=== PATIENT | male | born 1950 | race Caucasian/White ===

== ENCOUNTER 2017-08-02 16:48 | Inpatient (IN) | payer MEDICARE, MEDICAID ==
[~2017-08-02] VITALS: Ht 5535.5 cm; Wt 63.0 kg
[~2017-08-02 16:48] MED LIST: ASPI-1053; BAC10T PO; GABA-338 PO; MELO-83 PO; NORCO10T PO; SIMV20TA5 PO; SIN25C PO
[2017-08-02] MEDS ORDERED: LORazepam 2 mg/ml vial IV ONE (17:10)
[2017-08-02] MEDS ORDERED: levoFLOXACIN-Levaquin 750MG/D5 150 ML IV STA (17:18)
[2017-08-02 17:37] LABS: BASOPHILS % (AUTO) 0.5 % (0-1); EOSINOPHILS % (AUTO) 0.3 % (0-6); HEMOGLOBIN 13.8 g/dl (14.0-17.9); LYMPHOCYTES # (AUTO) 2.5 X10'3 (1.1-4.8); LYMPHOCYTES % (AUTO) 23.6 % (21-51); MEAN CORPUSCULAR HEMOGLOBIN 34.1 PG (27.0-31.0); MEAN CORPUSCULAR HGB CONC 33.5 % (33.0-36.5); MEAN CORPUSCULAR VOLUME 101.6 FL (78-98); MEAN PLATELET VOLUME 9.6 FL (7.4-10.4); MONOCYTES # (AUTO) 1.6 X10'3 (0-0.9); MONOCYTES % (AUTO) 15.3 % (2-12); NEUTROPHILS # (AUTO) 6.3 X10'3 (1.8-7.7); NEUTROPHILS % (AUTO) 60.3 % (42-75); PLATELET COUNT 258 X10'3 (140-440); RED BLOOD COUNT 4.04 X10'6 (4.70-6.10); RED CELL DISTRIBUTION WIDTH 13.8 % (11.5-14.5); WHITE BLOOD COUNT 10.4 X10'3 (4.5-11.0)
[2017-08-02 17:58] LABS: PARTIAL THROMBOPLASTIN TIME 28 SECONDS (22-32); PROTHROMBIN TIME 10.6 SECONDS (9.0-12.0)
[2017-08-02] MEDS ORDERED: aspirin 325mg tablet PO ONE (18:00)
[2017-08-02 18:05] LABS: ALANINE AMINOTRANSFERASE 40 U/L (12-78); ALBUMIN 3.1 G/DL (3.4-5.0); ALBUMIN/GLOBULIN RATIO 0.6 (1.1-1.5); ALKALINE PHOSPHATASE 96 IU/L (46-116); ANION GAP 11 (8-16); ASPARTATE AMINO TRANSFERASE 43 U/L (10-37); BILIRUBIN,TOTAL 0.7 MG/DL (0.1-1.0); BLOOD UREA NITROGEN 31 MG/DL (7-18); BUN/CREATININE RATIO 14.9 (5.4-32.0); CALCIUM 9.1 MG/DL (8.5-10.1); CHLORIDE 101 MMOL/L (99-107); CREATININE 2.08 MG/DL (0.60-1.10); GLUCOSE 119 MG/DL (70-104); POTASSIUM 3.9 MMOL/L (3.5-5.1); SODIUM 137 MMOL/L (135-145); TOTAL CARBON DIOXIDE 25.3 MMOL/L (24-32); TOTAL PROTEIN 8.4 G/DL (6.4-8.2); eGFR 32 ML/MIN
[2017-08-02] MEDS ORDERED: nitroGLYCERIN-Tridil 50MG/D5W 250 ML IV ONE (18:15)
[2017-08-02] MEDS ORDERED: furosemide 10 MG/1 ML 10ml inj IV ONE (18:35)
[2017-08-02] MEDS ORDERED: normal saline 1000ML IV soln IVB ONE (18:35)
[2017-08-02 18:38] LABS: ETHANOL < 0.010 GM/DL (0.0-0.010)
[2017-08-02 19:25] LABS: URINE AMPHETAMINE SCREEN POSITIVE (Neg); URINE BARBITUATE SCREEN NEGATIVE (Neg); URINE BENZODIAZEPINES SCREEN NEGATIVE (Neg); URINE CANNABINOID SCREEN NEGATIVE (Neg); URINE COCAINE SCREEN NEGATIVE (Neg); URINE METHADONE SCREEN NEGATIVE (Neg); URINE OPIATE SCREEN NEGATIVE (Neg); URINE PHENCYCLIDINE SCREEN NEGATIVE (Neg)
[2017-08-02 19:55] LABS: CLARITY,URINE CLEAR (Clear); COLOR,URINE YELLOW (Yellow); GLUCOSE, URINE NEGATIVE (Neg); KETONES,URINE NEGATIVE (Neg); LEUKOCYTE ESTERASE ,URINE NEGATIVE (Neg); NITRITES, URINE NEGATIVE (Neg); OCCULT BLOOD,URINE SMALL (Neg); PH,URINE 5.5 (4.8-8.0); PROTEIN,URINE >=300 mg/dl (Neg)
[2017-08-02] MEDS ORDERED: mag hydrox/Alum hydrox/simeth 30ml oral suspension PO PRN (20:25)
[2017-08-02] MEDS ORDERED: lisinopril 10 MG tablet PO ONE (20:25)
[2017-08-02] MEDS ORDERED: potassium Cl 20 mEq SR tablet PO PRN ×2 (20:25)
[2017-08-02] MEDS ORDERED: morphine 4 MG/ML inj SYRINge IV PRN ×2 (20:25)
[2017-08-02] MEDS ORDERED: magnesium hydroxide 30ml (MOM) UD suspension PO PRN (20:25)
[2017-08-02] MEDS ORDERED: potassium Cl 40MEQ/NS 500ml 500 ML IV PRN ×2 (20:25)
[2017-08-02] MEDS ORDERED: magnesium 4gm in 100ml NS 100 ML IV PRN (20:25)
[2017-08-02] MEDS ORDERED: ondansetron/PF 4mg/2ml inj IV PRN (20:25)
[2017-08-02] MEDS ORDERED: magnesium 2GM in 50ml NS 50 ML IV PRN (20:25)
[2017-08-02] MEDS ORDERED: magnesium Cl slow-release 64mg tablet PO PRN (20:25)
[2017-08-02] MEDS ORDERED: ipratropium/albuterol 3ml nebule NEB PRN (20:25)
[2017-08-02] MEDS ORDERED: albuterol 2.5 MG/3 ML nebule NEB PRN (20:25)
[2017-08-02 20:28] LABS: UA COLLECTION TYPE CLN CATCH MIDSTREAM
[2017-08-02] MEDS: gabapentin 300mg capsule PO SCH (20:31)
[2017-08-02] MEDS ORDERED: heparin 10,000 units/1 ML INJ IV ONE (20:35)
[2017-08-02 20:40] LABS: BACTERIA,URINE NONE SEEN /HPF (Neg); HYALINE CASTS 0-3 /LPF (NEGATIVE); MUCUS STRANDS FEW /LPF (Neg); RBC,URINE 0-2 /HPF (0-2); SQUAMOUS EPITHELIAL CELL,UR FEW /LPF (FEW); WBC,URINE NONE SEEN /HPF (0-4)
[2017-08-02 22:06] LABS: BASOPHILS % (AUTO) 0.4 % (0-1); EOSINOPHILS % (AUTO) 0.1 % (0-6); HEMATOCRIT 38.1 % (42.0-52.0); HEMOGLOBIN 12.6 g/dl (14.0-17.9); LYMPHOCYTES # (AUTO) 1.3 X10'3 (1.1-4.8); LYMPHOCYTES % (AUTO) 14.3 % (21-51); MEAN CORPUSCULAR HEMOGLOBIN 33.7 PG (27.0-31.0); MEAN CORPUSCULAR HGB CONC 33.2 % (33.0-36.5); MEAN CORPUSCULAR VOLUME 101.5 FL (78-98); MEAN PLATELET VOLUME 9.9 FL (7.4-10.4); MONOCYTES # (AUTO) 1.5 X10'3 (0-0.9); MONOCYTES % (AUTO) 16.6 % (2-12); NEUTROPHILS # (AUTO) 6.1 X10'3 (1.8-7.7); NEUTROPHILS % (AUTO) 68.6 % (42-75); PLATELET COUNT 228 X10'3 (140-440); RED BLOOD COUNT 3.75 X10'6 (4.70-6.10); RED CELL DISTRIBUTION WIDTH 13.7 % (11.5-14.5); WHITE BLOOD COUNT 8.9 X10'3 (4.5-11.0)
[2017-08-03 03:27] LABS: BASOPHILS % (AUTO) 0.1 % (0-1); EOSINOPHILS # (AUTO) 0.1 X10'3 (0-0.9); EOSINOPHILS % (AUTO) 0.7 % (0-6); HEMATOCRIT 36.3 % (42.0-52.0); HEMOGLOBIN 12.5 g/dl (14.0-17.9); LYMPHOCYTES # (AUTO) 2.3 X10'3 (1.1-4.8); LYMPHOCYTES % (AUTO) 23.5 % (21-51); MEAN CORPUSCULAR HEMOGLOBIN 34.8 PG (27.0-31.0); MEAN CORPUSCULAR HGB CONC 34.4 % (33.0-36.5); MEAN CORPUSCULAR VOLUME 101.3 FL (78-98); MEAN PLATELET VOLUME 9.6 FL (7.4-10.4); MONOCYTES # (AUTO) 1.5 X10'3 (0-0.9); MONOCYTES % (AUTO) 15.4 % (2-12); NEUTROPHILS # (AUTO) 5.9 X10'3 (1.8-7.7); NEUTROPHILS % (AUTO) 60.3 % (42-75); PLATELET COUNT 233 X10'3 (140-440); RED BLOOD COUNT 3.59 X10'6 (4.70-6.10); RED CELL DISTRIBUTION WIDTH 13.7 % (11.5-14.5); WHITE BLOOD COUNT 9.7 X10'3 (4.5-11.0)
[2017-08-03 03:44] LABS: ALANINE AMINOTRANSFERASE 35 U/L (12-78); ALBUMIN 2.6 G/DL (3.4-5.0); ALBUMIN/GLOBULIN RATIO 0.6 (1.1-1.5); ALKALINE PHOSPHATASE 79 IU/L (46-116); ANION GAP 11 (8-16); ASPARTATE AMINO TRANSFERASE 37 U/L (10-37); BILIRUBIN,TOTAL 0.7 MG/DL (0.1-1.0); BLOOD UREA NITROGEN 29 MG/DL (7-18); BUN/CREATININE RATIO 14.3 (5.4-32.0); CALCIUM 8.5 MG/DL (8.5-10.1); CHLORIDE 102 MMOL/L (99-107); CREATININE 2.03 MG/DL (0.60-1.10); GLUCOSE 158 MG/DL (70-104); POTASSIUM 3.1 MMOL/L (3.5-5.1); SODIUM 139 MMOL/L (135-145); TOTAL CARBON DIOXIDE 26.2 MMOL/L (24-32); eGFR 33 ML/MIN
[2017-08-03] MEDS: heparin 10,000 units/1 ML INJ IV PRN ×2 (05:08→11:30)
[2017-08-03] MEDS ORDERED: CefTRIAXone 2gm/NS 100ml IVPB 100 ML IV SCH (08:00)
[2017-08-03] MEDS: doxepin 25mg capsule PO SCH (08:00)
[2017-08-03] MEDS: baclofen 10mg tablet PO SCH (08:00)
[2017-08-03] MEDS: atorvastatin 10mg tablet PO SCH (08:00)
[2017-08-03] MEDS: gabapentin 300mg capsule PO SCH ×3 (08:00→21:01)
[2017-08-03] MEDS: K and/or MAG REPLACEMENT MC SCH (08:24)
[2017-08-03] MEDS: furosemide 20 MG/2 ML vial IV SCH ×2 (12:48→21:03)
[2017-08-03] MEDS: potassium Cl 20 mEq SR tablet PO SCH ×2 (12:48→17:51)
[2017-08-03] MEDS: pantoprazole 40mg Tablet.DR PO SCH (12:49)
[2017-08-03] MEDS: aspirin 81mg tablet.DR PO SCH (12:49)
[2017-08-03 19:40] VITALS: BP 109/56
[2017-08-03] MEDS: lactobacillus rhamnosus 10,000 MMU CELLS/CAPSULE PO SCH (21:01)
[2017-08-03] MEDS: metoprolol tartrate 12.5mg (1/2 tablet) PO SCH (21:01)
[2017-08-03] MEDS: heparin, porcine 5000 units/ml vial SQ SCH (21:03)
[2017-08-03 23:00] VITALS: BP 86/62
[2017-08-04 03:00] VITALS: BP 126/88
[2017-08-04 07:00] VITALS: BP 82/62
[2017-08-04 07:05] LABS: BASOPHILS % (AUTO) 0.5 % (0-1); EOSINOPHILS # (AUTO) 0.3 X10'3 (0-0.9); HEMATOCRIT 36.3 % (42.0-52.0); HEMOGLOBIN 12.3 g/dl (14.0-17.9); LYMPHOCYTES # (AUTO) 2.7 X10'3 (1.1-4.8); LYMPHOCYTES % (AUTO) 30.6 % (21-51); MEAN CORPUSCULAR HEMOGLOBIN 34.5 PG (27.0-31.0); MEAN CORPUSCULAR HGB CONC 33.9 % (33.0-36.5); MEAN CORPUSCULAR VOLUME 101.6 FL (78-98); MONOCYTES # (AUTO) 1.3 X10'3 (0-0.9); MONOCYTES % (AUTO) 14.9 % (2-12); NEUTROPHILS # (AUTO) 4.5 X10'3 (1.8-7.7); PLATELET COUNT 232 X10'3 (140-440); RED BLOOD COUNT 3.57 X10'6 (4.70-6.10); RED CELL DISTRIBUTION WIDTH 13.9 % (11.5-14.5); WHITE BLOOD COUNT 8.9 X10'3 (4.5-11.0)
[2017-08-04 07:20] LABS: ALANINE AMINOTRANSFERASE 29 U/L (12-78); ALBUMIN 2.3 G/DL (3.4-5.0); ALBUMIN/GLOBULIN RATIO 0.5 (1.1-1.5); ALKALINE PHOSPHATASE 71 IU/L (46-116); ANION GAP 11 (8-16); ASPARTATE AMINO TRANSFERASE 33 U/L (10-37); BILIRUBIN,TOTAL 0.3 MG/DL (0.1-1.0); BLOOD UREA NITROGEN 34 MG/DL (7-18); BUN/CREATININE RATIO 15.1 (5.4-32.0); CALCIUM 8.6 MG/DL (8.5-10.1); CHLORIDE 104 MMOL/L (99-107); CREATININE 2.25 MG/DL (0.60-1.10); GLUCOSE 92 MG/DL (70-104); POTASSIUM 3.7 MMOL/L (3.5-5.1); SODIUM 142 MMOL/L (135-145); TOTAL CARBON DIOXIDE 27.2 MMOL/L (24-32); TOTAL PROTEIN 6.6 G/DL (6.4-8.2); eGFR 29 ML/MIN
[2017-08-04 07:26] LABS: LARGE PLATELETS FEW; PLATELET ESTIMATE NORMAL
[2017-08-04] MEDS: doxepin 25mg capsule PO SCH (07:46)
[2017-08-04] MEDS: heparin, porcine 5000 units/ml vial SQ SCH ×2 (07:47→19:26)
[2017-08-04] MEDS: pantoprazole 40mg Tablet.DR PO SCH (07:47)
[2017-08-04] MEDS: gabapentin 300mg capsule PO SCH ×3 (07:47→21:28)
[2017-08-04] MEDS: aspirin 81mg tablet.DR PO SCH (07:47)
[2017-08-04] MEDS: atorvastatin 10mg tablet PO SCH (07:47)
[2017-08-04] MEDS: potassium Cl 20 mEq SR tablet PO SCH ×2 (07:48→17:48)
[2017-08-04] MEDS: furosemide 20 MG/2 ML vial IV SCH ×2 (07:48→19:26)
[2017-08-04] MEDS: lactobacillus rhamnosus 10,000 MMU CELLS/CAPSULE PO SCH ×2 (07:48→19:26)
[2017-08-04] MEDS: baclofen 10mg tablet PO SCH (07:48)
[2017-08-04] MEDS: metoprolol tartrate 12.5mg (1/2 tablet) PO SCH ×2 (07:56→19:26)
[2017-08-04] MEDS: K and/or MAG REPLACEMENT MC SCH (08:00)
[2017-08-04 11:00] VITALS: BP 122/84
[2017-08-04 15:00] VITALS: BP 116/77
[2017-08-04 18:30] VITALS: BP 137/89
[2017-08-04 22:00] VITALS: BP 147/93
[2017-08-05 02:00] VITALS: BP 138/92
[2017-08-05 05:23] LABS: BASOPHILS # (AUTO) 0.1 X10'3 (0-0.2); BASOPHILS % (AUTO) 1.5 % (0-1); EOSINOPHILS # (AUTO) 0.4 X10'3 (0-0.9); EOSINOPHILS % (AUTO) 4.8 % (0-6); HEMATOCRIT 38.2 % (42.0-52.0); HEMOGLOBIN 12.9 g/dl (14.0-17.9); LYMPHOCYTES # (AUTO) 2.7 X10'3 (1.1-4.8); LYMPHOCYTES % (AUTO) 30.4 % (21-51); MEAN CORPUSCULAR HEMOGLOBIN 34.5 PG (27.0-31.0); MEAN CORPUSCULAR HGB CONC 33.9 % (33.0-36.5); MEAN CORPUSCULAR VOLUME 101.6 FL (78-98); MEAN PLATELET VOLUME 10.3 FL (7.4-10.4); MONOCYTES # (AUTO) 1.6 X10'3 (0-0.9); MONOCYTES % (AUTO) 18.8 % (2-12); NEUTROPHILS # (AUTO) 3.9 X10'3 (1.8-7.7); NEUTROPHILS % (AUTO) 44.5 % (42-75); PLATELET COUNT 239 X10'3 (140-440); RED BLOOD COUNT 3.76 X10'6 (4.70-6.10); RED CELL DISTRIBUTION WIDTH 13.9 % (11.5-14.5); WHITE BLOOD COUNT 8.7 X10'3 (4.5-11.0)
[2017-08-05 05:39] LABS: ALANINE AMINOTRANSFERASE 30 U/L (12-78); ALBUMIN 2.5 G/DL (3.4-5.0); ALBUMIN/GLOBULIN RATIO 0.5 (1.1-1.5); ALKALINE PHOSPHATASE 73 IU/L (46-116); ANION GAP 10 (8-16); ASPARTATE AMINO TRANSFERASE 32 U/L (10-37); BILIRUBIN,TOTAL 0.4 MG/DL (0.1-1.0); BLOOD UREA NITROGEN 33 MG/DL (7-18); BUN/CREATININE RATIO 14.2 (5.4-32.0); CHLORIDE 105 MMOL/L (99-107); CREATININE 2.33 MG/DL (0.60-1.10); GLUCOSE 101 MG/DL (70-104); MAGNESIUM 2.1 MG/DL (1.5-2.4); POTASSIUM 3.7 MMOL/L (3.5-5.1); SODIUM 141 MMOL/L (135-145); TOTAL CARBON DIOXIDE 25.9 MMOL/L (24-32); TOTAL PROTEIN 7.1 G/DL (6.4-8.2); eGFR 28 ML/MIN
[2017-08-05 07:00] VITALS: BP 148/93
[2017-08-05] MEDS: doxepin 25mg capsule PO SCH (07:37)
[2017-08-05] MEDS: furosemide 20 MG/2 ML vial IV SCH (07:37)
[2017-08-05] MEDS: baclofen 10mg tablet PO SCH (07:37)
[2017-08-05] MEDS: lactobacillus rhamnosus 10,000 MMU CELLS/CAPSULE PO SCH ×2 (07:37→21:18)
[2017-08-05] MEDS: gabapentin 300mg capsule PO SCH ×3 (07:37→21:18)
[2017-08-05] MEDS: aspirin 81mg tablet.DR PO SCH (07:37)
[2017-08-05] MEDS: potassium Cl 20 mEq SR tablet PO SCH ×2 (07:37→17:51)
[2017-08-05] MEDS: atorvastatin 10mg tablet PO SCH (07:38)
[2017-08-05] MEDS: metoprolol tartrate 12.5mg (1/2 tablet) PO SCH ×2 (07:41→21:18)
[2017-08-05] MEDS: pantoprazole 40mg Tablet.DR PO SCH (07:41)
[2017-08-05] MEDS: heparin, porcine 5000 units/ml vial SQ SCH ×2 (07:46→21:20)
[2017-08-05] MEDS: K and/or MAG REPLACEMENT MC SCH (08:00)
[2017-08-05] MEDS ORDERED: pneumococcal 23-VAL P-sac vacc 25 mcg/0.5ml vial IMVAC ONE (10:00)
[2017-08-05] MEDS ORDERED: FLU VACC QS2017-18 36MOS UP/PF 60 MCG/0.5 ML SYRINGE IMVAC ONE (10:00)
[2017-08-05 11:00] VITALS: BP 136/72
[2017-08-05 15:00] VITALS: BP 128/78
[2017-08-05 18:00] VITALS: BP 155/96
[2017-08-05] MEDS: acetaminophen 325mg tablet PO PRN (18:43)
[2017-08-06 02:00] VITALS: BP 150/97
[2017-08-06 05:30] LABS: ALANINE AMINOTRANSFERASE 30 U/L (12-78); ALBUMIN 2.7 G/DL (3.4-5.0); ALBUMIN/GLOBULIN RATIO 0.6 (1.1-1.5); ALKALINE PHOSPHATASE 74 IU/L (46-116); ANION GAP 9 (8-16); ASPARTATE AMINO TRANSFERASE 31 U/L (10-37); BILIRUBIN,TOTAL 0.5 MG/DL (0.1-1.0); BLOOD UREA NITROGEN 36 MG/DL (7-18); BUN/CREATININE RATIO 13.3 (5.4-32.0); CALCIUM 9.4 MG/DL (8.5-10.1); CHLORIDE 103 MMOL/L (99-107); GLUCOSE 96 MG/DL (70-104); MAGNESIUM 2.3 MG/DL (1.5-2.4); POTASSIUM 4.1 MMOL/L (3.5-5.1); SODIUM 140 MMOL/L (135-145); TOTAL CARBON DIOXIDE 28.1 MMOL/L (24-32); TOTAL PROTEIN 7.5 G/DL (6.4-8.2); eGFR 24 ML/MIN
[2017-08-06 07:00] VITALS: BP 158/74
[2017-08-06] MEDS: K and/or MAG REPLACEMENT MC SCH (08:00)
[2017-08-06] MEDS ORDERED: furosemide 20 MG/2 ML vial IV SCH (08:00)
[2017-08-06] MEDS: pantoprazole 40mg Tablet.DR PO SCH (08:03)
[2017-08-06] MEDS: baclofen 10mg tablet PO SCH (08:03)
[2017-08-06] MEDS: gabapentin 300mg capsule PO SCH ×3 (08:03→20:50)
[2017-08-06] MEDS: aspirin 81mg tablet.DR PO SCH (08:03)
[2017-08-06] MEDS: heparin, porcine 5000 units/ml vial SQ SCH ×2 (08:03→19:11)
[2017-08-06] MEDS: atorvastatin 10mg tablet PO SCH (08:04)
[2017-08-06] MEDS: metoprolol tartrate 12.5mg (1/2 tablet) PO SCH (08:04)
[2017-08-06] MEDS: lactobacillus rhamnosus 10,000 MMU CELLS/CAPSULE PO SCH ×2 (08:04→20:51)
[2017-08-06] MEDS: potassium Cl 20 mEq SR tablet PO SCH ×2 (08:30→17:30)
[2017-08-06] MEDS ORDERED: LORazepam 2 mg/ml vial IV ONE (09:50)
[2017-08-06 11:00] VITALS: BP 138/78
[2017-08-06] MEDS: folic acid 1mg tablet PO SCH (14:15)
[2017-08-06] MEDS: thiamine 100mg tablet PO SCH (14:15)
[2017-08-06] MEDS ORDERED: LORazepam 1 MG tablet PO PRN (14:15)
[2017-08-06] MEDS ORDERED: LORazepam 2 mg/ml vial IV PRN ×2 (14:15→17:00)
[2017-08-06 15:00] VITALS: BP 191/118
[2017-08-06 18:00] VITALS: BP 179/87
[2017-08-06] MEDS: metoprolol tartrate 25mg tablet PO SCH (19:11)
[2017-08-06 22:00] VITALS: BP 168/107
[2017-08-07 02:00] VITALS: BP 135/94
[2017-08-07] MEDS ORDERED: thiamine 100mg/ml 2ml inj. IM ONE (02:05)
[2017-08-07 04:16] LABS: ABG BASE EXCESS 2.1 mmol/L (-2.0-3.0); ABG HCO3 24.7 mmol/L (22.0-26.0); ABG OXYGEN SATURATION 92.9 % (95-98); ABG PCO2 (T) 32.2 mmHg (35.0-48.0); ABG PH (T) 7.501 (7.350-7.450); ALLEN'S TEST Positive; FCOHb 1.4 % (0.5-1.5); FMetHb 0.3 % (0.3-1.12); FO2Hb 91.3 % (94-100); PATIENT TEMPERATURE 36.8; RESPIRATORY RATE (OBSERVED) 20 b/min
[2017-08-07 06:00] VITALS: BP 142/103
[2017-08-07 06:11] LABS: ALANINE AMINOTRANSFERASE 37 U/L (12-78); ALBUMIN 2.9 G/DL (3.4-5.0); ALBUMIN/GLOBULIN RATIO 0.5 (1.1-1.5); ALKALINE PHOSPHATASE 84 IU/L (46-116); ANION GAP 12 (8-16); ASPARTATE AMINO TRANSFERASE 37 U/L (10-37); BILIRUBIN,TOTAL 0.5 MG/DL (0.1-1.0); BLOOD UREA NITROGEN 35 MG/DL (7-18); CALCIUM 9.5 MG/DL (8.5-10.1); CHLORIDE 102 MMOL/L (99-107); CREATININE 2.34 MG/DL (0.60-1.10); GLUCOSE 97 MG/DL (70-104); MAGNESIUM 2.3 MG/DL (1.5-2.4); PHOSPHORUS 4.1 MG/DL (2.3-4.5); SODIUM 141 MMOL/L (135-145); TOTAL CARBON DIOXIDE 26.9 MMOL/L (24-32); TOTAL PROTEIN 8.5 G/DL (6.4-8.2); eGFR 28 ML/MIN
[2017-08-07] MEDS: K and/or MAG REPLACEMENT MC SCH (08:00)
[2017-08-07] MEDS: potassium Cl 20 mEq SR tablet PO SCH ×2 (08:30→10:17)
[2017-08-07] MEDS: pantoprazole 40mg Tablet.DR PO SCH (10:06)
[2017-08-07] MEDS: atorvastatin 10mg tablet PO SCH (10:07)
[2017-08-07] MEDS: thiamine 100mg tablet PO SCH (10:12)
[2017-08-07] MEDS: gabapentin 300mg capsule PO SCH ×3 (10:13→20:41)
[2017-08-07] MEDS: metoprolol tartrate 25mg tablet PO SCH ×2 (10:14→20:41)
[2017-08-07] MEDS: aspirin 81mg tablet.DR PO SCH (10:15)
[2017-08-07] MEDS: folic acid 1mg tablet PO SCH (10:17)
[2017-08-07] MEDS: heparin, porcine 5000 units/ml vial SQ SCH ×2 (10:28→20:00)
[2017-08-07] MEDS: baclofen 10mg tablet PO SCH (10:54)
[2017-08-07] MEDS: lactobacillus rhamnosus 10,000 MMU CELLS/CAPSULE PO SCH ×2 (10:54→20:41)
[2017-08-07 11:00] VITALS: BP 130/94
[2017-08-07 15:00] VITALS: BP 110/45
[2017-08-07] MEDS: cyanocobalamin 500mcg tablet PO SCH (17:25)
[2017-08-07] MEDS: potassium Cl oral solution 20 MEQ/15 ML PO SCH (17:34)
[2017-08-07 19:26] VITALS: BP 174/82
[2017-08-07 23:44] VITALS: BP 130/79
[2017-08-08 03:26] VITALS: BP 128/88
[2017-08-08 05:38] LABS: ALBUMIN 2.6 G/DL (3.4-5.0); ANION GAP 11 (8-16); BLOOD UREA NITROGEN 34 MG/DL (7-18); BUN/CREATININE RATIO 14.3 (5.4-32.0); CALCIUM 9.1 MG/DL (8.5-10.1); CHLORIDE 104 MMOL/L (99-107); CREATININE 2.37 MG/DL (0.60-1.10); GLUCOSE 100 MG/DL (70-104); MAGNESIUM 2.4 MG/DL (1.5-2.4); POTASSIUM 3.8 MMOL/L (3.5-5.1); SODIUM 141 MMOL/L (135-145); TOTAL CARBON DIOXIDE 26.2 MMOL/L (24-32); eGFR 28 ML/MIN
[2017-08-08 06:00] VITALS: BP 133/71
[2017-08-08] MEDS: K and/or MAG REPLACEMENT MC SCH (08:00)
[2017-08-08] MEDS: gabapentin 300mg capsule PO SCH ×3 (08:16→20:48)
[2017-08-08] MEDS: lactobacillus rhamnosus 10,000 MMU CELLS/CAPSULE PO SCH ×2 (08:16→20:48)
[2017-08-08] MEDS: pantoprazole 40mg Tablet.DR PO SCH (08:16)
[2017-08-08] MEDS: baclofen 10mg tablet PO SCH (08:17)
[2017-08-08] MEDS: metoprolol tartrate 25mg tablet PO SCH ×2 (08:17→20:55)
[2017-08-08] MEDS: atorvastatin 10mg tablet PO SCH (08:17)
[2017-08-08] MEDS: folic acid 1mg tablet PO SCH (08:17)
[2017-08-08] MEDS: thiamine 100mg tablet PO SCH (08:17)
[2017-08-08] MEDS: cyanocobalamin 500mcg tablet PO SCH (08:17)
[2017-08-08] MEDS: potassium Cl oral solution 20 MEQ/15 ML PO SCH (08:17)
[2017-08-08] MEDS: aspirin 81mg tablet.DR PO SCH (08:17)
[2017-08-08] MEDS: heparin, porcine 5000 units/ml vial SQ SCH ×2 (08:18→20:51)
[2017-08-08 11:00] VITALS: BP 121/79
[2017-08-08 15:00] VITALS: BP 106/75
[2017-08-08 18:00] VITALS: BP 131/77
[2017-08-08 22:00] VITALS: BP 140/90
[2017-08-09 02:00] VITALS: BP 142/81
[2017-08-09 06:00] VITALS: BP 139/64
[2017-08-09 07:19] LABS: ALBUMIN 2.8 G/DL (3.4-5.0); ANION GAP 11 (8-16); BLOOD UREA NITROGEN 35 MG/DL (7-18); BUN/CREATININE RATIO 14.6 (5.4-32.0); CALCIUM 8.9 MG/DL (8.5-10.1); CHLORIDE 103 MMOL/L (99-107); CREATININE 2.39 MG/DL (0.60-1.10); GLUCOSE 100 MG/DL (70-104); MAGNESIUM 2.3 MG/DL (1.5-2.4); PHOSPHORUS 3.6 MG/DL (2.3-4.5); POTASSIUM 4.1 MMOL/L (3.5-5.1); SODIUM 138 MMOL/L (135-145); TOTAL CARBON DIOXIDE 24.1 MMOL/L (24-32); eGFR 27 ML/MIN
[2017-08-09] MEDS: K and/or MAG REPLACEMENT MC SCH (08:00)
[2017-08-09] MEDS: thiamine 100mg tablet PO SCH (08:00)
[2017-08-09] MEDS: gabapentin 300mg capsule PO SCH ×3 (09:44→21:57)
[2017-08-09] MEDS: cyanocobalamin 500mcg tablet PO SCH (09:47)
[2017-08-09] MEDS: atorvastatin 10mg tablet PO SCH (09:47)
[2017-08-09] MEDS: lactobacillus rhamnosus 10,000 MMU CELLS/CAPSULE PO SCH ×2 (09:47→19:49)
[2017-08-09] MEDS: pantoprazole 40mg Tablet.DR PO SCH (09:47)
[2017-08-09] MEDS: baclofen 10mg tablet PO SCH (09:47)
[2017-08-09] MEDS: metoprolol tartrate 25mg tablet PO SCH ×2 (09:47→19:49)
[2017-08-09] MEDS: folic acid 1mg tablet PO SCH (09:48)
[2017-08-09] MEDS: aspirin 81mg tablet.DR PO SCH (09:48)
[2017-08-09] MEDS: heparin, porcine 5000 units/ml vial SQ SCH ×2 (09:50→19:51)
[2017-08-09 11:00] VITALS: BP 147/79
[2017-08-09 15:00] VITALS: BP 155/97
[2017-08-09 18:00] VITALS: BP 160/90
[2017-08-09 22:00] VITALS: BP 159/80
[2017-08-10] VITALS (8 sets, daily range): BP systolic 108–188; BP diastolic 70–99
[2017-08-10 06:54] LABS: ALBUMIN 2.5 G/DL (3.4-5.0); ANION GAP 11 (8-16); BLOOD UREA NITROGEN 34 MG/DL (7-18); CHLORIDE 103 MMOL/L (99-107); CREATININE 2.26 MG/DL (0.60-1.10); GLUCOSE 101 MG/DL (70-104); PHOSPHORUS 3.9 MG/DL (2.3-4.5); POTASSIUM 3.5 MMOL/L (3.5-5.1); SODIUM 139 MMOL/L (135-145); TOTAL CARBON DIOXIDE 25.4 MMOL/L (24-32); eGFR 29 ML/MIN
[2017-08-10] MEDS: K and/or MAG REPLACEMENT MC SCH (08:00)
[2017-08-10] MEDS: cyanocobalamin 500mcg tablet PO SCH (08:11)
[2017-08-10] MEDS: thiamine 100mg tablet PO SCH (08:11)
[2017-08-10] MEDS: pantoprazole 40mg Tablet.DR PO SCH (08:11)
[2017-08-10] MEDS: aspirin 81mg tablet.DR PO SCH (08:11)
[2017-08-10] MEDS: gabapentin 300mg capsule PO SCH ×3 (08:11→22:12)
[2017-08-10] MEDS: baclofen 10mg tablet PO SCH (08:11)
[2017-08-10] MEDS: metoprolol tartrate 25mg tablet PO SCH ×2 (08:11→22:12)
[2017-08-10] MEDS: atorvastatin 10mg tablet PO SCH (08:12)
[2017-08-10] MEDS: lactobacillus rhamnosus 10,000 MMU CELLS/CAPSULE PO SCH ×2 (08:12→22:13)
[2017-08-10] MEDS: folic acid 1mg tablet PO SCH (08:12)
[2017-08-10] MEDS: multivitamins, therapeutics tablet PO SCH (08:12)
[2017-08-10] MEDS: heparin, porcine 5000 units/ml vial SQ SCH ×2 (08:13→22:13)
[2017-08-10] MEDS ORDERED: docusate sod 100mg capsule PO ONE (10:45)
[2017-08-10] MEDS: amLODIPine 5mg tablet PO SCH (15:20)
[2017-08-10] MEDS: acetaminophen 325mg tablet PO PRN ×2 (15:47→22:14)
[2017-08-11 02:00] VITALS: BP 123/80
[2017-08-11 06:00] VITALS: BP 139/85
[2017-08-11 06:13] LABS: ALBUMIN 2.4 G/DL (3.4-5.0); ANION GAP 12 (8-16); BLOOD UREA NITROGEN 30 MG/DL (7-18); BUN/CREATININE RATIO 14.4 (5.4-32.0); CHLORIDE 104 MMOL/L (99-107); CREATININE 2.09 MG/DL (0.60-1.10); GLUCOSE 110 MG/DL (70-104); PHOSPHORUS 3.4 MG/DL (2.3-4.5); POTASSIUM 3.9 MMOL/L (3.5-5.1); SODIUM 139 MMOL/L (135-145); TOTAL CARBON DIOXIDE 23.3 MMOL/L (24-32); eGFR 32 ML/MIN
[2017-08-11] MEDS: K and/or MAG REPLACEMENT MC SCH (08:00)
[2017-08-11] MEDS: aspirin 81mg tablet.DR PO SCH (08:17)
[2017-08-11] MEDS: cyanocobalamin 500mcg tablet PO SCH (08:17)
[2017-08-11] MEDS: amLODIPine 5mg tablet PO SCH ×2 (08:17→18:00)
[2017-08-11] MEDS: acetaminophen 325mg tablet PO PRN (08:18)
[2017-08-11] MEDS: thiamine 100mg tablet PO SCH (08:18)
[2017-08-11] MEDS: metoprolol tartrate 25mg tablet PO SCH ×2 (08:18→19:37)
[2017-08-11] MEDS: atorvastatin 10mg tablet PO SCH (08:19)
[2017-08-11] MEDS: lactobacillus rhamnosus 10,000 MMU CELLS/CAPSULE PO SCH ×2 (08:19→19:37)
[2017-08-11] MEDS: baclofen 10mg tablet PO SCH (08:19)
[2017-08-11] MEDS: multivitamins, therapeutics tablet PO SCH (08:19)
[2017-08-11] MEDS: gabapentin 300mg capsule PO SCH ×3 (08:20→19:37)
[2017-08-11] MEDS: folic acid 1mg tablet PO SCH (08:20)
[2017-08-11] MEDS: pantoprazole 40mg Tablet.DR PO SCH (08:20)
[2017-08-11] MEDS: heparin, porcine 5000 units/ml vial SQ SCH ×2 (08:31→19:37)
[2017-08-11 11:00] VITALS: BP 93/60
[2017-08-11 15:00] VITALS: BP 169/87
[2017-08-11 19:00] VITALS: BP 185/98
[2017-08-11 23:00] VITALS: BP 161/83
[2017-08-12] MEDS: acetaminophen 325mg tablet PO PRN (02:03)
[2017-08-12 03:00] VITALS: BP 167/86
[2017-08-12 05:34] LABS: BASOPHILS # (AUTO) 0.1 X10'3 (0-0.2); BASOPHILS % (AUTO) 0.5 % (0-1); EOSINOPHILS # (AUTO) 0.3 X10'3 (0-0.9); EOSINOPHILS % (AUTO) 2.8 % (0-6); HEMATOCRIT 38.4 % (42.0-52.0); HEMOGLOBIN 13.1 g/dl (14.0-17.9); LYMPHOCYTES # (AUTO) 1.6 X10'3 (1.1-4.8); LYMPHOCYTES % (AUTO) 15.3 % (21-51); MEAN CORPUSCULAR HEMOGLOBIN 34.4 PG (27.0-31.0); MEAN PLATELET VOLUME 11.2 FL (7.4-10.4); MONOCYTES # (AUTO) 1.2 X10'3 (0-0.9); MONOCYTES % (AUTO) 11.6 % (2-12); NEUTROPHILS # (AUTO) 7.3 X10'3 (1.8-7.7); NEUTROPHILS % (AUTO) 69.8 % (42-75); PLATELET COUNT 291 X10'3 (140-440); RED CELL DISTRIBUTION WIDTH 13.3 % (11.5-14.5); WHITE BLOOD COUNT 10.4 X10'3 (4.5-11.0)
[2017-08-12 05:57] LABS: ALANINE AMINOTRANSFERASE 26 U/L (12-78); ALBUMIN 2.4 G/DL (3.4-5.0); ALBUMIN/GLOBULIN RATIO 0.4 (1.1-1.5); ALKALINE PHOSPHATASE 76 IU/L (46-116); ANION GAP 9 (8-16); ASPARTATE AMINO TRANSFERASE 30 U/L (10-37); BILIRUBIN,TOTAL 0.3 MG/DL (0.1-1.0); BLOOD UREA NITROGEN 30 MG/DL (7-18); BUN/CREATININE RATIO 14.8 (5.4-32.0); CALCIUM 9.3 MG/DL (8.5-10.1); CHLORIDE 104 MMOL/L (99-107); CREATININE 2.03 MG/DL (0.60-1.10); GLUCOSE 108 MG/DL (70-104); SODIUM 140 MMOL/L (135-145); TOTAL CARBON DIOXIDE 26.6 MMOL/L (24-32); TOTAL PROTEIN 7.9 G/DL (6.4-8.2); eGFR 33 ML/MIN
[2017-08-12 06:00] VITALS: BP 144/77
[2017-08-12 06:18] LABS: PLATELET ESTIMATE NORMAL
[2017-08-12 06:19] LABS: LARGE PLATELETS FEW
[2017-08-12] MEDS: K and/or MAG REPLACEMENT MC SCH ×2 (07:07→08:00)
[2017-08-12] MEDS: gabapentin 300mg capsule PO SCH ×3 (08:23→21:15)
[2017-08-12] MEDS: lactobacillus rhamnosus 10,000 MMU CELLS/CAPSULE PO SCH ×2 (08:23→21:15)
[2017-08-12] MEDS: multivitamins, therapeutics tablet PO SCH (08:23)
[2017-08-12] MEDS: metoprolol tartrate 25mg tablet PO SCH ×2 (08:23→21:15)
[2017-08-12] MEDS: pantoprazole 40mg Tablet.DR PO SCH (08:23)
[2017-08-12] MEDS: aspirin 81mg tablet.DR PO SCH (08:23)
[2017-08-12] MEDS: folic acid 1mg tablet PO SCH (08:24)
[2017-08-12] MEDS: atorvastatin 10mg tablet PO SCH (08:24)
[2017-08-12] MEDS: amLODIPine 5mg tablet PO SCH (08:24)
[2017-08-12] MEDS: cyanocobalamin 500mcg tablet PO SCH (08:24)
[2017-08-12] MEDS: thiamine 100mg tablet PO SCH (08:24)
[2017-08-12] MEDS: baclofen 10mg tablet PO SCH (08:24)
[2017-08-12] MEDS: heparin, porcine 5000 units/ml vial SQ SCH ×2 (08:25→21:16)
[2017-08-12 11:00] VITALS: BP 111/59
[2017-08-12 15:00] VITALS: BP 143/81
[2017-08-12 19:00] VITALS: BP 175/83
[2017-08-12 23:00] VITALS: BP 148/78
[2017-08-13] MEDS: acetaminophen 325mg tablet PO PRN ×3 (00:43→19:35)
[2017-08-13 03:00] VITALS: BP 140/74
[2017-08-13 05:15] LABS: BASOPHILS # (AUTO) 0.1 X10'3 (0-0.2); BASOPHILS % (AUTO) 1.3 % (0-1); EOSINOPHILS # (AUTO) 0.4 X10'3 (0-0.9); HEMATOCRIT 37.4 % (42.0-52.0); HEMOGLOBIN 12.8 g/dl (14.0-17.9); LYMPHOCYTES # (AUTO) 2.1 X10'3 (1.1-4.8); LYMPHOCYTES % (AUTO) 20.7 % (21-51); MEAN CORPUSCULAR HEMOGLOBIN 34.1 PG (27.0-31.0); MEAN CORPUSCULAR HGB CONC 34.2 % (33.0-36.5); MEAN CORPUSCULAR VOLUME 99.6 FL (78-98); MEAN PLATELET VOLUME 10.6 FL (7.4-10.4); MONOCYTES # (AUTO) 1.3 X10'3 (0-0.9); MONOCYTES % (AUTO) 12.6 % (2-12); NEUTROPHILS # (AUTO) 6.3 X10'3 (1.8-7.7); NEUTROPHILS % (AUTO) 61.4 % (42-75); PLATELET COUNT 289 X10'3 (140-440); RED BLOOD COUNT 3.76 X10'6 (4.70-6.10); RED CELL DISTRIBUTION WIDTH 13.4 % (11.5-14.5); WHITE BLOOD COUNT 10.3 X10'3 (4.5-11.0)
[2017-08-13 05:23] LABS: ALANINE AMINOTRANSFERASE 28 U/L (12-78); ALBUMIN 2.4 G/DL (3.4-5.0); ALBUMIN/GLOBULIN RATIO 0.5 (1.1-1.5); ALKALINE PHOSPHATASE 74 IU/L (46-116); ANION GAP 11 (8-16); ASPARTATE AMINO TRANSFERASE 31 U/L (10-37); BILIRUBIN,TOTAL 0.3 MG/DL (0.1-1.0); BLOOD UREA NITROGEN 31 MG/DL (7-18); BUN/CREATININE RATIO 15.5 (5.4-32.0); CALCIUM 8.7 MG/DL (8.5-10.1); CHLORIDE 104 MMOL/L (99-107); GLUCOSE 103 MG/DL (70-104); POTASSIUM 3.7 MMOL/L (3.5-5.1); SODIUM 139 MMOL/L (135-145); TOTAL CARBON DIOXIDE 23.8 MMOL/L (24-32); TOTAL PROTEIN 7.4 G/DL (6.4-8.2); eGFR 33 ML/MIN
[2017-08-13 07:00] VITALS: BP 152/81
[2017-08-13] MEDS: amLODIPine 5mg tablet PO SCH (07:47)
[2017-08-13] MEDS: lactobacillus rhamnosus 10,000 MMU CELLS/CAPSULE PO SCH ×2 (07:47→19:35)
[2017-08-13] MEDS: metoprolol tartrate 25mg tablet PO SCH ×2 (07:47→19:36)
[2017-08-13] MEDS: pantoprazole 40mg Tablet.DR PO SCH (07:47)
[2017-08-13] MEDS: thiamine 100mg tablet PO SCH (07:48)
[2017-08-13] MEDS: gabapentin 300mg capsule PO SCH ×2 (07:48→13:24)
[2017-08-13] MEDS: cyanocobalamin 500mcg tablet PO SCH (07:48)
[2017-08-13] MEDS: baclofen 10mg tablet PO SCH (07:48)
[2017-08-13] MEDS: multivitamins, therapeutics tablet PO SCH (07:48)
[2017-08-13] MEDS: aspirin 81mg tablet.DR PO SCH (07:49)
[2017-08-13] MEDS: atorvastatin 10mg tablet PO SCH (07:49)
[2017-08-13] MEDS: folic acid 1mg tablet PO SCH (07:49)
[2017-08-13] MEDS: heparin, porcine 5000 units/ml vial SQ SCH ×2 (07:50→19:41)
[2017-08-13 08:14] LABS: LARGE PLATELETS FEW; PLATELET ESTIMATE NORMAL
[2017-08-13 11:00] VITALS: BP 130/70
[2017-08-13 15:00] VITALS: BP 152/64
[2017-08-13 19:00] VITALS: BP 172/84
[2017-08-13 23:00] VITALS: BP 167/90
[2017-08-14] MEDS: gabapentin 300mg capsule PO SCH ×4 (01:12→21:17)
[2017-08-14 03:00] VITALS: BP 122/77
[2017-08-14 06:00] VITALS: BP 132/78
[2017-08-14] MEDS: thiamine 100mg tablet PO SCH (09:05)
[2017-08-14] MEDS: heparin, porcine 5000 units/ml vial SQ SCH ×2 (09:05→21:19)
[2017-08-14] MEDS: pantoprazole 40mg Tablet.DR PO SCH (09:05)
[2017-08-14] MEDS: cyanocobalamin 500mcg tablet PO SCH (09:05)
[2017-08-14] MEDS: multivitamins, therapeutics tablet PO SCH (09:05)
[2017-08-14] MEDS: atorvastatin 10mg tablet PO SCH (09:05)
[2017-08-14] MEDS: aspirin 81mg tablet.DR PO SCH (09:06)
[2017-08-14] MEDS: baclofen 10mg tablet PO SCH (09:06)
[2017-08-14] MEDS: folic acid 1mg tablet PO SCH (09:06)
[2017-08-14] MEDS: lactobacillus rhamnosus 10,000 MMU CELLS/CAPSULE PO SCH ×2 (09:06→21:17)
[2017-08-14] MEDS: metoprolol tartrate 25mg tablet PO SCH ×2 (09:06→21:17)
[2017-08-14] MEDS: amLODIPine 5mg tablet PO SCH (09:06)
[2017-08-14] MEDS: acetaminophen 325mg tablet PO PRN ×3 (09:09→10:26)
[2017-08-14] MEDS: K and/or MAG REPLACEMENT MC SCH (09:20)
[2017-08-14 11:00] VITALS: BP 112/78
[2017-08-14 12:57] VITALS: BP 112/78
[2017-08-14 20:00] VITALS: BP 130/93
[2017-08-15] VITALS: BP 114/73
[2017-08-15 07:30] VITALS: BP 131/67
[2017-08-15] MEDS: K and/or MAG REPLACEMENT MC SCH (08:00)
[2017-08-15] MEDS: lactobacillus rhamnosus 10,000 MMU CELLS/CAPSULE PO SCH ×2 (09:07→20:13)
[2017-08-15] MEDS: atorvastatin 10mg tablet PO SCH (09:07)
[2017-08-15] MEDS: metoprolol tartrate 25mg tablet PO SCH ×2 (09:07→20:13)
[2017-08-15] MEDS: folic acid 1mg tablet PO SCH (09:07)
[2017-08-15] MEDS: multivitamins, therapeutics tablet PO SCH (09:08)
[2017-08-15] MEDS: baclofen 10mg tablet PO SCH (09:08)
[2017-08-15] MEDS: aspirin 81mg tablet.DR PO SCH (09:09)
[2017-08-15] MEDS: amLODIPine 5mg tablet PO SCH (09:09)
[2017-08-15] MEDS: gabapentin 300mg capsule PO SCH ×3 (09:09→20:19)
[2017-08-15] MEDS: thiamine 100mg tablet PO SCH (09:10)
[2017-08-15] MEDS: heparin, porcine 5000 units/ml vial SQ SCH ×2 (09:10→20:12)
[2017-08-15] MEDS: cyanocobalamin 500mcg tablet PO SCH (09:10)
[2017-08-15] MEDS: pantoprazole 40mg Tablet.DR PO SCH (09:14)
[2017-08-15 20:00] VITALS: BP 136/89
[2017-08-16] VITALS: BP 126/77
[2017-08-16 07:00] VITALS: BP 126/85
[2017-08-16] MEDS: K and/or MAG REPLACEMENT MC SCH (08:00)
[2017-08-16] MEDS: folic acid 1mg tablet PO SCH (09:29)
[2017-08-16] MEDS: baclofen 10mg tablet PO SCH (09:29)
[2017-08-16] MEDS: thiamine 100mg tablet PO SCH (09:29)
[2017-08-16] MEDS: atorvastatin 10mg tablet PO SCH (09:30)
[2017-08-16] MEDS: gabapentin 300mg capsule PO SCH ×3 (09:30→20:49)
[2017-08-16] MEDS: amLODIPine 5mg tablet PO SCH (09:30)
[2017-08-16] MEDS: cyanocobalamin 500mcg tablet PO SCH (09:31)
[2017-08-16] MEDS: metoprolol tartrate 25mg tablet PO SCH ×2 (09:31→20:24)
[2017-08-16] MEDS: lactobacillus rhamnosus 10,000 MMU CELLS/CAPSULE PO SCH ×2 (09:31→20:24)
[2017-08-16] MEDS: pantoprazole 40mg Tablet.DR PO SCH (09:31)
[2017-08-16] MEDS: multivitamins, therapeutics tablet PO SCH (09:31)
[2017-08-16] MEDS: aspirin 81mg tablet.DR PO SCH (09:31)
[2017-08-16] MEDS: heparin, porcine 5000 units/ml vial SQ SCH ×2 (09:32→20:25)
[2017-08-16 11:30] VITALS: BP 146/86
[2017-08-16 19:00] VITALS: BP 127/74
[2017-08-16] MEDS: acetaminophen 325mg tablet PO PRN (20:26)
[2017-08-17] VITALS: BP 115/75
[2017-08-17] MEDS: pantoprazole 40mg Tablet.DR PO SCH (07:30)
[2017-08-17] MEDS: heparin, porcine 5000 units/ml vial SQ SCH ×2 (08:00→21:25)
[2017-08-17] MEDS: gabapentin 300mg capsule PO SCH ×3 (08:00→21:27)
[2017-08-17] MEDS: cyanocobalamin 500mcg tablet PO SCH (08:00)
[2017-08-17] MEDS: atorvastatin 10mg tablet PO SCH (08:00)
[2017-08-17] MEDS: folic acid 1mg tablet PO SCH (08:00)
[2017-08-17] MEDS: amLODIPine 5mg tablet PO SCH (08:00)
[2017-08-17] MEDS: thiamine 100mg tablet PO SCH (08:00)
[2017-08-17] MEDS: metoprolol tartrate 25mg tablet PO SCH ×2 (08:00→21:22)
[2017-08-17] MEDS: K and/or MAG REPLACEMENT MC SCH (08:00)
[2017-08-17] MEDS: baclofen 10mg tablet PO SCH (08:00)
[2017-08-17] MEDS: multivitamins, therapeutics tablet PO SCH (08:00)
[2017-08-17] MEDS: aspirin 81mg tablet.DR PO SCH (08:00)
[2017-08-17] MEDS: lactobacillus rhamnosus 10,000 MMU CELLS/CAPSULE PO SCH ×2 (08:00→21:18)
[2017-08-17 08:17] VITALS: BP 134/80
[2017-08-17 11:00] VITALS: BP 116/76
[2017-08-17 18:00] VITALS: BP 124/68
[2017-08-17] MEDS: acetaminophen 325mg tablet PO PRN (21:19)
[2017-08-17 23:30] VITALS: BP 113/70
[2017-08-18] MEDS: pantoprazole 40mg Tablet.DR PO SCH ×2 (07:30→08:09)
[2017-08-18] MEDS: K and/or MAG REPLACEMENT MC SCH (07:59)
[2017-08-18 08:00] VITALS: BP 129/83
[2017-08-18] MEDS: multivitamins, therapeutics tablet PO SCH ×2 (08:00→08:08)
[2017-08-18] MEDS: baclofen 10mg tablet PO SCH ×2 (08:00→08:08)
[2017-08-18] MEDS: thiamine 100mg tablet PO SCH ×2 (08:00→08:09)
[2017-08-18] MEDS: folic acid 1mg tablet PO SCH ×2 (08:00→08:08)
[2017-08-18] MEDS: heparin, porcine 5000 units/ml vial SQ SCH ×3 (08:00→20:03)
[2017-08-18] MEDS: metoprolol tartrate 25mg tablet PO SCH ×2 (08:00→20:02)
[2017-08-18] MEDS: cyanocobalamin 500mcg tablet PO SCH ×2 (08:00→08:08)
[2017-08-18] MEDS: gabapentin 300mg capsule PO SCH ×3 (08:08→20:02)
[2017-08-18] MEDS: atorvastatin 10mg tablet PO SCH (08:08)
[2017-08-18] MEDS: aspirin 81mg tablet.DR PO SCH (08:08)
[2017-08-18] MEDS: amLODIPine 5mg tablet PO SCH (08:09)
[2017-08-18] MEDS: lactobacillus rhamnosus 10,000 MMU CELLS/CAPSULE PO SCH ×2 (08:09→20:02)
[2017-08-18 11:00] VITALS: BP 109/57
[2017-08-18] MEDS: acetaminophen 325mg tablet PO PRN (15:11)
[2017-08-18 19:42] VITALS: BP 126/83
[2017-08-19 00:21] VITALS: BP 126/85
[2017-08-19] MEDS: lactobacillus rhamnosus 10,000 MMU CELLS/CAPSULE PO SCH (07:16)
[2017-08-19] MEDS: pantoprazole 40mg Tablet.DR PO SCH (07:16)
[2017-08-19] MEDS: folic acid 1mg tablet PO SCH (07:17)
[2017-08-19] MEDS: metoprolol tartrate 25mg tablet PO SCH (07:18)
[2017-08-19] MEDS: baclofen 10mg tablet PO SCH (07:18)
[2017-08-19] MEDS: atorvastatin 10mg tablet PO SCH (07:18)
[2017-08-19] MEDS: amLODIPine 5mg tablet PO SCH (07:19)
[2017-08-19] MEDS: multivitamins, therapeutics tablet PO SCH (07:19)
[2017-08-19] MEDS: gabapentin 300mg capsule PO SCH ×2 (07:19→12:53)
[2017-08-19] MEDS: cyanocobalamin 500mcg tablet PO SCH (07:20)
[2017-08-19] MEDS: thiamine 100mg tablet PO SCH (07:20)
[2017-08-19] MEDS: heparin, porcine 5000 units/ml vial SQ SCH (07:21)
[2017-08-19] MEDS: K and/or MAG REPLACEMENT MC SCH (07:25)
[2017-08-19] MEDS: aspirin 81mg tablet.DR PO SCH (07:25)
[2017-08-19 07:30] VITALS: BP 105/71
[2017-08-19] MEDS ORDERED: FOLI1TAB16 PO (11:06)
[2017-08-19] MEDS ORDERED: THI100T PO (11:06)
[2017-08-19] MEDS ORDERED: CYA500T PO (11:06)
[2017-08-19] MEDS ORDERED: AMLO5TAB16 PO (11:06)
[2017-08-19] MEDS ORDERED: METO25TA6 PO (11:06)
[2017-08-19 12:00] VITALS: BP 129/81
== END 2017-08-19 14:30 | disposition home or self-care (01) | DRG 682 ==
LOC: ER 16:49 → ED HOLD 20:21 → PCU 3S 08-03 19:35 → SUR 3N 08-14 14:35
PROVIDERS: ADMIT Internal Medicine; ATTEND Family Medicine
DX: N17.9 Acute kidney failure, unspecified (principal); G92 Toxic encephalopathy; I50.21 Acute systolic (congestive) heart failure; I13.0 Hypertensive heart and chronic kidney disease with heart failure and stage 1 through stage 4 chronic kidney disease, or unspecified chronic kidney disease; E87.2 Acidosis; I16.1 Hypertensive emergency; E51.2 Wernicke's encephalopathy; R44.0 Auditory hallucinations; D64.9 Anemia, unspecified; E53.8 Deficiency of other specified B group vitamins; E78.00 Pure hypercholesterolemia, unspecified; E78.5 Hyperlipidemia, unspecified; F32.9 Major depressive disorder, single episode, unspecified; G62.9 Polyneuropathy, unspecified; G89.29 Other chronic pain; R44.1 Visual hallucinations; N18.9 Chronic kidney disease, unspecified; T43.625A Adverse effect of amphetamines, initial encounter; M19.90 Unspecified osteoarthritis, unspecified site; M54.9 Dorsalgia, unspecified; R74.8 Abnormal levels of other serum enzymes; R94.5 Abnormal results of liver function studies; F10.10 Alcohol abuse, uncomplicated; F17.200 Nicotine dependence, unspecified, uncomplicated; F15.10 Other stimulant abuse, uncomplicated; Z79.899 Other long term (current) drug therapy; Z79.01 Long term (current) use of anticoagulants; Z79.82 Long term (current) use of aspirin; Y92.89 Other specified places as the place of occurrence of the external cause
CPT/HCPCS: 36415; 36600; 70450; 70551; 71045; 71046; 80048; 80053; 80305; 80320; 81001; 82140; 82607; 82803; 82948; 83605; 83735; 83880; 83921; 84100; 84484; 85018; 85025; 85610; 85730; 87040; 87070; 93005; 93306; 94640; 94760; 96365; 96375; 97110; 97116; 97162; 97530; 99291; A4315; A6213; J0696; J1644; J1940; J1956; J2060; J2270; J3411; J3480; J3490; J7030

== ENCOUNTER 2017-12-09 16:51 | Inpatient (IN) | payer MEDICARE, MEDICAID ==
[~2017-12-09] VITALS: Ht 175.3 cm; Wt 72.9 kg
[~2017-12-09 16:51] MED LIST changes: +AMLO5TAB16 PO; +ASPI-1 PO; -ASPI-1053; +ATOR10TA PO; +AZI25OT PO; -BAC10T PO; +CYA500T PO; +FOLI1TAB16 PO; +FURO20TA4 PO; +ISOS30TA9 PO; -MELO-83 PO; +METO25TA6 PO; +NITR0.4T51 SL; -NORCO10T PO; +PRED10TA PO; -SIMV20TA5 PO; -SIN25C PO; +THI100T PO
[2017-12-09 17:25] LABS: BASOPHILS # (AUTO) 0.1 X10'3 (0-0.2); BASOPHILS % (AUTO) 0.8 % (0-1); EOSINOPHILS % (AUTO) 0.2 % (0-6); HEMATOCRIT 38.1 % (42.0-52.0); HEMOGLOBIN 12.7 g/dl (14.0-17.9); LYMPHOCYTES % (AUTO) 27.8 % (21-51); MEAN CORPUSCULAR HEMOGLOBIN 32.5 PG (27.0-31.0); MEAN CORPUSCULAR HGB CONC 33.3 % (33.0-36.5); MEAN CORPUSCULAR VOLUME 97.8 FL (78-98); MEAN PLATELET VOLUME 9.9 FL (7.4-10.4); MONOCYTES # (AUTO) 1.3 X10'3 (0-0.9); MONOCYTES % (AUTO) 11.8 % (2-12); NEUTROPHILS # (AUTO) 6.3 X10'3 (1.8-7.7); NEUTROPHILS % (AUTO) 59.4 % (42-75); PLATELET COUNT 220 X10'3 (140-440); RED CELL DISTRIBUTION WIDTH 14.6 % (11.5-14.5); WHITE BLOOD COUNT 10.7 X10'3 (4.5-11.0)
[2017-12-09 17:36] LABS: PARTIAL THROMBOPLASTIN TIME 27 SECONDS (22-32); PROTHROMBIN TIME 10.1 SECONDS (9.0-12.0)
[2017-12-09 17:40] LABS: ACANTHOCYTES FEW; BURR CELLS 1+; PLATELET ESTIMATE NORMAL; POIKILOCYTOSIS 1+
[2017-12-09] MEDS ORDERED: normal saline 1000ML IV soln IV ONE (17:45)
[2017-12-09] MEDS ORDERED: ipratropium/albuterol 3ml nebule NEB ONE (17:45)
[2017-12-09 17:49] LABS: ALANINE AMINOTRANSFERASE 38 U/L (12-78); ALBUMIN 2.8 G/DL (3.4-5.0); ALBUMIN/GLOBULIN RATIO 0.7 (1.1-1.5); ALKALINE PHOSPHATASE 124 IU/L (46-116); ANION GAP 15 (8-16); ASPARTATE AMINO TRANSFERASE 47 U/L (10-37); BILIRUBIN,TOTAL 0.4 MG/DL (0.1-1.0); BLOOD UREA NITROGEN 17 MG/DL (7-18); BUN/CREATININE RATIO 9.9 (5.4-32.0); CALCIUM 8.5 MG/DL (8.5-10.1); CHLORIDE 103 MMOL/L (99-107); CREATININE 1.71 MG/DL (0.60-1.10); GLUCOSE 88 MG/DL (70-104); POTASSIUM 3.4 MMOL/L (3.5-5.1); SODIUM 137 MMOL/L (135-145); TOTAL CARBON DIOXIDE 19.3 MMOL/L (24-32); eGFR 40 ML/MIN
[2017-12-09] MEDS ORDERED: aspirin 81mg tab.chew PO ONE (17:55)
[2017-12-09] MEDS ORDERED: heparin 10,000 units/1 ML INJ IV ONE (17:55)
[2017-12-09] MEDS ORDERED: NO HOME MEDS (18:37)
[2017-12-09] MEDS ORDERED: normal saline 1000ml 1,000 ML IV SCH ×2 (18:50→19:46)
[2017-12-09 19:47] LABS: D-DIMER 1.64 MG/L FEU (0-0.50)
[2017-12-09] MEDS ORDERED: magnesium hydroxide 30ml (MOM) UD suspension PO PRN (19:50)
[2017-12-09] MEDS ORDERED: ondansetron/PF 4mg/2ml inj IV PRN (19:50)
[2017-12-09] MEDS ORDERED: mag hydrox/Alum hydrox/simeth 30ml oral suspension PO PRN (19:50)
[2017-12-09] MEDS ORDERED: albuterol 2.5 MG/3 ML nebule NEB PRN (19:55)
[2017-12-09 21:00] VITALS: BP 162/98
[2017-12-09 23:00] VITALS: BP 174/86
[2017-12-10] MEDS ORDERED: heparin 10,000 units/1 ML INJ IV PRN ×2 (02:20→02:35)
[2017-12-10 03:00] VITALS: BP 150/97
[2017-12-10 05:44] LABS: BASOPHILS # (AUTO) 0.1 X10'3 (0-0.2); BASOPHILS % (AUTO) 0.6 % (0-1); EOSINOPHILS # (AUTO) 0.1 X10'3 (0-0.9); EOSINOPHILS % (AUTO) 1.5 % (0-6); HEMOGLOBIN 12.4 g/dl (14.0-17.9); LYMPHOCYTES % (AUTO) 50.5 % (21-51); MEAN CORPUSCULAR HEMOGLOBIN 32.8 PG (27.0-31.0); MEAN CORPUSCULAR HGB CONC 33.5 % (33.0-36.5); MEAN CORPUSCULAR VOLUME 97.8 FL (78-98); MONOCYTES # (AUTO) 1.3 X10'3 (0-0.9); NEUTROPHILS # (AUTO) 3.4 X10'3 (1.8-7.7); NEUTROPHILS % (AUTO) 34.4 % (42-75); PLATELET COUNT 206 X10'3 (140-440); RED BLOOD COUNT 3.78 X10'6 (4.70-6.10); WHITE BLOOD COUNT 9.9 X10'3 (4.5-11.0)
[2017-12-10 06:05] LABS: ALANINE AMINOTRANSFERASE 39 U/L (12-78); ALBUMIN 2.5 G/DL (3.4-5.0); ALBUMIN/GLOBULIN RATIO 0.7 (1.1-1.5); ALKALINE PHOSPHATASE 104 IU/L (46-116); ANION GAP 9 (8-16); ASPARTATE AMINO TRANSFERASE 42 U/L (10-37); BILIRUBIN,TOTAL 0.6 MG/DL (0.1-1.0); BLOOD UREA NITROGEN 20 MG/DL (7-18); CALCIUM 8.4 MG/DL (8.5-10.1); CHLORIDE 107 MMOL/L (99-107); CREATININE 1.66 MG/DL (0.60-1.10); GLUCOSE 97 MG/DL (70-104); POTASSIUM 3.2 MMOL/L (3.5-5.1); SODIUM 139 MMOL/L (135-145); TOTAL CARBON DIOXIDE 22.8 MMOL/L (24-32); TOTAL PROTEIN 6.1 G/DL (6.4-8.2); eGFR 42 ML/MIN
[2017-12-10] MEDS ORDERED: magnesium 4gm in 100ml NS 100 ML IV PRN (06:40)
[2017-12-10] MEDS ORDERED: potassium Cl 40MEQ/NS 500ml 500 ML IV PRN ×2 (06:40)
[2017-12-10] MEDS ORDERED: magnesium Cl slow-release 64mg tablet PO PRN (06:40)
[2017-12-10 07:00] VITALS: BP 178/107
[2017-12-10] MEDS: thiamine 100mg tablet PO SCH (07:08)
[2017-12-10] MEDS: potassium Cl 20 mEq SR tablet PO PRN ×2 (07:08→16:08)
[2017-12-10] MEDS ORDERED: methylPREDNISolone sod succ 125mg/2ml vial IV ONE (10:45)
[2017-12-10 11:00] VITALS: BP 173/107
[2017-12-10] MEDS: ipratropium/albuterol 3ml nebule NEB SCH ×3 (12:00→19:40)
[2017-12-10] MEDS: sodium bicarbonate (8.4%) inj. 50 MEQ in dextrose 5%-water 1,000 ML IV SCH ×2 (12:39→21:15)
[2017-12-10] MEDS: methylPREDNISolone sod succ 125mg/2ml vial IV SCH ×2 (14:37→21:15)
[2017-12-10 15:00] VITALS: BP 149/105
[2017-12-10] MEDS: acetaminophen 325mg tablet PO PRN (16:08)
[2017-12-10] MEDS ORDERED: nitroGLYCERIN 0.4mg SUBLingual tab SL PRN (18:25)
[2017-12-10] MEDS ORDERED: metoprolol tartrate 1mg/ml inj IV PRN (18:25)
[2017-12-10] MEDS ORDERED: regadenoson 0.4mg/5ml syringe IV PRN (18:25)
[2017-12-10] MEDS ORDERED: CAFFEINE CITRATE 60 MG/3 ML injection vial IV PRN (18:25)
[2017-12-10 19:41] VITALS: BP 152/98
[2017-12-10] MEDS: furosemide 40mg/4ml inj IV SCH (21:15)
[2017-12-10] MEDS: guaiFENesin ER 600mg tablet PO SCH (21:15)
[2017-12-10 23:00] VITALS: BP 149/85
[2017-12-11] MEDS: ipratropium/albuterol 3ml nebule NEB SCH ×6 (00:15→19:19)
[2017-12-11] MEDS: sodium bicarbonate (8.4%) inj. 50 MEQ in dextrose 5%-water 1,000 ML IV SCH ×2 (00:21→13:02)
[2017-12-11] MEDS: CefTRIAXone/D5W-Rocephin 1gm 50 ML IV SCH ×2 (02:34→07:24)
[2017-12-11] MEDS: diltiazem CD 180mg cap (once-daily) PO SCH ×2 (02:36→07:23)
[2017-12-11] MEDS: azithromycin/NS 500mg/250ml 250 ML IV SCH ×2 (02:36→07:24)
[2017-12-11] MEDS: methylPREDNISolone sod succ 125mg/2ml vial IV SCH ×3 (02:52→15:27)
[2017-12-11 03:00] VITALS: BP 132/79
[2017-12-11 04:12] LABS: ALANINE AMINOTRANSFERASE 34 U/L (12-78); ALBUMIN 2.6 G/DL (3.4-5.0); ALBUMIN/GLOBULIN RATIO 0.7 (1.1-1.5); ALKALINE PHOSPHATASE 104 IU/L (46-116); ANION GAP 13 (8-16); ASPARTATE AMINO TRANSFERASE 34 U/L (10-37); BASOPHILS % (AUTO) 0 % (0-1); BILIRUBIN,TOTAL 0.4 MG/DL (0.1-1.0); BLOOD UREA NITROGEN 26 MG/DL (7-18); BUN/CREATININE RATIO 13.5 (5.4-32.0); CALCIUM 8.5 MG/DL (8.5-10.1); CHLORIDE 103 MMOL/L (99-107); CREATININE 1.92 MG/DL (0.60-1.10); EOSINOPHILS % (AUTO) 0 % (0-6); GLUCOSE 175 MG/DL (70-104); HEMATOCRIT 33.4 % (42.0-52.0); HEMOGLOBIN 11.2 g/dl (14.0-17.9); LYMPHOCYTES # (AUTO) 1.2 X10'3 (1.1-4.8); LYMPHOCYTES % (AUTO) 11.1 % (21-51); MAGNESIUM 1.6 MG/DL (1.5-2.4); MEAN CORPUSCULAR HEMOGLOBIN 32.5 PG (27.0-31.0); MEAN CORPUSCULAR HGB CONC 33.4 % (33.0-36.5); MEAN CORPUSCULAR VOLUME 97.2 FL (78-98); MEAN PLATELET VOLUME 10.4 FL (7.4-10.4); MONOCYTES # (AUTO) 0.4 X10'3 (0-0.9); MONOCYTES % (AUTO) 4.3 % (2-12); NEUTROPHILS # (AUTO) 8.8 X10'3 (1.8-7.7); NEUTROPHILS % (AUTO) 84.6 % (42-75); PLATELET COUNT 204 X10'3 (140-440); POTASSIUM 3.1 MMOL/L (3.5-5.1); RED BLOOD COUNT 3.44 X10'6 (4.70-6.10); RED CELL DISTRIBUTION WIDTH 14.9 % (11.5-14.5); SODIUM 137 MMOL/L (135-145); TOTAL CARBON DIOXIDE 21.3 MMOL/L (24-32); TOTAL PROTEIN 6.5 G/DL (6.4-8.2); WHITE BLOOD COUNT 10.4 X10'3 (4.5-11.0); eGFR 35 ML/MIN
[2017-12-11 04:42] LABS: GIANT PLATELET FEW; LARGE PLATELETS FEW; PLATELET ESTIMATE NORMAL
[2017-12-11] MEDS: potassium Cl 20 mEq SR tablet PO PRN ×3 (05:01→13:02)
[2017-12-11 07:00] VITALS: BP 146/87
[2017-12-11] MEDS: furosemide 40mg/4ml inj IV SCH ×2 (07:24→20:48)
[2017-12-11] MEDS: guaiFENesin ER 600mg tablet PO SCH (07:24)
[2017-12-11] MEDS: thiamine 100mg tablet PO SCH (07:24)
[2017-12-11 07:35] LABS: URINE AMPHETAMINE SCREEN NEGATIVE (Neg); URINE BARBITUATE SCREEN NEGATIVE (Neg); URINE BENZODIAZEPINES SCREEN NEGATIVE (Neg); URINE CANNABINOID SCREEN NEGATIVE (Neg); URINE COCAINE SCREEN NEGATIVE (Neg); URINE METHADONE SCREEN NEGATIVE (Neg); URINE OPIATE SCREEN NEGATIVE (Neg); URINE PHENCYCLIDINE SCREEN NEGATIVE (Neg)
[2017-12-11 11:00] VITALS: BP 108/68
[2017-12-11 15:00] VITALS: BP 108/71
[2017-12-11] MEDS: acetaminophen 325mg tablet PO PRN (15:19)
[2017-12-11] MEDS: LORazepam 2 mg/ml vial IV PRN (15:27)
[2017-12-11 19:00] VITALS: BP 147/63
[2017-12-11] MEDS: lactobacillus rhamnosus 10,000 MMU CELLS/CAPSULE PO SCH (20:48)
[2017-12-11] MEDS: acetylcysteine 200 MG/ml 4ml vial PO SCH (20:49)
[2017-12-11 23:00] VITALS: BP 169/83
[2017-12-12] MEDS: potassium Cl 20 mEq SR tablet PO PRN ×4 (00:50→20:47)
[2017-12-12] MEDS: methylPREDNISolone sod succ 125mg/2ml vial IV SCH ×3 (00:51→20:48)
[2017-12-12 03:00] VITALS: BP 135/87
[2017-12-12] MEDS: ipratropium/albuterol 3ml nebule NEB SCH ×7 (03:17→22:59)
[2017-12-12] MEDS: sodium bicarbonate (8.4%) inj. 50 MEQ in dextrose 5%-water 1,000 ML IV SCH (04:06)
[2017-12-12 04:12] LABS: BASOPHILS % (AUTO) 0 % (0-1); EOSINOPHILS % (AUTO) 0 % (0-6); HEMATOCRIT 33.8 % (42.0-52.0); HEMOGLOBIN 11.2 g/dl (14.0-17.9); LYMPHOCYTES # (AUTO) 0.9 X10'3 (1.1-4.8); LYMPHOCYTES % (AUTO) 4.1 % (21-51); MEAN CORPUSCULAR HEMOGLOBIN 32.4 PG (27.0-31.0); MEAN CORPUSCULAR HGB CONC 33.1 % (33.0-36.5); MEAN CORPUSCULAR VOLUME 97.7 FL (78-98); MEAN PLATELET VOLUME 10.7 FL (7.4-10.4); MONOCYTES # (AUTO) 1.1 X10'3 (0-0.9); MONOCYTES % (AUTO) 4.8 % (2-12); NEUTROPHILS # (AUTO) 20.1 X10'3 (1.8-7.7); NEUTROPHILS % (AUTO) 91.1 % (42-75); PLATELET COUNT 204 X10'3 (140-440); RED BLOOD COUNT 3.46 X10'6 (4.70-6.10); RED CELL DISTRIBUTION WIDTH 15.3 % (11.5-14.5); WHITE BLOOD COUNT 22.1 X10'3 (4.5-11.0)
[2017-12-12 04:33] LABS: ALANINE AMINOTRANSFERASE 30 U/L (12-78); ALBUMIN 2.5 G/DL (3.4-5.0); ALBUMIN/GLOBULIN RATIO 0.7 (1.1-1.5); ALKALINE PHOSPHATASE 91 IU/L (46-116); ANION GAP 10 (8-16); ASPARTATE AMINO TRANSFERASE 29 U/L (10-37); BILIRUBIN,TOTAL 0.2 MG/DL (0.1-1.0); BLOOD UREA NITROGEN 33 MG/DL (7-18); BUN/CREATININE RATIO 17.8 (5.4-32.0); CALCIUM 8.3 MG/DL (8.5-10.1); CHLORIDE 102 MMOL/L (99-107); CREATININE 1.85 MG/DL (0.60-1.10); GLUCOSE 155 MG/DL (70-104); MAGNESIUM 1.6 MG/DL (1.5-2.4); POTASSIUM 3.3 MMOL/L (3.5-5.1); SODIUM 137 MMOL/L (135-145); TOTAL PROTEIN 6.2 G/DL (6.4-8.2); eGFR 37 ML/MIN
[2017-12-12 06:00] VITALS: BP 157/80
[2017-12-12] MEDS: azithromycin/NS 500mg/250ml 250 ML IV SCH (08:05)
[2017-12-12] MEDS: CefTRIAXone/D5W-Rocephin 1gm 50 ML IV SCH (08:05)
[2017-12-12] MEDS: diltiazem CD 180mg cap (once-daily) PO SCH (08:06)
[2017-12-12] MEDS: thiamine 100mg tablet PO SCH (08:06)
[2017-12-12] MEDS: lactobacillus rhamnosus 10,000 MMU CELLS/CAPSULE PO SCH ×2 (08:06→20:47)
[2017-12-12] MEDS: acetylcysteine 200 MG/ml 4ml vial PO SCH (08:06)
[2017-12-12] MEDS: furosemide 40mg/4ml inj IV SCH ×2 (08:09→20:48)
[2017-12-12] MEDS: LORazepam 2 mg/ml vial IV PRN ×2 (11:33→21:02)
[2017-12-12] MEDS: acetaminophen 325mg tablet PO PRN (11:33)
[2017-12-12] MEDS: folic acid 1mg tablet PO SCH (11:53)
[2017-12-12] MEDS: levoFLOXACIN-Levaquin 750MG/D5 150 ML IV SCH (12:13)
[2017-12-12] MEDS: aspirin 81mg tablet.DR PO SCH (12:13)
[2017-12-12] MEDS: metroNIDAZOLE-Flagyl 500mg/NS 100 ML IV SCH ×2 (13:43→20:48)
[2017-12-12 15:00] VITALS: BP 133/74
[2017-12-12] MEDS: potassium Cl 20 mEq SR tablet PO SCH (17:30)
[2017-12-12 19:00] VITALS: BP 149/79
[2017-12-12] MEDS: metoprolol tartrate 12.5mg (1/2 tablet) PO SCH (20:47)
[2017-12-12] MEDS: apixaban 5mg tablet PO SCH (20:47)
[2017-12-12 23:00] VITALS: BP 114/71
[2017-12-13 03:00] VITALS: BP 160/85
[2017-12-13] MEDS: ipratropium/albuterol 3ml nebule NEB SCH ×6 (03:26→23:16)
[2017-12-13 05:24] LABS: BASOPHILS % (AUTO) 0 % (0-1); EOSINOPHILS % (AUTO) 0 % (0-6); HEMATOCRIT 34.1 % (42.0-52.0); HEMOGLOBIN 11.3 g/dl (14.0-17.9); LYMPHOCYTES # (AUTO) 0.9 X10'3 (1.1-4.8); LYMPHOCYTES % (AUTO) 4.5 % (21-51); MEAN CORPUSCULAR HEMOGLOBIN 32.3 PG (27.0-31.0); MEAN CORPUSCULAR HGB CONC 33.1 % (33.0-36.5); MEAN CORPUSCULAR VOLUME 97.5 FL (78-98); MEAN PLATELET VOLUME 10.8 FL (7.4-10.4); MONOCYTES # (AUTO) 0.7 X10'3 (0-0.9); MONOCYTES % (AUTO) 3.6 % (2-12); NEUTROPHILS # (AUTO) 17.5 X10'3 (1.8-7.7); NEUTROPHILS % (AUTO) 91.9 % (42-75); PLATELET COUNT 213 X10'3 (140-440); RED CELL DISTRIBUTION WIDTH 15.4 % (11.5-14.5)
[2017-12-13 05:37] LABS: ALANINE AMINOTRANSFERASE 45 U/L (12-78); ALBUMIN 2.6 G/DL (3.4-5.0); ALBUMIN/GLOBULIN RATIO 0.7 (1.1-1.5); ALKALINE PHOSPHATASE 84 IU/L (46-116); ANION GAP 11 (8-16); ASPARTATE AMINO TRANSFERASE 37 U/L (10-37); BILIRUBIN,TOTAL 0.3 MG/DL (0.1-1.0); BLOOD UREA NITROGEN 39 MG/DL (7-18); BUN/CREATININE RATIO 16.9 (5.4-32.0); CALCIUM 8.7 MG/DL (8.5-10.1); CHLORIDE 104 MMOL/L (99-107); CREATININE 2.31 MG/DL (0.60-1.10); GLUCOSE 132 MG/DL (70-104); MAGNESIUM 1.7 MG/DL (1.5-2.4); POTASSIUM 3.8 MMOL/L (3.5-5.1); SODIUM 138 MMOL/L (135-145); TOTAL CARBON DIOXIDE 22.6 MMOL/L (24-32); TOTAL PROTEIN 6.1 G/DL (6.4-8.2); eGFR 28 ML/MIN
[2017-12-13 06:00] VITALS: BP 158/79
[2017-12-13 07:23] LABS: ANISOCYTOSIS 1+; LARGE PLATELETS FEW; PLATELET ESTIMATE NORMAL; POLYCHROMASIA FEW
[2017-12-13] MEDS: metoprolol tartrate 12.5mg (1/2 tablet) PO SCH ×2 (08:10→19:52)
[2017-12-13] MEDS: potassium Cl 20 mEq SR tablet PO SCH ×2 (08:10→17:03)
[2017-12-13] MEDS: thiamine 100mg tablet PO SCH (08:10)
[2017-12-13] MEDS: aspirin 81mg tablet.DR PO SCH (08:10)
[2017-12-13] MEDS: lactobacillus rhamnosus 10,000 MMU CELLS/CAPSULE PO SCH ×2 (08:10→19:52)
[2017-12-13] MEDS: apixaban 5mg tablet PO SCH ×2 (08:10→19:52)
[2017-12-13] MEDS: folic acid 1mg tablet PO SCH (08:10)
[2017-12-13] MEDS: furosemide 40mg/4ml inj IV SCH (08:11)
[2017-12-13] MEDS: metroNIDAZOLE-Flagyl 500mg/NS 100 ML IV SCH (08:11)
[2017-12-13] MEDS: methylPREDNISolone sod succ 125mg/2ml vial IV SCH (08:11)
[2017-12-13] MEDS: levoFLOXACIN-Levaquin 750MG/D5 150 ML IV SCH (08:11)
[2017-12-13] MEDS: acetaminophen 325mg tablet PO PRN (09:42)
[2017-12-13 11:00] VITALS: BP 127/84
[2017-12-13 15:00] VITALS: BP 163/81
[2017-12-13] MEDS: HYDROcodone/acetaminophen 10/325mg tab PO PRN ×2 (15:45→21:37)
[2017-12-13 19:00] VITALS: BP 124/88
[2017-12-13] MEDS: Potassium Cl inj 20 MEQ in normal saline 1000ml 990 ML IV SCH (19:42)
[2017-12-13 23:00] VITALS: BP 137/98
[2017-12-14] MEDS: ipratropium/albuterol 3ml nebule NEB SCH ×4 (02:41→15:53)
[2017-12-14 02:48] VITALS: BP 144/102
[2017-12-14 05:45] LABS: BASOPHILS % (AUTO) 0 % (0-1); EOSINOPHILS % (AUTO) 0 % (0-6); HEMATOCRIT 35.2 % (42.0-52.0); HEMOGLOBIN 11.6 g/dl (14.0-17.9); LYMPHOCYTES # (AUTO) 0.9 X10'3 (1.1-4.8); LYMPHOCYTES % (AUTO) 5.8 % (21-51); MEAN CORPUSCULAR HEMOGLOBIN 32.3 PG (27.0-31.0); MEAN CORPUSCULAR VOLUME 97.8 FL (78-98); MEAN PLATELET VOLUME 10.7 FL (7.4-10.4); MONOCYTES # (AUTO) 1.6 X10'3 (0-0.9); MONOCYTES % (AUTO) 10.7 % (2-12); NEUTROPHILS # (AUTO) 12.8 X10'3 (1.8-7.7); NEUTROPHILS % (AUTO) 83.5 % (42-75); PLATELET COUNT 218 X10'3 (140-440); RED CELL DISTRIBUTION WIDTH 15.7 % (11.5-14.5); WHITE BLOOD COUNT 15.3 X10'3 (4.5-11.0)
[2017-12-14 06:00] VITALS: BP 147/99
[2017-12-14 06:15] LABS: ALANINE AMINOTRANSFERASE 52 U/L (12-78); ALBUMIN 2.7 G/DL (3.4-5.0); ALBUMIN/GLOBULIN RATIO 0.8 (1.1-1.5); ALKALINE PHOSPHATASE 88 IU/L (46-116); ANION GAP 12 (8-16); ASPARTATE AMINO TRANSFERASE 41 U/L (10-37); BILIRUBIN,TOTAL 0.2 MG/DL (0.1-1.0); BLOOD UREA NITROGEN 41 MG/DL (7-18); BUN/CREATININE RATIO 17.9 (5.4-32.0); CALCIUM 8.7 MG/DL (8.5-10.1); CHLORIDE 104 MMOL/L (99-107); CREATININE 2.29 MG/DL (0.60-1.10); GLUCOSE 120 MG/DL (70-104); MAGNESIUM 1.9 MG/DL (1.5-2.4); POTASSIUM 5.1 MMOL/L (3.5-5.1); SODIUM 138 MMOL/L (135-145); TOTAL CARBON DIOXIDE 22.3 MMOL/L (24-32); TOTAL PROTEIN 6.2 G/DL (6.4-8.2); eGFR 29 ML/MIN
[2017-12-14] MEDS ORDERED: metroNIDAZOLE-Flagyl 500mg/NS 100 ML IV SCH (06:30)
[2017-12-14 07:18] LABS: ANISOCYTOSIS 1+; PLATELET ESTIMATE NORMAL; POLYCHROMASIA FEW; TARGET CELLS FEW; TOTAL CELLS COUNTED 100
[2017-12-14 07:19] LABS: BURR CELLS 1+; LARGE PLATELETS FEW
[2017-12-14] MEDS ORDERED: pantoprazole 40mg Tablet.DR PO SCH (07:30)
[2017-12-14] MEDS ORDERED: predniSONE 20 mg tablet PO SCH (08:00)
[2017-12-14] MEDS: lactobacillus rhamnosus 10,000 MMU CELLS/CAPSULE PO SCH (08:07)
[2017-12-14] MEDS: aspirin 81mg tablet.DR PO SCH (08:07)
[2017-12-14] MEDS: potassium Cl 20 mEq SR tablet PO SCH (08:07)
[2017-12-14] MEDS: apixaban 5mg tablet PO SCH (08:07)
[2017-12-14] MEDS: thiamine 100mg tablet PO SCH (08:07)
[2017-12-14] MEDS: metoprolol tartrate 12.5mg (1/2 tablet) PO SCH (08:07)
[2017-12-14] MEDS: folic acid 1mg tablet PO SCH (08:07)
[2017-12-14] MEDS: acetaminophen 325mg tablet PO PRN (10:10)
[2017-12-14 11:00] VITALS: BP 145/97
[2017-12-14] MEDS ORDERED: ALBU6.7H INH (13:35)
[2017-12-14] MEDS ORDERED: LEVO750T21 PO (13:35)
[2017-12-14] MEDS ORDERED: THI100T PO (13:35)
[2017-12-14] MEDS ORDERED: NITR0.4T51 SL (13:35)
[2017-12-14] MEDS ORDERED: FOLI1TAB16 PO (13:35)
[2017-12-14] MEDS ORDERED: OMEP20TA23 PO (13:35)
[2017-12-14] MEDS ORDERED: METO25TA6 PO (13:35)
[2017-12-14] MEDS ORDERED: ASPI-1071 PO (13:35)
[2017-12-14] MEDS ORDERED: PRED10TA23 PO (13:35)
[2017-12-14] MEDS ORDERED: APIX5TAB3 PO (13:35)
[2017-12-14] MEDS: Potassium Cl inj 20 MEQ in normal saline 1000ml 990 ML IV SCH (14:10)
[2017-12-15] MEDS ORDERED: levoFLOXACIN-Levaquin 750MG/D5 150 ML IV SCH (08:00)
== END 2017-12-14 16:00 | disposition home health service (06) | DRG 280 ==
LOC: ER 16:52 → PCU 3S 19:46 → CMPBEDREQ 22:38 → PCU 3S 12-10 21:50
PROVIDERS: ADMIT Internal Medicine; ATTEND Internal Medicine
PROC: CB121ZZ Planar Nuclear Medicine Imaging of Lungs and Bronchi using Technetium 99m (Tc-99m) (ICD-10-PCS; principal; 2017-12-10)
DX: I21.A1 Myocardial infarction type 2 (principal); J96.00 Acute respiratory failure, unspecified whether with hypoxia or hypercapnia; I26.99 Other pulmonary embolism without acute cor pulmonale; J18.9 Pneumonia, unspecified organism; I50.33 Acute on chronic diastolic (congestive) heart failure; N17.9 Acute kidney failure, unspecified; J44.1 Chronic obstructive pulmonary disease with (acute) exacerbation; I13.0 Hypertensive heart and chronic kidney disease with heart failure and stage 1 through stage 4 chronic kidney disease, or unspecified chronic kidney disease; R04.2 Hemoptysis; J44.0 Chronic obstructive pulmonary disease with (acute) lower respiratory infection; E78.00 Pure hypercholesterolemia, unspecified; F32.9 Major depressive disorder, single episode, unspecified; E87.6 Hypokalemia; N18.3 Chronic kidney disease, stage 3 (moderate); F10.20 Alcohol dependence, uncomplicated; G89.29 Other chronic pain; M54.9 Dorsalgia, unspecified; T38.0X5A Adverse effect of glucocorticoids and synthetic analogues, initial encounter; F15.90 Other stimulant use, unspecified, uncomplicated; F17.210 Nicotine dependence, cigarettes, uncomplicated; Z91.19 Patient's noncompliance with other medical treatment and regimen; Z79.82 Long term (current) use of aspirin; Z79.899 Other long term (current) drug therapy; Z71.41 Alcohol abuse counseling and surveillance of alcoholic; Z71.6 Tobacco abuse counseling; Y92.89 Other specified places as the place of occurrence of the external cause
CPT/HCPCS: 36415; 71045; 71250; 78582; 80053; 80305; 80320; 83605; 83735; 83880; 84132; 84145; 84484; 85025; 85379; 85610; 85730; 87040; 87070; 92616; 93005; 93306; 93970; 94640; 94760; 96361; 96374; 97116; 97161; 99291; A6212; A9539; A9540; J0456; J0696; J1644; J1940; J1956; J2060; J2930; J3480; J3490; J7030; J7070; J7512

== ENCOUNTER 2017-12-19 12:41 | Inpatient (IN) | payer MEDICARE, MEDICAID ==
[~2017-12-19] VITALS: Ht 175.3 cm; Wt 61.0 kg
[~2017-12-19 12:41] MED LIST changes: +ALBU6.7H INH; -AMLO5TAB16 PO; +APIX5TAB3 PO; -ASPI-1 PO; +ASPI-1071 PO; -ATOR10TA PO; -AZI25OT PO; -CYA500T PO; -FURO20TA4 PO; -GABA-338 PO; -ISOS30TA9 PO; +LEVO750T21 PO; +OMEP20TA23 PO; -PRED10TA PO; +PRED10TA23 PO
[2017-12-19] MEDS ORDERED: furosemide 40mg/4ml inj IV ONE (12:50)
[2017-12-19] MEDS ORDERED: ipratropium/albuterol 3ml nebule NEB ONE (12:50)
[2017-12-19] MEDS ORDERED: nitroGLYCERIN 1gm ointment UD TP ONE (13:00)
[2017-12-19 13:11] LABS: ABG BASE EXCESS -3.7 mmol/L (-2.0-3.0); ABG HCO3 18.7 mmol/L (22.0-26.0); ABG OXYGEN SATURATION 75.4 % (95-98); ABG PCO2 (T) 27.2 mmHg (35.0-48.0); ABG PH (T) 7.455 (7.350-7.450); ALLEN'S TEST Positive; FCOHb 1.4 % (0.5-1.5); FLOW 2 L/min; FO2Hb 74.3 % (94-100); TOTAL HEMOGLOBIN 13.6 G/dl (14.0-18.0)
[2017-12-19 13:18] LABS: BASOPHILS % (AUTO) 0.4 % (0-1); EOSINOPHILS # (AUTO) 0.1 X10'3 (0-0.9); EOSINOPHILS % (AUTO) 1.1 % (0-6); HEMATOCRIT 37.7 % (42.0-52.0); HEMOGLOBIN 12.7 g/dl (14.0-17.9); LYMPHOCYTES # (AUTO) 1.3 X10'3 (1.1-4.8); LYMPHOCYTES % (AUTO) 14.1 % (21-51); MEAN CORPUSCULAR HEMOGLOBIN 33.1 PG (27.0-31.0); MEAN CORPUSCULAR HGB CONC 33.8 % (33.0-36.5); MEAN CORPUSCULAR VOLUME 97.7 FL (78-98); MEAN PLATELET VOLUME 9.6 FL (7.4-10.4); MONOCYTES # (AUTO) 1.1 X10'3 (0-0.9); MONOCYTES % (AUTO) 11.8 % (2-12); NEUTROPHILS # (AUTO) 6.6 X10'3 (1.8-7.7); NEUTROPHILS % (AUTO) 72.6 % (42-75); PLATELET COUNT 217 X10'3 (140-440); RED BLOOD COUNT 3.85 X10'6 (4.70-6.10); RED CELL DISTRIBUTION WIDTH 15.6 % (11.5-14.5); WHITE BLOOD COUNT 9.1 X10'3 (4.5-11.0)
[2017-12-19 13:33] LABS: ANISOCYTOSIS 1+; PLATELET ESTIMATE NORMAL
[2017-12-19 13:34] LABS: BURR CELLS 2+
[2017-12-19 13:39] LABS: ALANINE AMINOTRANSFERASE 54 U/L (12-78); ALBUMIN/GLOBULIN RATIO 0.9 (1.1-1.5); ALKALINE PHOSPHATASE 101 IU/L (46-116); ANION GAP 11 (8-16); ASPARTATE AMINO TRANSFERASE 56 U/L (10-37); BILIRUBIN,TOTAL 0.8 MG/DL (0.1-1.0); BLOOD UREA NITROGEN 37 MG/DL (7-18); BUN/CREATININE RATIO 17.8 (5.4-32.0); CALCIUM 8.1 MG/DL (8.5-10.1); CHLORIDE 101 MMOL/L (99-107); CREATININE 2.08 MG/DL (0.60-1.10); GLUCOSE 130 MG/DL (70-104); POTASSIUM 3.7 MMOL/L (3.5-5.1); SODIUM 133 MMOL/L (135-145); TOTAL CARBON DIOXIDE 20.7 MMOL/L (24-32); TOTAL PROTEIN 6.3 G/DL (6.4-8.2); eGFR 32 ML/MIN
[2017-12-19] MEDS ORDERED: cloNIDine 0.1 mg tablet PO ONE (14:05)
[2017-12-19] MEDS ORDERED: vancomycin inj 1,000 MG in normal saline 250ml IV soln 250 ML IV STA (14:28)
[2017-12-19] MEDS ORDERED: vancomycin/NS 1 GM ADD-VANTAGE 250 ML IV STA (14:30)
[2017-12-19] MEDS ORDERED: metoprolol tartrate 1mg/ml inj IV ONE (14:40)
[2017-12-19] MEDS ORDERED: nitroGLYCERIN 0.4mg SUBLingual tab SL PRN (16:10)
[2017-12-19] MEDS ORDERED: diphenhydrAMINE 25mg capsule PO PRN (16:15)
[2017-12-19] MEDS ORDERED: magnesium hydroxide 30ml (MOM) UD suspension PO PRN (16:15)
[2017-12-19] MEDS ORDERED: potassium Cl 20 mEq SR tablet PO PRN (16:15)
[2017-12-19] MEDS ORDERED: acetaminophen 325mg tablet PO PRN (16:15)
[2017-12-19] MEDS ORDERED: magnesium 1gm/100ml D5W IVPB 100 ML IV PRN (16:15)
[2017-12-19] MEDS ORDERED: morphine 4 MG/ML inj SYRINge IV PRN ×2 (16:15)
[2017-12-19] MEDS ORDERED: furosemide 10 MG/1 ML 10ml inj IV ONE (16:15)
[2017-12-19] MEDS ORDERED: potassium Cl 40MEQ/NS 500ml 500 ML IV PRN ×2 (16:15)
[2017-12-19] MEDS ORDERED: albuterol 2.5 MG/3 ML nebule NEB PRN (16:15)
[2017-12-19] MEDS ORDERED: magnesium 4gm in 100ml NS 100 ML IV PRN (16:15)
[2017-12-19] MEDS ORDERED: magnesium Cl slow-release 64mg tablet PO PRN (16:15)
[2017-12-19] MEDS: K and/or MAG REPLACEMENT MC SCH (16:15)
[2017-12-19] MEDS ORDERED: HYDROcodone/acetaminophen 5mg/325mg tablet PO PRN (16:15)
[2017-12-19] MEDS: normal saline 1000ml 1,000 ML IV SCH (16:39)
[2017-12-19] MEDS ORDERED: nitroGLYCERIN-Tridil 50MG/D5W 250 ML IV SCH (16:40)
[2017-12-19] MEDS ORDERED: heparin 10,000 units/1 ML INJ IV PRN (16:40)
[2017-12-19] MEDS ORDERED: heparin 10,000 units/1 ML INJ IV ONE (16:40)
[2017-12-19 18:49] LABS: HIV ANTIBODY 1&2 RAPID NON-REACTIVE (Neg)
[2017-12-19 19:00] VITALS: BP_SYST 179; BP_SYST 182; BP_DIAS 80; BP_DIAS 85
[2017-12-19] MEDS: ipratropium/albuterol 3ml nebule NEB SCH ×2 (19:24→23:15)
[2017-12-19] MEDS ORDERED: apixaban 5mg tablet PO SCH (20:00)
[2017-12-19] MEDS: piperacillin/tazo 3.375gm/50ml 50 ML IV SCH (20:05)
[2017-12-19] MEDS: furosemide 10 MG/1 ML 10ml inj IV SCH (20:05)
[2017-12-19] MEDS: metoprolol tartrate 25mg tablet PO SCH (20:06)
[2017-12-19] MEDS: ondansetron/PF 4mg/2ml inj IV PRN (20:13)
[2017-12-19 21:00] VITALS: BP 152/75
[2017-12-19] MEDS ORDERED: temazepam 15mg capsule PO PRN (21:00)
[2017-12-19] MEDS: mag hydrox/Alum hydrox/simeth 30ml oral suspension PO PRN (22:01)
[2017-12-19 23:00] VITALS: BP 153/93
[2017-12-20] VITALS (12 sets, daily range): BP systolic 140–181; BP diastolic 62–132
[2017-12-20] MEDS: piperacillin/tazo 3.375gm/50ml 50 ML IV SCH ×4 (01:45→20:14)
[2017-12-20 02:12] LABS: ALANINE AMINOTRANSFERASE 49 U/L (12-78); ALBUMIN 2.7 G/DL (3.4-5.0); ALBUMIN/GLOBULIN RATIO 0.8 (1.1-1.5); ALKALINE PHOSPHATASE 94 IU/L (46-116); ANION GAP 9 (8-16); ASPARTATE AMINO TRANSFERASE 54 U/L (10-37); BILIRUBIN,TOTAL 0.7 MG/DL (0.1-1.0); BLOOD UREA NITROGEN 39 MG/DL (7-18); BUN/CREATININE RATIO 18.1 (5.4-32.0); CALCIUM 8.3 MG/DL (8.5-10.1); CHLORIDE 100 MMOL/L (99-107); CREATININE 2.15 MG/DL (0.60-1.10); GLUCOSE 106 MG/DL (70-104); MAGNESIUM 1.9 MG/DL (1.5-2.4); PHOSPHORUS 4.5 MG/DL (2.3-4.5); SODIUM 136 MMOL/L (135-145); TOTAL PROTEIN 5.9 G/DL (6.4-8.2); eGFR 31 ML/MIN
[2017-12-20 02:17] LABS: POTASSIUM 3.2 MMOL/L (3.5-5.1)
[2017-12-20 02:18] LABS: BASOPHILS # (AUTO) 0.1 X10'3 (0-0.2); BASOPHILS % (AUTO) 1.2 % (0-1); EOSINOPHILS # (AUTO) 0.1 X10'3 (0-0.9); HEMATOCRIT 37.1 % (42.0-52.0); HEMOGLOBIN 12.3 g/dl (14.0-17.9); LYMPHOCYTES # (AUTO) 3.2 X10'3 (1.1-4.8); LYMPHOCYTES % (AUTO) 28.7 % (21-51); MEAN CORPUSCULAR HEMOGLOBIN 32.6 PG (27.0-31.0); MEAN CORPUSCULAR HGB CONC 33.1 % (33.0-36.5); MEAN CORPUSCULAR VOLUME 98.3 FL (78-98); MEAN PLATELET VOLUME 10.6 FL (7.4-10.4); MONOCYTES # (AUTO) 1.8 X10'3 (0-0.9); MONOCYTES % (AUTO) 16.4 % (2-12); NEUTROPHILS # (AUTO) 5.9 X10'3 (1.8-7.7); NEUTROPHILS % (AUTO) 52.7 % (42-75); PLATELET COUNT 199 X10'3 (140-440); RED BLOOD COUNT 3.77 X10'6 (4.70-6.10); RED CELL DISTRIBUTION WIDTH 15.3 % (11.5-14.5); WHITE BLOOD COUNT 11.3 X10'3 (4.5-11.0)
[2017-12-20] MEDS: ipratropium/albuterol 3ml nebule NEB SCH ×6 (02:53→23:11)
[2017-12-20] MEDS: pantoprazole 40mg Tablet.DR PO SCH (07:41)
[2017-12-20] MEDS: folic acid 1mg tablet PO SCH (07:41)
[2017-12-20] MEDS: metoprolol tartrate 25mg tablet PO SCH ×2 (07:41→20:13)
[2017-12-20] MEDS: thiamine 100mg tablet PO SCH (07:41)
[2017-12-20] MEDS: aspirin 81mg tablet.DR PO SCH (07:42)
[2017-12-20] MEDS: furosemide 10 MG/1 ML 10ml inj IV SCH ×2 (07:42→20:13)
[2017-12-20] MEDS: K and/or MAG REPLACEMENT MC SCH (07:48)
[2017-12-20] MEDS: apixaban 5mg tablet PO SCH ×2 (10:34→20:14)
[2017-12-20] MEDS: vancomycin/NS 1 GM ADD-VANTAGE 250 ML IV SCH (10:34)
[2017-12-20] MEDS: acetaminophen 325mg tablet PO PRN (18:31)
[2017-12-20] MEDS: cloNIDine 0.1 mg tablet PO SCH (20:14)
[2017-12-21] VITALS (8 sets, daily range): BP systolic 108–169; BP diastolic 57–93
[2017-12-21] MEDS: piperacillin/tazo 3.375gm/50ml 50 ML IV SCH ×4 (02:55→20:10)
[2017-12-21] MEDS: ipratropium/albuterol 3ml nebule NEB SCH ×6 (03:08→23:16)
[2017-12-21 05:38] LABS: BASOPHILS % (AUTO) 0.1 % (0-1); EOSINOPHILS # (AUTO) 0.3 X10'3 (0-0.9); EOSINOPHILS % (AUTO) 2.7 % (0-6); HEMATOCRIT 35.3 % (42.0-52.0); HEMOGLOBIN 11.8 g/dl (14.0-17.9); LYMPHOCYTES # (AUTO) 2.3 X10'3 (1.1-4.8); LYMPHOCYTES % (AUTO) 22.7 % (21-51); MEAN CORPUSCULAR HEMOGLOBIN 32.6 PG (27.0-31.0); MEAN CORPUSCULAR HGB CONC 33.3 % (33.0-36.5); MEAN CORPUSCULAR VOLUME 97.9 FL (78-98); MEAN PLATELET VOLUME 10.1 FL (7.4-10.4); MONOCYTES # (AUTO) 1.8 X10'3 (0-0.9); MONOCYTES % (AUTO) 17.7 % (2-12); NEUTROPHILS # (AUTO) 5.9 X10'3 (1.8-7.7); NEUTROPHILS % (AUTO) 56.8 % (42-75); PLATELET COUNT 194 X10'3 (140-440); RED BLOOD COUNT 3.61 X10'6 (4.70-6.10); WHITE BLOOD COUNT 10.3 X10'3 (4.5-11.0)
[2017-12-21 06:11] LABS: ALANINE AMINOTRANSFERASE 42 U/L (12-78); ALBUMIN 2.5 G/DL (3.4-5.0); ALBUMIN/GLOBULIN RATIO 0.8 (1.1-1.5); ALKALINE PHOSPHATASE 83 IU/L (46-116); ANION GAP 7 (8-16); ASPARTATE AMINO TRANSFERASE 42 U/L (10-37); BILIRUBIN,TOTAL 0.6 MG/DL (0.1-1.0); BLOOD UREA NITROGEN 30 MG/DL (7-18); BUN/CREATININE RATIO 12.1 (5.4-32.0); CALCIUM 8.2 MG/DL (8.5-10.1); CHLORIDE 100 MMOL/L (99-107); CREATININE 2.48 MG/DL (0.60-1.10); GLUCOSE 100 MG/DL (70-104); MAGNESIUM 1.9 MG/DL (1.5-2.4); PHOSPHORUS 3.8 MG/DL (2.3-4.5); SODIUM 140 MMOL/L (135-145); TOTAL CARBON DIOXIDE 33.2 MMOL/L (24-32); TOTAL PROTEIN 5.6 G/DL (6.4-8.2); eGFR 26 ML/MIN
[2017-12-21 06:17] LABS: ANISOCYTOSIS 1+; PLATELET ESTIMATE NORMAL; TARGET CELLS FEW
[2017-12-21 06:18] LABS: ACANTHOCYTES FEW; BURR CELLS FEW; ELLIPTOCYTES FEW; POTASSIUM 2.6 MMOL/L (3.5-5.1)
[2017-12-21 06:19] LABS: POLYCHROMASIA FEW
[2017-12-21] MEDS: potassium Cl 20 mEq SR tablet PO PRN ×3 (06:26→14:07)
[2017-12-21] MEDS: cloNIDine 0.1 mg tablet PO SCH ×3 (07:27→20:10)
[2017-12-21] MEDS: metoprolol tartrate 25mg tablet PO SCH ×2 (07:27→20:10)
[2017-12-21] MEDS: thiamine 100mg tablet PO SCH (07:27)
[2017-12-21] MEDS: aspirin 81mg tablet.DR PO SCH (07:27)
[2017-12-21] MEDS: folic acid 1mg tablet PO SCH (07:27)
[2017-12-21] MEDS: pantoprazole 40mg Tablet.DR PO SCH (07:27)
[2017-12-21] MEDS: apixaban 5mg tablet PO SCH ×2 (07:27→20:10)
[2017-12-21] MEDS: K and/or MAG REPLACEMENT MC SCH (08:00)
[2017-12-21] MEDS: vancomycin/NS 1 GM ADD-VANTAGE 250 ML IV SCH (08:43)
[2017-12-21] MEDS: furosemide 10 MG/1 ML 10ml inj IV SCH ×2 (09:47→20:10)
[2017-12-21 15:17] LABS: HBSAG SCREEN Negative (Negative); HEP A AB, IGM Negative (Negative); HEP B CORE AB, IGM Negative (Negative); HEPATITIS C ANTIBODY >11.0 s/co ratio (0.0-0.9)
[2017-12-21] MEDS: acetaminophen 325mg tablet PO PRN (15:43)
[2017-12-21] MEDS: normal saline 1000ml 1,000 ML IV SCH (16:14)
[2017-12-21] MEDS: mag hydrox/Alum hydrox/simeth 30ml oral suspension PO PRN (19:10)
[2017-12-22] VITALS (7 sets, daily range): BP systolic 112–135; BP diastolic 58–88
[2017-12-22] MEDS: piperacillin/tazo 3.375gm/50ml 50 ML IV SCH ×3 (02:51→13:28)
[2017-12-22] MEDS: ipratropium/albuterol 3ml nebule NEB SCH ×6 (03:06→23:24)
[2017-12-22 05:52] LABS: BASOPHILS % (AUTO) 0.1 % (0-1); EOSINOPHILS # (AUTO) 0.5 X10'3 (0-0.9); EOSINOPHILS % (AUTO) 3.8 % (0-6); HEMATOCRIT 40.3 % (42.0-52.0); HEMOGLOBIN 13.6 g/dl (14.0-17.9); LYMPHOCYTES # (AUTO) 1.9 X10'3 (1.1-4.8); LYMPHOCYTES % (AUTO) 15.9 % (21-51); MEAN CORPUSCULAR HEMOGLOBIN 33.1 PG (27.0-31.0); MEAN CORPUSCULAR HGB CONC 33.7 % (33.0-36.5); MEAN CORPUSCULAR VOLUME 98.1 FL (78-98); MEAN PLATELET VOLUME 10.4 FL (7.4-10.4); MONOCYTES # (AUTO) 1.9 X10'3 (0-0.9); MONOCYTES % (AUTO) 16.2 % (2-12); NEUTROPHILS # (AUTO) 7.6 X10'3 (1.8-7.7); PLATELET COUNT 205 X10'3 (140-440); RED BLOOD COUNT 4.11 X10'6 (4.70-6.10); RED CELL DISTRIBUTION WIDTH 15.9 % (11.5-14.5); WHITE BLOOD COUNT 11.8 X10'3 (4.5-11.0)
[2017-12-22 06:58] LABS: ALANINE AMINOTRANSFERASE 51 U/L (12-78); ALBUMIN/GLOBULIN RATIO 0.8 (1.1-1.5); ALKALINE PHOSPHATASE 106 IU/L (46-116); ANION GAP 7 (8-16); ASPARTATE AMINO TRANSFERASE 49 U/L (10-37); BILIRUBIN,TOTAL 0.5 MG/DL (0.1-1.0); BLOOD UREA NITROGEN 33 MG/DL (7-18); BUN/CREATININE RATIO 13.6 (5.4-32.0); CHLORIDE 94 MMOL/L (99-107); CREATININE 2.43 MG/DL (0.60-1.10); GLUCOSE 102 MG/DL (70-104); MAGNESIUM 1.9 MG/DL (1.5-2.4); PHOSPHORUS 3.6 MG/DL (2.3-4.5); POTASSIUM 4.2 MMOL/L (3.5-5.1); SODIUM 135 MMOL/L (135-145); TOTAL CARBON DIOXIDE 33.9 MMOL/L (24-32); eGFR 27 ML/MIN
[2017-12-22] MEDS: pantoprazole 40mg Tablet.DR PO SCH (07:06)
[2017-12-22] MEDS: furosemide 10 MG/1 ML 10ml inj IV SCH ×2 (07:07→20:39)
[2017-12-22] MEDS: vancomycin/NS 1 GM ADD-VANTAGE 250 ML IV SCH (07:08)
[2017-12-22] MEDS: K and/or MAG REPLACEMENT MC SCH (08:00)
[2017-12-22] MEDS: metoprolol tartrate 25mg tablet PO SCH ×2 (08:25→20:39)
[2017-12-22] MEDS: cloNIDine 0.1 mg tablet PO SCH ×3 (08:25→20:39)
[2017-12-22] MEDS: acetaminophen 325mg tablet PO PRN (08:25)
[2017-12-22] MEDS: aspirin 81mg tablet.DR PO SCH (08:26)
[2017-12-22] MEDS: potassium Cl 20 mEq SR tablet PO SCH (08:26)
[2017-12-22] MEDS: thiamine 100mg tablet PO SCH (08:26)
[2017-12-22] MEDS: apixaban 5mg tablet PO SCH ×2 (08:26→20:39)
[2017-12-22] MEDS: folic acid 1mg tablet PO SCH (08:26)
[2017-12-22] MEDS: mag hydrox/Alum hydrox/simeth 30ml oral suspension PO PRN (12:48)
[2017-12-22] MEDS: lactobacillus rhamnosus 10,000 MMU CELLS/CAPSULE PO SCH (20:39)
[2017-12-23 03:00] VITALS: BP 120/93
[2017-12-23] MEDS: ipratropium/albuterol 3ml nebule NEB SCH ×6 (03:37→23:17)
[2017-12-23 07:00] VITALS: BP 133/75
[2017-12-23] MEDS ORDERED: VANCOMYCIN LEVEL IV NR (07:30)
[2017-12-23] MEDS: folic acid 1mg tablet PO SCH (07:32)
[2017-12-23] MEDS: lactobacillus rhamnosus 10,000 MMU CELLS/CAPSULE PO SCH ×2 (07:32→20:50)
[2017-12-23] MEDS: thiamine 100mg tablet PO SCH (07:32)
[2017-12-23] MEDS: cloNIDine 0.1 mg tablet PO SCH ×3 (07:32→20:51)
[2017-12-23] MEDS: pantoprazole 40mg Tablet.DR PO SCH (07:32)
[2017-12-23] MEDS: metoprolol tartrate 25mg tablet PO SCH ×2 (07:32→20:50)
[2017-12-23] MEDS: potassium Cl 20 mEq SR tablet PO SCH (07:32)
[2017-12-23] MEDS: aspirin 81mg tablet.DR PO SCH (07:32)
[2017-12-23] MEDS: apixaban 5mg tablet PO SCH ×2 (07:33→20:51)
[2017-12-23] MEDS: furosemide 10 MG/1 ML 10ml inj IV SCH ×2 (07:34→20:51)
[2017-12-23] MEDS: acetaminophen 325mg tablet PO PRN (07:39)
[2017-12-23] MEDS: K and/or MAG REPLACEMENT MC SCH (08:00)
[2017-12-23 09:53] LABS: BASOPHILS % (AUTO) 0.1 % (0-1); EOSINOPHILS # (AUTO) 0.3 X10'3 (0-0.9); EOSINOPHILS % (AUTO) 2.8 % (0-6); HEMOGLOBIN 14.5 g/dl (14.0-17.9); LYMPHOCYTES # (AUTO) 1.4 X10'3 (1.1-4.8); LYMPHOCYTES % (AUTO) 15.2 % (21-51); MEAN CORPUSCULAR HEMOGLOBIN 32.7 PG (27.0-31.0); MEAN CORPUSCULAR VOLUME 99.1 FL (78-98); MEAN PLATELET VOLUME 10.2 FL (7.4-10.4); MONOCYTES # (AUTO) 1.3 X10'3 (0-0.9); MONOCYTES % (AUTO) 14.2 % (2-12); NEUTROPHILS # (AUTO) 6.3 X10'3 (1.8-7.7); NEUTROPHILS % (AUTO) 67.7 % (42-75); PLATELET COUNT 203 X10'3 (140-440); RED BLOOD COUNT 4.44 X10'6 (4.70-6.10); RED CELL DISTRIBUTION WIDTH 15.5 % (11.5-14.5); WHITE BLOOD COUNT 9.3 X10'3 (4.5-11.0)
[2017-12-23 10:08] LABS: ALANINE AMINOTRANSFERASE 41 U/L (12-78); ALBUMIN 2.7 G/DL (3.4-5.0); ALBUMIN/GLOBULIN RATIO 0.7 (1.1-1.5); ALKALINE PHOSPHATASE 99 IU/L (46-116); ANION GAP 6 (8-16); ASPARTATE AMINO TRANSFERASE 33 U/L (10-37); BILIRUBIN,TOTAL 0.5 MG/DL (0.1-1.0); BLOOD UREA NITROGEN 41 MG/DL (7-18); BUN/CREATININE RATIO 16.4 (5.4-32.0); CALCIUM 9.3 MG/DL (8.5-10.1); CHLORIDE 93 MMOL/L (99-107); GLUCOSE 173 MG/DL (70-104); MAGNESIUM 2.4 MG/DL (1.5-2.4); POTASSIUM 4.3 MMOL/L (3.5-5.1); SODIUM 132 MMOL/L (135-145); TOTAL CARBON DIOXIDE 32.7 MMOL/L (24-32); TOTAL PROTEIN 6.8 G/DL (6.4-8.2); VANCOMYCIN,TROUGH 17.1 UG/ML (6.0-14.0); eGFR 26 ML/MIN
[2017-12-23 11:00] VITALS: BP 92/69
[2017-12-23] MEDS: ondansetron/PF 4mg/2ml inj IV PRN (13:25)
[2017-12-23 15:00] VITALS: BP 126/85
[2017-12-23] MEDS: mag hydrox/Alum hydrox/simeth 30ml oral suspension PO PRN (16:07)
[2017-12-23] MEDS: normal saline 1000ml 1,000 ML IV SCH (16:14)
[2017-12-23 19:00] VITALS: BP 157/114
[2017-12-23 23:00] VITALS: BP 112/79
[2017-12-24] VITALS (9 sets, daily range): BP systolic 94–138; BP diastolic 59–88
[2017-12-24] MEDS: ipratropium/albuterol 3ml nebule NEB SCH ×6 (03:00→23:10)
[2017-12-24 05:56] LABS: BASOPHILS # (AUTO) 0.1 X10'3 (0-0.2); BASOPHILS % (AUTO) 0.5 % (0-1); EOSINOPHILS # (AUTO) 0.2 X10'3 (0-0.9); EOSINOPHILS % (AUTO) 2.2 % (0-6); HEMATOCRIT 45.3 % (42.0-52.0); HEMOGLOBIN 14.9 g/dl (14.0-17.9); LYMPHOCYTES % (AUTO) 18.3 % (21-51); MEAN CORPUSCULAR HEMOGLOBIN 32.2 PG (27.0-31.0); MEAN CORPUSCULAR VOLUME 97.4 FL (78-98); MEAN PLATELET VOLUME 10.3 FL (7.4-10.4); MONOCYTES # (AUTO) 1.5 X10'3 (0-0.9); MONOCYTES % (AUTO) 13.6 % (2-12); NEUTROPHILS % (AUTO) 65.4 % (42-75); PLATELET COUNT 196 X10'3 (140-440); RED BLOOD COUNT 4.65 X10'6 (4.70-6.10); RED CELL DISTRIBUTION WIDTH 15.6 % (11.5-14.5); WHITE BLOOD COUNT 10.8 X10'3 (4.5-11.0)
[2017-12-24 06:08] LABS: ALANINE AMINOTRANSFERASE 38 U/L (12-78); ALBUMIN 2.9 G/DL (3.4-5.0); ALBUMIN/GLOBULIN RATIO 0.6 (1.1-1.5); ALKALINE PHOSPHATASE 104 IU/L (46-116); ANION GAP 9 (8-16); ASPARTATE AMINO TRANSFERASE 31 U/L (10-37); BILIRUBIN,TOTAL 0.5 MG/DL (0.1-1.0); BLOOD UREA NITROGEN 46 MG/DL (7-18); BUN/CREATININE RATIO 17.7 (5.4-32.0); CALCIUM 9.7 MG/DL (8.5-10.1); CHLORIDE 94 MMOL/L (99-107); GLUCOSE 103 MG/DL (70-104); MAGNESIUM 2.5 MG/DL (1.5-2.4); PHOSPHORUS 4.8 MG/DL (2.3-4.5); POTASSIUM 3.8 MMOL/L (3.5-5.1); SODIUM 133 MMOL/L (135-145); TOTAL CARBON DIOXIDE 30.5 MMOL/L (24-32); TOTAL PROTEIN 7.4 G/DL (6.4-8.2); eGFR 25 ML/MIN
[2017-12-24] MEDS: pantoprazole 40mg Tablet.DR PO SCH (07:29)
[2017-12-24] MEDS: apixaban 5mg tablet PO SCH ×2 (07:29→20:53)
[2017-12-24] MEDS: furosemide 10 MG/1 ML 10ml inj IV SCH ×2 (07:29→20:52)
[2017-12-24] MEDS: lactobacillus rhamnosus 10,000 MMU CELLS/CAPSULE PO SCH ×2 (07:29→20:53)
[2017-12-24] MEDS: thiamine 100mg tablet PO SCH (07:29)
[2017-12-24] MEDS: potassium Cl 20 mEq SR tablet PO SCH (07:29)
[2017-12-24] MEDS: aspirin 81mg tablet.DR PO SCH (07:30)
[2017-12-24] MEDS: cloNIDine 0.1 mg tablet PO SCH ×3 (07:30→20:53)
[2017-12-24] MEDS: folic acid 1mg tablet PO SCH (07:30)
[2017-12-24] MEDS: K and/or MAG REPLACEMENT MC SCH (08:00)
[2017-12-24] MEDS: metoprolol tartrate 25mg tablet PO SCH ×2 (08:37→20:53)
[2017-12-24] MEDS ORDERED: calcium carbonate 500mg chew tablet PO PRN (09:15)
[2017-12-24] MEDS: HYDROcodone/acetaminophen 10/325mg tab PO PRN (14:16)
[2017-12-24] MEDS: ondansetron/PF 4mg/2ml inj IV PRN (14:43)
[2017-12-25 03:00] VITALS: BP 154/81
[2017-12-25] MEDS: ipratropium/albuterol 3ml nebule NEB SCH ×2 (03:28→08:25)
[2017-12-25 06:00] VITALS: BP 157/85
[2017-12-25] MEDS: K and/or MAG REPLACEMENT MC SCH (08:00)
[2017-12-25] MEDS: furosemide 10 MG/1 ML 10ml inj IV SCH (08:19)
[2017-12-25] MEDS: potassium Cl 20 mEq SR tablet PO SCH (08:19)
[2017-12-25] MEDS: thiamine 100mg tablet PO SCH (08:20)
[2017-12-25] MEDS: lactobacillus rhamnosus 10,000 MMU CELLS/CAPSULE PO SCH (08:20)
[2017-12-25] MEDS: apixaban 5mg tablet PO SCH (08:20)
[2017-12-25] MEDS: aspirin 81mg tablet.DR PO SCH (08:20)
[2017-12-25] MEDS: cloNIDine 0.1 mg tablet PO SCH ×2 (08:20→12:41)
[2017-12-25] MEDS: pantoprazole 40mg Tablet.DR PO SCH (08:20)
[2017-12-25] MEDS: metoprolol tartrate 25mg tablet PO SCH (08:20)
[2017-12-25] MEDS: folic acid 1mg tablet PO SCH (08:20)
[2017-12-25] MEDS: HYDROcodone/acetaminophen 10/325mg tab PO PRN (08:25)
[2017-12-25] MEDS ORDERED: FURO-150 PO (10:41)
[2017-12-25] MEDS ORDERED: CLON0.1T20 PO (10:41)
[2017-12-25] MEDS ORDERED: HYDR-569 PO (10:41)
[2017-12-25 11:00] VITALS: BP 110/64
== END 2017-12-25 13:55 | disposition home health service (06) | DRG 177 ==
LOC: ER 12:41 → ED HOLD 16:14 → PCU 3S 17:52
PROVIDERS: ADMIT Family Medicine; ATTEND Internal Medicine
DX: J69.0 Pneumonitis due to inhalation of food and vomit (principal); J96.21 Acute and chronic respiratory failure with hypoxia; I21.A1 Myocardial infarction type 2; I26.09 Other pulmonary embolism with acute cor pulmonale; I50.33 Acute on chronic diastolic (congestive) heart failure; J44.1 Chronic obstructive pulmonary disease with (acute) exacerbation; N18.4 Chronic kidney disease, stage 4 (severe); I13.0 Hypertensive heart and chronic kidney disease with heart failure and stage 1 through stage 4 chronic kidney disease, or unspecified chronic kidney disease; F15.10 Other stimulant abuse, uncomplicated; I16.0 Hypertensive urgency; F12.10 Cannabis abuse, uncomplicated; F32.9 Major depressive disorder, single episode, unspecified; G89.29 Other chronic pain; F10.20 Alcohol dependence, uncomplicated; M54.9 Dorsalgia, unspecified; D63.8 Anemia in other chronic diseases classified elsewhere; E78.00 Pure hypercholesterolemia, unspecified; E87.6 Hypokalemia; E78.5 Hyperlipidemia, unspecified; I25.10 Atherosclerotic heart disease of native coronary artery without angina pectoris; F17.210 Nicotine dependence, cigarettes, uncomplicated; Z60.2 Problems related to living alone; Z91.19 Patient's noncompliance with other medical treatment and regimen; I25.2 Old myocardial infarction; Z79.01 Long term (current) use of anticoagulants; Z79.899 Other long term (current) drug therapy; Z79.82 Long term (current) use of aspirin; Z80.8 Family history of malignant neoplasm of other organs or systems; Z83.3 Family history of diabetes mellitus; Z71.41 Alcohol abuse counseling and surveillance of alcoholic; Z71.6 Tobacco abuse counseling
CPT/HCPCS: 36415; 36600; 71045; 80053; 80202; 80320; 82803; 83605; 83735; 83880; 84100; 84132; 84484; 85018; 85025; 85730; 86703; 86705; 86706; 86709; 86803; 87040; 87070; 87340; 93005; 93970; 94640; 94760; 96365; 96366; 96375; 97116; 97161; 99285; A6257; J1644; J1940; J2405; J2543; J3370; J3490; J7030

== ENCOUNTER 2018-03-07 09:59 | Inpatient (IN) | payer MEDICARE, MEDICAID ==
[~2018-03-07] VITALS: Ht 175.3 cm; Wt 56.6 kg
[~2018-03-07 09:59] MED LIST changes: -ASPI-1071 PO; +CLON0.1T20 PO; +HYDR-4383 PO; -LEVO750T21 PO; -PRED10TA23 PO
[2018-03-07] MEDS ORDERED: levoFLOXACIN-Levaquin 750MG/D5 150 ML IV ONE (10:25)
[2018-03-07] MEDS ORDERED: ipratropium/albuterol 3ml nebule NEB ONE (10:25)
[2018-03-07] MEDS ORDERED: normal saline 1000ML IV soln IVB ONE (10:25)
[2018-03-07] MEDS ORDERED: methylPREDNISolone sod succ 125mg/2ml vial IV ONE (10:25)
[2018-03-07 11:05] LABS: ALANINE AMINOTRANSFERASE 32 U/L (12-78); ALBUMIN 2.9 G/DL (3.4-5.0); ALBUMIN/GLOBULIN RATIO 0.6 (1.1-1.5); ALKALINE PHOSPHATASE 99 IU/L (46-116); ANION GAP 14 (8-16); ASPARTATE AMINO TRANSFERASE 45 U/L (10-37); BILIRUBIN,TOTAL 0.7 MG/DL (0.1-1.0); BLOOD UREA NITROGEN 50 MG/DL (7-18); BUN/CREATININE RATIO 20.7 (5.4-32.0); CALCIUM 8.9 MG/DL (8.5-10.1); CHLORIDE 98 MMOL/L (99-107); CREATININE 2.41 MG/DL (0.60-1.10); GLUCOSE 122 MG/DL (70-104); POTASSIUM 4.8 MMOL/L (3.5-5.1); SODIUM 134 MMOL/L (135-145); TOTAL CARBON DIOXIDE 21.6 MMOL/L (24-32); TOTAL PROTEIN 7.5 G/DL (6.4-8.2); eGFR 27 ML/MIN
[2018-03-07] MEDS: magnesium 1gm/100ml D5W IVPB 100 ML IV SCH ×2 (11:07→12:17)
[2018-03-07 11:12] LABS: MAGNESIUM 2.6 MG/DL (1.5-2.4)
[2018-03-07 11:13] LABS: BASOPHILS # (AUTO) 0.1 X10'3 (0-0.2); BASOPHILS % (AUTO) 0.7 % (0-1); EOSINOPHILS % (AUTO) 0.1 % (0-6); HEMATOCRIT 34.9 % (42.0-52.0); HEMOGLOBIN 11.8 g/dl (14.0-17.9); LYMPHOCYTES # (AUTO) 1.2 X10'3 (1.1-4.8); LYMPHOCYTES % (AUTO) 16.1 % (21-51); MEAN CORPUSCULAR HEMOGLOBIN 32.6 PG (27.0-31.0); MEAN CORPUSCULAR HGB CONC 33.7 % (33.0-36.5); MEAN CORPUSCULAR VOLUME 96.5 FL (78-98); MEAN PLATELET VOLUME 9.6 FL (7.4-10.4); MONOCYTES # (AUTO) 0.7 X10'3 (0-0.9); MONOCYTES % (AUTO) 9.5 % (2-12); NEUTROPHILS # (AUTO) 5.2 X10'3 (1.8-7.7); NEUTROPHILS % (AUTO) 73.6 % (42-75); PLATELET COUNT 432 X10'3 (140-440); RED BLOOD COUNT 3.62 X10'6 (4.70-6.10); RED CELL DISTRIBUTION WIDTH 14.7 % (11.5-14.5); WHITE BLOOD COUNT 7.2 X10'3 (4.5-11.0)
[2018-03-07] MEDS ORDERED: aspirin 325mg tablet PO ONE (12:20)
[2018-03-07] MEDS ORDERED: nitroGLYCERIN 0.4mg/hour patch TD ONE (12:20)
[2018-03-07] MEDS ORDERED: furosemide 10 MG/1 ML 10ml inj IV ONE (12:20)
[2018-03-07 12:26] LABS: INR 1.2 INR; PROTHROMBIN TIME 12.5 SECONDS (9.0-12.0)
[2018-03-07] MEDS ORDERED: magnesium hydroxide 30ml (MOM) UD suspension PO PRN (12:45)
[2018-03-07] MEDS ORDERED: HYDROcodone/acetaminophen 5mg/325mg tablet PO PRN (12:45)
[2018-03-07] MEDS ORDERED: mag hydrox/Alum hydrox/simeth 30ml oral suspension PO PRN (12:45)
[2018-03-07] MEDS ORDERED: THI100T PO (13:30)
[2018-03-07] MEDS ORDERED: APIX5TAB3 PO (13:37)
[2018-03-07] MEDS ORDERED: ALBU6.7H INH (13:40)
[2018-03-07] MEDS ORDERED: CLON-529 PO (13:42)
[2018-03-07] MEDS ORDERED: FOLI0.4T2 PO (13:44)
[2018-03-07] MEDS ORDERED: HYDR-3965 PO (13:46)
[2018-03-07] MEDS ORDERED: METO-467 PO (13:46)
[2018-03-07] MEDS ORDERED: OMEP20TA23 PO (13:49)
[2018-03-07] MEDS ORDERED: NITR0.4T51 SL (13:51)
[2018-03-07 14:05] VITALS: BP 141/111
[2018-03-07] MEDS ORDERED: nitroGLYCERIN 0.4mg SUBLingual tab SL PRN (14:10)
[2018-03-07] MEDS ORDERED: albuterol 2.5 MG/3 ML nebule NEB PRN (14:20)
[2018-03-07 14:25] LABS: URINE AMPHETAMINE SCREEN NEGATIVE (Neg); URINE BARBITUATE SCREEN NEGATIVE (Neg); URINE BENZODIAZEPINES SCREEN NEGATIVE (Neg); URINE CANNABINOID SCREEN NEGATIVE (Neg); URINE COCAINE SCREEN NEGATIVE (Neg); URINE METHADONE SCREEN NEGATIVE (Neg); URINE OPIATE SCREEN NEGATIVE (Neg); URINE PHENCYCLIDINE SCREEN NEGATIVE (Neg)
[2018-03-07] MEDS: HYDROcodone/acetaminophen 5mg/325mg tablet PO PRN (15:31)
[2018-03-07] MEDS ORDERED: ipratropium/albuterol 3ml nebule NEB PRN (15:50)
[2018-03-07] MEDS ORDERED: heparin, porcine 5000 units/ml vial SQ SCH (16:00)
[2018-03-07 19:00] VITALS: BP 170/100
[2018-03-07] MEDS: furosemide 40mg/4ml inj IV SCH (20:41)
[2018-03-07] MEDS: metoprolol tartrate 25mg tablet PO SCH (20:41)
[2018-03-07] MEDS: cloNIDine 0.1 mg tablet PO SCH (20:41)
[2018-03-07] MEDS: apixaban 5mg tablet PO SCH (20:41)
[2018-03-07 23:00] VITALS: BP 128/87
[2018-03-08 03:00] VITALS: BP 96/66
[2018-03-08 06:00] VITALS: BP 133/94
[2018-03-08 06:50] LABS: ALANINE AMINOTRANSFERASE 27 U/L (12-78); ALBUMIN 2.5 G/DL (3.4-5.0); ALBUMIN/GLOBULIN RATIO 0.6 (1.1-1.5); ALKALINE PHOSPHATASE 81 IU/L (46-116); ANION GAP 12 (8-16); ASPARTATE AMINO TRANSFERASE 36 U/L (10-37); BILIRUBIN,TOTAL 0.5 MG/DL (0.1-1.0); BLOOD UREA NITROGEN 55 MG/DL (7-18); BUN/CREATININE RATIO 24.1 (5.4-32.0); CALCIUM 8.6 MG/DL (8.5-10.1); CHLORIDE 97 MMOL/L (99-107); CREATININE 2.28 MG/DL (0.60-1.10); GLUCOSE 123 MG/DL (70-104); POTASSIUM 3.5 MMOL/L (3.5-5.1); SODIUM 134 MMOL/L (135-145); TOTAL CARBON DIOXIDE 25.4 MMOL/L (24-32); TOTAL PROTEIN 6.4 G/DL (6.4-8.2); eGFR 29 ML/MIN
[2018-03-08 07:16] LABS: BASOPHILS % (AUTO) 0.3 % (0-1); EOSINOPHILS % (AUTO) 0 % (0-6); HEMATOCRIT 28.7 % (42.0-52.0); HEMOGLOBIN 9.8 g/dl (14.0-17.9); LYMPHOCYTES % (AUTO) 13.6 % (21-51); MEAN CORPUSCULAR HEMOGLOBIN 32.7 PG (27.0-31.0); MEAN CORPUSCULAR HGB CONC 34.1 % (33.0-36.5); MEAN CORPUSCULAR VOLUME 96.1 FL (78-98); MONOCYTES # (AUTO) 0.5 X10'3 (0-0.9); MONOCYTES % (AUTO) 6.5 % (2-12); NEUTROPHILS # (AUTO) 5.6 X10'3 (1.8-7.7); NEUTROPHILS % (AUTO) 79.6 % (42-75); PLATELET COUNT 359 X10'3 (140-440); RED BLOOD COUNT 2.99 X10'6 (4.70-6.10); RED CELL DISTRIBUTION WIDTH 14.3 % (11.5-14.5); WHITE BLOOD COUNT 7.1 X10'3 (4.5-11.0)
[2018-03-08 07:18] LABS: PLATELET ESTIMATE NORMAL; POLYCHROMASIA 2+
[2018-03-08 07:19] LABS: BURR CELLS 1+
[2018-03-08] MEDS: furosemide 40mg/4ml inj IV SCH ×2 (08:08→19:25)
[2018-03-08] MEDS: metoprolol tartrate 25mg tablet PO SCH ×2 (08:09→19:19)
[2018-03-08] MEDS: cloNIDine 0.1 mg tablet PO SCH ×3 (08:09→20:20)
[2018-03-08] MEDS: HYDROcodone/acetaminophen 5mg/325mg tablet PO PRN ×3 (08:09→20:19)
[2018-03-08] MEDS: apixaban 5mg tablet PO SCH ×2 (08:10→19:24)
[2018-03-08] MEDS: folic acid 0.4mg tablet PO SCH (08:10)
[2018-03-08] MEDS: thiamine 100mg tablet PO SCH (08:10)
[2018-03-08] MEDS: pantoprazole 40mg Tablet.DR PO SCH (08:10)
[2018-03-08] MEDS: levoFLOXACIN-Levaquin 500mg/D5 100 ML IV SCH (08:11)
[2018-03-08 11:00] VITALS: BP 121/81
[2018-03-08] MEDS: ondansetron/PF 4mg/2ml inj IV PRN ×2 (14:21→20:16)
[2018-03-08 15:00] VITALS: BP 134/79
[2018-03-08 18:00] VITALS: BP 124/87
[2018-03-08] MEDS: lactobacillus rhamnosus 10,000 MMU CELLS/CAPSULE PO SCH (19:25)
[2018-03-08 22:00] VITALS: BP 155/90
[2018-03-09 02:00] VITALS: BP 139/89
[2018-03-09 05:49] LABS: BASOPHILS % (AUTO) 0.1 % (0-1); EOSINOPHILS % (AUTO) 0 % (0-6); HEMATOCRIT 32.3 % (42.0-52.0); HEMOGLOBIN 10.4 g/dl (14.0-17.9); LYMPHOCYTES # (AUTO) 1.9 X10'3 (1.1-4.8); LYMPHOCYTES % (AUTO) 15.8 % (21-51); MEAN CORPUSCULAR HEMOGLOBIN 31.3 PG (27.0-31.0); MEAN CORPUSCULAR HGB CONC 32.3 % (33.0-36.5); MEAN PLATELET VOLUME 9.8 FL (7.4-10.4); MONOCYTES # (AUTO) 1.3 X10'3 (0-0.9); NEUTROPHILS # (AUTO) 8.7 X10'3 (1.8-7.7); NEUTROPHILS % (AUTO) 73.1 % (42-75); PLATELET COUNT 381 X10'3 (140-440); RED BLOOD COUNT 3.34 X10'6 (4.70-6.10); RED CELL DISTRIBUTION WIDTH 15.8 % (11.5-14.5); WHITE BLOOD COUNT 11.9 X10'3 (4.5-11.0)
[2018-03-09 06:00] VITALS: BP 171/96
[2018-03-09 06:44] LABS: ALANINE AMINOTRANSFERASE 27 U/L (12-78); ALBUMIN 2.5 G/DL (3.4-5.0); ALBUMIN/GLOBULIN RATIO 0.6 (1.1-1.5); ALKALINE PHOSPHATASE 76 IU/L (46-116); ANION GAP 8 (8-16); ASPARTATE AMINO TRANSFERASE 36 U/L (10-37); BILIRUBIN,TOTAL 0.4 MG/DL (0.1-1.0); BLOOD UREA NITROGEN 51 MG/DL (7-18); BUN/CREATININE RATIO 24.1 (5.4-32.0); CALCIUM 8.4 MG/DL (8.5-10.1); CHLORIDE 98 MMOL/L (99-107); CREATININE 2.12 MG/DL (0.60-1.10); GLUCOSE 99 MG/DL (70-104); SODIUM 136 MMOL/L (135-145); TOTAL CARBON DIOXIDE 29.6 MMOL/L (24-32); TOTAL PROTEIN 6.5 G/DL (6.4-8.2); eGFR 31 ML/MIN
[2018-03-09 07:14] LABS: POTASSIUM 2.9 MMOL/L (3.5-5.1)
[2018-03-09] MEDS: thiamine 100mg tablet PO SCH (07:33)
[2018-03-09] MEDS: apixaban 5mg tablet PO SCH ×2 (07:33→20:37)
[2018-03-09] MEDS: cloNIDine 0.1 mg tablet PO SCH ×4 (07:33→21:00)
[2018-03-09] MEDS: folic acid 0.4mg tablet PO SCH (07:33)
[2018-03-09] MEDS: pantoprazole 40mg Tablet.DR PO SCH (07:33)
[2018-03-09] MEDS: lactobacillus rhamnosus 10,000 MMU CELLS/CAPSULE PO SCH ×2 (07:33→20:37)
[2018-03-09] MEDS: levoFLOXACIN-Levaquin 500mg/D5 100 ML IV SCH (07:34)
[2018-03-09] MEDS: furosemide 40mg/4ml inj IV SCH ×2 (07:34→20:37)
[2018-03-09] MEDS: metoprolol tartrate 25mg tablet PO SCH ×3 (07:34→20:37)
[2018-03-09] MEDS: ondansetron/PF 4mg/2ml inj IV PRN (07:45)
[2018-03-09] MEDS ORDERED: potassium Cl 20 mEq SR tablet PO STA (08:20)
[2018-03-09] MEDS ORDERED: potassium Cl 20 mEq SR tablet PO SCH (08:30)
[2018-03-09] MEDS: acetaminophen 325mg tablet PO PRN (09:14)
[2018-03-09] MEDS: metoclopramide 5 mg/ml inj IV PRN (09:46)
[2018-03-09 11:00] VITALS: BP 122/79
[2018-03-09] MEDS: potassium Cl 20 mEq SR tablet PO SCH ×2 (13:03→16:53)
[2018-03-09 15:00] VITALS: BP 110/87
[2018-03-09 19:00] VITALS: BP 155/95
[2018-03-09 23:00] VITALS: BP 151/98
[2018-03-10 03:00] VITALS: BP 143/83
[2018-03-10 05:45] LABS: BASOPHILS % (AUTO) 0.3 % (0-1); EOSINOPHILS % (AUTO) 0.5 % (0-6); HEMATOCRIT 34.4 % (42.0-52.0); HEMOGLOBIN 11.1 g/dl (14.0-17.9); LYMPHOCYTES # (AUTO) 1.8 X10'3 (1.1-4.8); LYMPHOCYTES % (AUTO) 20.4 % (21-51); MEAN CORPUSCULAR HEMOGLOBIN 31.2 PG (27.0-31.0); MEAN CORPUSCULAR HGB CONC 32.2 % (33.0-36.5); MEAN PLATELET VOLUME 9.7 FL (7.4-10.4); MONOCYTES # (AUTO) 1.4 X10'3 (0-0.9); MONOCYTES % (AUTO) 16.2 % (2-12); NEUTROPHILS # (AUTO) 5.5 X10'3 (1.8-7.7); NEUTROPHILS % (AUTO) 62.6 % (42-75); PLATELET COUNT 364 X10'3 (140-440); RED BLOOD COUNT 3.55 X10'6 (4.70-6.10); RED CELL DISTRIBUTION WIDTH 15.4 % (11.5-14.5); WHITE BLOOD COUNT 8.8 X10'3 (4.5-11.0)
[2018-03-10 06:00] VITALS: BP 140/90
[2018-03-10 06:02] LABS: ALANINE AMINOTRANSFERASE 30 U/L (12-78); ALBUMIN 2.6 G/DL (3.4-5.0); ALBUMIN/GLOBULIN RATIO 0.7 (1.1-1.5); ALKALINE PHOSPHATASE 84 IU/L (46-116); ANION GAP 7 (8-16); ASPARTATE AMINO TRANSFERASE 43 U/L (10-37); BILIRUBIN,TOTAL 0.4 MG/DL (0.1-1.0); BLOOD UREA NITROGEN 45 MG/DL (7-18); BUN/CREATININE RATIO 23.6 (5.4-32.0); CALCIUM 8.5 MG/DL (8.5-10.1); CHLORIDE 98 MMOL/L (99-107); CREATININE 1.91 MG/DL (0.60-1.10); GLUCOSE 98 MG/DL (70-104); POTASSIUM 3.1 MMOL/L (3.5-5.1); SODIUM 138 MMOL/L (135-145); TOTAL CARBON DIOXIDE 33.5 MMOL/L (24-32); TOTAL PROTEIN 6.4 G/DL (6.4-8.2); eGFR 35 ML/MIN
[2018-03-10] MEDS: lactobacillus rhamnosus 10,000 MMU CELLS/CAPSULE PO SCH ×2 (07:48→19:28)
[2018-03-10] MEDS: apixaban 5mg tablet PO SCH ×2 (07:48→19:28)
[2018-03-10] MEDS: cloNIDine 0.1 mg tablet PO SCH ×3 (07:48→22:06)
[2018-03-10] MEDS: levoFLOXACIN-Levaquin 500mg/D5 100 ML IV SCH (07:48)
[2018-03-10] MEDS: furosemide 40mg/4ml inj IV SCH ×2 (07:48→19:29)
[2018-03-10] MEDS: folic acid 0.4mg tablet PO SCH (07:48)
[2018-03-10] MEDS: pantoprazole 40mg Tablet.DR PO SCH (07:48)
[2018-03-10] MEDS: thiamine 100mg tablet PO SCH (07:48)
[2018-03-10] MEDS: metoprolol tartrate 25mg tablet PO SCH (07:49)
[2018-03-10] MEDS ORDERED: potassium Cl 20 mEq SR tablet PO STA (08:09)
[2018-03-10 11:00] VITALS: BP 152/93
[2018-03-10] MEDS: ondansetron/PF 4mg/2ml inj IV PRN (12:30)
[2018-03-10 15:00] VITALS: BP 149/82
[2018-03-10 19:00] VITALS: BP 121/82
[2018-03-10 23:00] VITALS: BP 127/84
[2018-03-11 03:00] VITALS: BP 135/80
[2018-03-11 05:30] LABS: BASOPHILS % (AUTO) 0.3 % (0-1); EOSINOPHILS % (AUTO) 0.4 % (0-6); HEMOGLOBIN 11.6 g/dl (14.0-17.9); LYMPHOCYTES # (AUTO) 2.1 X10'3 (1.1-4.8); MEAN CORPUSCULAR HEMOGLOBIN 31.3 PG (27.0-31.0); MEAN CORPUSCULAR HGB CONC 32.2 % (33.0-36.5); MEAN CORPUSCULAR VOLUME 97.1 FL (78-98); MEAN PLATELET VOLUME 9.6 FL (7.4-10.4); MONOCYTES # (AUTO) 1.5 X10'3 (0-0.9); MONOCYTES % (AUTO) 16.3 % (2-12); NEUTROPHILS # (AUTO) 5.8 X10'3 (1.8-7.7); PLATELET COUNT 350 X10'3 (140-440); RED BLOOD COUNT 3.71 X10'6 (4.70-6.10); RED CELL DISTRIBUTION WIDTH 15.3 % (11.5-14.5); WHITE BLOOD COUNT 9.5 X10'3 (4.5-11.0)
[2018-03-11 05:51] LABS: ALANINE AMINOTRANSFERASE 33 U/L (12-78); ALBUMIN 2.7 G/DL (3.4-5.0); ALBUMIN/GLOBULIN RATIO 0.6 (1.1-1.5); ALKALINE PHOSPHATASE 91 IU/L (46-116); ANION GAP 8 (8-16); ASPARTATE AMINO TRANSFERASE 40 U/L (10-37); BILIRUBIN,TOTAL 0.4 MG/DL (0.1-1.0); BLOOD UREA NITROGEN 42 MG/DL (7-18); BUN/CREATININE RATIO 18.9 (5.4-32.0); CALCIUM 8.6 MG/DL (8.5-10.1); CHLORIDE 95 MMOL/L (99-107); CREATININE 2.22 MG/DL (0.60-1.10); GLUCOSE 102 MG/DL (70-104); SODIUM 135 MMOL/L (135-145); TOTAL CARBON DIOXIDE 32.4 MMOL/L (24-32); TOTAL PROTEIN 6.9 G/DL (6.4-8.2); eGFR 30 ML/MIN
[2018-03-11 06:00] VITALS: BP 135/90
[2018-03-11] MEDS ORDERED: magnesium Cl slow-release 64mg tablet PO PRN (06:40)
[2018-03-11] MEDS ORDERED: potassium Cl 40MEQ/NS 500ml 500 ML IV PRN ×2 (06:40)
[2018-03-11] MEDS ORDERED: potassium Cl 20 mEq SR tablet PO PRN (06:40)
[2018-03-11] MEDS ORDERED: magnesium 4gm in 100ml NS 100 ML IV PRN (06:40)
[2018-03-11] MEDS: apixaban 5mg tablet PO SCH (08:29)
[2018-03-11] MEDS: folic acid 0.4mg tablet PO SCH (08:29)
[2018-03-11] MEDS: furosemide 40mg/4ml inj IV SCH (08:29)
[2018-03-11] MEDS: pantoprazole 40mg Tablet.DR PO SCH (08:29)
[2018-03-11] MEDS: thiamine 100mg tablet PO SCH (08:29)
[2018-03-11] MEDS: lactobacillus rhamnosus 10,000 MMU CELLS/CAPSULE PO SCH (08:29)
[2018-03-11] MEDS: cloNIDine 0.1 mg tablet PO SCH ×2 (08:29→13:23)
[2018-03-11] MEDS: potassium Cl 20 mEq SR tablet PO PRN ×2 (08:39→13:24)
[2018-03-11] MEDS ORDERED: levoFLOXACIN 500mg tablet PO SCH (11:00)
[2018-03-11] MEDS ORDERED: POTA10TA15 PO (11:36)
[2018-03-11] MEDS ORDERED: FURO40TA4 PO (11:36)
[2018-03-11] MEDS: ondansetron/PF 4mg/2ml inj IV PRN ×2 (11:47→18:02)
[2018-03-11 12:00] VITALS: BP 133/83
[2018-03-11] MEDS: acetaminophen 325mg tablet PO PRN (13:24)
[2018-03-11] MEDS: metoclopramide 5 mg/ml inj IV PRN (13:28)
[2018-03-11 15:00] VITALS: BP 136/77
== END 2018-03-11 18:10 | disposition home or self-care (01) | DRG 682 ==
LOC: ER 10:00 → ED HOLD 12:42 → PCU 3S 14:05
PROVIDERS: ADMIT Internal Medicine; ATTEND Internal Medicine
DX: N17.9 Acute kidney failure, unspecified (principal); J18.9 Pneumonia, unspecified organism; I13.0 Hypertensive heart and chronic kidney disease with heart failure and stage 1 through stage 4 chronic kidney disease, or unspecified chronic kidney disease; J44.1 Chronic obstructive pulmonary disease with (acute) exacerbation; J96.11 Chronic respiratory failure with hypoxia; J44.0 Chronic obstructive pulmonary disease with (acute) lower respiratory infection; N18.4 Chronic kidney disease, stage 4 (severe); E87.6 Hypokalemia; D63.8 Anemia in other chronic diseases classified elsewhere; E78.00 Pure hypercholesterolemia, unspecified; E78.5 Hyperlipidemia, unspecified; F15.90 Other stimulant use, unspecified, uncomplicated; I27.81 Cor pulmonale (chronic); F17.210 Nicotine dependence, cigarettes, uncomplicated; I25.10 Atherosclerotic heart disease of native coronary artery without angina pectoris; I50.9 Heart failure, unspecified; E53.8 Deficiency of other specified B group vitamins; F10.20 Alcohol dependence, uncomplicated; F32.9 Major depressive disorder, single episode, unspecified; G89.29 Other chronic pain; M54.9 Dorsalgia, unspecified; R00.1 Bradycardia, unspecified; Z91.19 Patient's noncompliance with other medical treatment and regimen; Z79.01 Long term (current) use of anticoagulants; Z79.899 Other long term (current) drug therapy
CPT/HCPCS: 36415; 71045; 80053; 80305; 83605; 83735; 83880; 84145; 84484; 85025; 85379; 85610; 87040; 87070; 87205; 93005; 94640; 94760; 96365; 96366; 96368; 96375; 97110; 97116; 97162; 99285; J1940; J1956; J2405; J2765; J2930

== ENCOUNTER 2018-04-07 09:15 | Inpatient (IN) | payer MEDICARE, MEDICAID ==
[~2018-04-07] VITALS: Ht 172.7 cm; Wt 55.1 kg
[~2018-04-07 09:15] MED LIST changes: +CLON-529 PO; -CLON0.1T20 PO; +FOLI0.4T2 PO; -FOLI1TAB16 PO; +FURO40TA4 PO; +HYDR-3965 PO; -HYDR-4383 PO; -METO25TA6 PO; +POTA10TA15 PO
[2018-04-07 10:26] LABS: BASOPHILS % (AUTO) 0.3 % (0-1); EOSINOPHILS % (AUTO) 0.1 % (0-6); HEMATOCRIT 37.8 % (42.0-52.0); LYMPHOCYTES # (AUTO) 1.4 X10'3 (1.1-4.8); LYMPHOCYTES % (AUTO) 22.1 % (21-51); MEAN CORPUSCULAR HEMOGLOBIN 29.6 PG (27.0-31.0); MEAN CORPUSCULAR HGB CONC 31.7 % (33.0-36.5); MEAN CORPUSCULAR VOLUME 93.5 FL (78-98); MEAN PLATELET VOLUME 10.3 FL (7.4-10.4); MONOCYTES # (AUTO) 0.8 X10'3 (0-0.9); MONOCYTES % (AUTO) 12.9 % (2-12); NEUTROPHILS # (AUTO) 4.1 X10'3 (1.8-7.7); NEUTROPHILS % (AUTO) 64.6 % (42-75); PLATELET COUNT 295 X10'3 (140-440); RED BLOOD COUNT 4.05 X10'6 (4.70-6.10); RED CELL DISTRIBUTION WIDTH 16.4 % (11.5-14.5); WHITE BLOOD COUNT 6.3 X10'3 (4.5-11.0)
[2018-04-07 10:42] LABS: ALANINE AMINOTRANSFERASE 35 U/L (12-78); ALBUMIN 3.3 G/DL (3.4-5.0); ALBUMIN/GLOBULIN RATIO 0.8 (1.1-1.5); ALKALINE PHOSPHATASE 117 IU/L (46-116); ANION GAP 11 (8-16); ASPARTATE AMINO TRANSFERASE 47 U/L (10-37); BLOOD UREA NITROGEN 31 MG/DL (7-18); CALCIUM 9.2 MG/DL (8.5-10.1); CHLORIDE 98 MMOL/L (99-107); CREATININE 1.72 MG/DL (0.60-1.10); GLUCOSE 107 MG/DL (70-104); POTASSIUM 3.2 MMOL/L (3.5-5.1); SODIUM 137 MMOL/L (135-145); TOTAL CARBON DIOXIDE 27.7 MMOL/L (24-32); TOTAL PROTEIN 7.6 G/DL (6.4-8.2); eGFR 40 ML/MIN
[2018-04-07] MEDS ORDERED: potassium Cl 20 mEq SR tablet PO PRN (11:05)
[2018-04-07] MEDS ORDERED: docusate sod 100mg capsule PO PRN (11:05)
[2018-04-07] MEDS ORDERED: morphine 2 MG/ML inj. syringe IV PRN (11:05)
[2018-04-07] MEDS ORDERED: potassium Cl 40MEQ/NS 500ml 500 ML IV PRN ×2 (11:05)
[2018-04-07] MEDS ORDERED: magnesium 4gm in 100ml NS 100 ML IV PRN (11:05)
[2018-04-07] MEDS ORDERED: magnesium 1gm/100ml D5W IVPB 100 ML IV PRN (11:05)
[2018-04-07] MEDS ORDERED: acetaminophen 325mg tablet PO PRN (11:05)
[2018-04-07] MEDS ORDERED: mag hydrox/Alum hydrox/simeth 30ml oral suspension PO PRN (11:05)
[2018-04-07 11:16] LABS: ANISOCYTOSIS 1+; LARGE PLATELETS FEW; PLATELET ESTIMATE NORMAL; TOTAL CELLS COUNTED 100
[2018-04-07 11:17] LABS: POLYCHROMASIA 1+
[2018-04-07] MEDS ORDERED: CLON0.1T20 PO (11:37)
[2018-04-07] MEDS: doxycycline inj 100 MG in normal saline 100ml IV soln 100 ML IV SCH ×2 (11:40→20:28)
[2018-04-07] MEDS: ipratropium/albuterol 3ml nebule NEB PRN (12:15)
[2018-04-07] MEDS ORDERED: nitroGLYCERIN 0.4mg SUBLingual tab SL PRN (13:20)
[2018-04-07 14:17] VITALS: BP 148/95
[2018-04-07] MEDS: potassium Cl 20 mEq SR tablet PO PRN ×2 (14:44→21:07)
[2018-04-07 15:00] VITALS: BP 179/117
[2018-04-07] MEDS: hydrALAZINE 20mg/ml inj. IV PRN (15:44)
[2018-04-07 19:00] VITALS: BP 167/85
[2018-04-07] MEDS ORDERED: apixaban 5mg tablet PO SCH (20:00)
[2018-04-07] MEDS ORDERED: metoprolol tartrate 50mg tablet PO SCH (20:00)
[2018-04-07] MEDS: apixaban 5mg tablet PO SCH (20:28)
[2018-04-07] MEDS: morphine 2 MG/ML inj. syringe IV PRN (21:09)
[2018-04-07 23:00] VITALS: BP 164/90
[2018-04-08] MEDS: ipratropium/albuterol 3ml nebule NEB PRN ×3 (01:05→15:29)
[2018-04-08 03:00] VITALS: BP 179/111
[2018-04-08] MEDS: hydrALAZINE 20mg/ml inj. IV PRN (04:26)
[2018-04-08] MEDS: potassium Cl 20 mEq SR tablet PO PRN (04:27)
[2018-04-08] MEDS: morphine 2 MG/ML inj. syringe IV PRN (04:44)
[2018-04-08 06:00] VITALS: BP 157/93
[2018-04-08] MEDS: apixaban 5mg tablet PO SCH ×2 (07:32→20:13)
[2018-04-08] MEDS: thiamine 100mg tablet PO SCH (07:32)
[2018-04-08] MEDS: furosemide 40mg/4ml inj IV SCH (07:32)
[2018-04-08 07:57] LABS: BASOPHILS % (AUTO) 0.3 % (0-1); EOSINOPHILS # (AUTO) 0.1 X10'3 (0-0.9); EOSINOPHILS % (AUTO) 0.9 % (0-6); HEMATOCRIT 37.7 % (42.0-52.0); HEMOGLOBIN 12.1 g/dl (14.0-17.9); LYMPHOCYTES # (AUTO) 2.6 X10'3 (1.1-4.8); LYMPHOCYTES % (AUTO) 33.5 % (21-51); MEAN CORPUSCULAR HEMOGLOBIN 29.7 PG (27.0-31.0); MEAN CORPUSCULAR HGB CONC 31.9 % (33.0-36.5); MEAN PLATELET VOLUME 10.5 FL (7.4-10.4); MONOCYTES # (AUTO) 1.2 X10'3 (0-0.9); MONOCYTES % (AUTO) 15.8 % (2-12); NEUTROPHILS # (AUTO) 3.9 X10'3 (1.8-7.7); NEUTROPHILS % (AUTO) 49.5 % (42-75); PLATELET COUNT 226 X10'3 (140-440); RED BLOOD COUNT 4.06 X10'6 (4.70-6.10); RED CELL DISTRIBUTION WIDTH 16.2 % (11.5-14.5); WHITE BLOOD COUNT 7.9 X10'3 (4.5-11.0)
[2018-04-08] MEDS: K and/or MAG REPLACEMENT MC SCH (08:00)
[2018-04-08 08:20] LABS: ANION GAP 12 (8-16); BLOOD UREA NITROGEN 28 MG/DL (7-18); BUN/CREATININE RATIO 17.6 (5.4-32.0); CHLORIDE 100 MMOL/L (99-107); CREATININE 1.59 MG/DL (0.60-1.10); GLUCOSE 102 MG/DL (70-104); POTASSIUM 3.8 MMOL/L (3.5-5.1); SODIUM 136 MMOL/L (135-145); TOTAL CARBON DIOXIDE 24.4 MMOL/L (24-32)
[2018-04-08 08:21] LABS: ALANINE AMINOTRANSFERASE 29 U/L (12-78); ALBUMIN/GLOBULIN RATIO 0.8 (1.1-1.5); ALKALINE PHOSPHATASE 108 IU/L (46-116); ASPARTATE AMINO TRANSFERASE 41 U/L (10-37); BILIRUBIN,TOTAL 0.9 MG/DL (0.1-1.0); CHOL/HDL RATIO 6.1 (0.00-4.99); CHOLESTEROL 140 MG/DL (0-200); HDL CHOLESTEROL 23 MG/DL (35-60); LDL CHOLESTEROL 104 MG/DL (50-100); MAGNESIUM 2.1 MG/DL (1.5-2.4); PLATELET ESTIMATE NORMAL; TRIGLYCERIDES 81 MG/DL (20-135); eGFR 44 ML/MIN
[2018-04-08 08:22] LABS: HYPOCHROMASIA 1+; LARGE PLATELETS FEW; POLYCHROMASIA FEW
[2018-04-08 08:25] LABS: ANISOCYTOSIS 1+; POIKILOCYTOSIS 1+
[2018-04-08 08:26] LABS: BURR CELLS 1+; HOWELL-JOLLY BODIES FEW; SPHEROCYTES 1+
[2018-04-08 08:27] LABS: SCHISTOCYTES FEW; TARGET CELLS FEW
[2018-04-08] MEDS: doxycycline inj 100 MG in normal saline 100ml IV soln 100 ML IV SCH (08:37)
[2018-04-08] MEDS: metoprolol succinate 25mg (24-HOUR) SR. Tablet PO SCH (08:38)
[2018-04-08 11:00] VITALS: BP 145/91
[2018-04-08 15:00] VITALS: BP 152/88
[2018-04-08] MEDS: DOXYCYCLINE 100MG CAPSULE PO SCH (17:40)
[2018-04-08 18:29] LABS: URINE AMPHETAMINE SCREEN NEGATIVE (Neg); URINE BARBITUATE SCREEN NEGATIVE (Neg); URINE BENZODIAZEPINES SCREEN NEGATIVE (Neg); URINE CANNABINOID SCREEN NEGATIVE (Neg); URINE COCAINE SCREEN NEGATIVE (Neg); URINE METHADONE SCREEN NEGATIVE (Neg); URINE OPIATE SCREEN POSITIVE (Neg); URINE PHENCYCLIDINE SCREEN NEGATIVE (Neg)
[2018-04-08 19:00] VITALS: BP 154/83
[2018-04-08] MEDS: lactobacillus rhamnosus 10,000 MMU CELLS/CAPSULE PO SCH (20:13)
[2018-04-08] MEDS ORDERED: lisinopril 10 MG tablet PO ONE (21:00)
[2018-04-08 23:00] VITALS: BP 142/79
[2018-04-09] VITALS (7 sets, daily range): BP systolic 113–145; BP diastolic 69–81
[2018-04-09 04:59] LABS: BASOPHILS % (AUTO) 0.2 % (0-1); EOSINOPHILS # (AUTO) 0.1 X10'3 (0-0.9); HEMATOCRIT 34.2 % (42.0-52.0); HEMOGLOBIN 10.9 g/dl (14.0-17.9); LYMPHOCYTES # (AUTO) 2.1 X10'3 (1.1-4.8); LYMPHOCYTES % (AUTO) 23.7 % (21-51); MEAN CORPUSCULAR HEMOGLOBIN 29.3 PG (27.0-31.0); MEAN CORPUSCULAR HGB CONC 31.9 % (33.0-36.5); MEAN CORPUSCULAR VOLUME 91.9 FL (78-98); MEAN PLATELET VOLUME 10.7 FL (7.4-10.4); MONOCYTES # (AUTO) 1.3 X10'3 (0-0.9); MONOCYTES % (AUTO) 14.3 % (2-12); NEUTROPHILS # (AUTO) 5.4 X10'3 (1.8-7.7); NEUTROPHILS % (AUTO) 60.8 % (42-75); PLATELET COUNT 222 X10'3 (140-440); RED BLOOD COUNT 3.72 X10'6 (4.70-6.10); RED CELL DISTRIBUTION WIDTH 16.9 % (11.5-14.5); WHITE BLOOD COUNT 8.9 X10'3 (4.5-11.0)
[2018-04-09 05:38] LABS: ALANINE AMINOTRANSFERASE 27 U/L (12-78); ALBUMIN 2.7 G/DL (3.4-5.0); ALBUMIN/GLOBULIN RATIO 0.8 (1.1-1.5); ALKALINE PHOSPHATASE 86 IU/L (46-116); ANION GAP 10 (8-16); ASPARTATE AMINO TRANSFERASE 35 U/L (10-37); BILIRUBIN,TOTAL 0.8 MG/DL (0.1-1.0); BLOOD UREA NITROGEN 31 MG/DL (7-18); BUN/CREATININE RATIO 19.7 (5.4-32.0); CALCIUM 8.8 MG/DL (8.5-10.1); CHLORIDE 102 MMOL/L (99-107); CREATININE 1.57 MG/DL (0.60-1.10); GLUCOSE 89 MG/DL (70-104); POTASSIUM 3.3 MMOL/L (3.5-5.1); SODIUM 138 MMOL/L (135-145); TOTAL CARBON DIOXIDE 25.7 MMOL/L (24-32); TOTAL PROTEIN 6.3 G/DL (6.4-8.2); eGFR 44 ML/MIN
[2018-04-09 06:35] LABS: LARGE PLATELETS FEW; PLATELET ESTIMATE NORMAL
[2018-04-09 06:36] LABS: ANISOCYTOSIS 1+; BURR CELLS FEW; ELLIPTOCYTES FEW; HYPOCHROMASIA 1+; SCHISTOCYTES FEW; TARGET CELLS FEW
[2018-04-09] MEDS: K and/or MAG REPLACEMENT MC SCH (07:48)
[2018-04-09] MEDS: furosemide 40mg/4ml inj IV SCH (08:08)
[2018-04-09] MEDS: lactobacillus rhamnosus 10,000 MMU CELLS/CAPSULE PO SCH ×2 (08:15→20:27)
[2018-04-09] MEDS: potassium Cl 20 mEq SR tablet PO PRN ×2 (08:16→11:15)
[2018-04-09] MEDS: apixaban 5mg tablet PO SCH ×2 (08:17→20:27)
[2018-04-09] MEDS: thiamine 100mg tablet PO SCH (08:18)
[2018-04-09] MEDS: DOXYCYCLINE 100MG CAPSULE PO SCH ×2 (08:18→18:54)
[2018-04-09] MEDS: metoprolol succinate 25mg (24-HOUR) SR. Tablet PO SCH (08:18)
[2018-04-09] MEDS: atorvastatin 20mg tablet PO SCH (08:19)
[2018-04-09] MEDS: lisinopril 20mg tablet PO SCH (20:30)
[2018-04-10] VITALS (8 sets, daily range): BP systolic 91–143; BP diastolic 55–91
[2018-04-10 05:07] LABS: BASOPHILS % (AUTO) 0.3 % (0-1); EOSINOPHILS # (AUTO) 0.1 X10'3 (0-0.9); EOSINOPHILS % (AUTO) 1.7 % (0-6); HEMATOCRIT 35.4 % (42.0-52.0); HEMOGLOBIN 11.4 g/dl (14.0-17.9); LYMPHOCYTES # (AUTO) 2.4 X10'3 (1.1-4.8); LYMPHOCYTES % (AUTO) 26.9 % (21-51); MEAN CORPUSCULAR HEMOGLOBIN 29.4 PG (27.0-31.0); MEAN CORPUSCULAR HGB CONC 32.1 % (33.0-36.5); MEAN CORPUSCULAR VOLUME 91.4 FL (78-98); MEAN PLATELET VOLUME 10.9 FL (7.4-10.4); MONOCYTES # (AUTO) 1.4 X10'3 (0-0.9); MONOCYTES % (AUTO) 15.6 % (2-12); NEUTROPHILS # (AUTO) 4.9 X10'3 (1.8-7.7); NEUTROPHILS % (AUTO) 55.5 % (42-75); PLATELET COUNT 224 X10'3 (140-440); RED BLOOD COUNT 3.87 X10'6 (4.70-6.10); RED CELL DISTRIBUTION WIDTH 16.6 % (11.5-14.5); WHITE BLOOD COUNT 8.7 X10'3 (4.5-11.0)
[2018-04-10 05:25] LABS: ALANINE AMINOTRANSFERASE 28 U/L (12-78); ALBUMIN 2.5 G/DL (3.4-5.0); ALBUMIN/GLOBULIN RATIO 0.7 (1.1-1.5); ALKALINE PHOSPHATASE 95 IU/L (46-116); ANION GAP 9 (8-16); ASPARTATE AMINO TRANSFERASE 38 U/L (10-37); BILIRUBIN,TOTAL 0.8 MG/DL (0.1-1.0); BLOOD UREA NITROGEN 32 MG/DL (7-18); CALCIUM 8.5 MG/DL (8.5-10.1); CHLORIDE 103 MMOL/L (99-107); CREATININE 1.68 MG/DL (0.60-1.10); GLUCOSE 88 MG/DL (70-104); MAGNESIUM 1.9 MG/DL (1.5-2.4); POTASSIUM 3.5 MMOL/L (3.5-5.1); SODIUM 138 MMOL/L (135-145); TOTAL CARBON DIOXIDE 25.9 MMOL/L (24-32); TOTAL PROTEIN 6.2 G/DL (6.4-8.2); eGFR 41 ML/MIN
[2018-04-10 07:16] LABS: PLATELET ESTIMATE NORMAL
[2018-04-10 07:28] LABS: ANISOCYTOSIS 1+; POLYCHROMASIA 1+
[2018-04-10 07:30] LABS: ACANTHOCYTES FEW; POIKILOCYTOSIS 1+; TARGET CELLS 1+
[2018-04-10 07:31] LABS: BURR CELLS 1+; LARGE PLATELETS FEW
[2018-04-10 07:32] LABS: SCHISTOCYTES FEW
[2018-04-10] MEDS: K and/or MAG REPLACEMENT MC SCH (08:00)
[2018-04-10] MEDS: lactobacillus rhamnosus 10,000 MMU CELLS/CAPSULE PO SCH ×2 (08:45→20:20)
[2018-04-10] MEDS: apixaban 5mg tablet PO SCH ×2 (08:45→20:14)
[2018-04-10] MEDS: thiamine 100mg tablet PO SCH (08:45)
[2018-04-10] MEDS: atorvastatin 20mg tablet PO SCH (08:45)
[2018-04-10] MEDS: DOXYCYCLINE 100MG CAPSULE PO SCH ×2 (08:45→17:14)
[2018-04-10] MEDS: metoprolol succinate 25mg (24-HOUR) SR. Tablet PO SCH (08:46)
[2018-04-10] MEDS: furosemide 40mg/4ml inj IV SCH (09:44)
[2018-04-10] MEDS: ondansetron/PF 4mg/2ml inj IV PRN (20:16)
[2018-04-10] MEDS: lisinopril 20mg tablet PO SCH (20:20)
[2018-04-11 02:00] VITALS: BP 151/74
[2018-04-11 06:10] LABS: BASOPHILS # (AUTO) 0.1 X10'3 (0-0.2); BASOPHILS % (AUTO) 0.6 % (0-1); EOSINOPHILS # (AUTO) 0.2 X10'3 (0-0.9); EOSINOPHILS % (AUTO) 1.9 % (0-6); HEMATOCRIT 35.2 % (42.0-52.0); LYMPHOCYTES # (AUTO) 2.5 X10'3 (1.1-4.8); LYMPHOCYTES % (AUTO) 26.8 % (21-51); MEAN CORPUSCULAR HEMOGLOBIN 29.1 PG (27.0-31.0); MEAN CORPUSCULAR HGB CONC 31.4 % (33.0-36.5); MEAN CORPUSCULAR VOLUME 92.8 FL (78-98); MEAN PLATELET VOLUME 10.5 FL (7.4-10.4); MONOCYTES # (AUTO) 1.3 X10'3 (0-0.9); MONOCYTES % (AUTO) 13.9 % (2-12); NEUTROPHILS # (AUTO) 5.3 X10'3 (1.8-7.7); NEUTROPHILS % (AUTO) 56.8 % (42-75); PLATELET COUNT 221 X10'3 (140-440); RED BLOOD COUNT 3.79 X10'6 (4.70-6.10); RED CELL DISTRIBUTION WIDTH 16.8 % (11.5-14.5); WHITE BLOOD COUNT 9.4 X10'3 (4.5-11.0)
[2018-04-11 06:30] LABS: ALANINE AMINOTRANSFERASE 28 U/L (12-78); ALBUMIN 2.2 G/DL (3.4-5.0); ALBUMIN/GLOBULIN RATIO 0.6 (1.1-1.5); ALKALINE PHOSPHATASE 84 IU/L (46-116); ANION GAP 7 (8-16); ASPARTATE AMINO TRANSFERASE 39 U/L (10-37); BILIRUBIN,TOTAL 0.5 MG/DL (0.1-1.0); BLOOD UREA NITROGEN 38 MG/DL (7-18); BUN/CREATININE RATIO 20.2 (5.4-32.0); CALCIUM 8.2 MG/DL (8.5-10.1); CHLORIDE 103 MMOL/L (99-107); CREATININE 1.88 MG/DL (0.60-1.10); GLUCOSE 107 MG/DL (70-104); MAGNESIUM 1.8 MG/DL (1.5-2.4); SODIUM 138 MMOL/L (135-145); TOTAL CARBON DIOXIDE 27.9 MMOL/L (24-32); TOTAL PROTEIN 5.9 G/DL (6.4-8.2); eGFR 36 ML/MIN
[2018-04-11 06:34] LABS: POTASSIUM 3.7 MMOL/L (3.5-5.1)
[2018-04-11] MEDS: K and/or MAG REPLACEMENT MC SCH (06:37)
[2018-04-11 06:41] VITALS: BP 120/78
[2018-04-11] MEDS: metoprolol succinate 25mg (24-HOUR) SR. Tablet PO SCH (06:56)
[2018-04-11 06:57] LABS: ANISOCYTOSIS 1+; LARGE PLATELETS FEW; PLATELET ESTIMATE NORMAL; POIKILOCYTOSIS FEW; POLYCHROMASIA FEW; TARGET CELLS FEW
[2018-04-11] MEDS: lactobacillus rhamnosus 10,000 MMU CELLS/CAPSULE PO SCH ×2 (07:52→20:26)
[2018-04-11] MEDS: DOXYCYCLINE 100MG CAPSULE PO SCH ×2 (07:52→16:37)
[2018-04-11] MEDS: thiamine 100mg tablet PO SCH (07:52)
[2018-04-11] MEDS: apixaban 5mg tablet PO SCH ×2 (07:52→20:26)
[2018-04-11] MEDS: furosemide 40mg/4ml inj IV SCH (07:52)
[2018-04-11] MEDS: atorvastatin 20mg tablet PO SCH (07:52)
[2018-04-11] MEDS: morphine 2 MG/ML inj. syringe IV PRN (07:53)
[2018-04-11] MEDS: ondansetron/PF 4mg/2ml inj IV PRN ×2 (07:55→12:19)
[2018-04-11 11:41] VITALS: BP 112/59
[2018-04-11 15:51] VITALS: BP 110/57
[2018-04-11 19:00] VITALS: BP 105/66
[2018-04-11] MEDS: lisinopril 20mg tablet PO SCH (20:31)
[2018-04-12] VITALS (7 sets, daily range): BP systolic 88–142; BP diastolic 50–64
[2018-04-12 05:20] LABS: BASOPHILS % (AUTO) 0.4 % (0-1); EOSINOPHILS # (AUTO) 0.1 X10'3 (0-0.9); EOSINOPHILS % (AUTO) 0.9 % (0-6); HEMATOCRIT 36.2 % (42.0-52.0); HEMOGLOBIN 11.4 g/dl (14.0-17.9); LYMPHOCYTES # (AUTO) 2.5 X10'3 (1.1-4.8); MEAN CORPUSCULAR HGB CONC 31.6 % (33.0-36.5); MEAN PLATELET VOLUME 10.6 FL (7.4-10.4); MONOCYTES # (AUTO) 1.4 X10'3 (0-0.9); MONOCYTES % (AUTO) 14.4 % (2-12); NEUTROPHILS # (AUTO) 5.7 X10'3 (1.8-7.7); NEUTROPHILS % (AUTO) 58.3 % (42-75); PLATELET COUNT 221 X10'3 (140-440); RED BLOOD COUNT 3.94 X10'6 (4.70-6.10); RED CELL DISTRIBUTION WIDTH 17.1 % (11.5-14.5); WHITE BLOOD COUNT 9.7 X10'3 (4.5-11.0)
[2018-04-12 06:01] LABS: ALANINE AMINOTRANSFERASE 26 U/L (12-78); ALBUMIN 2.3 G/DL (3.4-5.0); ALBUMIN/GLOBULIN RATIO 0.6 (1.1-1.5); ALKALINE PHOSPHATASE 89 IU/L (46-116); ANION GAP 8 (8-16); ASPARTATE AMINO TRANSFERASE 30 U/L (10-37); BILIRUBIN,TOTAL 0.6 MG/DL (0.1-1.0); BLOOD UREA NITROGEN 38 MG/DL (7-18); BUN/CREATININE RATIO 18.7 (5.4-32.0); CALCIUM 8.6 MG/DL (8.5-10.1); CHLORIDE 101 MMOL/L (99-107); CREATININE 2.03 MG/DL (0.60-1.10); GLUCOSE 102 MG/DL (70-104); MAGNESIUM 1.7 MG/DL (1.5-2.4); POTASSIUM 3.9 MMOL/L (3.5-5.1); SODIUM 137 MMOL/L (135-145); TOTAL CARBON DIOXIDE 27.8 MMOL/L (24-32); eGFR 33 ML/MIN
[2018-04-12] MEDS: atorvastatin 20mg tablet PO SCH (07:59)
[2018-04-12] MEDS: thiamine 100mg tablet PO SCH (07:59)
[2018-04-12] MEDS: K and/or MAG REPLACEMENT MC SCH (07:59)
[2018-04-12] MEDS: apixaban 5mg tablet PO SCH ×2 (07:59→20:45)
[2018-04-12] MEDS: lactobacillus rhamnosus 10,000 MMU CELLS/CAPSULE PO SCH ×2 (07:59→20:45)
[2018-04-12] MEDS: furosemide 40mg/4ml inj IV SCH (08:00)
[2018-04-12] MEDS: metoprolol succinate 25mg (24-HOUR) SR. Tablet PO SCH (08:00)
[2018-04-12] MEDS: ondansetron/PF 4mg/2ml inj IV PRN (08:17)
[2018-04-12] MEDS ORDERED: normal saline 500ml IV soln 1,000 ML IV ONE (16:25)
[2018-04-12] MEDS: lisinopril 20mg tablet PO SCH (20:46)
[2018-04-13 02:00] VITALS: BP 130/92
[2018-04-13 06:00] VITALS: BP 122/69
[2018-04-13 06:38] LABS: ALANINE AMINOTRANSFERASE 25 U/L (12-78); ALBUMIN 2.1 G/DL (3.4-5.0); ALBUMIN/GLOBULIN RATIO 0.6 (1.1-1.5); ALKALINE PHOSPHATASE 76 IU/L (46-116); ANION GAP 9 (8-16); ASPARTATE AMINO TRANSFERASE 34 U/L (10-37); BILIRUBIN,TOTAL 0.6 MG/DL (0.1-1.0); BLOOD UREA NITROGEN 40 MG/DL (7-18); CALCIUM 8.2 MG/DL (8.5-10.1); CHLORIDE 103 MMOL/L (99-107); CREATININE 1.74 MG/DL (0.60-1.10); GLUCOSE 86 MG/DL (70-104); MAGNESIUM 1.8 MG/DL (1.5-2.4); POTASSIUM 4.2 MMOL/L (3.5-5.1); SODIUM 136 MMOL/L (135-145); TOTAL PROTEIN 5.6 G/DL (6.4-8.2); eGFR 39 ML/MIN
[2018-04-13] MEDS: metoprolol succinate 25mg (24-HOUR) SR. Tablet PO SCH (08:00)
[2018-04-13] MEDS: K and/or MAG REPLACEMENT MC SCH (08:00)
[2018-04-13] MEDS ORDERED: furosemide 20 MG/2 ML vial IV SCH (08:00)
[2018-04-13] MEDS: thiamine 100mg tablet PO SCH (08:00)
[2018-04-13] MEDS: atorvastatin 20mg tablet PO SCH (08:01)
[2018-04-13] MEDS: lactobacillus rhamnosus 10,000 MMU CELLS/CAPSULE PO SCH ×2 (08:01→20:01)
[2018-04-13] MEDS: apixaban 5mg tablet PO SCH ×2 (08:01→20:01)
[2018-04-13 09:10] LABS: BASOPHILS # (AUTO) 0.1 X10'3 (0-0.2); BASOPHILS % (AUTO) 0.6 % (0-1); EOSINOPHILS # (AUTO) 0.2 X10'3 (0-0.9); EOSINOPHILS % (AUTO) 2.1 % (0-6); HEMATOCRIT 35.2 % (42.0-52.0); HEMOGLOBIN 11.1 g/dl (14.0-17.9); LYMPHOCYTES # (AUTO) 1.8 X10'3 (1.1-4.8); LYMPHOCYTES % (AUTO) 21.6 % (21-51); MEAN CORPUSCULAR HEMOGLOBIN 29.1 PG (27.0-31.0); MEAN CORPUSCULAR HGB CONC 31.7 % (33.0-36.5); MEAN CORPUSCULAR VOLUME 91.9 FL (78-98); MEAN PLATELET VOLUME 10.8 FL (7.4-10.4); MONOCYTES % (AUTO) 12.1 % (2-12); NEUTROPHILS # (AUTO) 5.4 X10'3 (1.8-7.7); NEUTROPHILS % (AUTO) 63.6 % (42-75); PLATELET COUNT 210 X10'3 (140-440); RED BLOOD COUNT 3.83 X10'6 (4.70-6.10); RED CELL DISTRIBUTION WIDTH 16.4 % (11.5-14.5); WHITE BLOOD COUNT 8.5 X10'3 (4.5-11.0)
[2018-04-13 10:22] LABS: PLATELET ESTIMATE NORMAL
[2018-04-13 10:23] LABS: ANISOCYTOSIS 1+; HYPOCHROMASIA 1+
[2018-04-13 10:24] LABS: ACANTHOCYTES FEW; BURR CELLS 1+; TARGET CELLS FEW
[2018-04-13 11:00] VITALS: BP 126/52
[2018-04-13 15:00] VITALS: BP 132/28
[2018-04-13 18:00] VITALS: BP 99/62
[2018-04-13] MEDS: lisinopril 20mg tablet PO SCH (21:00)
[2018-04-13 22:00] VITALS: BP 113/75
[2018-04-14 02:17] VITALS: BP 108/59
[2018-04-14 06:00] VITALS: BP 146/77
[2018-04-14 06:15] LABS: BASOPHILS # (AUTO) 0.1 X10'3 (0-0.2); BASOPHILS % (AUTO) 0.8 % (0-1); EOSINOPHILS # (AUTO) 0.2 X10'3 (0-0.9); EOSINOPHILS % (AUTO) 1.8 % (0-6); HEMATOCRIT 35.6 % (42.0-52.0); HEMOGLOBIN 11.3 g/dl (14.0-17.9); LYMPHOCYTES # (AUTO) 2.4 X10'3 (1.1-4.8); LYMPHOCYTES % (AUTO) 27.7 % (21-51); MEAN CORPUSCULAR HEMOGLOBIN 28.8 PG (27.0-31.0); MEAN CORPUSCULAR HGB CONC 31.7 % (33.0-36.5); MEAN CORPUSCULAR VOLUME 91.2 FL (78-98); MEAN PLATELET VOLUME 10.7 FL (7.4-10.4); MONOCYTES # (AUTO) 1.4 X10'3 (0-0.9); MONOCYTES % (AUTO) 16.2 % (2-12); NEUTROPHILS # (AUTO) 4.6 X10'3 (1.8-7.7); NEUTROPHILS % (AUTO) 53.5 % (42-75); PLATELET COUNT 208 X10'3 (140-440); RED BLOOD COUNT 3.91 X10'6 (4.70-6.10); RED CELL DISTRIBUTION WIDTH 16.8 % (11.5-14.5); WHITE BLOOD COUNT 8.6 X10'3 (4.5-11.0)
[2018-04-14 06:32] LABS: ALANINE AMINOTRANSFERASE 31 U/L (12-78); ALBUMIN 2.2 G/DL (3.4-5.0); ALBUMIN/GLOBULIN RATIO 0.6 (1.1-1.5); ALKALINE PHOSPHATASE 90 IU/L (46-116); ANION GAP 9 (8-16); ASPARTATE AMINO TRANSFERASE 38 U/L (10-37); BILIRUBIN,TOTAL 0.7 MG/DL (0.1-1.0); BLOOD UREA NITROGEN 35 MG/DL (7-18); BUN/CREATININE RATIO 22.3 (5.4-32.0); CALCIUM 8.5 MG/DL (8.5-10.1); CHLORIDE 104 MMOL/L (99-107); CREATININE 1.57 MG/DL (0.60-1.10); GLUCOSE 88 MG/DL (70-104); POTASSIUM 4.1 MMOL/L (3.5-5.1); SODIUM 138 MMOL/L (135-145); TOTAL CARBON DIOXIDE 25.5 MMOL/L (24-32); eGFR 44 ML/MIN
[2018-04-14] MEDS: thiamine 100mg tablet PO SCH (07:49)
[2018-04-14] MEDS: atorvastatin 20mg tablet PO SCH (07:49)
[2018-04-14] MEDS: apixaban 5mg tablet PO SCH ×2 (07:49→21:00)
[2018-04-14] MEDS: lactobacillus rhamnosus 10,000 MMU CELLS/CAPSULE PO SCH ×2 (07:50→21:00)
[2018-04-14] MEDS: metoprolol succinate 25mg (24-HOUR) SR. Tablet PO SCH (07:51)
[2018-04-14] MEDS: K and/or MAG REPLACEMENT MC SCH (08:00)
[2018-04-14 11:00] VITALS: BP 113/86
[2018-04-14 15:00] VITALS: BP 151/73
[2018-04-14 19:00] VITALS: BP 97/73
[2018-04-14] MEDS: lisinopril 20mg tablet PO SCH (20:56)
[2018-04-14 23:00] VITALS: BP 129/57
[2018-04-15 02:30] VITALS: BP 112/75
[2018-04-15 05:40] LABS: BASOPHILS % (AUTO) 0.5 % (0-1); EOSINOPHILS # (AUTO) 0.2 X10'3 (0-0.9); EOSINOPHILS % (AUTO) 2.4 % (0-6); HEMATOCRIT 33.9 % (42.0-52.0); HEMOGLOBIN 10.5 g/dl (14.0-17.9); LYMPHOCYTES # (AUTO) 2.5 X10'3 (1.1-4.8); LYMPHOCYTES % (AUTO) 27.4 % (21-51); MEAN CORPUSCULAR HEMOGLOBIN 28.3 PG (27.0-31.0); MEAN CORPUSCULAR HGB CONC 31.1 % (33.0-36.5); MEAN CORPUSCULAR VOLUME 91.2 FL (78-98); MEAN PLATELET VOLUME 11.1 FL (7.4-10.4); MONOCYTES # (AUTO) 1.6 X10'3 (0-0.9); MONOCYTES % (AUTO) 17.4 % (2-12); NEUTROPHILS # (AUTO) 4.8 X10'3 (1.8-7.7); NEUTROPHILS % (AUTO) 52.3 % (42-75); PLATELET COUNT 210 X10'3 (140-440); RED BLOOD COUNT 3.72 X10'6 (4.70-6.10); RED CELL DISTRIBUTION WIDTH 16.7 % (11.5-14.5); WHITE BLOOD COUNT 9.1 X10'3 (4.5-11.0)
[2018-04-15 05:58] LABS: ALANINE AMINOTRANSFERASE 34 U/L (12-78); ALBUMIN 2.2 G/DL (3.4-5.0); ALBUMIN/GLOBULIN RATIO 0.6 (1.1-1.5); ALKALINE PHOSPHATASE 96 IU/L (46-116); ANION GAP 8 (8-16); ASPARTATE AMINO TRANSFERASE 47 U/L (10-37); BILIRUBIN,TOTAL 0.6 MG/DL (0.1-1.0); BLOOD UREA NITROGEN 30 MG/DL (7-18); BUN/CREATININE RATIO 18.8 (5.4-32.0); CALCIUM 8.5 MG/DL (8.5-10.1); CHLORIDE 103 MMOL/L (99-107); GLUCOSE 85 MG/DL (70-104); POTASSIUM 4.4 MMOL/L (3.5-5.1); SODIUM 135 MMOL/L (135-145); TOTAL CARBON DIOXIDE 24.1 MMOL/L (24-32); eGFR 43 ML/MIN
[2018-04-15 06:00] VITALS: BP 136/77
[2018-04-15] MEDS: lactobacillus rhamnosus 10,000 MMU CELLS/CAPSULE PO SCH (07:37)
[2018-04-15] MEDS: thiamine 100mg tablet PO SCH (07:37)
[2018-04-15] MEDS: apixaban 5mg tablet PO SCH (07:37)
[2018-04-15] MEDS: atorvastatin 20mg tablet PO SCH (07:37)
[2018-04-15] MEDS: metoprolol succinate 25mg (24-HOUR) SR. Tablet PO SCH (07:38)
[2018-04-15] MEDS: ondansetron/PF 4mg/2ml inj IV PRN ×2 (07:43→15:25)
[2018-04-15] MEDS: K and/or MAG REPLACEMENT MC SCH (08:00)
[2018-04-15 09:28] LABS: MAGNESIUM 1.9 MG/DL (1.5-2.4)
[2018-04-15 11:00] VITALS: BP 139/74
[2018-04-15] MEDS ORDERED: LISI-600 PO (11:09)
[2018-04-15] MEDS ORDERED: ATOR20TA66 PO (11:09)
[2018-04-15] MEDS ORDERED: METO-395 PO (11:09)
== END 2018-04-15 15:58 | disposition home health service (06) | DRG 291 ==
LOC: ER 09:15 → ED HOLD 11:11 → PCU 3S 13:56
PROVIDERS: ADMIT Family Medicine; ATTEND Family Medicine
DX: I13.0 Hypertensive heart and chronic kidney disease with heart failure and stage 1 through stage 4 chronic kidney disease, or unspecified chronic kidney disease (principal); I50.23 Acute on chronic systolic (congestive) heart failure; N17.9 Acute kidney failure, unspecified; J96.10 Chronic respiratory failure, unspecified whether with hypoxia or hypercapnia; I47.2 Ventricular tachycardia; N18.4 Chronic kidney disease, stage 4 (severe); I48.0 Paroxysmal atrial fibrillation; I27.20 Pulmonary hypertension, unspecified; J44.9 Chronic obstructive pulmonary disease, unspecified; E78.00 Pure hypercholesterolemia, unspecified; E78.5 Hyperlipidemia, unspecified; F10.10 Alcohol abuse, uncomplicated; I25.10 Atherosclerotic heart disease of native coronary artery without angina pectoris; Z53.20 Procedure and treatment not carried out because of patient's decision for unspecified reasons; F15.10 Other stimulant abuse, uncomplicated; F32.9 Major depressive disorder, single episode, unspecified; G62.9 Polyneuropathy, unspecified; G89.29 Other chronic pain; M19.90 Unspecified osteoarthritis, unspecified site; I95.9 Hypotension, unspecified; M54.9 Dorsalgia, unspecified; R74.8 Abnormal levels of other serum enzymes; I08.0 Rheumatic disorders of both mitral and aortic valves; Z60.2 Problems related to living alone; Z91.19 Patient's noncompliance with other medical treatment and regimen; Z99.81 Dependence on supplemental oxygen; Z79.899 Other long term (current) drug therapy; Z79.01 Long term (current) use of anticoagulants; Z87.891 Personal history of nicotine dependence; Z83.3 Family history of diabetes mellitus; Z71.6 Tobacco abuse counseling
CPT/HCPCS: 36415; 71046; 80053; 80061; 80305; 80320; 83605; 83735; 83880; 84484; 85025; 87040; 87070; 93005; 93306; 94640; 94760; 97116; 97162; 97530; 99285; G0378; J0360; J1940; J2270; J2405; J3490; J7030

== ENCOUNTER 2018-05-22 18:13 | Inpatient (IN) | payer MEDICARE, MEDICAID ==
[~2018-05-22] VITALS: Ht 175.3 cm; Wt 58.6 kg
[~2018-05-22 18:13] MED LIST changes: +ATOR20TA66 PO; -CLON-529 PO; -FOLI0.4T2 PO; -FURO40TA4 PO; -HYDR-3965 PO; +LISI-600 PO; +METO-395 PO; -POTA10TA15 PO
[2018-05-22 19:44] LABS: HEMOGLOBIN 11.2 g/dl (14.0-17.9); MEAN CORPUSCULAR HEMOGLOBIN 28.6 PG (27.0-31.0); MEAN CORPUSCULAR HGB CONC 31.9 % (33.0-36.5); MEAN CORPUSCULAR VOLUME 89.5 FL (78-98); MEAN PLATELET VOLUME 9.8 FL (7.4-10.4); PLATELET COUNT 357 X10'3 (140-440); RED BLOOD COUNT 3.91 X10'6 (4.70-6.10); RED CELL DISTRIBUTION WIDTH 22.1 % (11.5-14.5); WHITE BLOOD COUNT 9.1 X10'3 (4.5-11.0)
[2018-05-22 19:50] LABS: ALANINE AMINOTRANSFERASE 23 U/L (12-78); ALBUMIN/GLOBULIN RATIO 0.6 (1.1-1.5); ALKALINE PHOSPHATASE 107 IU/L (46-116); ANION GAP 12 (8-16); ASPARTATE AMINO TRANSFERASE 28 U/L (10-37); BILIRUBIN,TOTAL 0.5 MG/DL (0.1-1.0); BLOOD UREA NITROGEN 23 MG/DL (7-18); BUN/CREATININE RATIO 16.3 (5.4-32.0); CHLORIDE 107 MMOL/L (99-107); CREATININE 1.41 MG/DL (0.60-1.10); GLUCOSE 101 MG/DL (70-104); POTASSIUM 3.9 MMOL/L (3.5-5.1); SODIUM 143 MMOL/L (135-145); TOTAL CARBON DIOXIDE 24.2 MMOL/L (24-32); TOTAL PROTEIN 7.8 G/DL (6.4-8.2); eGFR 50 ML/MIN
[2018-05-22] MEDS ORDERED: dexamethasone sod phosphate 10mg/ml inj IV STA (20:22)
[2018-05-22] MEDS ORDERED: ipratropium/albuterol 3ml nebule NEB ONE (20:25)
[2018-05-22] MEDS ORDERED: furosemide 10 MG/1 ML 10ml inj IV ONE (20:25)
[2018-05-22 20:39] LABS: TOTAL CELLS COUNTED 100
[2018-05-22 20:40] LABS: ACANTHOCYTES 2+; ANISOCYTOSIS 3+; ELLIPTOCYTES 1+; PLATELET ESTIMATE NORMAL
[2018-05-22 20:41] LABS: POIKILOCYTOSIS 2+; POLYCHROMASIA 1+; SCHISTOCYTES FEW; TARGET CELLS 2+; TEAR DROP CELLS FEW
[2018-05-22] MEDS ORDERED: temazepam 15mg capsule PO PRN (21:00)
--- NOTE | 2018-05-22 22:12 | NUR ---
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 he is also requesting that we not use his right arm because he "is right handed" previous RN attempted 2 times on left without success. my first attempt on the left AC did not work so I was able to convince pt to allow me to use his right arm. IV established in RAC
[2018-05-22] MEDS ORDERED: azithromycin/NS 500mg/250ml 250 ML IV STA (22:56)
[2018-05-22] MEDS ORDERED: mag hydrox/Alum hydrox/simeth 30ml oral suspension PO PRN (23:00)
[2018-05-22] MEDS ORDERED: bisacodyl 10mg suppository rectal RC PRN (23:00)
[2018-05-22] MEDS ORDERED: morphine 4 MG/ML inj SYRINge IV PRN (23:00)
[2018-05-22] MEDS ORDERED: diphenhydrAMINE 25mg capsule PO PRN (23:00)
[2018-05-22] MEDS ORDERED: metoclopramide 5 mg/ml inj IV PRN (23:00)
[2018-05-22] MEDS ORDERED: acetaminophen 325mg tablet PO PRN ×2 (23:00)
[2018-05-22] MEDS ORDERED: magnesium hydroxide 30ml (MOM) UD suspension PO PRN (23:00)
[2018-05-22] MEDS ORDERED: acetaminophen 650mg rectal suppository RC PRN (23:00)
[2018-05-22] MEDS ORDERED: HYDROmorphone 1 mg/ml syringe IV PRN (23:00)
[2018-05-22] MEDS ORDERED: diphenhydrAMINE 50 mg/ml inj IV PRN (23:00)
[2018-05-22] MEDS ORDERED: CLON-529 PO (23:39)
[2018-05-22] MEDS ORDERED: FURO40TA4 PO (23:39)
[2018-05-22] MEDS ORDERED: POTA10TA15 PO (23:39)
[2018-05-22] MEDS ORDERED: FOLI0.4T2 PO (23:39)
[2018-05-22] MEDS ORDERED: HYDR-4383 PO (23:39)
--- NOTE | 2018-05-22 23:49 | NUR ---
Received report from ER nurse Noam KRUGER. Will assume patient care.
[2018-05-23] VITALS (7 sets, daily range): BP systolic 96–156; BP diastolic 60–103
[2018-05-23] MEDS: HYDROcodone/acetaminophen 10/325mg tab PO PRN (00:31)
[2018-05-23 01:49] LABS: LIPASE 117 U/L (73-393); MAGNESIUM 2.2 MG/DL (1.5-2.4); PHOSPHORUS 3.7 MG/DL (2.3-4.5)
[2018-05-23] MEDS ORDERED: ipratropium/albuterol 3ml nebule NEB SCH (03:00)
[2018-05-23 03:55] LABS: BASOPHILS % (AUTO) 0.2 % (0-1); EOSINOPHILS % (AUTO) 0 % (0-6); HEMATOCRIT 33.1 % (42.0-52.0); HEMOGLOBIN 10.6 g/dl (14.0-17.9); LYMPHOCYTES # (AUTO) 0.9 X10'3 (1.1-4.8); LYMPHOCYTES % (AUTO) 8.7 % (21-51); MEAN CORPUSCULAR HEMOGLOBIN 28.5 PG (27.0-31.0); MEAN PLATELET VOLUME 9.9 FL (7.4-10.4); MONOCYTES # (AUTO) 0.1 X10'3 (0-0.9); MONOCYTES % (AUTO) 1.1 % (2-12); PLATELET COUNT 364 X10'3 (140-440); RED BLOOD COUNT 3.72 X10'6 (4.70-6.10); RED CELL DISTRIBUTION WIDTH 22.3 % (11.5-14.5)
[2018-05-23 04:04] LABS: ALANINE AMINOTRANSFERASE 23 U/L (12-78); ALBUMIN 2.8 G/DL (3.4-5.0); ALBUMIN/GLOBULIN RATIO 0.6 (1.1-1.5); ALKALINE PHOSPHATASE 98 IU/L (46-116); ANION GAP 12 (8-16); ASPARTATE AMINO TRANSFERASE 28 U/L (10-37); BILIRUBIN,TOTAL 0.5 MG/DL (0.1-1.0); BLOOD UREA NITROGEN 21 MG/DL (7-18); BUN/CREATININE RATIO 14.8 (5.4-32.0); CALCIUM 8.5 MG/DL (8.5-10.1); CHLORIDE 104 MMOL/L (99-107); CREATININE 1.42 MG/DL (0.60-1.10); GLUCOSE 177 MG/DL (70-104); POTASSIUM 3.3 MMOL/L (3.5-5.1); SODIUM 141 MMOL/L (135-145); TOTAL PROTEIN 7.3 G/DL (6.4-8.2); eGFR 50 ML/MIN
[2018-05-23 04:13] LABS: ANISOCYTOSIS 3+; PLATELET ESTIMATE NORMAL
[2018-05-23 04:14] LABS: ACANTHOCYTES 1+; ELLIPTOCYTES FEW; HYPOCHROMASIA 1+; POLYCHROMASIA FEW; TARGET CELLS 2+
[2018-05-23] MEDS ORDERED: nitroGLYCERIN 0.4mg SUBLingual tab SL PRN (04:55)
[2018-05-23] MEDS: K, MAG and/or Phos replacement - Verify level? MC SCH ×2 (05:50→08:00)
[2018-05-23] MEDS ORDERED: potassium Cl 20 mEq SR tablet PO PRN ×2 (05:50)
--- NOTE | 2018-05-23 06:15 | NUR ---
Patient in room ORTHO 4024. I have received report from Laura Calvin and had the opportunity to ask questions and assume patient care.
[2018-05-23] MEDS ORDERED: methylPREDNISolone sod succ/PF 40mg inj. IV SCH (08:00)
[2018-05-23] MEDS ORDERED: CefTRIAXone/D5W-Rocephin 1gm 50 ML IV SCH (08:00)
[2018-05-23] MEDS ORDERED: pantoprazole 40mg Tablet.DR PO PRN (08:00)
[2018-05-23] MEDS ORDERED: furosemide 10 MG/1 ML 10ml inj IV SCH (08:00)
[2018-05-23] MEDS: docusate sod 100mg capsule PO SCH ×2 (08:27→20:51)
[2018-05-23] MEDS: cloNIDine 0.1 mg tablet PO SCH ×3 (08:27→22:17)
[2018-05-23] MEDS: apixaban 5mg tablet PO SCH ×2 (08:27→20:51)
[2018-05-23] MEDS: aspirin 81mg tab.chew PO SCH (08:28)
[2018-05-23] MEDS: potassium chloride 10mEq ER tablet PO SCH (08:28)
[2018-05-23] MEDS: thiamine 100mg tablet PO SCH (08:28)
[2018-05-23] MEDS: folic acid 0.4mg tablet PO SCH (08:28)
[2018-05-23] MEDS ORDERED: ipratropium/albuterol 3ml nebule NEB PRN (08:45)
[2018-05-23] MEDS ORDERED: albuterol 2.5 MG/3 ML nebule NEB SCH (09:00)
[2018-05-23] MEDS: ondansetron/PF 4mg/2ml inj IV PRN (09:09)
[2018-05-23] MEDS: methylPREDNISolone sod succ/PF 40mg inj. IV SCH ×3 (09:22→20:50)
[2018-05-23] MEDS ORDERED: pneumococcal 23-VAL P-sac vacc 25 mcg/0.5ml vial IMVAC ONE (10:00)
[2018-05-23] MEDS: ipratropium/albuterol 3ml nebule NEB SCH ×4 (10:33→23:00)
[2018-05-23] MEDS: nicotine 14mg patch - 24hr TD SCH (17:46)
--- NOTE | 2018-05-23 18:26 | NUR ---
Patient in room ORTHO 4024. I have received report from SLICK APONTE and had the opportunity to ask questions and assume patient care.
--- NOTE | 2018-05-23 18:26 | NUR ---
Problems reprioritized. Patient report given, questions answered & plan of care reviewed with Haydee Prajapati
[2018-05-23] MEDS ORDERED: potassium Cl 40MEQ/NS 500ml 500 ML IV PRN ×2 (18:50)
[2018-05-23] MEDS: furosemide 10 MG/1 ML 10ml inj IV SCH (22:18)
[2018-05-24] MEDS: methylPREDNISolone sod succ/PF 40mg inj. IV SCH ×4 (02:22→21:00)
[2018-05-24 06:00] VITALS: BP_SYST 116; BP_SYST 136; BP_DIAS 56; BP_DIAS 79
--- NOTE | 2018-05-24 06:23 | NUR ---
Problems reprioritized. Patient report given, questions answered & plan of care reviewed with SLICK SANON.
[2018-05-24 07:09] LABS: ALANINE AMINOTRANSFERASE 20 U/L (12-78); ALBUMIN 2.5 G/DL (3.4-5.0); ALBUMIN/GLOBULIN RATIO 0.6 (1.1-1.5); ALKALINE PHOSPHATASE 77 IU/L (46-116); ANION GAP 9 (8-16); ASPARTATE AMINO TRANSFERASE 21 U/L (10-37); BILIRUBIN,TOTAL 0.3 MG/DL (0.1-1.0); BLOOD UREA NITROGEN 33 MG/DL (7-18); BUN/CREATININE RATIO 19.2 (5.4-32.0); CALCIUM 8.7 MG/DL (8.5-10.1); CHLORIDE 103 MMOL/L (99-107); CREATININE 1.72 MG/DL (0.60-1.10); GLUCOSE 132 MG/DL (70-104); POTASSIUM 4.4 MMOL/L (3.5-5.1); SODIUM 138 MMOL/L (135-145); TOTAL CARBON DIOXIDE 25.6 MMOL/L (24-32); TOTAL PROTEIN 6.8 G/DL (6.4-8.2); eGFR 40 ML/MIN
[2018-05-24 07:12] LABS: BASOPHILS % (AUTO) 0.1 % (0-1); EOSINOPHILS % (AUTO) 0.1 % (0-6); HEMATOCRIT 31.2 % (42.0-52.0); HEMOGLOBIN 10.2 g/dl (14.0-17.9); LYMPHOCYTES # (AUTO) 1.3 X10'3 (1.1-4.8); LYMPHOCYTES % (AUTO) 9.5 % (21-51); MEAN CORPUSCULAR HEMOGLOBIN 29.6 PG (27.0-31.0); MEAN CORPUSCULAR HGB CONC 32.8 % (33.0-36.5); MEAN PLATELET VOLUME 10.1 FL (7.4-10.4); MONOCYTES # (AUTO) 0.4 X10'3 (0-0.9); MONOCYTES % (AUTO) 3.1 % (2-12); NEUTROPHILS # (AUTO) 11.5 X10'3 (1.8-7.7); NEUTROPHILS % (AUTO) 87.2 % (42-75); PLATELET COUNT 314 X10'3 (140-440); RED BLOOD COUNT 3.46 X10'6 (4.70-6.10); RED CELL DISTRIBUTION WIDTH 19.9 % (11.5-14.5); WHITE BLOOD COUNT 13.2 X10'3 (4.5-11.0)
[2018-05-24] MEDS: K, MAG and/or Phos replacement - Verify level? MC SCH (08:00)
[2018-05-24] MEDS: CefTRIAXone/D5W-Rocephin 1gm 50 ML IV SCH (08:02)
[2018-05-24] MEDS: aspirin 81mg tab.chew PO SCH (08:03)
[2018-05-24] MEDS: furosemide 10 MG/1 ML 10ml inj IV SCH ×2 (08:03→21:00)
[2018-05-24] MEDS: potassium chloride 10mEq ER tablet PO SCH (08:03)
[2018-05-24] MEDS: thiamine 100mg tablet PO SCH (08:03)
[2018-05-24] MEDS: docusate sod 100mg capsule PO SCH ×2 (08:04→21:00)
[2018-05-24] MEDS: folic acid 0.4mg tablet PO SCH (08:04)
[2018-05-24] MEDS: apixaban 5mg tablet PO SCH ×2 (08:04→21:00)
[2018-05-24] MEDS: cloNIDine 0.1 mg tablet PO SCH ×3 (08:04→21:00)
[2018-05-24] MEDS: HYDROcodone/acetaminophen 10/325mg tab PO PRN ×2 (08:14→13:50)
[2018-05-24] MEDS: ipratropium/albuterol 3ml nebule NEB SCH ×5 (08:22→23:20)
[2018-05-24 17:00] VITALS: BP 87/48
--- NOTE | 2018-05-24 18:41 | NUR ---
Problems reprioritized. Patient report given, questions answered & plan of care reviewed with Cindy KRUGER.
[2018-05-24] MEDS: nicotine 14mg patch - 24hr TD SCH (18:46)
[2018-05-24 20:50] VITALS: BP 128/57
[2018-05-24] MEDS: lactobacillus rhamnosus 10,000 MMU CELLS/CAPSULE PO SCH (21:00)
[2018-05-24 22:00] VITALS: BP 112/55
[2018-05-25] MEDS: methylPREDNISolone sod succ/PF 40mg inj. IV SCH ×2 (01:59→07:38)
[2018-05-25] MEDS: HYDROcodone/acetaminophen 10/325mg tab PO PRN ×3 (05:38→13:39)
[2018-05-25 06:00] VITALS: BP 146/79
--- NOTE | 2018-05-25 06:37 | NUR ---
Problems reprioritized. Patient report given, questions answered & plan of care reviewed with María KRUGER.
[2018-05-25] MEDS: cloNIDine 0.1 mg tablet PO SCH ×3 (07:38→20:42)
[2018-05-25] MEDS: docusate sod 100mg capsule PO SCH ×2 (07:38→20:42)
[2018-05-25] MEDS: furosemide 10 MG/1 ML 10ml inj IV SCH (07:38)
[2018-05-25] MEDS: lactobacillus rhamnosus 10,000 MMU CELLS/CAPSULE PO SCH ×2 (07:38→20:42)
[2018-05-25] MEDS: folic acid 0.4mg tablet PO SCH (07:38)
[2018-05-25] MEDS: aspirin 81mg tab.chew PO SCH (07:39)
[2018-05-25] MEDS: CefTRIAXone/D5W-Rocephin 1gm 50 ML IV SCH (07:39)
[2018-05-25] MEDS: thiamine 100mg tablet PO SCH (07:39)
[2018-05-25] MEDS: apixaban 5mg tablet PO SCH ×2 (07:39→20:42)
[2018-05-25] MEDS: potassium chloride 10mEq ER tablet PO SCH (07:39)
[2018-05-25] MEDS: K, MAG and/or Phos replacement - Verify level? MC SCH (08:00)
[2018-05-25] MEDS: ondansetron/PF 4mg/2ml inj IV PRN ×2 (08:21→15:26)
[2018-05-25 08:36] LABS: BASOPHILS % (AUTO) 0.1 % (0-1); EOSINOPHILS % (AUTO) 0.1 % (0-6); HEMATOCRIT 31.2 % (42.0-52.0); HEMOGLOBIN 10.3 g/dl (14.0-17.9); LYMPHOCYTES # (AUTO) 0.7 X10'3 (1.1-4.8); LYMPHOCYTES % (AUTO) 4.1 % (21-51); MEAN CORPUSCULAR VOLUME 90.8 FL (78-98); MEAN PLATELET VOLUME 10.5 FL (7.4-10.4); MONOCYTES # (AUTO) 0.4 X10'3 (0-0.9); MONOCYTES % (AUTO) 2.7 % (2-12); PLATELET COUNT 312 X10'3 (140-440); RED BLOOD COUNT 3.44 X10'6 (4.70-6.10); RED CELL DISTRIBUTION WIDTH 20.5 % (11.5-14.5); WHITE BLOOD COUNT 16.1 X10'3 (4.5-11.0)
[2018-05-25] MEDS: ipratropium/albuterol 3ml nebule NEB SCH ×5 (08:50→23:19)
[2018-05-25 08:55] LABS: ALANINE AMINOTRANSFERASE 19 U/L (12-78); ALBUMIN 2.6 G/DL (3.4-5.0); ALBUMIN/GLOBULIN RATIO 0.6 (1.1-1.5); ALKALINE PHOSPHATASE 82 IU/L (46-116); ANION GAP 12 (8-16); ASPARTATE AMINO TRANSFERASE 22 U/L (10-37); BILIRUBIN,TOTAL 0.2 MG/DL (0.1-1.0); BLOOD UREA NITROGEN 38 MG/DL (7-18); BUN/CREATININE RATIO 21.8 (5.4-32.0); CALCIUM 8.4 MG/DL (8.5-10.1); CHLORIDE 97 MMOL/L (99-107); CREATININE 1.74 MG/DL (0.60-1.10); GLUCOSE 183 MG/DL (70-104); POTASSIUM 3.5 MMOL/L (3.5-5.1); SODIUM 135 MMOL/L (135-145); TOTAL PROTEIN 6.8 G/DL (6.4-8.2); eGFR 39 ML/MIN
[2018-05-25 10:00] VITALS: BP 129/67
[2018-05-25] MEDS: predniSONE 20 mg tablet PO SCH (16:14)
[2018-05-25] MEDS: nicotine 14mg patch - 24hr TD SCH (16:17)
[2018-05-25 18:00] VITALS: BP 115/70
--- NOTE | 2018-05-25 18:14 | NUR ---
Problems reprioritized. Patient report given, questions answered & plan of care reviewed with Luara KRUGER.
--- NOTE | 2018-05-25 20:13 | NUR ---
RECEIVED REPORT FROM HENRY KRUGER AND ASSUMED PATIENT CARE Addendum: 05/25/18 at 2014 by Laura Avalos RN RECEIVED REPORT AT 1800
[2018-05-25 22:00] VITALS: BP 105/72
[2018-05-26 06:00] VITALS: BP 159/76
--- NOTE | 2018-05-26 06:24 | NUR ---
REPORT GIVEN TO MARIBEL KRUGER
[2018-05-26 07:10] LABS: BASOPHILS % (AUTO) 0.1 % (0-1); EOSINOPHILS % (AUTO) 0.1 % (0-6); HEMOGLOBIN 10.4 g/dl (14.0-17.9); LYMPHOCYTES # (AUTO) 1.1 X10'3 (1.1-4.8); LYMPHOCYTES % (AUTO) 6.7 % (21-51); MEAN CORPUSCULAR HEMOGLOBIN 29.4 PG (27.0-31.0); MEAN CORPUSCULAR HGB CONC 32.4 % (33.0-36.5); MEAN CORPUSCULAR VOLUME 90.7 FL (78-98); MEAN PLATELET VOLUME 10.1 FL (7.4-10.4); MONOCYTES # (AUTO) 1.1 X10'3 (0-0.9); MONOCYTES % (AUTO) 6.8 % (2-12); NEUTROPHILS # (AUTO) 13.6 X10'3 (1.8-7.7); NEUTROPHILS % (AUTO) 86.3 % (42-75); PLATELET COUNT 298 X10'3 (140-440); RED BLOOD COUNT 3.53 X10'6 (4.70-6.10); RED CELL DISTRIBUTION WIDTH 20.4 % (11.5-14.5); WHITE BLOOD COUNT 15.8 X10'3 (4.5-11.0)
[2018-05-26 07:11] LABS: ALANINE AMINOTRANSFERASE 23 U/L (12-78); ALBUMIN 2.5 G/DL (3.4-5.0); ALBUMIN/GLOBULIN RATIO 0.6 (1.1-1.5); ALKALINE PHOSPHATASE 70 IU/L (46-116); ANION GAP 8 (8-16); ASPARTATE AMINO TRANSFERASE 21 U/L (10-37); BILIRUBIN,TOTAL 0.2 MG/DL (0.1-1.0); BLOOD UREA NITROGEN 37 MG/DL (7-18); BUN/CREATININE RATIO 20.7 (5.4-32.0); CALCIUM 8.4 MG/DL (8.5-10.1); CHLORIDE 100 MMOL/L (99-107); CREATININE 1.79 MG/DL (0.60-1.10); GLUCOSE 113 MG/DL (70-104); POTASSIUM 3.7 MMOL/L (3.5-5.1); SODIUM 137 MMOL/L (135-145); TOTAL CARBON DIOXIDE 28.8 MMOL/L (24-32); TOTAL PROTEIN 6.4 G/DL (6.4-8.2); eGFR 38 ML/MIN
[2018-05-26] MEDS: ipratropium/albuterol 3ml nebule NEB SCH ×2 (07:45→11:00)
[2018-05-26] MEDS: docusate sod 100mg capsule PO SCH (07:56)
[2018-05-26] MEDS: CefTRIAXone/D5W-Rocephin 1gm 50 ML IV SCH (07:56)
[2018-05-26] MEDS: predniSONE 20 mg tablet PO SCH (07:57)
[2018-05-26] MEDS: apixaban 5mg tablet PO SCH (07:57)
[2018-05-26] MEDS: aspirin 81mg tab.chew PO SCH (07:57)
[2018-05-26] MEDS: lactobacillus rhamnosus 10,000 MMU CELLS/CAPSULE PO SCH (07:57)
[2018-05-26] MEDS: folic acid 0.4mg tablet PO SCH (07:57)
[2018-05-26] MEDS: cloNIDine 0.1 mg tablet PO SCH ×2 (07:57→13:00)
[2018-05-26] MEDS: potassium chloride 10mEq ER tablet PO SCH (07:57)
[2018-05-26] MEDS: thiamine 100mg tablet PO SCH (07:57)
[2018-05-26] MEDS ORDERED: furosemide 40mg tablet PO SCH (08:00)
[2018-05-26] MEDS ORDERED: PRED20TA PO (10:44)
[2018-05-26] MEDS ORDERED: AMOX-422 PO (10:44)
[2018-05-26] MEDS ORDERED: IPRA4AER IH (10:44)
[2018-05-26] MEDS ORDERED: NICO-631 TD (10:44)
[2018-05-26 11:39] VITALS: BP 110/69
== END 2018-05-26 15:15 | disposition home or self-care (01) | DRG 682 ==
LOC: ER 18:14 → ED HOLD 22:56 → EDBEDREQ 23:41 → ORTHO 4S 05-23 00:14
PROVIDERS: ADMIT Family Medicine; ATTEND Family Medicine
DX: N17.9 Acute kidney failure, unspecified (principal); I50.23 Acute on chronic systolic (congestive) heart failure; J18.9 Pneumonia, unspecified organism; J96.20 Acute and chronic respiratory failure, unspecified whether with hypoxia or hypercapnia; J44.1 Chronic obstructive pulmonary disease with (acute) exacerbation; I13.0 Hypertensive heart and chronic kidney disease with heart failure and stage 1 through stage 4 chronic kidney disease, or unspecified chronic kidney disease; J44.0 Chronic obstructive pulmonary disease with (acute) lower respiratory infection; N18.9 Chronic kidney disease, unspecified; D64.9 Anemia, unspecified; E78.00 Pure hypercholesterolemia, unspecified; E78.5 Hyperlipidemia, unspecified; E87.6 Hypokalemia; I27.20 Pulmonary hypertension, unspecified; M54.9 Dorsalgia, unspecified; G89.29 Other chronic pain; F32.9 Major depressive disorder, single episode, unspecified; F15.90 Other stimulant use, unspecified, uncomplicated; F17.210 Nicotine dependence, cigarettes, uncomplicated; Z79.899 Other long term (current) drug therapy; Z83.3 Family history of diabetes mellitus
CPT/HCPCS: 36415; 71046; 80053; 83605; 83690; 83735; 83880; 84100; 84443; 84484; 85025; 87040; 87070; 87502; 87503; 93005; 94640; 94760; 96374; 96375; 99285; G0378; J0456; J0696; J1100; J1940; J2405; J2765; J2920; J3480; J7512

== ENCOUNTER 2019-11-08 15:43 | Inpatient (IN) | payer MEDICAID, MEDICARE ==
[~2019-11-08] VITALS: Ht 175.3 cm; Wt 61.0 kg
[~2019-11-08 15:43] MED LIST changes: -ALBU6.7H INH; +ALBU6.7H9 INH; -ATOR20TA66 PO; +CLON-529 PO; +FOLI0.4T2 PO; +FURO40TA4 PO; +HYDR-4383 PO; -LISI-600 PO; -METO-395 PO; +NICO-631 TD; +POTA10TA15 PO; +PRED20TA PO
[2019-11-08] MEDS ORDERED: normal saline 1000ML IV soln IV ONE (17:25)
[2019-11-08] MEDS ORDERED: piperacillin/tazo 3.375gm/50ml 50 ML IV ONE (17:35)
[2019-11-08 18:10] LABS: BASOPHILS # (AUTO) 0.1 X10'3 (0-0.2); EOSINOPHILS % (AUTO) 0.5 % (0-6); HEMATOCRIT 44.3 % (42.0-52.0); HEMOGLOBIN 14.5 g/dl (14.0-17.9); LYMPHOCYTES # (AUTO) 1.9 X10'3 (1.1-4.8); MEAN CORPUSCULAR HEMOGLOBIN 32.9 PG (27.0-31.0); MEAN CORPUSCULAR HGB CONC 32.7 g/dL (33.0-36.5); MEAN CORPUSCULAR VOLUME 100.8 FL (78-98); MEAN PLATELET VOLUME 9.6 FL (7.4-10.4); MONOCYTES # (AUTO) 1.4 X10'3 (0-0.9); MONOCYTES % (AUTO) 21.1 % (2-12); NEUTROPHILS # (AUTO) 3.1 X10'3 (1.8-7.7); NEUTROPHILS % (AUTO) 48.4 % (42-75); PLATELET COUNT 205 X10'3 (140-440); RED BLOOD COUNT 4.39 X10'6 (4.70-6.10); RED CELL DISTRIBUTION WIDTH 15.4 % (11.5-14.5); WHITE BLOOD COUNT 6.5 X10'3 (4.5-11.0)
[2019-11-08 18:23] LABS: ALANINE AMINOTRANSFERASE 32 U/L (12-78); ALBUMIN 2.3 G/DL (3.4-5.0); ALBUMIN/GLOBULIN RATIO 0.5 (1.1-1.5); ALKALINE PHOSPHATASE 156 IU/L (46-116); ANION GAP 10 (8-16); ASPARTATE AMINO TRANSFERASE 28 U/L (10-37); BILIRUBIN,TOTAL 0.3 MG/DL (0.1-1.0); BLOOD UREA NITROGEN 28 MG/DL (7-18); BUN/CREATININE RATIO 10.7 (5.4-32.0); CALCIUM 8.7 MG/DL (8.5-10.1); CHLORIDE 108 MMOL/L (99-107); CREATININE 2.62 MG/DL (0.60-1.10); GLUCOSE 93 MG/DL (70-104); POTASSIUM 4.2 MMOL/L (3.5-5.1); SODIUM 139 MMOL/L (135-145); TOTAL CARBON DIOXIDE 21.1 MMOL/L (24-32); TOTAL PROTEIN 7.2 G/DL (6.4-8.2); eGFR 24 ML/MIN
[2019-11-08 20:07] LABS: TOTAL CELLS COUNTED 100
[2019-11-08 20:09] LABS: ACANTHOCYTES FEW; ELLIPTOCYTES FEW; PLATELET ESTIMATE NORMAL
[2019-11-08 20:19] LABS: CLARITY,URINE CLEAR (Clear); COLOR,URINE YELLOW (Yellow); GLUCOSE, URINE NEGATIVE (Neg); KETONES,URINE NEGATIVE (Neg); LEUKOCYTE ESTERASE ,URINE NEGATIVE (Neg); NITRITES, URINE NEGATIVE (Neg); OCCULT BLOOD,URINE SMALL (Neg); PH,URINE 6.5 (4.8-8.0); PROTEIN,URINE >=300 mg/dl (Neg); UROBILINOGEN,URINE 0.2 E.U/dL (0.2-1.0)
[2019-11-08 20:24] LABS: BACTERIA,URINE FEW /HPF (Neg); RBC,URINE 0-2 /HPF (0-2); SQUAMOUS EPITHELIAL CELL,UR FEW /LPF (FEW); UA COLLECTION TYPE URINAL; WBC,URINE 0-4 /HPF (0-4)
[2019-11-08] MEDS ORDERED: magnesium 4gm in 100ml NS 100 ML IV PRN (20:40)
[2019-11-08] MEDS ORDERED: potassium CL 10mEq/100ml bag 100 ML IV PRN ×2 (20:40)
[2019-11-08] MEDS ORDERED: magnesium 2GM in 50ml NS 50 ML IV PRN (20:40)
[2019-11-08] MEDS ORDERED: morphine 2 MG/ML inj. syringe IV PRN ×2 (20:40)
[2019-11-08] MEDS ORDERED: acetaminophen 325mg tablet PO PRN ×2 (20:40)
[2019-11-08] MEDS ORDERED: magnesium Cl slow-release 64mg tablet PO PRN (20:40)
[2019-11-08] MEDS ORDERED: HYDROcodone/acetaminophen 5mg/325mg tablet PO PRN (20:40)
[2019-11-08] MEDS ORDERED: potassium Cl 20 mEq SR tablet PO PRN ×2 (20:40)
[2019-11-08] MEDS ORDERED: temazepam 15mg capsule PO PRN (21:00)
[2019-11-08] MEDS ORDERED: LORazepam 2 mg/ml vial IV PRN (21:10)
[2019-11-08] MEDS ORDERED: LORazepam 1 MG tablet PO PRN (21:10)
[2019-11-08 21:35] LABS: URINE AMPHETAMINE SCREEN NEGATIVE (Neg); URINE BARBITUATE SCREEN NEGATIVE (Neg); URINE BENZODIAZEPINES SCREEN NEGATIVE (Neg); URINE CANNABINOID SCREEN NEGATIVE (Neg); URINE COCAINE SCREEN NEGATIVE (Neg); URINE METHADONE SCREEN NEGATIVE (Neg); URINE OPIATE SCREEN NEGATIVE (Neg); URINE PHENCYCLIDINE SCREEN NEGATIVE (Neg)
[2019-11-08 22:00] VITALS: BP 179/103
--- NOTE | 2019-11-08 22:00 | NUR ---
Patient in room ORTHO 4013. I have received report from Traci KRUGER and had the opportunity to ask questions and assume patient care. Patient resting comfortably and has no concerns at this time.
[2019-11-08] MEDS: normal saline 1000ml 1,000 ML IV SCH (22:35)
[2019-11-08] MEDS: HYDROcodone/acetaminophen 10/325mg tab PO PRN (22:35)
--- NOTE | 2019-11-08 23:00 | NUR ---
Patient requested that the 2 RN skin check be done in the morning because he was in pain and wanted some sleep right now. I asked him if he has any skin issues or open wounds we should be aware of right now and he said no that his skin is clear.
[2019-11-08 23:30] VITALS: BP 141/80
[2019-11-09 02:00] VITALS: BP 171/100
[2019-11-09] MEDS: HYDROcodone/acetaminophen 10/325mg tab PO PRN ×4 (02:14→19:52)
[2019-11-09 03:00] VITALS: BP 117/74
[2019-11-09 06:00] VITALS: BP 156/79
--- NOTE | 2019-11-09 06:37 | NUR ---
Problems reprioritized. Patient report given, questions answered & plan of care reviewed with Jeanette KRUGER.
[2019-11-09 06:47] LABS: BASOPHILS # (AUTO) 0.1 X10'3 (0-0.2); LYMPHOCYTES # (AUTO) 2.5 X10'3 (1.1-4.8); MONOCYTES # (AUTO) 1.9 X10'3 (0-0.9); RED BLOOD COUNT 3.75 X10'6 (4.70-6.10)
[2019-11-09 06:49] LABS: BASOPHILS % (AUTO) 0.8 % (0-1); EOSINOPHILS % (AUTO) 0.4 % (0-6); HEMATOCRIT 37.7 % (42.0-52.0); HEMOGLOBIN 12.2 g/dl (14.0-17.9); LYMPHOCYTES % (AUTO) 26.6 % (21-51); MEAN CORPUSCULAR HEMOGLOBIN 32.5 PG (27.0-31.0); MEAN CORPUSCULAR HGB CONC 32.3 g/dL (33.0-36.5); MEAN CORPUSCULAR VOLUME 100.5 FL (78-98); MONOCYTES % (AUTO) 20.5 % (2-12); NEUTROPHILS # (AUTO) 4.8 X10'3 (1.8-7.7); NEUTROPHILS % (AUTO) 51.7 % (42-75); PLATELET COUNT 174 X10'3 (140-440); RED CELL DISTRIBUTION WIDTH 14.9 % (11.5-14.5); WHITE BLOOD COUNT 9.2 X10'3 (4.5-11.0)
[2019-11-09 06:58] LABS: ALBUMIN 1.8 G/DL (3.4-5.0); ANION GAP 10 (8-16); BLOOD UREA NITROGEN 26 MG/DL (7-18); BUN/CREATININE RATIO 10.1 (5.4-32.0); CALCIUM 7.9 MG/DL (8.5-10.1); CHLORIDE 109 MMOL/L (99-107); CHOL/HDL RATIO 3.7 (0.00-4.99); CHOLESTEROL 151 MG/DL (0-200); CREATININE 2.57 MG/DL (0.60-1.10); GLUCOSE 92 MG/DL (70-104); HDL CHOLESTEROL 41 MG/DL (35-60); LDL CHOLESTEROL 95 MG/DL (50-100); POTASSIUM 4.1 MMOL/L (3.5-5.1); SODIUM 137 MMOL/L (135-145); TOTAL CARBON DIOXIDE 17.6 MMOL/L (24-32); TRIGLYCERIDES 81 MG/DL (20-135); eGFR 25 ML/MIN
[2019-11-09] MEDS: K and/or MAG REPLACEMENT MC SCH ×2 (07:29→19:59)
[2019-11-09] MEDS: amLODIPine 5mg tablet PO SCH (07:42)
[2019-11-09] MEDS: docusate sod 100mg capsule PO SCH ×2 (07:42→19:59)
[2019-11-09] MEDS: nicotine 14mg patch - 24hr TD SCH (07:42)
[2019-11-09] MEDS: heparin, porcine 5000 units/ml vial SQ SCH ×2 (07:43→19:53)
[2019-11-09] MEDS: doxycycline inj 100 MG in normal saline 100ml IV soln 100 ML IV SCH ×2 (07:43→19:51)
[2019-11-09] MEDS: normal saline 1000ml 1,000 ML IV SCH ×2 (07:55→16:38)
[2019-11-09 10:00] VITALS: BP 137/76
--- NOTE | 2019-11-09 10:48 | NUR ---
Patient states "I stopped taking my medications"
[2019-11-09 11:35] LABS: PLATELET ESTIMATE NORMAL; SMUDGE CELLS 1+; TOTAL CELLS COUNTED 100; TOXIC VACUOLATION 1+
--- NOTE | 2019-11-09 12:39 | NUR ---
Malnutrition consult: Pt admit w/ RUE cellulitis hx CKD IV, COPD, and etoh per MD. No significant weakness noted outside affected R arm, R arm +3 edema r/t DX and not nutrition status, no wt loss hx, and well developed/well nourished per MD note. PO 100% first heart healthy meal this admit. Pt does not meet minimum malnutrition criteria at this time. Addendum: 11/09/19 at [address] Amended: Links added. Addendum: 11/09/19 at [address] Malnutrition consult: Pt admit w/ RUE cellulitis hx CKD IV, COPD, and etoh per MD. No significant weakness noted outside affected R arm, R arm +3 edema r/t DX and not nutrition status, no wt loss hx, and well developed/well nourished per MD note. PO 100% first heart healthy meal this admit. Pt does not meet minimum malnutrition criteria at this time. RD d/w RN regarding thiamin, folic, MVI if MD agreeable given etoh hx.
[2019-11-09 18:00] VITALS: BP 143/104
[2019-11-09] MEDS: ceFAZolin 1GM/D5W- ADD-VANTAGE 50 ML IV SCH (18:15)
--- NOTE | 2019-11-09 18:28 | NUR ---
Problems reprioritized. Patient report given, questions answered & plan of care reviewed with Ade KRUGER.
[2019-11-09] MEDS: lactobacillus rhamnosus 10,000 MMU CELLS/CAPSULE PO SCH (19:52)
[2019-11-09 22:00] VITALS: BP 122/74
[2019-11-10] MEDS: normal saline 1000ml 1,000 ML IV SCH ×3 (00:43→22:38)
[2019-11-10] MEDS: ceFAZolin 1GM/D5W- ADD-VANTAGE 50 ML IV SCH ×3 (00:43→16:22)
[2019-11-10 06:00] VITALS: BP 116/89
--- NOTE | 2019-11-10 06:30 | NUR ---
REPORT GIVEN TO SLICK GAMBOA.
[2019-11-10 06:48] LABS: BASOPHILS % (AUTO) 0.5 % (0-1); EOSINOPHILS # (AUTO) 0.1 X10'3 (0-0.9); EOSINOPHILS % (AUTO) 0.7 % (0-6); HEMATOCRIT 38.2 % (42.0-52.0); HEMOGLOBIN 12.4 g/dl (14.0-17.9); LYMPHOCYTES % (AUTO) 24.8 % (21-51); MEAN CORPUSCULAR HEMOGLOBIN 32.6 PG (27.0-31.0); MEAN CORPUSCULAR HGB CONC 32.6 g/dL (33.0-36.5); MEAN CORPUSCULAR VOLUME 99.9 FL (78-98); MEAN PLATELET VOLUME 9.9 FL (7.4-10.4); MONOCYTES # (AUTO) 1.6 X10'3 (0-0.9); MONOCYTES % (AUTO) 19.1 % (2-12); NEUTROPHILS # (AUTO) 4.5 X10'3 (1.8-7.7); NEUTROPHILS % (AUTO) 54.9 % (42-75); PLATELET COUNT 175 X10'3 (140-440); RED BLOOD COUNT 3.82 X10'6 (4.70-6.10); RED CELL DISTRIBUTION WIDTH 15.1 % (11.5-14.5); WHITE BLOOD COUNT 8.2 X10'3 (4.5-11.0)
[2019-11-10 06:52] LABS: ALBUMIN 1.6 G/DL (3.4-5.0); ANION GAP 9 (8-16); BLOOD UREA NITROGEN 24 MG/DL (7-18); BUN/CREATININE RATIO 9.1 (5.4-32.0); CALCIUM 8.2 MG/DL (8.5-10.1); CHLORIDE 108 MMOL/L (99-107); CREATININE 2.63 MG/DL (0.60-1.10); GLUCOSE 94 MG/DL (70-104); POTASSIUM 4.2 MMOL/L (3.5-5.1); SODIUM 136 MMOL/L (135-145); TOTAL CARBON DIOXIDE 18.7 MMOL/L (24-32); eGFR 24 ML/MIN
[2019-11-10] MEDS: K and/or MAG REPLACEMENT MC SCH ×2 (08:00→20:00)
[2019-11-10] MEDS: multivitamins, therapeutics tablet PO SCH (08:21)
[2019-11-10] MEDS: lactobacillus rhamnosus 10,000 MMU CELLS/CAPSULE PO SCH ×2 (08:21→20:28)
[2019-11-10] MEDS: docusate sod 100mg capsule PO SCH ×2 (08:21→20:28)
[2019-11-10] MEDS: thiamine 100mg tablet PO SCH (08:21)
[2019-11-10] MEDS: amLODIPine 5mg tablet PO SCH (08:21)
[2019-11-10] MEDS: heparin, porcine 5000 units/ml vial SQ SCH ×2 (08:22→20:28)
[2019-11-10] MEDS: nicotine 14mg patch - 24hr TD SCH (08:22)
[2019-11-10 10:00] VITALS: BP 114/90
[2019-11-10 11:32] LABS: PLATELET ESTIMATE NORMAL
[2019-11-10 11:33] LABS: ANISOCYTOSIS 1+; BURR CELLS 2+; ROULEAUX 2+; TARGET CELLS FEW
[2019-11-10] MEDS ORDERED: aspirin 81mg tablet.DR PO ONE (12:25)
[2019-11-10] MEDS: ondansetron/PF 4mg/2ml inj IV PRN (16:22)
[2019-11-10] MEDS: HYDROcodone/acetaminophen 10/325mg tab PO PRN (16:22)
--- NOTE | 2019-11-10 17:19 | NUR ---
Patient has been Nauseated yesterday and today after lunch.
[2019-11-10 18:00] VITALS: BP 126/86
--- NOTE | 2019-11-10 18:15 | NUR ---
RECEIVED REPORT FROM BEE KRUGER AND ASSUMED PATIENT CARE
--- NOTE | 2019-11-10 18:44 | NUR ---
Problems reprioritized. Patient report given, questions answered & plan of care reviewed with Laura KRUGER.
[2019-11-10] MEDS: DOXYCYCLINE 100MG CAPSULE PO SCH (20:28)
[2019-11-10 22:00] VITALS: BP 120/88
[2019-11-11] MEDS: ceFAZolin 1GM/D5W- ADD-VANTAGE 50 ML IV SCH ×3 (00:46→15:35)
[2019-11-11 06:00] VITALS: BP 146/95
[2019-11-11 06:28] LABS: BASOPHILS # (AUTO) 0.1 X10'3 (0-0.2); BASOPHILS % (AUTO) 0.9 % (0-1); EOSINOPHILS # (AUTO) 0.1 X10'3 (0-0.9); EOSINOPHILS % (AUTO) 1.5 % (0-6); HEMATOCRIT 35.8 % (42.0-52.0); HEMOGLOBIN 11.8 g/dl (14.0-17.9); LYMPHOCYTES # (AUTO) 1.8 X10'3 (1.1-4.8); LYMPHOCYTES % (AUTO) 29.1 % (21-51); MEAN CORPUSCULAR HEMOGLOBIN 32.6 PG (27.0-31.0); MEAN CORPUSCULAR HGB CONC 32.8 g/dL (33.0-36.5); MEAN CORPUSCULAR VOLUME 99.2 FL (78-98); MEAN PLATELET VOLUME 9.4 FL (7.4-10.4); MONOCYTES # (AUTO) 0.9 X10'3 (0-0.9); MONOCYTES % (AUTO) 14.5 % (2-12); NEUTROPHILS # (AUTO) 3.3 X10'3 (1.8-7.7); PLATELET COUNT 194 X10'3 (140-440); RED BLOOD COUNT 3.61 X10'6 (4.70-6.10); RED CELL DISTRIBUTION WIDTH 14.7 % (11.5-14.5)
[2019-11-11 06:35] LABS: ALBUMIN 1.5 G/DL (3.4-5.0); ANION GAP 10 (8-16); BLOOD UREA NITROGEN 23 MG/DL (7-18); BUN/CREATININE RATIO 9.7 (5.4-32.0); CALCIUM 8.3 MG/DL (8.5-10.1); CHLORIDE 111 MMOL/L (99-107); CREATININE 2.36 MG/DL (0.60-1.10); GLUCOSE 89 MG/DL (70-104); POTASSIUM 4.4 MMOL/L (3.5-5.1); SODIUM 138 MMOL/L (135-145); TOTAL CARBON DIOXIDE 17.5 MMOL/L (24-32); eGFR 28 ML/MIN
[2019-11-11] MEDS: multivitamins, therapeutics tablet PO SCH (07:53)
[2019-11-11] MEDS: DOXYCYCLINE 100MG CAPSULE PO SCH (07:53)
[2019-11-11] MEDS: docusate sod 100mg capsule PO SCH (07:53)
[2019-11-11] MEDS: thiamine 100mg tablet PO SCH (07:53)
[2019-11-11] MEDS: lactobacillus rhamnosus 10,000 MMU CELLS/CAPSULE PO SCH (07:54)
[2019-11-11] MEDS: amLODIPine 5mg tablet PO SCH (07:54)
[2019-11-11] MEDS: HYDROcodone/acetaminophen 10/325mg tab PO PRN ×2 (07:57→14:18)
[2019-11-11] MEDS: nicotine 14mg patch - 24hr TD SCH (07:58)
[2019-11-11] MEDS: heparin, porcine 5000 units/ml vial SQ SCH (07:59)
[2019-11-11] MEDS ORDERED: aspirin 81mg tablet.DR PO SCH (08:00)
[2019-11-11] MEDS: K and/or MAG REPLACEMENT MC SCH (08:00)
[2019-11-11] MEDS ORDERED: atorvastatin 20mg tablet PO SCH (08:00)
[2019-11-11] MEDS: normal saline 1000ml 1,000 ML IV SCH (09:19)
[2019-11-11 10:00] VITALS: BP 130/79
--- NOTE | 2019-11-11 10:30 | NUR ---
Tele neuro consult set up, awaiting neurologist.
[2019-11-11] MEDS: ondansetron/PF 4mg/2ml inj IV PRN (10:33)
[2019-11-11] MEDS ORDERED: pantoprazole 40mg Tablet.DR PO PRN (12:12)
[2019-11-11] MEDS ORDERED: potassium chloride 10mEq ER tablet PO SCH (12:13)
[2019-11-11] MEDS ORDERED: cloNIDine 0.1 mg tablet PO SCH (13:00)
--- NOTE | 2019-11-11 13:00 | NUR ---
Dr Queen notified of neurology consult. Neurologist stated to patient right arm weakness is not from stroke showing on MRI, Dr Queen notified and shoulder x ray ordered.
--- NOTE | 2019-11-11 14:58 | NUR ---
Patients keys are in the med room, patients cinthia Krishnamurthy will picker tender keys after work today at 1700.
--- NOTE | 2019-11-11 16:26 | NUR ---
Problems reprioritized. Patient report given, questions answered & plan of care reviewed with Lizabeth KRUGER.
[2019-11-11] MEDS ORDERED: nicotine 14mg patch - 24hr TD SCH (17:00)
--- NOTE | 2019-11-11 17:10 | NUR ---
Belongings sent with patient. PIV removed, cannula intact. Report called to López Everett to Lizabeth.
[2019-11-11] MEDS ORDERED: apixaban 5mg tablet PO SCH (20:00)
[2019-11-12] MEDS ORDERED: furosemide 40mg tablet PO SCH (08:00)
[2019-11-12] MEDS ORDERED: thiamine 100mg tablet PO SCH (08:00)
[2019-11-12] MEDS ORDERED: folic acid 0.4mg tablet PO SCH (08:00)
== END 2019-11-11 17:00 | DRG 602 ==
LOC: ER 15:44 → ED HOLD 20:39 → ORTHO 4S 22:00
PROVIDERS: ADMIT Internal Medicine; ATTEND Family Medicine
DX: L03.113 Cellulitis of right upper limb (principal); E43 Unspecified severe protein-calorie malnutrition; N18.4 Chronic kidney disease, stage 4 (severe); N17.9 Acute kidney failure, unspecified; G81.91 Hemiplegia, unspecified affecting right dominant side; Z68.1 Body mass index [BMI] 19.9 or less, adult; E11.22 Type 2 diabetes mellitus with diabetic chronic kidney disease; J44.9 Chronic obstructive pulmonary disease, unspecified; F17.210 Nicotine dependence, cigarettes, uncomplicated; Z91.14 Patient's other noncompliance with medication regimen; E78.00 Pure hypercholesterolemia, unspecified; G89.29 Other chronic pain; Z83.3 Family history of diabetes mellitus; Z79.899 Other long term (current) drug therapy; M54.9 Dorsalgia, unspecified; F32.9 Major depressive disorder, single episode, unspecified
CPT/HCPCS: 36415; 70450; 70544; 70547; 70551; 71045; 73030; 73090; 73130; 80048; 80053; 80061; 80305; 81001; 83605; 83735; 84145; 85025; 87040; 87081; 93306; 93971; 96365; 97116; 97161; 97530; 99285; G0378; J0690; J1644; J2270; J2405; J2543; J3490; J7030

== ENCOUNTER 2019-12-07 18:00 | Emergency (ER) | payer MEDICARE ==
[~2019-12-07] VITALS: Ht 175.3 cm; Wt 59.1 kg
[2019-12-07 18:09] VITALS: BP 152/98
[2019-12-07] MEDS ORDERED: HYDR-4383 PO (18:24)
[2019-12-07] MEDS ORDERED: HYDROcodone/acetaminophen 5mg/325mg tablet PO ONE (18:25)
== END 2019-12-07 18:35 | disposition home or self-care (01) ==
LOC: ER 18:01
DX: G89.29 Other chronic pain (principal); E78.00 Pure hypercholesterolemia, unspecified; J44.9 Chronic obstructive pulmonary disease, unspecified; F32.9 Major depressive disorder, single episode, unspecified; F17.200 Nicotine dependence, unspecified, uncomplicated; F15.90 Other stimulant use, unspecified, uncomplicated; R22.31 Localized swelling, mass and lump, right upper limb; Z79.899 Other long term (current) drug therapy; Z98.890 Other specified postprocedural states; Z72.89 Other problems related to lifestyle; Z79.01 Long term (current) use of anticoagulants
CPT/HCPCS: 99283

== ENCOUNTER 2019-12-19 10:56 | Emergency (ER) | payer MEDICARE, OTHER ==
[~2019-12-19] VITALS: Ht 167.6 cm; Wt 53.0 kg
[2019-12-19] MEDS ORDERED: HYDROcodone/acetaminophen 10/325mg tab PO ONE (12:35)
[2019-12-19] MEDS ORDERED: CefTRIAXone 1000mg IM Kit (w/lidocaine diluent) IM ONE (12:35)
[2019-12-19 13:02] LABS: BASOPHILS # (AUTO) 0.1 X10'3 (0-0.2); BASOPHILS % (AUTO) 1.4 % (0-1); EOSINOPHILS # (AUTO) 0.1 X10'3 (0-0.9); EOSINOPHILS % (AUTO) 0.8 % (0-6); HEMATOCRIT 40.2 % (42.0-52.0); HEMOGLOBIN 13.3 g/dl (14.0-17.9); LYMPHOCYTES # (AUTO) 2.2 X10'3 (1.1-4.8); LYMPHOCYTES % (AUTO) 29.5 % (21-51); MEAN CORPUSCULAR HEMOGLOBIN 32.4 PG (27.0-31.0); MEAN CORPUSCULAR HGB CONC 33.1 g/dL (33.0-36.5); MEAN CORPUSCULAR VOLUME 98.1 FL (78-98); MEAN PLATELET VOLUME 9.1 FL (7.4-10.4); MONOCYTES # (AUTO) 1.2 X10'3 (0-0.9); MONOCYTES % (AUTO) 16.2 % (2-12); NEUTROPHILS # (AUTO) 3.8 X10'3 (1.8-7.7); NEUTROPHILS % (AUTO) 52.1 % (42-75); PLATELET COUNT 354 X10'3 (140-440); RED CELL DISTRIBUTION WIDTH 14.9 % (11.5-14.5); WHITE BLOOD COUNT 7.4 X10'3 (4.5-11.0)
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
[2019-12-19 13:33] LABS: ALANINE AMINOTRANSFERASE 21 U/L (12-78); ALBUMIN 2.3 G/DL (3.4-5.0); ALBUMIN/GLOBULIN RATIO 0.4 (1.1-1.5); ALKALINE PHOSPHATASE 145 IU/L (46-116); ANION GAP 12 (8-16); ASPARTATE AMINO TRANSFERASE 31 U/L (10-37); BILIRUBIN,TOTAL 0.3 MG/DL (0.1-1.0); BLOOD UREA NITROGEN 37 MG/DL (7-18); BUN/CREATININE RATIO 14.3 (5.4-32.0); CALCIUM 8.5 MG/DL (8.5-10.1); CHLORIDE 104 MMOL/L (99-107); CREATININE 2.59 MG/DL (0.60-1.10); GLUCOSE 93 MG/DL (70-104); POTASSIUM 4.1 MMOL/L (3.5-5.1); SODIUM 133 MMOL/L (135-145); TOTAL CARBON DIOXIDE 17.1 MMOL/L (24-32); TOTAL PROTEIN 7.7 G/DL (6.4-8.2); eGFR 25 ML/MIN
[2019-12-19] MEDS ORDERED: HYDR-4383 PO (14:49)
[2019-12-19] MEDS ORDERED: CEPH-572 PO (14:49)
[2019-12-19 15:12] VITALS: BP 125/81
== END 2019-12-19 15:10 | disposition home or self-care (01) ==
LOC: ER 10:58
DX: L03.113 Cellulitis of right upper limb (principal); I89.1 Lymphangitis; E78.00 Pure hypercholesterolemia, unspecified; J44.9 Chronic obstructive pulmonary disease, unspecified; G89.29 Other chronic pain; F32.9 Major depressive disorder, single episode, unspecified; F15.90 Other stimulant use, unspecified, uncomplicated; Z98.890 Other specified postprocedural states; Z79.01 Long term (current) use of anticoagulants; Z79.899 Other long term (current) drug therapy
CPT/HCPCS: 36415; 80053; 83605; 84145; 85025; 87040; 96372; 99283; J0696

== ENCOUNTER 2020-05-04 12:35 | Inpatient (IN) | payer MEDICARE, MEDICAID ==
[2020-05-04] VITALS (8 sets, daily range): BP systolic 127–178; BP diastolic 61–71
[~2020-05-04] VITALS: Ht 175.3 cm; Wt 72.3 kg
[2020-05-04] MEDS ORDERED: aspirin 81mg tab.chew PO ONE (12:50)
[2020-05-04] MEDS ORDERED: nitroGLYCERIN 0.4mg SUBLingual tab SL PRN ×2 (13:05→16:25)
[2020-05-04 13:11] LABS: BASOPHILS # (AUTO) 0.1 X10'3 (0-0.2); BASOPHILS % (AUTO) 0.8 % (0-1); EOSINOPHILS # (AUTO) 0.1 X10'3 (0-0.9); EOSINOPHILS % (AUTO) 1.9 % (0-6); HEMATOCRIT 34.6 % (42.0-52.0); HEMOGLOBIN 11.4 g/dl (14.0-17.9); LYMPHOCYTES # (AUTO) 2.7 X10'3 (1.1-4.8); LYMPHOCYTES % (AUTO) 35.4 % (21-51); MEAN CORPUSCULAR HEMOGLOBIN 33.4 PG (27.0-31.0); MEAN CORPUSCULAR HGB CONC 32.9 g/dL (33.0-36.5); MEAN CORPUSCULAR VOLUME 101.4 FL (78-98); MEAN PLATELET VOLUME 9.8 FL (7.4-10.4); MONOCYTES # (AUTO) 0.9 X10'3 (0-0.9); MONOCYTES % (AUTO) 12.3 % (2-12); NEUTROPHILS # (AUTO) 3.7 X10'3 (1.8-7.7); NEUTROPHILS % (AUTO) 49.6 % (42-75); PLATELET COUNT 194 X10'3 (140-440); RED BLOOD COUNT 3.41 X10'6 (4.70-6.10); RED CELL DISTRIBUTION WIDTH 17.2 % (11.5-14.5); WHITE BLOOD COUNT 7.5 X10'3 (4.5-11.0)
[2020-05-04] MEDS ORDERED: morphine 4 MG/ML inj SYRINge IV ONE (13:15)
[2020-05-04] MEDS ORDERED: heparin 10,000 units/1 ML INJ IV ONE (13:35)
[2020-05-04] MEDS ORDERED: heparin 10,000 units/1 ML INJ IV PRN (13:35)
[2020-05-04] MEDS ORDERED: CLON-529 PO (13:49)
[2020-05-04] MEDS ORDERED: ATOR20TA PO (13:49)
[2020-05-04] MEDS ORDERED: AMLO2.5T2 PO (13:49)
[2020-05-04] MEDS ORDERED: FURO-150 PO (13:49)
[2020-05-04] MEDS ORDERED: POTA10TA19 PO (13:49)
[2020-05-04] MEDS ORDERED: GABA300C PO (13:49)
--- NOTE | 2020-05-04 13:51 | NUR ---
spoke to pt son Raghu, he verbally gave medication list
--- NOTE | 2020-05-04 13:58 | NUR ---
Pt resting comfortably at this time. Pt states pain level has decreased after morphine.
[2020-05-04 14:01] LABS: ALANINE AMINOTRANSFERASE 29 U/L (12-78); ALBUMIN 2.5 G/DL (3.4-5.0); ALBUMIN/GLOBULIN RATIO 0.7 (1.1-1.5); ALKALINE PHOSPHATASE 118 IU/L (46-116); ANION GAP 12 (8-16); ASPARTATE AMINO TRANSFERASE 22 U/L (10-37); BILIRUBIN,TOTAL 0.2 MG/DL (0.1-1.0); BLOOD UREA NITROGEN 41 MG/DL (7-18); BUN/CREATININE RATIO 13.9 (5.4-32.0); CHLORIDE 109 MMOL/L (99-107); CREATININE 2.96 MG/DL (0.60-1.10); GLUCOSE 92 MG/DL (70-104); SODIUM 139 MMOL/L (135-145); TOTAL CARBON DIOXIDE 18.4 MMOL/L (24-32); TOTAL PROTEIN 6.3 G/DL (6.4-8.2); eGFR 21 ML/MIN
[2020-05-04] MEDS: heparin 25,000 UNIT/250ml bag 250 ML IV SCH (14:14)
--- NOTE | 2020-05-04 14:44 | NUR ---
Pts O2 dropped to 89%. Pt placed on 3L NC
--- NOTE | 2020-05-04 15:00 | NUR ---
Spoke to Drill Sergeant about plan for taking pt. Will prep pt at this time as it is likely the patient will go to cath lab radiology technician this afternoon
[2020-05-04] MEDS ORDERED: nitroGLYCERIN-Tridil 50MG/D5W 250 ML IV ONE (15:18)
[2020-05-04] MEDS ORDERED: fentaNYL/PF 50MCG/1 ML 2ML syringe ONE (15:19)
[2020-05-04] MEDS ORDERED: LIDOcaine 1% (10mg/ml)w/preservative injection 20ml MDV ONE (15:19)
[2020-05-04] MEDS ORDERED: midazolam 2 mg/2 ml injection ONE (15:19)
[2020-05-04] MEDS ORDERED: iohexol 350 MG/1 ML 200ml bottle ONE (15:19)
[2020-05-04] MEDS ORDERED: verapamil 2.5 mg/ml inj IV ONE (15:19)
[2020-05-04] MEDS ORDERED: iohexol 350 MG/ML 50ML vial IV ONE (15:19)
[2020-05-04] MEDS ORDERED: heparin 1,000unit/ml 10ml vial 10 ML ONE (15:19)
--- NOTE | 2020-05-04 15:28 | NUR ---
earth science laboratory technician nurse at bedside.
[2020-05-04] MEDS ORDERED: acetaminophen 650mg rectal suppository RC PRN (17:10)
[2020-05-04] MEDS ORDERED: HYDROcodone/acetaminophen 5mg/325mg tablet PO PRN (17:10)
[2020-05-04] MEDS ORDERED: mag hydrox/Alum hydrox/simeth 30ml oral suspension PO PRN (17:10)
[2020-05-04] MEDS ORDERED: acetaminophen 325mg tablet PO PRN ×2 (17:10)
[2020-05-04] MEDS ORDERED: magnesium 4gm in 100ml NS 100 ML IV PRN (17:10)
[2020-05-04] MEDS ORDERED: bisacodyl 10mg suppository rectal RC PRN (17:10)
[2020-05-04] MEDS ORDERED: magnesium 2GM in 50ml NS 50 ML IV PRN (17:10)
[2020-05-04] MEDS ORDERED: potassium CL 10mEq/100ml bag 100 ML IV PRN ×2 (17:10)
[2020-05-04] MEDS ORDERED: diphenhydrAMINE 25mg capsule PO PRN (17:10)
[2020-05-04] MEDS ORDERED: magnesium Cl slow-release 64mg tablet PO PRN (17:10)
[2020-05-04] MEDS ORDERED: morphine 2 MG/ML inj. syringe IV PRN ×2 (17:10)
[2020-05-04] MEDS ORDERED: potassium Cl 20 mEq SR tablet PO PRN ×2 (17:10)
[2020-05-04] MEDS ORDERED: magnesium hydroxide 30ml (MOM) UD suspension PO PRN (17:10)
[2020-05-04] MEDS ORDERED: ondansetron/PF 4mg/2ml inj IV PRN (17:10)
[2020-05-04] MEDS ORDERED: gabapentin 400mg capsule PO ONE (17:30)
[2020-05-04] MEDS ORDERED: vancomycin/NS 1 GM ADD-VANTAGE 250 ML IV ONE (17:30)
[2020-05-04] MEDS ORDERED: dextrose 50%-water 50ml dispensing syringe IV PRN (17:30)
[2020-05-04] MEDS ORDERED: insulin glargine (Lantus) pen - multi-dose SQ PRN (17:30)
[2020-05-04] MEDS ORDERED: MESSAGE TO NURSING PO ONE ×4 (17:30)
[2020-05-04 17:48] LABS: HEMOGLOBIN A1C 5.6 % (4.5-6.2)
[2020-05-04 19:48] LABS: PARTIAL THROMBOPLASTIN TIME 50 SECONDS (22-32)
[2020-05-04 19:50] LABS: ALANINE AMINOTRANSFERASE 30 U/L (12-78); ALBUMIN 2.6 G/DL (3.4-5.0); ALBUMIN/GLOBULIN RATIO 0.6 (1.1-1.5); ALKALINE PHOSPHATASE 129 IU/L (46-116); ANION GAP 10 (8-16); ASPARTATE AMINO TRANSFERASE 58 U/L (10-37); BILIRUBIN,TOTAL 0.3 MG/DL (0.1-1.0); BLOOD UREA NITROGEN 41 MG/DL (7-18); CALCIUM 8.7 MG/DL (8.5-10.1); CHLORIDE 109 MMOL/L (99-107); CREATININE 2.92 MG/DL (0.60-1.10); GLUCOSE 94 MG/DL (70-104); POTASSIUM 5.7 MMOL/L (3.5-5.1); SODIUM 139 MMOL/L (135-145); TOTAL PROTEIN 6.8 G/DL (6.4-8.2); eGFR 21 ML/MIN
[2020-05-04] MEDS: nitroGLYCERIN-Tridil 50MG/D5W 250 ML IV PRN (19:57)
[2020-05-04] MEDS ORDERED: apixaban 5mg tablet PO SCH (20:00)
[2020-05-04] MEDS: metoprolol tartrate 12.5mg (1/2 tablet) PO SCH (20:00)
[2020-05-04] MEDS: K and/or MAG REPLACEMENT MC SCH (20:00)
[2020-05-04] MEDS: cloNIDine 0.1 mg tablet PO SCH (21:00)
[2020-05-04] MEDS: mupirocin 2% nasal ointment 1gm UD NS SCH (21:14)
[2020-05-04] MEDS: sodium bicarbonate (8.4%) inj. 150 MEQ in dextrose 5%-water 1,000 ML IV SCH (21:15)
[2020-05-04] MEDS: HYDROmorphone/PF 0.2 MG/ML SYRINGE IV PRN (21:48)
[2020-05-04] MEDS: normal saline 1000ml 1,000 ML IV SCH (21:49)
[2020-05-04] MEDS: atorvastatin 20mg tablet PO SCH (21:49)
[2020-05-04] MEDS: acetylcysteine 200 MG/ml 4ml vial PO SCH (22:00)
[2020-05-04] MEDS: albuterol 2.5 MG/3 ML nebule NEB SCH (22:11)
[2020-05-04 22:45] LABS: ABG BASE EXCESS -9.6 mmol/L (-2.0-2.0); ABG HCO3 14.5 mmol/L (22.0-26.0); ABG OXYGEN SATURATION 92.9 % (94-97); ABG PCO2 (T) 25.6 mmHg (35.0-48.0); ABG PO2 (T) 67.5 mmHg (75.0-100.0); FCOHb 0.3 % (0.0-3.9); FLOW 3 L/min; FMetHb 0.3 % (0.0-1.5); FO2Hb 92.3 % (94-97); PATIENT TEMPERATURE 36.3
--- NOTE | 2020-05-04 23:35 | NUR ---
Late Entry: [id number]: 1835: Here from laboratory scientist, received report from Elsa KRUGER. Patient awake and alert, answering questions appropriately. Patient bradycardic, hypertensive. Heparin and NS infusing via 22G PIV in R wrist. IABP in place, functioning properly in pressure sensing mode. Placed EKG leads on patient, IABP sensing via EKG mode. Good waveform. 194: Patient hypertensive, bradycardic to 30's briefly but returns to a rate in the 40's. Awake, alert, answering questions. Dr. Jackson notified. No new orders. Yu Griffiths notified of patient's status, orders received. Dr. Suarez updated. 2007: Central line placed in R groin by Dr. Quick. All IV meds transferred to CVL. CVP transduced. Titrating Nitro to per order. Temp izaguirre placed per protocol. 2134: Patient restless, complaining of generalized pain and agitation. Eric notified, orders received. 5: Patient appears to be sleeping. IABP functioning correctly. Good waveform. Patient remains bradycardiac in the 50's. Titrating Nitro per order. Will continue to monitor.
[2020-05-05] VITALS (25 sets, daily range): BP systolic 112–153; BP diastolic 55–95
[2020-05-05] MEDS: gabapentin 300mg capsule PO SCH ×3 (01:13→15:33)
[2020-05-05] MEDS: HYDROmorphone/PF 0.2 MG/ML SYRINGE IV PRN ×4 (02:39→21:41)
[2020-05-05] MEDS: albuterol 2.5 MG/3 ML nebule NEB SCH ×4 (02:52→20:19)
[2020-05-05 03:35] LABS: BASOPHILS # (AUTO) 0.1 X10'3 (0-0.2); BASOPHILS % (AUTO) 0.8 % (0-1); EOSINOPHILS # (AUTO) 0.1 X10'3 (0-0.9); EOSINOPHILS % (AUTO) 1.6 % (0-6); HEMOGLOBIN 9.8 g/dl (14.0-17.9); LYMPHOCYTES # (AUTO) 2.6 X10'3 (1.1-4.8); LYMPHOCYTES % (AUTO) 30.8 % (21-51); MEAN CORPUSCULAR HEMOGLOBIN 34.3 PG (27.0-31.0); MEAN CORPUSCULAR HGB CONC 33.9 g/dL (33.0-36.5); MEAN PLATELET VOLUME 10.1 FL (7.4-10.4); MONOCYTES # (AUTO) 0.9 X10'3 (0-0.9); NEUTROPHILS # (AUTO) 4.6 X10'3 (1.8-7.7); NEUTROPHILS % (AUTO) 55.8 % (42-75); PLATELET COUNT 161 X10'3 (140-440); RED BLOOD COUNT 2.87 X10'6 (4.70-6.10); RED CELL DISTRIBUTION WIDTH 16.8 % (11.5-14.5); WHITE BLOOD COUNT 8.3 X10'3 (4.5-11.0)
[2020-05-05 03:47] LABS: ALANINE AMINOTRANSFERASE 28 U/L (12-78); ALBUMIN 2.2 G/DL (3.4-5.0); ALBUMIN/GLOBULIN RATIO 0.6 (1.1-1.5); ALKALINE PHOSPHATASE 109 IU/L (46-116); ANION GAP 8 (8-16); ASPARTATE AMINO TRANSFERASE 58 U/L (10-37); BILIRUBIN,TOTAL 0.3 MG/DL (0.1-1.0); BLOOD UREA NITROGEN 40 MG/DL (7-18); BUN/CREATININE RATIO 14.3 (5.4-32.0); CALCIUM 7.9 MG/DL (8.5-10.1); CHLORIDE 110 MMOL/L (99-107); CREATININE 2.79 MG/DL (0.60-1.10); GLUCOSE 104 MG/DL (70-104); POTASSIUM 4.7 MMOL/L (3.5-5.1); SODIUM 141 MMOL/L (135-145); TOTAL CARBON DIOXIDE 23.2 MMOL/L (24-32); TOTAL PROTEIN 5.8 G/DL (6.4-8.2); eGFR 23 ML/MIN
[2020-05-05 03:49] LABS: CHOLESTEROL 111 MG/DL (0-200); HDL CHOLESTEROL 37 MG/DL (35-60); LDL CHOLESTEROL 69 MG/DL (50-100); PHOSPHORUS 4.1 MG/DL (2.3-4.5); TRIGLYCERIDES 60 MG/DL (20-135)
[2020-05-05] MEDS ORDERED: cefazolin/dext.iso 2gm/50ml 50 ML IV ONE (05:30)
[2020-05-05] MEDS: Insulin Reg/NS 100units/100mL 100 ML IV SCH (05:30)
[2020-05-05] MEDS: nitroGLYCERIN-Tridil 50MG/D5W 250 ML IV PRN ×2 (05:43→19:03)
[2020-05-05] MEDS: normal saline 1000ml 1,000 ML IV SCH (06:30)
--- NOTE | 2020-05-05 06:30 | NUR ---
Preop prep completed. Problems reprioritized. Patient report given, questions answered & plan of care reviewed with Lebron KRUGER.
[2020-05-05] MEDS ORDERED: potassium Cl 20 mEq SR tablet PO SCH (08:00)
[2020-05-05] MEDS: cloNIDine 0.1 mg tablet PO SCH ×2 (08:00→13:00)
[2020-05-05] MEDS: K and/or MAG REPLACEMENT MC SCH ×2 (08:00→20:00)
[2020-05-05] MEDS: sodium bicarbonate (8.4%) inj. 150 MEQ in dextrose 5%-water 1,000 ML IV SCH ×2 (08:14→20:27)
[2020-05-05] MEDS: acetylcysteine 200 MG/ml 4ml vial PO SCH ×2 (08:15→20:08)
[2020-05-05] MEDS: mupirocin 2% nasal ointment 1gm UD NS SCH ×2 (08:16→20:09)
[2020-05-05] MEDS: furosemide 20MG tablet PO SCH (08:16)
[2020-05-05] MEDS: metoprolol tartrate 12.5mg (1/2 tablet) PO SCH ×2 (09:43→20:08)
[2020-05-05] MEDS: aspirin 81mg tablet.DR PO SCH (09:43)
[2020-05-05] MEDS ORDERED: LORazepam 2 mg/ml vial IV PRN (09:50)
[2020-05-05] MEDS ORDERED: thiamine inj. 100 MG, MVI, adult No.4 with vit. K 10 ML in dextrose 5% water 500ml 500 ML IV SCH ×3 (09:50)
[2020-05-05] MEDS ORDERED: haloperidol 5mg tablet PO PRN (09:50)
[2020-05-05] MEDS ORDERED: haloperidol lactate 5mg/ml inj IM PRN (09:50)
[2020-05-05] MEDS ORDERED: MESSAGE TO NURSING PO ONE (10:00)
[2020-05-05] MEDS ORDERED: folic acid 1mg/0.2ml inj IV SCH (10:07)
[2020-05-05] MEDS: multivitamins, therapeutics tablet PO SCH (11:28)
[2020-05-05] MEDS: thiamine 100mg tablet PO SCH (11:28)
[2020-05-05] MEDS: folic acid 1mg tablet PO SCH (11:28)
[2020-05-05] MEDS: nicotine 21mg patch - 24 hr TD SCH (11:29)
[2020-05-05] MEDS: amLODIPine 2.5mg tablet PO SCH (11:29)
[2020-05-05] MEDS: HYDROcodone/acetaminophen 10/325mg tab PO PRN ×2 (15:34→20:47)
[2020-05-05] MEDS: heparin 25,000 UNIT/250ml bag 250 ML IV SCH (15:54)
--- NOTE | 2020-05-05 17:41 | NUR ---
Dr. Suarez at bedside to check on patient. MD aware of poor augmentation. Will continue for now.
--- NOTE | 2020-05-05 18:21 | NUR ---
Problems reprioritized. Patient report given, questions answered & plan of care reviewed with Iris KRUGER.
--- NOTE | 2020-05-05 18:30 | NUR ---
Patient in room ICU 2040. I have received report from Lebron KRUGER and had the opportunity to ask questions and assume patient care.
[2020-05-05] MEDS: atorvastatin 20mg tablet PO SCH (20:47)
--- NOTE | 2020-05-05 21:14 | NUR ---
Patient complaining of lower R leg pain. IABP insertion site assessed, no signs of bleeding/hematoma. Pedal pulses intact, sensation intact, pulses assessed via palpation and verified w/doppler. Cap refill 3 seconds. Chest xray obtained to verify IABP placement. Medicated patient for pain per MD order. Repositioned tubing away from patient's R calf. Chacorta notified, no new orders at this time.
[2020-05-06] VITALS (23 sets, daily range): BP systolic 91–166; BP diastolic 52–79
[2020-05-06] MEDS: HYDROcodone/acetaminophen 10/325mg tab PO PRN (00:58)
--- NOTE | 2020-05-06 02:02 | NUR ---
Patient awakens quickly, impulsive, frequently asking staff for ice cream, orange juice or pizza. Requiring frequent explanations for why he can't eat after midnight. Educated patient on IS and Flutter valve use while awake.
[2020-05-06] MEDS: albuterol 2.5 MG/3 ML nebule NEB SCH ×4 (02:05→20:08)
[2020-05-06 02:46] LABS: CLARITY,URINE CLEAR (Clear); COLOR,URINE YELLOW (Yellow); GLUCOSE, URINE NEGATIVE (Neg); KETONES,URINE NEGATIVE (Neg); LEUKOCYTE ESTERASE ,URINE NEGATIVE (Neg); NITRITES, URINE NEGATIVE (Neg); OCCULT BLOOD,URINE LARGE (Neg); PH,URINE 7.5 (4.8-8.0); PROTEIN,URINE >=300 mg/dl (Neg)
[2020-05-06 03:16] LABS: BASOPHILS # (AUTO) 0.1 X10'3 (0-0.2); BASOPHILS % (AUTO) 0.9 % (0-1); EOSINOPHILS # (AUTO) 0.1 X10'3 (0-0.9); EOSINOPHILS % (AUTO) 1.1 % (0-6); HEMATOCRIT 27.2 % (42.0-52.0); HEMOGLOBIN 9.2 g/dl (14.0-17.9); LYMPHOCYTES # (AUTO) 3.2 X10'3 (1.1-4.8); MEAN CORPUSCULAR HGB CONC 33.9 g/dL (33.0-36.5); MEAN CORPUSCULAR VOLUME 100.2 FL (78-98); MEAN PLATELET VOLUME 10.2 FL (7.4-10.4); MONOCYTES # (AUTO) 1.6 X10'3 (0-0.9); NEUTROPHILS # (AUTO) 4.4 X10'3 (1.8-7.7); PLATELET COUNT 143 X10'3 (140-440); RED BLOOD COUNT 2.72 X10'6 (4.70-6.10); RED CELL DISTRIBUTION WIDTH 16.6 % (11.5-14.5); WHITE BLOOD COUNT 9.4 X10'3 (4.5-11.0)
[2020-05-06 03:33] LABS: UA COLLECTION TYPE FOLEY CATH
[2020-05-06] MEDS: HYDROmorphone/PF 0.2 MG/ML SYRINGE IV PRN (03:37)
[2020-05-06 03:38] LABS: BACTERIA,URINE 1+ /HPF (Neg); RBC,URINE 50-100 /HPF (0-2); SQUAMOUS EPITHELIAL CELL,UR FEW /LPF (FEW); WBC,URINE 0-4 /HPF (0-4)
[2020-05-06 03:44] LABS: RHEUM FACTOR QUAL REFLEX TITER NEGATIVE (Neg)
[2020-05-06 03:47] LABS: ALANINE AMINOTRANSFERASE 27 U/L (12-78); ALBUMIN/GLOBULIN RATIO 0.6 (1.1-1.5); ALKALINE PHOSPHATASE 101 IU/L (46-116); ANION GAP 6 (8-16); ASPARTATE AMINO TRANSFERASE 40 U/L (10-37); BILIRUBIN,TOTAL 0.3 MG/DL (0.1-1.0); BLOOD UREA NITROGEN 37 MG/DL (7-18); BUN/CREATININE RATIO 13.2 (5.4-32.0); CALCIUM 7.7 MG/DL (8.5-10.1); CHLORIDE 103 MMOL/L (99-107); CREATININE 2.81 MG/DL (0.60-1.10); GLUCOSE 93 MG/DL (70-104); MAGNESIUM 1.9 MG/DL (1.5-2.4); PHOSPHORUS 4.6 MG/DL (2.3-4.5); POTASSIUM 4.6 MMOL/L (3.5-5.1); SODIUM 136 MMOL/L (135-145); TOTAL CARBON DIOXIDE 26.7 MMOL/L (24-32); TOTAL PROTEIN 5.5 G/DL (6.4-8.2); eGFR 22 ML/MIN
[2020-05-06 04:14] LABS: UA EOSINOPHILS NO EOS /HPF
[2020-05-06 04:58] LABS: PRE OP INR 1.1 INR; PRE OP PROTIME 11.4 SECONDS (9.0-12.0)
[2020-05-06] MEDS ORDERED: ceFAZolin/D5W- 1GM premix 50 ML IV ONE (05:00)
[2020-05-06] MEDS: sodium bicarbonate (8.4%) inj. 150 MEQ in dextrose 5%-water 1,000 ML IV SCH (06:10)
--- NOTE | 2020-05-06 06:12 | NUR ---
Problems reprioritized. Patient report given, questions answered & plan of care reviewed with Lebron KRUGER.
[2020-05-06 06:36] LABS: HIV ANTIBODY 1&2 RAPID NON-REACTIVE (Neg)
[2020-05-06] MEDS ORDERED: famotidine 20mg tablet PO ONE (07:00)
[2020-05-06] MEDS ORDERED: LORazepam 2 mg/ml vial IV ONE (07:00)
[2020-05-06] MEDS ORDERED: vancomycin/NS 1 GM ADD-VANTAGE 250 ML IV ONE (07:00)
[2020-05-06] MEDS: metoprolol tartrate 12.5mg (1/2 tablet) PO SCH ×2 (07:04→20:00)
[2020-05-06] MEDS: aspirin 81mg tablet.DR PO SCH (07:04)
[2020-05-06] MEDS: furosemide 20MG tablet PO SCH (07:04)
[2020-05-06] MEDS: acetylcysteine 200 MG/ml 4ml vial PO SCH ×2 (07:04→20:51)
[2020-05-06] MEDS: gabapentin 300mg capsule PO SCH (07:05)
[2020-05-06] MEDS: nitroGLYCERIN-Tridil 50MG/D5W 250 ML IV PRN (07:06)
[2020-05-06] MEDS: mupirocin 2% nasal ointment 1gm UD NS SCH (07:08)
[2020-05-06] MEDS: folic acid 1mg tablet PO SCH (07:26)
[2020-05-06] MEDS ORDERED: ceFAZolin 1000mg inj ONE (07:27)
[2020-05-06] MEDS: multivitamins, therapeutics tablet PO SCH (07:27)
[2020-05-06] MEDS: thiamine 100mg tablet PO SCH (07:27)
[2020-05-06] MEDS: K and/or MAG REPLACEMENT MC SCH ×2 (07:34→20:00)
[2020-05-06] MEDS: amLODIPine 2.5mg tablet PO SCH (08:00)
[2020-05-06] MEDS ORDERED: multivitamins, therapeutics tablet PO SCH (08:00)
[2020-05-06] MEDS: nicotine 21mg patch - 24 hr TD SCH (08:07)
[2020-05-06] MEDS ORDERED: gabapentin 300mg capsule PO ONE (08:25)
[2020-05-06] MEDS ORDERED: SUFENTANIL CITRATE 50 MCG/ML 2ml ampule IV ONE (08:47)
[2020-05-06] MEDS ORDERED: propofol inj 20 ML IV ONE (08:48)
[2020-05-06] MEDS ORDERED: MIDAZolam 5mg/5ml vial ONE (08:48)
[2020-05-06] MEDS ORDERED: sevoflurane 250ml liquid IH ONE (08:51)
--- NOTE | 2020-05-06 08:52 | NUR ---
Patient to CVOR
[2020-05-06 09:45] LABS: ABG BASE EXCESS -2.8 mmol/L (-2.0-2.0); ABG HCO3 22.7 mmol/L (22.0-26.0); ABG OXYGEN SATURATION 98.6 % (94-97); ABG PCO2 42.4 mmHg (35.0-48.0); ABG PO2 196.3 mmHg (75.0-100.0); CL (ABG) 101 mmol/L (98-110); FCOHb 0.2 % (0.0-3.9); FMetHb 0.3 % (0.0-1.5); FO2Hb 98.1 % (94-97); GLUCOSE (ABG) 106 mg/dl (70-140); IONIZED CA (ABG) 1.04 mmol/L (1.10-1.43); K (ABG) 4.4 mmol/L (3.5-5.0); TOTAL HEMOGLOBIN 8.9 G/dl (14.0-18.0)
--- NOTE | 2020-05-06 10:00 | NUR ---
Patient back from [facility] to post-pone CABG. Patient on ventilator and placed on monitor. Patient stable at this time.
[2020-05-06 10:50] LABS: ABG BASE EXCESS -3.6 mmol/L (-2.0-2.0); ABG HCO3 21.1 mmol/L (22.0-26.0); ABG OXYGEN SATURATION 93.3 % (94-97); ABG PCO2 (T) 34.2 mmHg (35.0-48.0); ABG PO2 (T) 67.1 mmHg (75.0-100.0); FCOHb 0.3 % (0.0-3.9); FLOW 40 L/min; FMetHb 0.3 % (0.0-1.5); FO2Hb 92.7 % (94-97); PATIENT TEMPERATURE 35.3; PEEP 5 cm H2O; RESPIRATORY RATE 12 b/min; TIDAL VOLUME 550 mL; TOTAL HEMOGLOBIN 9.6 G/dl (14.0-18.0)
[2020-05-06] MEDS: propofol 1000mg/100ml bottle 100 ML IV SCH ×2 (12:38→20:50)
[2020-05-06] MEDS ORDERED: rocuronium 10mg/ml inj IV ONE ×2 (14:26)
[2020-05-06] MEDS: Insulin Reg/NS 100units/100mL 100 ML IV SCH (14:50)
[2020-05-06] MEDS: heparin 25,000 UNIT/250ml bag 250 ML IV SCH (16:25)
--- NOTE | 2020-05-06 18:19 | NUR ---
Problems reprioritized. Patient report given, questions answered & plan of care reviewed with Iris KRUGER.
--- NOTE | 2020-05-06 18:46 | NUR ---
Patient in room ICU 2040. I have received report from Lebron KRUGER and had the opportunity to ask questions and assume patient care. Addendum: 05/06/20 at 1847 by Iris Burch RN Amended: Links added.
[2020-05-06] MEDS: atorvastatin 20mg tablet PO SCH (20:51)
[2020-05-06] MEDS: ringers solution, lacted 1,000 ML IV SCH (21:10)
[2020-05-07] VITALS (28 sets, daily range): BP systolic 93–180; BP diastolic 37–77
--- NOTE | 2020-05-07 01:44 | NUR ---
Titrating sedation for patient comfort and ventilator synchrony. Nitro off. IABP functioning properly. Will continue to monitor.
[2020-05-07] MEDS: albuterol 2.5 MG/3 ML nebule NEB SCH ×4 (03:14→21:29)
[2020-05-07 03:37] LABS: ALANINE AMINOTRANSFERASE 20 U/L (12-78); ALBUMIN 1.6 G/DL (3.4-5.0); ALBUMIN/GLOBULIN RATIO 0.5 (1.1-1.5); ALKALINE PHOSPHATASE 95 IU/L (46-116); ANION GAP 8 (8-16); ASPARTATE AMINO TRANSFERASE 40 U/L (10-37); BILIRUBIN,TOTAL 0.2 MG/DL (0.1-1.0); BLOOD UREA NITROGEN 34 MG/DL (7-18); BUN/CREATININE RATIO 13.7 (5.4-32.0); CALCIUM 7.7 MG/DL (8.5-10.1); CHLORIDE 104 MMOL/L (99-107); CREATININE 2.48 MG/DL (0.60-1.10); GLUCOSE 88 MG/DL (70-104); MAGNESIUM 1.8 MG/DL (1.5-2.4); PHOSPHORUS 5.3 MG/DL (2.3-4.5); SODIUM 136 MMOL/L (135-145); TOTAL CARBON DIOXIDE 23.8 MMOL/L (24-32); TRIGLYCERIDES 74 MG/DL (20-135); eGFR 26 ML/MIN
[2020-05-07 03:40] LABS: POTASSIUM 4.5 MMOL/L (3.5-5.1)
[2020-05-07 03:50] LABS: EOSINOPHILS # (AUTO) 0.2 X10'3 (0-0.9); EOSINOPHILS % (AUTO) 2.9 % (0-6); LYMPHOCYTES # (AUTO) 1.5 X10'3 (1.1-4.8); NEUTROPHILS # (AUTO) 4.4 X10'3 (1.8-7.7)
[2020-05-07 03:52] LABS: BASOPHILS % (AUTO) 0.6 % (0-1); HEMATOCRIT 26.2 % (42.0-52.0); HEMOGLOBIN 8.9 g/dl (14.0-17.9); LYMPHOCYTES % (AUTO) 20.2 % (21-51); MEAN CORPUSCULAR HEMOGLOBIN 33.8 PG (27.0-31.0); MEAN CORPUSCULAR VOLUME 99.4 FL (78-98); MEAN PLATELET VOLUME 10.7 FL (7.4-10.4); MONOCYTES # (AUTO) 1.2 X10'3 (0-0.9); MONOCYTES % (AUTO) 16.4 % (2-12); NEUTROPHILS % (AUTO) 59.9 % (42-75); PLATELET COUNT 118 X10'3 (140-440); RED BLOOD COUNT 2.63 X10'6 (4.70-6.10); RED CELL DISTRIBUTION WIDTH 16.6 % (11.5-14.5); WHITE BLOOD COUNT 7.4 X10'3 (4.5-11.0)
[2020-05-07] MEDS: propofol 1000mg/100ml bottle 100 ML IV SCH (04:19)
[2020-05-07] MEDS: HYDROmorphone/PF 0.2 MG/ML SYRINGE IV PRN (04:34)
--- NOTE | 2020-05-07 06:15 | NUR ---
Problems reprioritized. Patient report given, questions answered & plan of care reviewed with Lebron KRUGER.
[2020-05-07] MEDS ORDERED: ceFAZolin 1000mg inj ONE (06:43)
[2020-05-07] MEDS ORDERED: famotidine/PF 10 mg/ml inj IV ONE (07:00)
[2020-05-07] MEDS: metoprolol tartrate 12.5mg (1/2 tablet) PO SCH (07:10)
[2020-05-07] MEDS: nicotine 21mg patch - 24 hr TD SCH (07:10)
[2020-05-07] MEDS: gabapentin 300mg capsule PO SCH ×3 (07:10→22:43)
[2020-05-07] MEDS: acetylcysteine 200 MG/ml 4ml vial PO SCH ×2 (07:12→20:08)
[2020-05-07] MEDS: ringers solution, lacted 1,000 ML IV SCH (07:21)
[2020-05-07] MEDS ORDERED: SUFENTANIL CITRATE 50 MCG/ML 2ml ampule IV ONE (07:24)
[2020-05-07] MEDS ORDERED: rocuronium 10mg/ml inj IV ONE ×2 (07:24)
[2020-05-07] MEDS ORDERED: MIDAZolam 5mg/5ml vial ONE (07:24)
[2020-05-07] MEDS ORDERED: propofol 10mg/ml 20ml vial IV ONE (07:28)
[2020-05-07] MEDS ORDERED: protamine sulf. 10mg/ml inj. IV ONE (07:28)
[2020-05-07] MEDS ORDERED: sevoflurane 250ml liquid IH ONE (07:28)
[2020-05-07] MEDS ORDERED: DOPamine/D5W 400mg/250ml bag IV ONE (07:28)
[2020-05-07] MEDS ORDERED: nitroGLYCERIN in D5W 50mg/250ml (Tridil) infusion IV ONE (07:28)
[2020-05-07] MEDS: aspirin 81mg tablet.DR PO SCH ×2 (07:30→08:00)
--- NOTE | 2020-05-07 07:34 | NUR ---
Patient to CVOR
[2020-05-07] MEDS: amLODIPine 2.5mg tablet PO SCH (08:00)
[2020-05-07] MEDS: furosemide 20MG tablet PO SCH (08:00)
[2020-05-07] MEDS: K and/or MAG REPLACEMENT MC SCH (08:00)
[2020-05-07] MEDS: folic acid 1mg tablet PO SCH (08:00)
[2020-05-07] MEDS: thiamine 100mg tablet PO SCH (08:00)
[2020-05-07] MEDS: multivitamins, therapeutics tablet PO SCH (08:00)
[2020-05-07] MEDS ORDERED: papaverine 30 mg/ml 2ml inj. IA ONE (08:36)
[2020-05-07] MEDS ORDERED: calcium chloride 100 MG/1 ML inj IV ONE (09:00)
[2020-05-07] MEDS ORDERED: heparin 10,000 units/1 ML INJ ONE ×2 (09:00)
[2020-05-07] MEDS ORDERED: papaverine 30 mg/ml 2ml inj. ONE (09:00)
[2020-05-07 09:41] LABS: ABG BASE EXCESS -1.8 mmol/L (-2.0-2.0); ABG OXYGEN SATURATION 96.2 % (94-97); ABG PO2 (T) 86.8 mmHg (75.0-100.0); FCOHb 0.3 % (0.0-3.9); FMetHb 0.3 % (0.0-1.5); FO2Hb 95.6 % (94-97); PATIENT TEMPERATURE 35.2; PEEP 5 cm H2O; RESPIRATORY RATE 12 b/min; TIDAL VOLUME 500 mL; TOTAL HEMOGLOBIN 9.3 G/dl (14.0-18.0)
[2020-05-07 09:46] LABS: ABG BASE EXCESS -4.4 mmol/L (-2.0-2.0); ABG OXYGEN SATURATION 99.1 % (94-97); ABG PCO2 46.2 mmHg (35.0-48.0); ABG PO2 276.2 mmHg (75.0-100.0); CL (ABG) 104 mmol/L (98-110); FCOHb 0.3 % (0.0-3.9); FMetHb 0.2 % (0.0-1.5); FO2Hb 98.6 % (94-97); GLUCOSE (ABG) 92 mg/dl (70-140); IONIZED CA (ABG) 1.01 mmol/L (1.10-1.43); K (ABG) 4.1 mmol/L (3.5-5.0); TOTAL HEMOGLOBIN 9.2 G/dl (14.0-18.0)
[2020-05-07] MEDS ORDERED: LORazepam 2 mg/ml vial IV PRN (09:50)
[2020-05-07] MEDS ORDERED: LORazepam 1 MG tablet PO PRN (09:50)
[2020-05-07 10:16] LABS: ABG BASE EXCESS VENOUS -5.9 mmol/L; ABG HCO3 VENOUS 20.5 mmol/L; ABG PO2 VENOUS 65.1 mmHg; CL (ABG) 105 mmol/L (98-110); FCOHb VENOUS 1.6 %; FHHb VENOUS 9.8 %; FMetHb VENOUS 0.1 %; FO2Hb VENOUS 88.5 %; GLUCOSE (ABG) 95 mg/dl (70-140); IONIZED CA (ABG) 1.05 mmol/L (1.10-1.43); TOTAL HEMOGLOBIN 8.1 G/dl (14.0-18.0)
[2020-05-07] MEDS ORDERED: albumin (Human) 5% 250ml 250 ML IV ONE (10:40)
[2020-05-07] MEDS ORDERED: pantoprazole 40 MG vial IV ONE (10:50)
[2020-05-07] MEDS ORDERED: mineral oil 133ml enema RC PRN (10:50)
[2020-05-07] MEDS ORDERED: magnesium hydroxide 30ml (MOM) UD suspension PO PRN (10:50)
[2020-05-07] MEDS ORDERED: albumin (Human) 5% 250ml 250 ML IV PRN (10:50)
[2020-05-07] MEDS ORDERED: magnesium 4gm in 100ml NS 100 ML IV PRN (10:50)
[2020-05-07] MEDS ORDERED: nitroGLYCERIN-Tridil 50MG/D5W 250 ML IV PRN (10:50)
[2020-05-07] MEDS ORDERED: Neutra Phos packet PO PRN (10:50)
[2020-05-07] MEDS ORDERED: acetaminophen 325mg tablet PO PRN ×2 (10:50)
[2020-05-07] MEDS ORDERED: DOPamine 400mg/D5W 250ml 250 ML IV PRN (10:50)
[2020-05-07] MEDS ORDERED: sodium phosphate inj. 30 MMOL in dextrose 5%-water 250 ML IV PRN (10:50)
[2020-05-07] MEDS ORDERED: magnesium 2GM in 50ml NS 50 ML IV PRN (10:50)
[2020-05-07] MEDS ORDERED: Insulin Reg/NS 100units/100mL 100 ML IV SCH (10:50)
[2020-05-07] MEDS ORDERED: magnesium citrate 296ml oral solution PO PRN (10:50)
[2020-05-07] MEDS ORDERED: sodium phosphate inj. 15 MMOL in dextrose 5%-water 250 ML IV PRN (10:50)
[2020-05-07] MEDS ORDERED: insulin glargine (Lantus) pen - multi-dose SQ PRN (10:50)
[2020-05-07] MEDS ORDERED: morphine 4 MG/ML inj SYRINge IV PRN ×2 (10:50)
[2020-05-07] MEDS ORDERED: niCARDipine-NS 40mg/200ml IVPB 200 ML IV PRN (10:50)
[2020-05-07] MEDS ORDERED: bisacodyl 10mg suppository rectal RC PRN (10:50)
[2020-05-07] MEDS ORDERED: potassium Cl 20 mEq SR tablet PO PRN (10:50)
[2020-05-07] MEDS ORDERED: dextrose 50%-water 50ml dispensing syringe IV PRN (10:50)
[2020-05-07] MEDS ORDERED: normal saline 250ml IV soln 250 ML IV PRN (10:50)
[2020-05-07] MEDS ORDERED: metoclopramide 5 mg/ml inj IV PRN (10:50)
[2020-05-07] MEDS ORDERED: sodium chloride 0.45% 1,000 ML IV SCH (10:50)
--- NOTE | 2020-05-07 11:00 | NUR ---
Received to room 2040, accompanied by MDs and surgical crew. Placed on ventilator, to chief administrative officer, arterial line and PA line pressure monitored. Chest tubes to suction at 20 cm. Burris cath to gravity drainage. Dressings are dry and intact. See assessment record. All vasoactive drugs are infusing via central line.
[2020-05-07 11:05] LABS: ABG BASE EXCESS -3.8 mmol/L (-2.0-2.0); ABG OXYGEN SATURATION 91.2 % (94-97); ABG PCO2 (T) 36.1 mmHg (35.0-48.0); ABG PO2 (T) 52.4 mmHg (75.0-100.0); FCOHb 0.8 % (0.0-3.9); FMetHb 0.3 % (0.0-1.5); FO2Hb 90.2 % (94-97); PATIENT TEMPERATURE 32.9; PEEP 5 cm H2O; RESPIRATORY RATE 12 b/min; TIDAL VOLUME 500 mL; TOTAL HEMOGLOBIN 7.8 G/dl (14.0-18.0)
--- NOTE | 2020-05-07 11:11 | NUR ---
Nutrition consult: Pt s/p CABG x 1 today. Pt would benefit from nutrition therapy education once stable. Will continue to follow. Addendum: 05/07/20 at [address] Amended: Links added.
[2020-05-07 11:27] LABS: BASOPHILS # (AUTO) 0.1 X10'3 (0-0.2); EOSINOPHILS # (AUTO) 0.3 X10'3 (0-0.9); EOSINOPHILS % (AUTO) 4.2 % (0-6); HEMOGLOBIN 7.3 g/dl (14.0-17.9); LYMPHOCYTES # (AUTO) 1.4 X10'3 (1.1-4.8); LYMPHOCYTES % (AUTO) 22.4 % (21-51); MEAN CORPUSCULAR HEMOGLOBIN 33.5 PG (27.0-31.0); MEAN CORPUSCULAR HGB CONC 33.5 g/dL (33.0-36.5); MEAN CORPUSCULAR VOLUME 100.1 FL (78-98); MEAN PLATELET VOLUME 10.3 FL (7.4-10.4); MONOCYTES # (AUTO) 0.2 X10'3 (0-0.9); MONOCYTES % (AUTO) 3.7 % (2-12); NEUTROPHILS # (AUTO) 4.4 X10'3 (1.8-7.7); NEUTROPHILS % (AUTO) 68.7 % (42-75); PLATELET COUNT 68 X10'3 (140-440); RED BLOOD COUNT 2.18 X10'6 (4.70-6.10); RED CELL DISTRIBUTION WIDTH 16.7 % (11.5-14.5); WHITE BLOOD COUNT 6.4 X10'3 (4.5-11.0)
[2020-05-07 11:29] LABS: PARTIAL THROMBOPLASTIN TIME 37 SECONDS (22-32)
[2020-05-07 11:33] LABS: ALANINE AMINOTRANSFERASE 15 U/L (12-78); ALBUMIN 1.5 G/DL (3.4-5.0); ALBUMIN/GLOBULIN RATIO 0.5 (1.1-1.5); ALKALINE PHOSPHATASE 78 IU/L (46-116); ANION GAP 8 (8-16); ASPARTATE AMINO TRANSFERASE 29 U/L (10-37); BILIRUBIN,TOTAL 0.3 MG/DL (0.1-1.0); BLOOD UREA NITROGEN 31 MG/DL (7-18); BUN/CREATININE RATIO 13.2 (5.4-32.0); CALCIUM 7.1 MG/DL (8.5-10.1); CHLORIDE 108 MMOL/L (99-107); CREATININE 2.35 MG/DL (0.60-1.10); GLUCOSE 103 MG/DL (70-104); MAGNESIUM 1.7 MG/DL (1.5-2.4); PHOSPHORUS 5.4 MG/DL (2.3-4.5); POTASSIUM 4.2 MMOL/L (3.5-5.1); SODIUM 139 MMOL/L (135-145); TOTAL CARBON DIOXIDE 23.5 MMOL/L (24-32); TOTAL PROTEIN 4.3 G/DL (6.4-8.2); eGFR 28 ML/MIN
[2020-05-07 11:55] LABS: HEMATOCRIT 21.8 % (42.0-52.0)
[2020-05-07] MEDS: potassium Cl 20mEq/100mL bag 100 ML IV PRN ×2 (12:47→13:45)
[2020-05-07 13:56] LABS: ANTISTREPTOLYSIN O AB 83.8 IU/mL (0.0-200.0); COMPLEMENT C3, SERUM 104 mg/dL (82-167); COMPLEMENT C4, SERUM 20 mg/dL (12-38); HBSAG SCREEN Negative (Negative); HEPATITIS C ANTIBODY >11.0 s/co ratio (0.0-0.9)
[2020-05-07] MEDS: ceFAZolin/D5W- 1GM premix 50 ML IV SCH ×2 (15:48→23:49)
[2020-05-07 16:50] LABS: BASOPHILS % (AUTO) 0.3 % (0-1); EOSINOPHILS % (AUTO) 0.2 % (0-6); HEMATOCRIT 27.8 % (42.0-52.0); HEMOGLOBIN 9.3 g/dl (14.0-17.9); LYMPHOCYTES # (AUTO) 0.4 X10'3 (1.1-4.8); LYMPHOCYTES % (AUTO) 4.6 % (21-51); MEAN CORPUSCULAR HEMOGLOBIN 33.2 PG (27.0-31.0); MEAN CORPUSCULAR HGB CONC 33.4 g/dL (33.0-36.5); MEAN CORPUSCULAR VOLUME 99.6 FL (78-98); MEAN PLATELET VOLUME 10.6 FL (7.4-10.4); MONOCYTES # (AUTO) 0.7 X10'3 (0-0.9); MONOCYTES % (AUTO) 7.1 % (2-12); NEUTROPHILS # (AUTO) 8.5 X10'3 (1.8-7.7); NEUTROPHILS % (AUTO) 87.8 % (42-75); PLATELET COUNT 90 X10'3 (140-440); RED BLOOD COUNT 2.79 X10'6 (4.70-6.10); RED CELL DISTRIBUTION WIDTH 16.8 % (11.5-14.5); WHITE BLOOD COUNT 9.7 X10'3 (4.5-11.0)
[2020-05-07 16:51] LABS: ALBUMIN 1.7 G/DL (3.4-5.0); ANION GAP 9 (8-16); BLOOD UREA NITROGEN 34 MG/DL (7-18); BUN/CREATININE RATIO 12.6 (5.4-32.0); CALCIUM 7.4 MG/DL (8.5-10.1); CHLORIDE 107 MMOL/L (99-107); CREATININE 2.69 MG/DL (0.60-1.10); GLUCOSE 147 MG/DL (70-104); MAGNESIUM 3.3 MG/DL (1.5-2.4); PHOSPHORUS 7.3 MG/DL (2.3-4.5); SODIUM 136 MMOL/L (135-145); TOTAL CARBON DIOXIDE 20.4 MMOL/L (24-32); eGFR 24 ML/MIN
[2020-05-07 17:02] LABS: POTASSIUM 6.9 MMOL/L (3.5-5.1)
--- NOTE | 2020-05-07 17:10 | NUR ---
Critical Potassium 6.9 and urine output decreasing to 0-10ml/h for the past couple hours. Patient with Hx. of chronic kidney disease. Dr. Jackson called with orders to administer 40mg Lasix IV, check Ionized Calcium, and D/C replacement electrolyte protocol and consult with chief technologist if electrolytes drop. MD also aware that patient has not fully woken up from surgery but does grimace and localize to pain. MD aware of pitting edema to right leg; however, no hematoma noted at groin site. Fem-Stop removed at 1700 and patient's HOB increased to about 20degrees. Will continue to monitor.
[2020-05-07] MEDS ORDERED: furosemide 40mg/4ml inj IV ONE (17:15)
[2020-05-07 17:20] LABS: ABG HCO3 18.5 mmol/L (22.0-26.0); ABG PCO2 (T) 46.1 mmHg (35.0-48.0); ABG PO2 (T) 74.2 mmHg (75.0-100.0); FCOHb 0.5 % (0.0-3.9); FMetHb 0.1 % (0.0-1.5); FO2Hb 91.4 % (94-97); PATIENT TEMPERATURE 36.6; PEEP 5 cm H2O; RESPIRATORY RATE 12 b/min; TIDAL VOLUME 500 mL; TOTAL HEMOGLOBIN 9.8 G/dl (14.0-18.0)
[2020-05-07 17:21] LABS: PLATELET ESTIMATE DECREASED
[2020-05-07 17:23] LABS: ACANTHOCYTES FEW; ANISOCYTOSIS 1+; BURR CELLS FEW
--- NOTE | 2020-05-07 18:25 | NUR ---
Problems reprioritized. Patient report given, questions answered & plan of care reviewed with Aleah KRUGER.
[2020-05-07] MEDS: vancomycin/NS 1 GM ADD-VANTAGE 250 ML IV SCH (20:08)
[2020-05-07] MEDS: sennosides/docusate sodium tablet PO SCH (20:09)
[2020-05-07] MEDS: mupirocin 2% nasal ointment 1gm UD NS SCH (20:09)
[2020-05-07 20:33] LABS: ANTINUCLEAR ANTIBODIES Negative (Negative)
[2020-05-07] MEDS: atorvastatin 10mg tablet PO SCH (22:41)
[2020-05-07 23:11] LABS: ABG BASE EXCESS -9.2 mmol/L (-2.0-2.0); ABG HCO3 15.2 mmol/L (22.0-26.0); ABG OXYGEN SATURATION 92.7 % (94-97); ABG PCO2 (T) 26.5 mmHg (35.0-48.0); ABG PO2 (T) 67.8 mmHg (75.0-100.0); FCOHb 0.6 % (0.0-3.9); FMetHb 0.3 % (0.0-1.5); FO2Hb 91.9 % (94-97); PATIENT TEMPERATURE 36.1; PEEP 5 cm H2O; TOTAL HEMOGLOBIN 8.7 G/dl (14.0-18.0)
[2020-05-08] VITALS (25 sets, daily range): BP systolic 85–126; BP diastolic 45–74
[2020-05-08] MEDS: Insulin Reg/NS 100units/100mL 100 ML IV SCH (00:10)
[2020-05-08] MEDS: albuterol 2.5 MG/3 ML nebule NEB SCH ×4 (03:12→22:07)
[2020-05-08 03:31] LABS: BASOPHILS % (AUTO) 0.3 % (0-1); EOSINOPHILS % (AUTO) 0 % (0-6); HEMATOCRIT 22.3 % (42.0-52.0); HEMOGLOBIN 7.5 g/dl (14.0-17.9); LYMPHOCYTES # (AUTO) 0.9 X10'3 (1.1-4.8); LYMPHOCYTES % (AUTO) 10.3 % (21-51); MEAN CORPUSCULAR HEMOGLOBIN 32.9 PG (27.0-31.0); MEAN CORPUSCULAR HGB CONC 33.6 g/dL (33.0-36.5); MEAN CORPUSCULAR VOLUME 97.7 FL (78-98); MEAN PLATELET VOLUME 10.9 FL (7.4-10.4); MONOCYTES # (AUTO) 1.1 X10'3 (0-0.9); MONOCYTES % (AUTO) 13.1 % (2-12); NEUTROPHILS # (AUTO) 6.4 X10'3 (1.8-7.7); NEUTROPHILS % (AUTO) 76.3 % (42-75); PLATELET COUNT 88 X10'3 (140-440); RED BLOOD COUNT 2.28 X10'6 (4.70-6.10); RED CELL DISTRIBUTION WIDTH 16.8 % (11.5-14.5); WHITE BLOOD COUNT 8.3 X10'3 (4.5-11.0)
[2020-05-08 03:42] LABS: PARTIAL THROMBOPLASTIN TIME 31 SECONDS (22-32)
[2020-05-08 03:46] LABS: ALANINE AMINOTRANSFERASE 14 U/L (12-78); ALBUMIN 1.5 G/DL (3.4-5.0); ALBUMIN/GLOBULIN RATIO 0.5 (1.1-1.5); ALKALINE PHOSPHATASE 80 IU/L (46-116); ANION GAP 12 (8-16); ASPARTATE AMINO TRANSFERASE 38 U/L (10-37); BILIRUBIN,TOTAL 0.3 MG/DL (0.1-1.0); BLOOD UREA NITROGEN 36 MG/DL (7-18); BUN/CREATININE RATIO 12.7 (5.4-32.0); CALCIUM 7.4 MG/DL (8.5-10.1); CHLORIDE 106 MMOL/L (99-107); CREATININE 2.83 MG/DL (0.60-1.10); GLUCOSE 120 MG/DL (70-104); MAGNESIUM 2.8 MG/DL (1.5-2.4); PHOSPHORUS 6.4 MG/DL (2.3-4.5); POTASSIUM 5.3 MMOL/L (3.5-5.1); SODIUM 138 MMOL/L (135-145); TOTAL CARBON DIOXIDE 20.3 MMOL/L (24-32); TOTAL PROTEIN 4.5 G/DL (6.4-8.2); eGFR 22 ML/MIN
[2020-05-08 07:37] LABS: LARGE PLATELETS FEW; PLATELET ESTIMATE DECREASED
[2020-05-08 07:38] LABS: ANISOCYTOSIS 1+; POIKILOCYTOSIS FEW
[2020-05-08] MEDS: sennosides/docusate sodium tablet PO SCH ×3 (08:00→20:00)
[2020-05-08] MEDS: gabapentin 300mg capsule PO SCH ×4 (08:00→21:24)
[2020-05-08] MEDS: metoprolol tartrate 12.5mg (1/2 tablet) PO SCH ×2 (08:00→21:24)
[2020-05-08] MEDS ORDERED: aspirin 325mg tablet, delayed-release (Ecotrin) PO SCH (08:00)
[2020-05-08] MEDS: vancomycin/NS 1 GM ADD-VANTAGE 250 ML IV SCH ×2 (08:12→21:24)
[2020-05-08] MEDS: ceFAZolin/D5W- 1GM premix 50 ML IV SCH ×2 (08:12→15:40)
[2020-05-08] MEDS: mupirocin 2% nasal ointment 1gm UD NS SCH ×2 (08:13→20:00)
[2020-05-08] MEDS: folic acid 1mg tablet PO SCH (08:13)
[2020-05-08] MEDS: acetylcysteine 200 MG/ml 4ml vial PO SCH ×2 (08:14→21:25)
[2020-05-08] MEDS: thiamine 100mg tablet PO SCH (08:15)
[2020-05-08] MEDS: multivitamins, therapeutics tablet PO SCH (08:15)
[2020-05-08] MEDS: HYDROcodone/acetaminophen 10/325mg tab PO PRN ×2 (08:16→15:41)
--- NOTE | 2020-05-08 18:21 | NUR ---
Problems reprioritized. Patient report given, questions answered & plan of care reviewed with Shannon KRUGER.
[2020-05-08] MEDS: atorvastatin 10mg tablet PO SCH (21:25)
[2020-05-08 21:31] LABS: HEMATOCRIT 25.3 % (42.0-52.0); HEMOGLOBIN 8.6 g/dl (14.0-17.9); MEAN CORPUSCULAR HEMOGLOBIN 31.7 PG (27.0-31.0); MEAN CORPUSCULAR HGB CONC 33.8 g/dL (33.0-36.5); MEAN PLATELET VOLUME 10.7 FL (7.4-10.4); PLATELET COUNT 109 X10'3 (140-440); RED CELL DISTRIBUTION WIDTH 19.4 % (11.5-14.5); WHITE BLOOD COUNT 9.5 X10'3 (4.5-11.0)
[2020-05-09] VITALS (17 sets, daily range): BP systolic 95–165; BP diastolic 42–77
[2020-05-09] MEDS: ceFAZolin/D5W- 1GM premix 50 ML IV SCH (00:20)
[2020-05-09] MEDS: albuterol 2.5 MG/3 ML nebule NEB SCH ×4 (02:28→20:49)
[2020-05-09 04:19] LABS: BASOPHILS % (AUTO) 0.2 % (0-1); EOSINOPHILS # (AUTO) 0.1 X10'3 (0-0.9); EOSINOPHILS % (AUTO) 0.7 % (0-6); HEMATOCRIT 23.9 % (42.0-52.0); HEMOGLOBIN 8.2 g/dl (14.0-17.9); LYMPHOCYTES # (AUTO) 1.6 X10'3 (1.1-4.8); LYMPHOCYTES % (AUTO) 16.1 % (21-51); MEAN CORPUSCULAR HGB CONC 34.1 g/dL (33.0-36.5); MEAN CORPUSCULAR VOLUME 93.9 FL (78-98); MEAN PLATELET VOLUME 10.4 FL (7.4-10.4); MONOCYTES # (AUTO) 1.4 X10'3 (0-0.9); MONOCYTES % (AUTO) 14.4 % (2-12); NEUTROPHILS # (AUTO) 6.7 X10'3 (1.8-7.7); NEUTROPHILS % (AUTO) 68.6 % (42-75); PLATELET COUNT 101 X10'3 (140-440); RED BLOOD COUNT 2.55 X10'6 (4.70-6.10); RED CELL DISTRIBUTION WIDTH 19.7 % (11.5-14.5); WHITE BLOOD COUNT 9.7 X10'3 (4.5-11.0)
[2020-05-09 04:23] LABS: ALBUMIN 1.7 G/DL (3.4-5.0); ANION GAP 11 (8-16); BLOOD UREA NITROGEN 43 MG/DL (7-18); BUN/CREATININE RATIO 14.2 (5.4-32.0); CALCIUM 7.7 MG/DL (8.5-10.1); CHLORIDE 104 MMOL/L (99-107); CREATININE 3.03 MG/DL (0.60-1.10); GLUCOSE 103 MG/DL (70-104); MAGNESIUM 2.8 MG/DL (1.5-2.4); PHOSPHORUS 5.9 MG/DL (2.3-4.5); POTASSIUM 4.5 MMOL/L (3.5-5.1); SODIUM 136 MMOL/L (135-145); TOTAL CARBON DIOXIDE 21.3 MMOL/L (24-32); eGFR 21 ML/MIN
[2020-05-09] MEDS ORDERED: furosemide 40mg/4ml inj IV ONE ×2 (06:25→11:55)
[2020-05-09] MEDS: metoprolol tartrate 12.5mg (1/2 tablet) PO SCH ×2 (08:00→20:43)
[2020-05-09] MEDS: pantoprazole 40mg Tablet.DR PO SCH (08:06)
[2020-05-09] MEDS: mupirocin 2% nasal ointment 1gm UD NS SCH (08:08)
[2020-05-09] MEDS: aspirin 81mg tablet.DR PO SCH (08:08)
[2020-05-09] MEDS: acetylcysteine 200 MG/ml 4ml vial PO SCH ×2 (08:09→20:43)
[2020-05-09] MEDS: folic acid 1mg tablet PO SCH (08:09)
[2020-05-09] MEDS: gabapentin 300mg capsule PO SCH (08:10)
[2020-05-09] MEDS: thiamine 100mg tablet PO SCH (08:10)
[2020-05-09] MEDS: multivitamins, therapeutics tablet PO SCH (08:10)
[2020-05-09] MEDS: sennosides/docusate sodium tablet PO SCH ×2 (08:10→20:44)
[2020-05-09] MEDS: Insulin Reg/NS 100units/100mL 100 ML IV SCH (09:30)
[2020-05-09] MEDS ORDERED: LORazepam 2 mg/ml vial IV PRN (09:50)
[2020-05-09] MEDS ORDERED: LORazepam 1 MG tablet PO PRN (09:50)
[2020-05-09 10:20] LABS: ANISOCYTOSIS 2+; PLATELET ESTIMATE DECREASED
[2020-05-09] MEDS ORDERED: potassium Cl 20mEq/100mL bag 100 ML IV PRN (11:55)
[2020-05-09] MEDS ORDERED: magnesium 4gm in 100ml NS 100 ML IV PRN (11:55)
[2020-05-09] MEDS ORDERED: potassium Cl 20 mEq SR tablet PO PRN (11:55)
[2020-05-09] MEDS ORDERED: magnesium 2GM in 50ml NS 50 ML IV PRN (11:55)
[2020-05-09 12:15] LABS: ACTIVATED CLOTTING TIME 148 SEC (101-148)
--- NOTE | 2020-05-09 12:35 | NUR ---
CABG Consult: Pt admit s/p CABGx1 advanced to NCS diet. PO 100% liquid only first meal post-op but ~25% avg solid meal since not meeting needs. LBM 05/04 receiving routine senna; RD d/w RN regarding additional bowel care if MD agreeable. Constipation likely to impact PO. Phos 5.9 down from prior 6.4 w/ CKD stable per associate professor of automation at rounds. RD recommends Mariano smoothie BIDBD and ensure enlive WL given pt wound healing needs and poor PO post-op; MD notified. Pt mildly confused today per EMR; would benefit from CABG ed once more appropriate prior to discharge. Will monitor for additional protein needs post-op. Rec: 1. advance diet as medically indicated to heart healthy; encourage PO 2. mariano smoothie BIDBD and ensure enlive WL for wound healing/protein needs 3. thiamin, folic, MVI per MD 4. routine bowel care 5. weekly wts Addendum: 05/09/20 at [address] Amended: Links added.
[2020-05-09] MEDS: cloNIDine 0.1 mg tablet PO SCH ×2 (13:00→20:44)
--- NOTE | 2020-05-09 13:39 | NUR ---
Problems reprioritized. Patient report given, questions answered & plan of care reviewed with Jeanette KRUGER.
[2020-05-09 16:04] LABS: BASOPHILS % (AUTO) 0.2 % (0-1); EOSINOPHILS % (AUTO) 0.3 % (0-6); HEMATOCRIT 25.3 % (42.0-52.0); HEMOGLOBIN 8.5 g/dl (14.0-17.9); MEAN CORPUSCULAR HEMOGLOBIN 31.4 PG (27.0-31.0); MEAN CORPUSCULAR HGB CONC 33.4 g/dL (33.0-36.5); MONOCYTES # (AUTO) 1.3 X10'3 (0-0.9); MONOCYTES % (AUTO) 13.2 % (2-12); NEUTROPHILS # (AUTO) 7.8 X10'3 (1.8-7.7); NEUTROPHILS % (AUTO) 76.3 % (42-75); PLATELET COUNT 113 X10'3 (140-440); RED BLOOD COUNT 2.69 X10'6 (4.70-6.10); RED CELL DISTRIBUTION WIDTH 19.7 % (11.5-14.5); WHITE BLOOD COUNT 10.2 X10'3 (4.5-11.0)
[2020-05-09 16:17] LABS: ALANINE AMINOTRANSFERASE 8 U/L (12-78); ALBUMIN 1.8 G/DL (3.4-5.0); ALBUMIN/GLOBULIN RATIO 0.5 (1.1-1.5); ALKALINE PHOSPHATASE 89 IU/L (46-116); ANION GAP 14 (8-16); ASPARTATE AMINO TRANSFERASE 47 U/L (10-37); BILIRUBIN,TOTAL 0.4 MG/DL (0.1-1.0); BLOOD UREA NITROGEN 44 MG/DL (7-18); BUN/CREATININE RATIO 14.5 (5.4-32.0); CALCIUM 7.9 MG/DL (8.5-10.1); CHLORIDE 103 MMOL/L (99-107); CREATININE 3.04 MG/DL (0.60-1.10); GLUCOSE 103 MG/DL (70-104); POTASSIUM 4.8 MMOL/L (3.5-5.1); SODIUM 137 MMOL/L (135-145); TOTAL CARBON DIOXIDE 20.4 MMOL/L (24-32); TOTAL PROTEIN 5.3 G/DL (6.4-8.2); eGFR 20 ML/MIN
[2020-05-09] MEDS: JUVEN Smoothie Arginine/Glut./Ca2+Bmb (Juven 19.3pkt) 240ml cup PO SCH (17:30)
[2020-05-09] MEDS: HYDROcodone/acetaminophen 10/325mg tab PO PRN ×2 (18:03→22:50)
--- NOTE | 2020-05-09 18:23 | NUR ---
Patient in room PCU 3021. I have received report from SLICK Reid and had the opportunity to ask questions and assume patient care.
[2020-05-09 18:27] LABS: ATYPICAL PANCA <1:20 titer (Neg:<1:20); CYTOPLASMIC (C-ANCA) <1:20 titer (Neg:<1:20); PERINUCLEAR (P-ANCA) <1:20 titer (Neg:<1:20)
--- NOTE | 2020-05-09 18:30 | NUR ---
Patient in room PCU 3021. I have received report from Jeanette KRUGER and had the opportunity to ask questions and assume patient care with Iris KRUGER. Patient eating dinner at this time. Chest tube checked. No other needs at this time.
--- NOTE | 2020-05-09 18:38 | NUR ---
Problems reprioritized. Patient report given, questions answered & plan of care reviewed with Alem KRUGER.
[2020-05-09] MEDS: magnesium Cl slow-release 64mg tablet PO SCH (20:00)
[2020-05-09] MEDS: potassium Cl 20 mEq SR tablet PO SCH (20:00)
[2020-05-09] MEDS: atorvastatin 10mg tablet PO SCH (20:44)
[2020-05-10 02:00] VITALS: BP 137/56
[2020-05-10] MEDS: albuterol 2.5 MG/3 ML nebule NEB SCH ×4 (02:28→20:00)
[2020-05-10 02:57] LABS: BASOPHILS # (AUTO) 0.1 X10'3 (0-0.2); BASOPHILS % (AUTO) 0.7 % (0-1); EOSINOPHILS # (AUTO) 0.2 X10'3 (0-0.9); EOSINOPHILS % (AUTO) 2.1 % (0-6); HEMATOCRIT 23.7 % (42.0-52.0); LYMPHOCYTES # (AUTO) 2.3 X10'3 (1.1-4.8); LYMPHOCYTES % (AUTO) 23.6 % (21-51); MEAN CORPUSCULAR HEMOGLOBIN 31.8 PG (27.0-31.0); MEAN CORPUSCULAR HGB CONC 33.6 g/dL (33.0-36.5); MEAN CORPUSCULAR VOLUME 94.6 FL (78-98); MEAN PLATELET VOLUME 10.3 FL (7.4-10.4); MONOCYTES # (AUTO) 1.4 X10'3 (0-0.9); MONOCYTES % (AUTO) 14.7 % (2-12); NEUTROPHILS # (AUTO) 5.7 X10'3 (1.8-7.7); NEUTROPHILS % (AUTO) 58.9 % (42-75); PLATELET COUNT 114 X10'3 (140-440); RED CELL DISTRIBUTION WIDTH 19.1 % (11.5-14.5); WHITE BLOOD COUNT 9.6 X10'3 (4.5-11.0)
[2020-05-10 03:07] LABS: ALBUMIN 1.7 G/DL (3.4-5.0); ANION GAP 8 (8-16); BLOOD UREA NITROGEN 45 MG/DL (7-18); BUN/CREATININE RATIO 13.1 (5.4-32.0); CALCIUM 7.9 MG/DL (8.5-10.1); CHLORIDE 104 MMOL/L (99-107); CREATININE 3.43 MG/DL (0.60-1.10); GLUCOSE 89 MG/DL (70-104); MAGNESIUM 2.6 MG/DL (1.5-2.4); POTASSIUM 4.5 MMOL/L (3.5-5.1); SODIUM 134 MMOL/L (135-145); TOTAL CARBON DIOXIDE 22.5 MMOL/L (24-32); eGFR 18 ML/MIN
--- NOTE | 2020-05-10 04:55 | NUR ---
At 2:30, Patient's bed alarm went off and he was trying to get out of bed to go to the bathroom. When I entered the room, the patient was sitting on the side and his chest tube was stretched to the other side. Patient confused, thinking he was at his sister's house and was pulling at the ekg wires and spo2 monitor. I helped get the patient back into. Chest tube dressing was loose. Chest tube had drained about 90 mls. Patient VS stable. Redressed chest tube. Called Adolph Persaud NP and received an order for CXR. CXR obtained and May aware. Will page radiology to see if virtual radiology can read it. CXR read and I called May with the results. Patient resting comfortably in bed. No complaints. VSS, sats 94% on 5L.
--- NOTE | 2020-05-10 06:03 | NUR ---
Orientee documentation: I have reviewed and agree with all interventions, medications given, assessments performed and documented by Iris KRUGER.
--- NOTE | 2020-05-10 06:07 | NUR ---
Problems reprioritized. Patient report given, questions answered & plan of care reviewed with SLICK Reid.
--- NOTE | 2020-05-10 06:47 | NUR ---
YUSUF Hernandez updated on results of CXR.
--- NOTE | 2020-05-10 07:04 | NUR ---
Patient in room PCU 3021. I have received report from Alem KRUGER and had the opportunity to ask questions and assume patient care.
[2020-05-10] MEDS: JUVEN Smoothie Arginine/Glut./Ca2+Bmb (Juven 19.3pkt) 240ml cup PO SCH ×2 (07:30→17:30)
[2020-05-10] MEDS: metoprolol tartrate 12.5mg (1/2 tablet) PO SCH ×2 (08:00→20:13)
[2020-05-10] MEDS: potassium Cl 20 mEq SR tablet PO SCH (08:00)
[2020-05-10] MEDS: magnesium Cl slow-release 64mg tablet PO SCH ×2 (08:00→20:00)
[2020-05-10] MEDS: pantoprazole 40mg Tablet.DR PO SCH (08:11)
[2020-05-10] MEDS: folic acid 1mg tablet PO SCH (08:12)
[2020-05-10] MEDS: cloNIDine 0.1 mg tablet PO SCH ×3 (08:12→20:14)
[2020-05-10] MEDS: aspirin 81mg tablet.DR PO SCH (08:12)
[2020-05-10] MEDS: acetylcysteine 200 MG/ml 4ml vial PO SCH ×2 (08:13→20:14)
[2020-05-10] MEDS: gabapentin 300mg capsule PO SCH (08:13)
[2020-05-10] MEDS: sennosides/docusate sodium tablet PO SCH ×2 (08:13→20:13)
[2020-05-10] MEDS: multivitamins, therapeutics tablet PO SCH (08:14)
[2020-05-10] MEDS: thiamine 100mg tablet PO SCH (08:14)
[2020-05-10] MEDS: HYDROcodone/acetaminophen 10/325mg tab PO PRN (09:38)
[2020-05-10 11:00] VITALS: BP 114/53
--- NOTE | 2020-05-10 12:20 | NUR ---
At bedside this am with Dr. Jackson and YUSUF Hill, Chest tube removed, instructed that the IJ can stay as well as the izaguirre until later today after the patient works with PT.
[2020-05-10] MEDS: lactose-reduced food (Ensure Enlive) - 237ml bottle PO SCH (12:30)
--- NOTE | 2020-05-10 14:17 | NUR ---
F/u 05/10: Pt AOx4 though intermittently confused and rude to staff per EMR. Written CABG ed w/ RD contact information placed in pt chart. Addendum: 05/10/20 at [address] Amended: Links added.
[2020-05-10 15:00] VITALS: BP 146/73
[2020-05-10 18:00] VITALS: BP 147/71
--- NOTE | 2020-05-10 18:15 | NUR ---
Problems reprioritized. Patient report given, questions answered & plan of care reviewed with Besty KRUGER.
[2020-05-10] MEDS: atorvastatin 10mg tablet PO SCH (20:14)
[2020-05-10 22:00] VITALS: BP 114/63
[2020-05-11 02:00] VITALS: BP 133/67
[2020-05-11] MEDS: albuterol 2.5 MG/3 ML nebule NEB SCH ×4 (02:42→19:56)
[2020-05-11 06:00] VITALS: BP 146/74
--- NOTE | 2020-05-11 06:17 | NUR ---
Problems reprioritized. Patient report given, questions answered & plan of care reviewed with SLICK Newell.
--- NOTE | 2020-05-11 06:20 | NUR ---
Patient in room PCU 3021. I have received report from Betsy KRUGER and had the opportunity to ask questions and assume patient care.
[2020-05-11 07:14] LABS: ALBUMIN 1.7 G/DL (3.4-5.0); ANION GAP 10 (8-16); BLOOD UREA NITROGEN 50 MG/DL (7-18); BUN/CREATININE RATIO 15.3 (5.4-32.0); CALCIUM 7.9 MG/DL (8.5-10.1); CHLORIDE 103 MMOL/L (99-107); CREATININE 3.27 MG/DL (0.60-1.10); GLUCOSE 93 MG/DL (70-104); POTASSIUM 4.8 MMOL/L (3.5-5.1); SODIUM 135 MMOL/L (135-145); eGFR 19 ML/MIN
[2020-05-11 07:17] LABS: BASOPHILS % (AUTO) 0.5 % (0-1); EOSINOPHILS # (AUTO) 0.3 X10'3 (0-0.9); EOSINOPHILS % (AUTO) 3.5 % (0-6); HEMATOCRIT 24.6 % (42.0-52.0); HEMOGLOBIN 8.2 g/dl (14.0-17.9); LYMPHOCYTES % (AUTO) 22.7 % (21-51); MEAN CORPUSCULAR HGB CONC 33.5 g/dL (33.0-36.5); MEAN CORPUSCULAR VOLUME 95.8 FL (78-98); MEAN PLATELET VOLUME 10.2 FL (7.4-10.4); MONOCYTES # (AUTO) 1.6 X10'3 (0-0.9); MONOCYTES % (AUTO) 17.3 % (2-12); PLATELET COUNT 136 X10'3 (140-440); RED BLOOD COUNT 2.57 X10'6 (4.70-6.10); RED CELL DISTRIBUTION WIDTH 18.3 % (11.5-14.5)
[2020-05-11] MEDS: JUVEN Smoothie Arginine/Glut./Ca2+Bmb (Juven 19.3pkt) 240ml cup PO SCH ×2 (07:30→18:00)
[2020-05-11] MEDS: magnesium Cl slow-release 64mg tablet PO SCH ×2 (08:00→20:00)
[2020-05-11] MEDS: pantoprazole 40mg Tablet.DR PO SCH (09:01)
[2020-05-11] MEDS: multivitamins, therapeutics tablet PO SCH (09:01)
[2020-05-11] MEDS: acetylcysteine 200 MG/ml 4ml vial PO SCH ×2 (09:01→20:41)
[2020-05-11] MEDS: metoprolol tartrate 12.5mg (1/2 tablet) PO SCH ×2 (09:02→20:33)
[2020-05-11] MEDS: folic acid 1mg tablet PO SCH (09:02)
[2020-05-11] MEDS: sennosides/docusate sodium tablet PO SCH ×2 (09:02→20:32)
[2020-05-11] MEDS: gabapentin 300mg capsule PO SCH (09:02)
[2020-05-11] MEDS: aspirin 81mg tablet.DR PO SCH (09:02)
[2020-05-11] MEDS: cloNIDine 0.1 mg tablet PO SCH ×3 (09:02→20:33)
[2020-05-11] MEDS: clopidogrel 75mg tablet PO SCH (09:03)
[2020-05-11] MEDS: thiamine 100mg tablet PO SCH (09:09)
[2020-05-11 11:00] VITALS: BP 119/50
[2020-05-11 11:43] LABS: ANISOCYTOSIS 2+; BURR CELLS FEW; HYPOCHROMASIA 1+; PLATELET ESTIMATE DECREASED; SCHISTOCYTES FEW; TOTAL CELLS COUNTED 100
[2020-05-11 11:48] LABS: SMUDGE CELLS 1+
[2020-05-11] MEDS: lactose-reduced food (Ensure Enlive) - 237ml bottle PO SCH (12:30)
--- NOTE | 2020-05-11 16:14 | NUR ---
Pt's izaguirre cath DC'd. 10ml of saline removed from balloon. Pt tolerated removal well. Will continue to monitor if Pt voids.
[2020-05-11 17:56] LABS: ALBUMIN, UR 63.3 % (.); ALPHA-1-GLOBULIN,UR 5.8 % (.); ALPHA-2-GLOBULIN,UR 6.3 % (.); BETA GLOBULIN, UR 15.3 % (.); GAMMA GLOBULIN,UR 9.2 % (.); PROTEIN,TOTAL,URINE 295.6 mg/dL (Not Estab.)
[2020-05-11 17:56] LABS: A/G RATIO 0.9 (0.7-1.7); ALBUMIN 2.3 g/dL (2.9-4.4); BETA GLOBULIN 0.9 g/dL (0.7-1.3); GAMMA GLOBULIN 0.8 g/dL (0.4-1.8); GLOBULIN, TOTAL 2.6 g/dL (2.2-3.9); M-SPIKE Not Observed g/dL (Not Observed); PROTEIN, TOTAL, SERUM 4.9 g/dL (6.0-8.5)
[2020-05-11 18:00] VITALS: BP 124/59
--- NOTE | 2020-05-11 18:35 | NUR ---
Problems reprioritized. Patient report given, questions answered & plan of care reviewed with Yuli KRUGER.
[2020-05-11] MEDS: atorvastatin 10mg tablet PO SCH (20:34)
[2020-05-11 22:00] VITALS: BP 118/65
[2020-05-12] VITALS (7 sets, daily range): BP systolic 129–172; BP diastolic 64–89
[2020-05-12] MEDS: albuterol 2.5 MG/3 ML nebule NEB SCH ×3 (03:01→14:49)
--- NOTE | 2020-05-12 05:05 | NUR ---
PT NONCOMPLIANT, REFUSING TO WEAR PULSE OX
--- NOTE | 2020-05-12 05:17 | NUR ---
PT WENT INTO A-FIB WITH HR IN THE 90'S TO LOW 100'S, WAS UNABLE TO GET AHOLD OF LJ TAYLOR, WILL TRY AGAIN. WILL CONTINUE TO MONITOR PT.
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
--- NOTE | 2020-05-12 06:30 | NUR ---
Patient in room PCU 3021. I have received report from Yuli and had the opportunity to ask questions and assume patient care with Maggie Calvin
[2020-05-12 06:37] LABS: BASOPHILS # (AUTO) 0.1 X10'3 (0-0.2); BASOPHILS % (AUTO) 0.5 % (0-1); EOSINOPHILS # (AUTO) 0.2 X10'3 (0-0.9); EOSINOPHILS % (AUTO) 1.9 % (0-6); HEMATOCRIT 22.2 % (42.0-52.0); HEMOGLOBIN 7.5 g/dl (14.0-17.9); LYMPHOCYTES # (AUTO) 1.8 X10'3 (1.1-4.8); LYMPHOCYTES % (AUTO) 16.6 % (21-51); MEAN CORPUSCULAR HEMOGLOBIN 32.1 PG (27.0-31.0); MEAN CORPUSCULAR HGB CONC 33.7 g/dL (33.0-36.5); MEAN CORPUSCULAR VOLUME 95.3 FL (78-98); MEAN PLATELET VOLUME 10.2 FL (7.4-10.4); MONOCYTES # (AUTO) 2.4 X10'3 (0-0.9); MONOCYTES % (AUTO) 22.1 % (2-12); NEUTROPHILS # (AUTO) 6.4 X10'3 (1.8-7.7); NEUTROPHILS % (AUTO) 58.9 % (42-75); PLATELET COUNT 146 X10'3 (140-440); RED BLOOD COUNT 2.33 X10'6 (4.70-6.10); RED CELL DISTRIBUTION WIDTH 18.3 % (11.5-14.5); WHITE BLOOD COUNT 10.9 X10'3 (4.5-11.0)
[2020-05-12 06:45] LABS: ALBUMIN 1.7 G/DL (3.4-5.0); ANION GAP 10 (8-16); BLOOD UREA NITROGEN 52 MG/DL (7-18); BUN/CREATININE RATIO 15.7 (5.4-32.0); CALCIUM 7.5 MG/DL (8.5-10.1); CHLORIDE 102 MMOL/L (99-107); CREATININE 3.31 MG/DL (0.60-1.10); GLUCOSE 91 MG/DL (70-104); POTASSIUM 4.2 MMOL/L (3.5-5.1); SODIUM 133 MMOL/L (135-145); TOTAL CARBON DIOXIDE 20.7 MMOL/L (24-32); eGFR 19 ML/MIN
[2020-05-12] MEDS: sennosides/docusate sodium tablet PO SCH ×2 (08:00→19:29)
[2020-05-12] MEDS: magnesium Cl slow-release 64mg tablet PO SCH ×2 (08:00→19:25)
[2020-05-12] MEDS: JUVEN Smoothie Arginine/Glut./Ca2+Bmb (Juven 19.3pkt) 240ml cup PO SCH ×2 (08:07→17:30)
[2020-05-12] MEDS: folic acid 1mg tablet PO SCH (08:18)
[2020-05-12] MEDS: aspirin 81mg tablet.DR PO SCH (08:18)
[2020-05-12] MEDS: cloNIDine 0.1 mg tablet PO SCH ×3 (08:18→20:44)
[2020-05-12] MEDS: pantoprazole 40mg Tablet.DR PO SCH (08:18)
[2020-05-12] MEDS: metoprolol tartrate 12.5mg (1/2 tablet) PO SCH (08:20)
[2020-05-12] MEDS: acetylcysteine 200 MG/ml 4ml vial PO SCH ×2 (08:20→19:26)
[2020-05-12] MEDS: clopidogrel 75mg tablet PO SCH (08:21)
[2020-05-12] MEDS: gabapentin 300mg capsule PO SCH (08:21)
[2020-05-12] MEDS: thiamine 100mg tablet PO SCH (08:22)
[2020-05-12] MEDS: multivitamins, therapeutics tablet PO SCH (08:22)
[2020-05-12] MEDS ORDERED: albumin (human) 25% 100 ML IV solution IV ONE (08:25)
[2020-05-12] MEDS: levalbuterol 0.63mg/3ml nebule IH SCH ×2 (09:00→20:50)
[2020-05-12] MEDS ORDERED: furosemide 20 MG/2 ML vial IV ONE (10:05)
[2020-05-12 12:06] LABS: ANISOCYTOSIS 2+; PLATELET ESTIMATE NORMAL
[2020-05-12 12:08] LABS: BURR CELLS FEW; HYPOCHROMASIA 1+; SCHISTOCYTES FEW
[2020-05-12] MEDS: lactose-reduced food (Ensure Enlive) - 237ml bottle PO SCH (12:30)
--- NOTE | 2020-05-12 13:43 | NUR ---
Reassessment 05/12: PO intake 50-74% average. documented with confusion, slurred speech from previous CVA. Last BM 05/12, moderate. Receiving Mariano smoothie TID, consumed 100% this morning. Adequate PO intake to meet needs. Rec: 1. advance diet as medically indicated to heart healthy; encourage PO 2. mariano smoothie BIDBD and ensure enlive WL for wound healing/protein needs 3. thiamin, folic, MVI per MD 4. routine bowel care 5. weekly wts Addendum: 05/12/20 at [address] Amended: Links added.
--- NOTE | 2020-05-12 14:06 | NUR ---
Orders to place a izaguirre catheter and to start the patient on flomax 0.4mg PO qHS per Dr. Jackson.
--- NOTE | 2020-05-12 18:00 | NUR ---
Orientee documentation: I have reviewed and agree with all interventions, assessments performed and documented by SLICK Kirkpatrick.
--- NOTE | 2020-05-12 18:00 | NUR ---
[place] Medication Administration: For this medication-pass time frame, all medication were reviewed, dispensed, administered and documented per hospital policy by SLICK Kirkpatrick.
--- NOTE | 2020-05-12 18:15 | NUR ---
Report was given by Maggie Calvin to oncoming RNJake.
--- NOTE | 2020-05-12 18:26 | NUR ---
Orders to stop aspirin, start on eliquis 5mg PO BID, and change metoprolol from 12.5mg to 25mg PO, and to give the patient an IS put in per Dr. Suarez.
--- NOTE | 2020-05-12 18:28 | NUR ---
Problems reprioritized. Patient report given, questions answered & plan of care reviewed with SLICK Joseph. Patient stable at transfer of care.
--- NOTE | 2020-05-12 18:32 | NUR ---
Patient in room PCU 3021. I have received report from Maggie KRUGER and had the opportunity to ask questions and assume patient care.
[2020-05-12] MEDS: metoprolol tartrate 25mg tablet PO SCH (19:25)
[2020-05-12] MEDS: apixaban 5mg tablet PO SCH (19:25)
[2020-05-12] MEDS: guaiFENesin ER 600mg tablet PO SCH (19:26)
[2020-05-12] MEDS: atorvastatin 10mg tablet PO SCH (20:44)
[2020-05-12] MEDS: tamsulosin 0.4mg capsule PO SCH (20:44)
[2020-05-13] VITALS (8 sets, daily range): BP systolic 90–152; BP diastolic 52–72
[2020-05-13] MEDS: levalbuterol 0.63mg/3ml nebule IH SCH ×4 (03:16→20:32)
--- NOTE | 2020-05-13 06:09 | NUR ---
Problems reprioritized. Patient report given, questions answered & plan of care reviewed with Maggie KRUGER.
--- NOTE | 2020-05-13 06:31 | NUR ---
Patient in room PCU 3021. I have received report from SLICK Joseph and had the opportunity to ask questions and assume patient care. Patient awake in bed and in no acute distress.
--- NOTE | 2020-05-13 06:34 | NUR ---
Patient in room PCU 3021. I have received report from Maggie Calvin (preceptor) and had the opportunity to ask questions and assume patient care.
[2020-05-13 06:42] LABS: EOSINOPHILS # (AUTO) 0.3 X10'3 (0-0.9); MEAN CORPUSCULAR VOLUME 96.2 FL (78-98); MONOCYTES # (AUTO) 2.2 X10'3 (0-0.9); MONOCYTES % (AUTO) 23.3 % (2-12)
[2020-05-13 06:43] LABS: BASOPHILS # (AUTO) 0.1 X10'3 (0-0.2); BASOPHILS % (AUTO) 0.9 % (0-1); EOSINOPHILS % (AUTO) 3.6 % (0-6); LYMPHOCYTES # (AUTO) 1.5 X10'3 (1.1-4.8); LYMPHOCYTES % (AUTO) 16.5 % (21-51); MEAN CORPUSCULAR HEMOGLOBIN 32.9 PG (27.0-31.0); MEAN CORPUSCULAR HGB CONC 34.2 g/dL (33.0-36.5); MEAN PLATELET VOLUME 9.8 FL (7.4-10.4); NEUTROPHILS # (AUTO) 5.2 X10'3 (1.8-7.7); NEUTROPHILS % (AUTO) 55.7 % (42-75); PLATELET COUNT 165 X10'3 (140-440); RED BLOOD COUNT 2.13 X10'6 (4.70-6.10); RED CELL DISTRIBUTION WIDTH 18.4 % (11.5-14.5); WHITE BLOOD COUNT 9.3 X10'3 (4.5-11.0)
[2020-05-13 06:46] LABS: HEMATOCRIT 20.5 % (42.0-52.0)
--- NOTE | 2020-05-13 06:51 | NUR ---
Called critical results of Hgb 7.0 and Hct 20.5 to Mohinder Griffiths. Orders for a type and screen put in per Mohinder Griffiths.
[2020-05-13 06:54] LABS: ALBUMIN 1.9 G/DL (3.4-5.0); ANION GAP 13 (8-16); BLOOD UREA NITROGEN 57 MG/DL (7-18); BUN/CREATININE RATIO 16.3 (5.4-32.0); CALCIUM 7.8 MG/DL (8.5-10.1); CHLORIDE 104 MMOL/L (99-107); GLUCOSE 94 MG/DL (70-104); POTASSIUM 4.2 MMOL/L (3.5-5.1); SODIUM 137 MMOL/L (135-145); TOTAL CARBON DIOXIDE 20.5 MMOL/L (24-32); eGFR 17 ML/MIN
--- NOTE | 2020-05-13 07:18 | NUR ---
Called Dr. Jackson regarding patient's Hct 7.0 and Hgb 20.5 and let him know that per Mohinder Griffiths I had ordered a type and screen, and no new orders were received from Dr. Jackson. Orders for add on Mg were put in per Dr. Jackson.
[2020-05-13] MEDS: JUVEN Smoothie Arginine/Glut./Ca2+Bmb (Juven 19.3pkt) 240ml cup PO SCH ×2 (07:30→17:54)
[2020-05-13 07:51] LABS: TOTAL CELLS COUNTED 100
[2020-05-13 07:52] LABS: ANISOCYTOSIS 2+; HYPOCHROMASIA 1+; PLATELET ESTIMATE NORMAL; SCHISTOCYTES FEW
[2020-05-13 07:53] LABS: BURR CELLS FEW; NUCLEATED RED BLOOD CELLS 3 /100WBC (0-0)
[2020-05-13] MEDS: cloNIDine 0.1 mg tablet PO SCH ×3 (08:00→20:46)
[2020-05-13] MEDS: metoprolol tartrate 25mg tablet PO SCH ×2 (08:00→20:45)
[2020-05-13] MEDS: magnesium Cl slow-release 64mg tablet PO SCH ×2 (08:00→20:00)
[2020-05-13] MEDS: pantoprazole 40mg Tablet.DR PO SCH (08:30)
[2020-05-13] MEDS: apixaban 5mg tablet PO SCH (08:30)
[2020-05-13] MEDS: folic acid 1mg tablet PO SCH (08:31)
[2020-05-13] MEDS: guaiFENesin ER 600mg tablet PO SCH ×2 (08:33→20:45)
[2020-05-13] MEDS: sennosides/docusate sodium tablet PO SCH ×2 (08:34→20:46)
[2020-05-13] MEDS: acetylcysteine 200 MG/ml 4ml vial PO SCH ×2 (08:34→21:19)
[2020-05-13] MEDS: clopidogrel 75mg tablet PO SCH (08:34)
[2020-05-13] MEDS: multivitamins, therapeutics tablet PO SCH (08:34)
[2020-05-13] MEDS: gabapentin 300mg capsule PO SCH (08:34)
[2020-05-13] MEDS: thiamine 100mg tablet PO SCH (08:34)
[2020-05-13 09:02] LABS: MAGNESIUM 2.9 MG/DL (1.5-2.4)
[2020-05-13] MEDS ORDERED: furosemide 40mg/4ml inj IV ONE (09:30)
[2020-05-13] MEDS: HYDROcodone/acetaminophen 10/325mg tab PO PRN ×3 (10:01→20:48)
[2020-05-13] MEDS: lactose-reduced food (Ensure Enlive) - 237ml bottle PO SCH (12:30)
--- NOTE | 2020-05-13 17:25 | NUR ---
Orientee documentation: I have reviewed and agree with all interventions, assessments performed and documented by SLICK Kirkpatrick.
--- NOTE | 2020-05-13 17:26 | NUR ---
[place] Medication Administration: For this medication-pass time frame, all medication were reviewed, dispensed, administered and documented per hospital policy by SLICK Kirkpatrick.
--- NOTE | 2020-05-13 17:50 | NUR ---
Asked pt if he would like to walk, pt stated he wants to have his dinner first and then he would attempt to go for a walk.
--- NOTE | 2020-05-13 18:14 | NUR ---
Problems reprioritized. Patient report given, questions answered & plan of care reviewed with SLICK Colon. Patient stable at transfer of care.
--- NOTE | 2020-05-13 18:37 | NUR ---
Patient in room PCU 3021. I have received report from Maggie KRUGER and had the opportunity to ask questions and assume patient care.
[2020-05-13] MEDS: atorvastatin 10mg tablet PO SCH (20:46)
[2020-05-13] MEDS: tamsulosin 0.4mg capsule PO SCH (20:46)
[2020-05-14 02:00] VITALS: BP 128/57
[2020-05-14] MEDS: HYDROcodone/acetaminophen 10/325mg tab PO PRN ×3 (02:11→19:45)
[2020-05-14] MEDS: levalbuterol 0.63mg/3ml nebule IH SCH ×5 (04:49→20:11)
--- NOTE | 2020-05-14 05:20 | NUR ---
Pt. awakened in labored SOB. O2 sat 82%. O2 increased to 5L/NC and RT notified f/treatment. Treatment received, flutter valve enc., pt. O2 sat now 92%. O2/NC remains at 5L, pt. enc to slow RR. Feeling better now.
[2020-05-14 06:00] VITALS: BP 143/63
[2020-05-14 06:04] LABS: ALBUMIN 1.9 G/DL (3.4-5.0); ANION GAP 13 (8-16); BLOOD UREA NITROGEN 57 MG/DL (7-18); BUN/CREATININE RATIO 16.1 (5.4-32.0); CALCIUM 8.2 MG/DL (8.5-10.1); CHLORIDE 102 MMOL/L (99-107); CREATININE 3.53 MG/DL (0.60-1.10); GLUCOSE 100 MG/DL (70-104); POTASSIUM 4.1 MMOL/L (3.5-5.1); SODIUM 137 MMOL/L (135-145); TOTAL CARBON DIOXIDE 22.5 MMOL/L (24-32); eGFR 17 ML/MIN
--- NOTE | 2020-05-14 06:53 | NUR ---
Received report with Velvet from [facility]
--- NOTE | 2020-05-14 06:54 | NUR ---
Problems reprioritized. Patient report given, questions answered & plan of care reviewed with Velvet KRUGER.
[2020-05-14] MEDS: pantoprazole 40mg Tablet.DR PO SCH (07:31)
[2020-05-14] MEDS: JUVEN Smoothie Arginine/Glut./Ca2+Bmb (Juven 19.3pkt) 240ml cup PO SCH ×2 (07:32→17:52)
[2020-05-14] MEDS: cloNIDine 0.1 mg tablet PO SCH ×3 (07:32→22:57)
[2020-05-14] MEDS: folic acid 1mg tablet PO SCH (07:32)
[2020-05-14] MEDS: metoprolol tartrate 25mg tablet PO SCH ×2 (07:32→19:44)
[2020-05-14] MEDS: guaiFENesin ER 600mg tablet PO SCH ×2 (07:32→19:44)
[2020-05-14] MEDS: acetylcysteine 200 MG/ml 4ml vial PO SCH ×2 (07:33→19:46)
[2020-05-14] MEDS: clopidogrel 75mg tablet PO SCH (07:33)
[2020-05-14] MEDS: thiamine 100mg tablet PO SCH (07:33)
[2020-05-14] MEDS: gabapentin 300mg capsule PO SCH (07:33)
[2020-05-14] MEDS: sennosides/docusate sodium tablet PO SCH ×2 (07:33→19:44)
[2020-05-14] MEDS: multivitamins, therapeutics tablet PO SCH (07:33)
[2020-05-14] MEDS: magnesium Cl slow-release 64mg tablet PO SCH ×2 (07:33→20:00)
[2020-05-14] MEDS: aspirin 81mg tab.chew PO SCH (07:48)
[2020-05-14 08:10] LABS: BASOPHILS # (AUTO) 0.1 X10'3 (0-0.2); BASOPHILS % (AUTO) 0.7 % (0-1); EOSINOPHILS # (AUTO) 0.6 X10'3 (0-0.9); EOSINOPHILS % (AUTO) 5.4 % (0-6); HEMOGLOBIN 7.8 g/dl (14.0-17.9); LYMPHOCYTES # (AUTO) 1.8 X10'3 (1.1-4.8); LYMPHOCYTES % (AUTO) 16.9 % (21-51); MEAN CORPUSCULAR HEMOGLOBIN 32.5 PG (27.0-31.0); MEAN CORPUSCULAR VOLUME 95.8 FL (78-98); MEAN PLATELET VOLUME 9.9 FL (7.4-10.4); MONOCYTES # (AUTO) 2.2 X10'3 (0-0.9); MONOCYTES % (AUTO) 21.6 % (2-12); NEUTROPHILS # (AUTO) 5.8 X10'3 (1.8-7.7); NEUTROPHILS % (AUTO) 55.4 % (42-75); PLATELET COUNT 230 X10'3 (140-440); RED CELL DISTRIBUTION WIDTH 18.3 % (11.5-14.5); WHITE BLOOD COUNT 10.4 X10'3 (4.5-11.0)
[2020-05-14 08:59] LABS: ANISOCYTOSIS 2+; NUCLEATED RED BLOOD CELLS 3 /100WBC (0-0); PLATELET ESTIMATE NORMAL; POLYCHROMASIA FEW; TOTAL CELLS COUNTED 100
[2020-05-14 09:00] LABS: BURR CELLS FEW; HYPOCHROMASIA 1+; SCHISTOCYTES FEW
[2020-05-14] MEDS: furosemide 40mg tablet PO SCH (10:22)
--- NOTE | 2020-05-14 10:25 | NUR ---
Pt refused to walk with nursing staff, refused izaguirre removal, will attempt again to get pt to walk
[2020-05-14 11:00] VITALS: BP 154/80
[2020-05-14] MEDS: lactose-reduced food (Ensure Enlive) - 237ml bottle PO SCH ×2 (12:30→12:33)
[2020-05-14 12:51] VITALS: BP 155/91
--- NOTE | 2020-05-14 15:04 | NUR ---
Took pt for a walk. Pt tolerated approximately 30 ft and asked to return to his room.
[2020-05-14 18:00] VITALS: BP 158/82
--- NOTE | 2020-05-14 18:30 | NUR ---
Patient in room PCU 3021. I have received report from Velvet KRUGER and had the opportunity to ask questions and assume patient care.
--- NOTE | 2020-05-14 18:33 | NUR ---
Problems reprioritized. Patient report given, questions answered & plan of care reviewed with SLICK Colon.
--- NOTE | 2020-05-14 18:33 | NUR ---
Preceptee documentation: I have reviewed and agree with all interventions, assessments performed and documented by SLICK Kirkpatrick.
[2020-05-14 22:00] VITALS: BP 160/61
[2020-05-14] MEDS: atorvastatin 20mg tablet PO SCH (22:57)
[2020-05-14] MEDS: tamsulosin 0.4mg capsule PO SCH (23:02)
[2020-05-15] MEDS: HYDROcodone/acetaminophen 10/325mg tab PO PRN ×2 (00:54→05:18)
[2020-05-15 02:00] VITALS: BP 155/68
[2020-05-15] MEDS: levalbuterol 0.63mg/3ml nebule IH SCH ×4 (03:31→20:08)
--- NOTE | 2020-05-15 06:20 | NUR ---
Patient in room PCU 3021. I have received report from genia floyd and had the opportunity to ask questions and assume patient care.
[2020-05-15 06:24] LABS: BASOPHILS # (AUTO) 0.2 X10'3 (0-0.2); EOSINOPHILS # (AUTO) 0.5 X10'3 (0-0.9); EOSINOPHILS % (AUTO) 5.6 % (0-6); HEMATOCRIT 22.1 % (42.0-52.0); HEMOGLOBIN 7.5 g/dl (14.0-17.9); LYMPHOCYTES # (AUTO) 1.9 X10'3 (1.1-4.8); LYMPHOCYTES % (AUTO) 22.2 % (21-51); MEAN CORPUSCULAR HEMOGLOBIN 32.7 PG (27.0-31.0); MEAN CORPUSCULAR HGB CONC 33.9 g/dL (33.0-36.5); MEAN CORPUSCULAR VOLUME 96.3 FL (78-98); MEAN PLATELET VOLUME 9.8 FL (7.4-10.4); MONOCYTES # (AUTO) 1.5 X10'3 (0-0.9); MONOCYTES % (AUTO) 17.5 % (2-12); NEUTROPHILS # (AUTO) 4.5 X10'3 (1.8-7.7); NEUTROPHILS % (AUTO) 52.7 % (42-75); PLATELET COUNT 266 X10'3 (140-440); RED CELL DISTRIBUTION WIDTH 17.9 % (11.5-14.5); WHITE BLOOD COUNT 8.5 X10'3 (4.5-11.0)
[2020-05-15 06:38] LABS: ANION GAP 11 (8-16); CHLORIDE 104 MMOL/L (99-107); POTASSIUM 4.2 MMOL/L (3.5-5.1); SODIUM 137 MMOL/L (135-145)
--- NOTE | 2020-05-15 06:50 | NUR ---
Problems reprioritized. Patient report given, questions answered & plan of care reviewed with Karrie KRUGER.
[2020-05-15 06:58] LABS: BLOOD UREA NITROGEN 58 MG/DL (7-18); CALCIUM 7.8 MG/DL (8.5-10.1); CREATININE 3.42 MG/DL (0.60-1.10); GLUCOSE 112 MG/DL (70-104); MAGNESIUM 2.7 MG/DL (1.5-2.4); eGFR 18 ML/MIN
[2020-05-15 07:00] VITALS: BP 157/65
[2020-05-15 07:07] LABS: ALBUMIN 1.9 G/DL (3.4-5.0)
[2020-05-15 07:09] LABS: ANISOCYTOSIS 2+; NUCLEATED RED BLOOD CELLS 2 /100WBC (0-0); PLATELET ESTIMATE NORMAL; TOTAL CELLS COUNTED 100
[2020-05-15 07:10] LABS: HYPOCHROMASIA 1+; POLYCHROMASIA 1+
[2020-05-15 07:11] LABS: BURR CELLS FEW; ELLIPTOCYTES 1+; SCHISTOCYTES FEW; TARGET CELLS 1+
[2020-05-15] MEDS: JUVEN Smoothie Arginine/Glut./Ca2+Bmb (Juven 19.3pkt) 240ml cup PO SCH ×2 (07:30→17:30)
[2020-05-15] MEDS: metoprolol tartrate 25mg tablet PO SCH ×2 (08:00→20:41)
[2020-05-15] MEDS: pantoprazole 40mg Tablet.DR PO SCH (08:11)
[2020-05-15] MEDS: magnesium Cl slow-release 64mg tablet PO SCH ×2 (08:11→20:00)
[2020-05-15] MEDS: aspirin 81mg tab.chew PO SCH (08:11)
[2020-05-15] MEDS: clopidogrel 75mg tablet PO SCH (08:11)
[2020-05-15] MEDS: gabapentin 300mg capsule PO SCH (08:11)
[2020-05-15] MEDS: furosemide 40mg tablet PO SCH (08:11)
[2020-05-15] MEDS: multivitamins, therapeutics tablet PO SCH (08:11)
[2020-05-15] MEDS: folic acid 1mg tablet PO SCH (08:12)
[2020-05-15] MEDS: guaiFENesin ER 600mg tablet PO SCH ×2 (08:12→20:42)
[2020-05-15] MEDS: cloNIDine 0.1 mg tablet PO SCH ×3 (08:12→20:42)
[2020-05-15] MEDS: sennosides/docusate sodium tablet PO SCH ×2 (08:12→20:42)
[2020-05-15] MEDS: thiamine 100mg tablet PO SCH (08:14)
[2020-05-15] MEDS ORDERED: amLODIPine 5mg tablet PO ONE (09:00)
[2020-05-15 11:00] VITALS: BP 154/65
[2020-05-15] MEDS: acetylcysteine 200 MG/ml 4ml vial PO SCH ×2 (11:31→20:39)
[2020-05-15] MEDS: lactose-reduced food (Ensure Enlive) - 237ml bottle PO SCH (12:30)
[2020-05-15] MEDS ORDERED: furosemide 40mg/4ml inj IV ONE (12:55)
[2020-05-15 15:00] VITALS: BP 147/69
--- NOTE | 2020-05-15 15:50 | NUR ---
Reassessment 05/15: PO intake slightly declined to 25-49% average. Per MD note pt has increased shortness of breath, decline in PO intake may be associated with the shortness of breath. Continue to offer oral nutrition supplement in view of intake. No longer documented with confusion, with "intermittent agitation and frustration," slurred speech from previous CVA. Last BM 05/15, moderate. Receiving Mariano smoothie TID, consumed 100% twice, refused four times, drank 50% last night; refusing ensure enlive, recommend to discontinue. Rec: 1. advance diet as medically indicated to heart healthy; encourage PO 2. mariano smoothie BIDBD and ensure enlive with lunch for wound healing/protein needs 3. thiamin, folic, MVI per MD 4. routine bowel care 5. weekly wts Addendum: 05/15/20 at [address] Amended: Links added.
[2020-05-15 18:00] VITALS: BP 161/82
--- NOTE | 2020-05-15 18:14 | NUR ---
Problems reprioritized. Patient report given, questions answered & plan of care reviewed with zia/stanislav rns.
--- NOTE | 2020-05-15 18:17 | NUR ---
Patient in room PCU 3021. I have received report from Karrie KRUGER and had the opportunity to ask questions and assume patient care.
--- NOTE | 2020-05-15 18:17 | NUR ---
Patient in room PCU 3021. I have received report from Karrie KRUGER and had the opportunity to ask questions and assume patient care.
[2020-05-15] MEDS: furosemide 40mg/4ml inj IV SCH (20:39)
[2020-05-15] MEDS: tamsulosin 0.4mg capsule PO SCH (20:39)
[2020-05-15] MEDS: atorvastatin 20mg tablet PO SCH (20:40)
[2020-05-15 22:00] VITALS: BP 156/67
[2020-05-16 02:00] VITALS: BP 151/67
[2020-05-16] MEDS: levalbuterol 0.63mg/3ml nebule IH SCH ×4 (02:29→20:02)
[2020-05-16 03:34] LABS: BASOPHILS # (AUTO) 0.1 X10'3 (0-0.2); BASOPHILS % (AUTO) 0.7 % (0-1); EOSINOPHILS # (AUTO) 0.4 X10'3 (0-0.9); EOSINOPHILS % (AUTO) 4.3 % (0-6); HEMATOCRIT 22.7 % (42.0-52.0); HEMOGLOBIN 7.5 g/dl (14.0-17.9); LYMPHOCYTES # (AUTO) 1.6 X10'3 (1.1-4.8); LYMPHOCYTES % (AUTO) 18.8 % (21-51); MEAN CORPUSCULAR HEMOGLOBIN 31.6 PG (27.0-31.0); MEAN CORPUSCULAR HGB CONC 33.1 g/dL (33.0-36.5); MEAN CORPUSCULAR VOLUME 95.3 FL (78-98); MEAN PLATELET VOLUME 9.8 FL (7.4-10.4); MONOCYTES # (AUTO) 1.5 X10'3 (0-0.9); MONOCYTES % (AUTO) 18.1 % (2-12); NEUTROPHILS # (AUTO) 4.9 X10'3 (1.8-7.7); NEUTROPHILS % (AUTO) 58.1 % (42-75); PLATELET COUNT 309 X10'3 (140-440); RED BLOOD COUNT 2.38 X10'6 (4.70-6.10); RED CELL DISTRIBUTION WIDTH 17.8 % (11.5-14.5); WHITE BLOOD COUNT 8.5 X10'3 (4.5-11.0)
[2020-05-16 04:02] LABS: ALBUMIN 1.8 G/DL (3.4-5.0); ANION GAP 12 (8-16); BLOOD UREA NITROGEN 60 MG/DL (7-18); BUN/CREATININE RATIO 17.5 (5.4-32.0); CALCIUM 8.1 MG/DL (8.5-10.1); CHLORIDE 104 MMOL/L (99-107); CREATININE 3.42 MG/DL (0.60-1.10); GLUCOSE 97 MG/DL (70-104); MAGNESIUM 2.7 MG/DL (1.5-2.4); POTASSIUM 3.7 MMOL/L (3.5-5.1); SODIUM 137 MMOL/L (135-145); TOTAL CARBON DIOXIDE 21.5 MMOL/L (24-32); eGFR 18 ML/MIN
[2020-05-16 04:19] LABS: ANISOCYTOSIS 1+; PLATELET ESTIMATE NORMAL; TOTAL CELLS COUNTED 100
[2020-05-16 04:20] LABS: BURR CELLS FEW; ELLIPTOCYTES 1+; HYPOCHROMASIA 1+; LARGE PLATELETS FEW; POLYCHROMASIA 1+; SCHISTOCYTES FEW; TARGET CELLS 1+
--- NOTE | 2020-05-16 05:53 | NUR ---
Orientee documentation: I have reviewed and agree with all interventions, assessments performed and documented by Carlos KRUGER. [facility] Medication Administration: For this medication-pass time frame, all medication were reviewed, dispensed, administered and documented per hospital policy by Carlos KRUGER.
--- NOTE | 2020-05-16 06:25 | NUR ---
Problems reprioritized. Patient report given, questions answered & plan of care reviewed with Xiomara KRUGER.
--- NOTE | 2020-05-16 06:37 | NUR ---
Patient in room PCU 3021. I have received report from SLICK Hamilton and had the opportunity to ask questions and assume patient care. Pt sleeping comfortably at change of shift.
[2020-05-16 07:00] VITALS: BP 157/72
[2020-05-16] MEDS: folic acid 1mg tablet PO SCH (07:49)
[2020-05-16] MEDS: magnesium Cl slow-release 64mg tablet PO SCH ×2 (07:49→20:00)
[2020-05-16] MEDS: HYDROcodone/acetaminophen 10/325mg tab PO PRN ×3 (07:49→20:32)
[2020-05-16] MEDS: sennosides/docusate sodium tablet PO SCH ×2 (07:49→20:26)
[2020-05-16] MEDS: clopidogrel 75mg tablet PO SCH (07:51)
[2020-05-16] MEDS: cloNIDine 0.1 mg tablet PO SCH ×3 (07:51→20:26)
[2020-05-16] MEDS: amLODIPine 5mg tablet PO SCH (07:51)
[2020-05-16] MEDS: multivitamins, therapeutics tablet PO SCH (07:52)
[2020-05-16] MEDS: pantoprazole 40mg Tablet.DR PO SCH (07:52)
[2020-05-16] MEDS: guaiFENesin ER 600mg tablet PO SCH ×2 (07:52→20:25)
[2020-05-16] MEDS: aspirin 81mg tab.chew PO SCH (07:52)
[2020-05-16] MEDS: furosemide 40mg/4ml inj IV SCH ×2 (07:52→20:33)
[2020-05-16] MEDS: gabapentin 300mg capsule PO SCH (07:52)
[2020-05-16] MEDS: metoprolol tartrate 25mg tablet PO SCH ×2 (07:52→20:00)
[2020-05-16] MEDS: thiamine 100mg tablet PO SCH (07:52)
[2020-05-16] MEDS: acetylcysteine 200 MG/ml 4ml vial PO SCH ×2 (07:53→20:33)
[2020-05-16] MEDS: JUVEN Smoothie Arginine/Glut./Ca2+Bmb (Juven 19.3pkt) 240ml cup PO SCH ×2 (08:09→17:39)
[2020-05-16 11:00] VITALS: BP 159/59
[2020-05-16] MEDS: lactose-reduced food (Ensure Enlive) - 237ml bottle PO SCH (12:30)
[2020-05-16 15:00] VITALS: BP 145/70
[2020-05-16 18:00] VITALS: BP 121/69
--- NOTE | 2020-05-16 18:26 | NUR ---
Problems reprioritized. Patient report given, questions answered & plan of care reviewed with SLICK Hamilton.
--- NOTE | 2020-05-16 18:27 | NUR ---
Patient in room PCU 3021. I have received report from Xiomara KRUGER and had the opportunity to ask questions and assume patient care.
[2020-05-16] MEDS: tamsulosin 0.4mg capsule PO SCH (20:26)
[2020-05-16] MEDS: atorvastatin 20mg tablet PO SCH (20:26)
[2020-05-16 22:00] VITALS: BP_SYST 121; BP_SYST 153; BP_SYST 96; BP_DIAS 60; BP_DIAS 75; BP_DIAS 85
[2020-05-17] VITALS (9 sets, daily range): BP systolic 108–160; BP diastolic 65–88
[2020-05-17] MEDS: levalbuterol 0.63mg/3ml nebule IH SCH ×4 (02:40→20:57)
[2020-05-17 02:45] LABS: BASOPHILS # (AUTO) 0.1 X10'3 (0-0.2); BASOPHILS % (AUTO) 1.2 % (0-1); EOSINOPHILS # (AUTO) 0.8 X10'3 (0-0.9); EOSINOPHILS % (AUTO) 7.9 % (0-6); HEMATOCRIT 23.3 % (42.0-52.0); HEMOGLOBIN 7.8 g/dl (14.0-17.9); LYMPHOCYTES # (AUTO) 1.9 X10'3 (1.1-4.8); LYMPHOCYTES % (AUTO) 19.4 % (21-51); MEAN CORPUSCULAR HEMOGLOBIN 32.3 PG (27.0-31.0); MEAN CORPUSCULAR HGB CONC 33.6 g/dL (33.0-36.5); MEAN CORPUSCULAR VOLUME 96.3 FL (78-98); MEAN PLATELET VOLUME 9.7 FL (7.4-10.4); MONOCYTES # (AUTO) 1.6 X10'3 (0-0.9); MONOCYTES % (AUTO) 16.1 % (2-12); NEUTROPHILS # (AUTO) 5.5 X10'3 (1.8-7.7); NEUTROPHILS % (AUTO) 55.4 % (42-75); PLATELET COUNT 345 X10'3 (140-440); RED BLOOD COUNT 2.42 X10'6 (4.70-6.10); RED CELL DISTRIBUTION WIDTH 17.8 % (11.5-14.5)
[2020-05-17 02:58] LABS: ALANINE AMINOTRANSFERASE 11 U/L (12-78); ALBUMIN 1.9 G/DL (3.4-5.0); ALBUMIN/GLOBULIN RATIO 0.5 (1.1-1.5); ALKALINE PHOSPHATASE 87 IU/L (46-116); ANION GAP 12 (8-16); ASPARTATE AMINO TRANSFERASE 23 U/L (10-37); BILIRUBIN,TOTAL 0.6 MG/DL (0.1-1.0); BLOOD UREA NITROGEN 62 MG/DL (7-18); BUN/CREATININE RATIO 17.5 (5.4-32.0); CHLORIDE 105 MMOL/L (99-107); CREATININE 3.54 MG/DL (0.60-1.10); GLUCOSE 99 MG/DL (70-104); POTASSIUM 3.6 MMOL/L (3.5-5.1); SODIUM 139 MMOL/L (135-145); TOTAL CARBON DIOXIDE 22.4 MMOL/L (24-32); TOTAL PROTEIN 5.8 G/DL (6.4-8.2); eGFR 17 ML/MIN
--- NOTE | 2020-05-17 06:10 | NUR ---
Orientee documentation: I have reviewed and agree with all interventions, assessments performed and documented by Carlos Rollins. [place] Medication Administration: For this medication-pass time frame, all medication were reviewed, dispensed, administered and documented per hospital policy by Carols Rollins.
--- NOTE | 2020-05-17 06:24 | NUR ---
Problems reprioritized. Patient report given, questions answered & plan of care reviewed with Maggie KRUGER.
--- NOTE | 2020-05-17 06:30 | NUR ---
Patient in room PCU 3021. I have received report from SLICK Hamilton and SLICK Gonzalez and had the opportunity to ask questions and assume patient care. Patient awake in bed and in no acute distress.
--- NOTE | 2020-05-17 06:37 | NUR ---
Received report with Maggie from [facility]
[2020-05-17] MEDS: JUVEN Smoothie Arginine/Glut./Ca2+Bmb (Juven 19.3pkt) 240ml cup PO SCH ×2 (07:56→17:46)
[2020-05-17] MEDS: clopidogrel 75mg tablet PO SCH (07:56)
[2020-05-17] MEDS: aspirin 81mg tab.chew PO SCH (07:57)
[2020-05-17] MEDS: magnesium Cl slow-release 64mg tablet PO SCH ×2 (07:57→21:51)
[2020-05-17] MEDS: metoprolol tartrate 25mg tablet PO SCH ×2 (08:00→21:50)
[2020-05-17] MEDS: pantoprazole 40mg Tablet.DR PO SCH (08:04)
[2020-05-17] MEDS: folic acid 1mg tablet PO SCH (08:10)
[2020-05-17] MEDS: cloNIDine 0.1 mg tablet PO SCH ×3 (08:10→21:50)
[2020-05-17] MEDS: furosemide 40mg/4ml inj IV SCH ×2 (08:10→21:47)
[2020-05-17] MEDS: guaiFENesin ER 600mg tablet PO SCH ×2 (08:11→21:48)
[2020-05-17] MEDS: acetylcysteine 200 MG/ml 4ml vial PO SCH ×2 (08:11→21:47)
[2020-05-17] MEDS: gabapentin 300mg capsule PO SCH (08:11)
[2020-05-17] MEDS: sennosides/docusate sodium tablet PO SCH ×2 (08:12→21:49)
[2020-05-17] MEDS: amLODIPine 5mg tablet PO SCH (08:12)
[2020-05-17] MEDS: multivitamins, therapeutics tablet PO SCH (08:13)
[2020-05-17] MEDS: thiamine 100mg tablet PO SCH (08:13)
--- NOTE | 2020-05-17 10:10 | NUR ---
patient had thoracentesis and 1100mL was taken off of the right side.
[2020-05-17] MEDS: lactose-reduced food (Ensure Enlive) - 237ml bottle PO SCH (12:31)
--- NOTE | 2020-05-17 17:31 | NUR ---
Orientee documentation: I have reviewed and agree with all interventions, assessments performed and documented by SLICK Kirkpatrick.
--- NOTE | 2020-05-17 17:31 | NUR ---
[place] Medication Administration: For this medication-pass time frame, all medication were reviewed, dispensed, administered and documented per hospital policy by SLICK Kirkpatrick.
--- NOTE | 2020-05-17 18:00 | NUR ---
Patient in room PCU 3021. I have received report from FADI KRUGER and had the opportunity to ask questions and assume patient care.
--- NOTE | 2020-05-17 18:18 | NUR ---
Problems reprioritized. Patient report given, questions answered & plan of care reviewed with Rosalina.
[2020-05-17] MEDS: tamsulosin 0.4mg capsule PO SCH (21:49)
[2020-05-17] MEDS: atorvastatin 20mg tablet PO SCH (21:51)
[2020-05-18] VITALS (7 sets, daily range): BP systolic 80–116; BP diastolic 64–78
[2020-05-18] MEDS: levalbuterol 0.63mg/3ml nebule IH SCH ×4 (02:36→21:45)
[2020-05-18 04:48] LABS: BASOPHILS # (AUTO) 0.1 X10'3 (0-0.2); BASOPHILS % (AUTO) 0.8 % (0-1); EOSINOPHILS # (AUTO) 0.4 X10'3 (0-0.9); EOSINOPHILS % (AUTO) 3.9 % (0-6); HEMATOCRIT 23.8 % (42.0-52.0); HEMOGLOBIN 7.8 g/dl (14.0-17.9); LYMPHOCYTES # (AUTO) 1.5 X10'3 (1.1-4.8); LYMPHOCYTES % (AUTO) 15.1 % (21-51); MEAN CORPUSCULAR HEMOGLOBIN 31.2 PG (27.0-31.0); MEAN CORPUSCULAR HGB CONC 32.8 g/dL (33.0-36.5); MEAN PLATELET VOLUME 9.8 FL (7.4-10.4); MONOCYTES # (AUTO) 1.4 X10'3 (0-0.9); MONOCYTES % (AUTO) 13.4 % (2-12); NEUTROPHILS # (AUTO) 6.8 X10'3 (1.8-7.7); NEUTROPHILS % (AUTO) 66.8 % (42-75); PLATELET COUNT 406 X10'3 (140-440); RED BLOOD COUNT 2.51 X10'6 (4.70-6.10); RED CELL DISTRIBUTION WIDTH 18.2 % (11.5-14.5); WHITE BLOOD COUNT 10.2 X10'3 (4.5-11.0)
--- NOTE | 2020-05-18 06:33 | NUR ---
Problems reprioritized. Patient report given, questions answered & plan of care reviewed with Maggie KRUGER.
--- NOTE | 2020-05-18 06:34 | NUR ---
Report received with Maggie from [facility]
--- NOTE | 2020-05-18 07:24 | NUR ---
Patient fell and was found in the front of his bed sitting on the ground. Patient stated that he didn't hit his head and that nothing hurt him but his pride. Vitals are HR 120, 92% on 2L nasal cannula, RR 22, 0/10 pain, BP 107/77, temp 98. Called YUSUF Lester and she said to just monitor the patient for bruising and no new orders were received.
[2020-05-18] MEDS: JUVEN Smoothie Arginine/Glut./Ca2+Bmb (Juven 19.3pkt) 240ml cup PO SCH ×2 (07:34→17:32)
[2020-05-18] MEDS: guaiFENesin ER 600mg tablet PO SCH ×2 (07:45→20:47)
[2020-05-18] MEDS: cloNIDine 0.1 mg tablet PO SCH ×3 (07:45→20:48)
[2020-05-18] MEDS: metoprolol tartrate 25mg tablet PO SCH ×2 (07:45→20:50)
[2020-05-18] MEDS: apixaban 5mg tablet PO SCH ×2 (07:45→20:50)
[2020-05-18] MEDS: pantoprazole 40mg Tablet.DR PO SCH (07:45)
[2020-05-18] MEDS: furosemide 40mg/4ml inj IV SCH ×2 (07:45→20:50)
[2020-05-18] MEDS: folic acid 1mg tablet PO SCH (07:45)
[2020-05-18] MEDS: amLODIPine 5mg tablet PO SCH (07:46)
[2020-05-18] MEDS: multivitamins, therapeutics tablet PO SCH (07:46)
[2020-05-18] MEDS: clopidogrel 75mg tablet PO SCH (07:46)
[2020-05-18] MEDS: gabapentin 300mg capsule PO SCH (07:46)
[2020-05-18] MEDS: sennosides/docusate sodium tablet PO SCH ×2 (07:46→20:47)
[2020-05-18] MEDS: acetylcysteine 200 MG/ml 4ml vial PO SCH ×2 (07:46→20:51)
[2020-05-18] MEDS: aspirin 81mg tab.chew PO SCH (07:47)
[2020-05-18] MEDS: thiamine 100mg tablet PO SCH (07:47)
[2020-05-18] MEDS: magnesium Cl slow-release 64mg tablet PO SCH ×2 (07:47→20:47)
--- NOTE | 2020-05-18 11:44 | NUR ---
Paged certified orthotist/pedorthist for toboggan splint for pt's right thumb
--- NOTE | 2020-05-18 12:17 | NUR ---
Orders for an x-ray of the patient's thumb put in per YUSUF Lester after patient has been complaining of thumb pain post fall.
[2020-05-18] MEDS: lactose-reduced food (Ensure Enlive) - 237ml bottle PO SCH (12:30)
--- NOTE | 2020-05-18 14:18 | NUR ---
report given to Celeste
--- NOTE | 2020-05-18 14:19 | NUR ---
Orientee documentation: I have reviewed and agree with all interventions, assessments performed and documented by SLICK Kirkpatrick.
--- NOTE | 2020-05-18 14:19 | NUR ---
Patient in room PCU 3021. I have received report from Kaya KRUGER and had the opportunity to ask questions and assume patient care.
--- NOTE | 2020-05-18 14:20 | NUR ---
[place] Medication Administration: For this medication-pass time frame, all medication were reviewed, dispensed, administered and documented per hospital policy by SLICK Kirkpatrick.
--- NOTE | 2020-05-18 18:00 | NUR ---
Patient in room PCU 3021. I have received report from SLICK Alonso and had the opportunity to ask questions and assume patient care.
--- NOTE | 2020-05-18 18:13 | NUR ---
Problems reprioritized. Patient report given, questions answered & plan of care reviewed with Jesus Manuel KRUGER.
--- NOTE | 2020-05-18 18:15 | NUR ---
Problems reprioritized. Patient report given, questions answered & plan of care reviewed with Jesus Manuel KRUGER.
[2020-05-18] MEDS: tamsulosin 0.4mg capsule PO SCH (20:50)
[2020-05-18] MEDS: atorvastatin 20mg tablet PO SCH (21:00)
--- NOTE | 2020-05-19 01:30 | NUR ---
Transferred care to SLICK Todd. Patient resting in bed, no signs of distress. VSS. Care plan followed. Safety measures in place, bed in low and locked position. Call light and personal items within reach.
--- NOTE | 2020-05-19 01:46 | NUR ---
Patient in room PCU 3021. I have received report from Lilliana, and had the opportunity to ask questions and assume patient care.
[2020-05-19 02:00] VITALS: BP 119/76
[2020-05-19] MEDS: HYDROcodone/acetaminophen 10/325mg tab PO PRN ×2 (02:06→15:24)
[2020-05-19] MEDS: levalbuterol 0.63mg/3ml nebule IH SCH ×3 (03:08→22:11)
[2020-05-19 06:00] VITALS: BP 106/64
--- NOTE | 2020-05-19 06:18 | NUR ---
Problems reprioritized. Patient report given, questions answered & plan of care reviewed with Shantell.
[2020-05-19 06:22] LABS: ALBUMIN 1.9 G/DL (3.4-5.0); ANION GAP 12 (8-16); BLOOD UREA NITROGEN 63 MG/DL (7-18); BUN/CREATININE RATIO 20.1 (5.4-32.0); CHLORIDE 103 MMOL/L (99-107); CREATININE 3.14 MG/DL (0.60-1.10); GLUCOSE 99 MG/DL (70-104); POTASSIUM 3.5 MMOL/L (3.5-5.1); SODIUM 138 MMOL/L (135-145); TOTAL CARBON DIOXIDE 22.9 MMOL/L (24-32); eGFR 20 ML/MIN
[2020-05-19 06:28] LABS: BASOPHILS # (AUTO) 0.1 X10'3 (0-0.2); BASOPHILS % (AUTO) 1.1 % (0-1); EOSINOPHILS # (AUTO) 0.6 X10'3 (0-0.9); EOSINOPHILS % (AUTO) 5.2 % (0-6); HEMOGLOBIN 7.3 g/dl (14.0-17.9); LYMPHOCYTES # (AUTO) 1.8 X10'3 (1.1-4.8); LYMPHOCYTES % (AUTO) 15.8 % (21-51); MEAN CORPUSCULAR HEMOGLOBIN 31.8 PG (27.0-31.0); MEAN CORPUSCULAR HGB CONC 33.3 g/dL (33.0-36.5); MEAN CORPUSCULAR VOLUME 95.3 FL (78-98); MEAN PLATELET VOLUME 9.6 FL (7.4-10.4); MONOCYTES # (AUTO) 1.6 X10'3 (0-0.9); MONOCYTES % (AUTO) 13.9 % (2-12); NEUTROPHILS # (AUTO) 7.2 X10'3 (1.8-7.7); PLATELET COUNT 432 X10'3 (140-440); RED CELL DISTRIBUTION WIDTH 17.9 % (11.5-14.5); WHITE BLOOD COUNT 11.3 X10'3 (4.5-11.0)
--- NOTE | 2020-05-19 06:30 | NUR ---
Patient in room PCU 3021. I have received report from SLICK Todd and had the opportunity to ask questions and assume patient care. Patient asleep in bed and in no acute distress.
[2020-05-19 06:43] LABS: HEMATOCRIT 21.9 % (42.0-52.0)
--- NOTE | 2020-05-19 06:55 | NUR ---
Received report from Perez
--- NOTE | 2020-05-19 06:56 | NUR ---
Called Critical results to Alan Hill of Hct 21.9, no new orders received.
[2020-05-19] MEDS: JUVEN Smoothie Arginine/Glut./Ca2+Bmb (Juven 19.3pkt) 240ml cup PO SCH ×2 (07:31→17:30)
[2020-05-19] MEDS: pantoprazole 40mg Tablet.DR PO SCH (07:45)
[2020-05-19] MEDS: furosemide 40mg/4ml inj IV SCH ×2 (07:46→19:51)
[2020-05-19] MEDS: apixaban 5mg tablet PO SCH ×2 (07:46→19:50)
[2020-05-19] MEDS: folic acid 1mg tablet PO SCH (07:46)
[2020-05-19] MEDS: cloNIDine 0.1 mg tablet PO SCH ×3 (07:47→20:13)
[2020-05-19] MEDS: metoprolol tartrate 25mg tablet PO SCH ×2 (07:47→20:00)
[2020-05-19] MEDS: acetylcysteine 200 MG/ml 4ml vial PO SCH ×2 (07:48→19:51)
[2020-05-19] MEDS: clopidogrel 75mg tablet PO SCH (07:48)
[2020-05-19] MEDS: amLODIPine 5mg tablet PO SCH (07:48)
[2020-05-19] MEDS: guaiFENesin ER 600mg tablet PO SCH ×2 (07:48→19:50)
[2020-05-19] MEDS: gabapentin 300mg capsule PO SCH (07:48)
[2020-05-19] MEDS: sennosides/docusate sodium tablet PO SCH ×2 (07:48→19:50)
[2020-05-19] MEDS: multivitamins, therapeutics tablet PO SCH (07:48)
[2020-05-19] MEDS: thiamine 100mg tablet PO SCH (07:49)
[2020-05-19] MEDS: aspirin 81mg tab.chew PO SCH (07:49)
[2020-05-19] MEDS: magnesium Cl slow-release 64mg tablet PO SCH ×2 (07:49→20:00)
[2020-05-19 11:00] VITALS: BP 143/64
[2020-05-19] MEDS: lactose-reduced food (Ensure Enlive) - 237ml bottle PO SCH (12:30)
[2020-05-19 15:00] VITALS: BP 153/68
--- NOTE | 2020-05-19 17:59 | NUR ---
Problems reprioritized. Patient report given, questions answered & plan of care reviewed with SLICK Todd. Patient stable at transfer of care.
--- NOTE | 2020-05-19 18:12 | NUR ---
Report given by Maggie (preceptor), to Perez.
--- NOTE | 2020-05-19 18:13 | NUR ---
[place] Medication Administration: For this medication-pass time frame, all medication were reviewed, dispensed, administered and documented per hospital policy by SLICK Kirkpatrick.
--- NOTE | 2020-05-19 18:13 | NUR ---
Orientee documentation: I have reviewed and agree with all interventions, assessments performed and documented by SLICK Kirkpatrick.
--- NOTE | 2020-05-19 18:15 | NUR ---
Patient in room PCU 3021. I have received report from Shantell, and had the opportunity to ask questions and assume patient care.
[2020-05-19 19:00] VITALS: BP 103/64
[2020-05-19] MEDS: tamsulosin 0.4mg capsule PO SCH (19:50)
[2020-05-19] MEDS: atorvastatin 20mg tablet PO SCH (20:09)
[2020-05-19 22:00] VITALS: BP 164/67
--- NOTE | 2020-05-19 22:59 | NUR ---
Called Alan Hill regarding he patient converting from Normal sinus rhythm to A Fib. He acknowledged it. Nor orders were give at this time. Addendum: 05/20/20 at 0229 by Perez Guzman RN Patient converted back from A Fib to NSR at 0134. No chest pain, No SOB. Resting comfortably.
[2020-05-20 01:55] VITALS: BP 148/67
--- NOTE | 2020-05-20 02:29 | NUR ---
Patient converted back from A Fib to Normal Sinus Rhythm at 0134. Resting comfortably. No chest pain, No shortness of breath.
[2020-05-20] MEDS: levalbuterol 0.63mg/3ml nebule IH SCH ×4 (03:16→21:18)
[2020-05-20] MEDS: HYDROcodone/acetaminophen 10/325mg tab PO PRN (05:26)
[2020-05-20 06:00] VITALS: BP 161/70
[2020-05-20 06:10] LABS: BASOPHILS # (AUTO) 0.2 X10'3 (0-0.2); BASOPHILS % (AUTO) 1.7 % (0-1); EOSINOPHILS # (AUTO) 0.8 X10'3 (0-0.9); EOSINOPHILS % (AUTO) 6.7 % (0-6); HEMATOCRIT 22.8 % (42.0-52.0); HEMOGLOBIN 7.6 g/dl (14.0-17.9); LYMPHOCYTES % (AUTO) 16.7 % (21-51); MEAN CORPUSCULAR HEMOGLOBIN 31.9 PG (27.0-31.0); MEAN CORPUSCULAR HGB CONC 33.4 g/dL (33.0-36.5); MEAN CORPUSCULAR VOLUME 95.7 FL (78-98); MEAN PLATELET VOLUME 9.4 FL (7.4-10.4); MONOCYTES # (AUTO) 1.8 X10'3 (0-0.9); MONOCYTES % (AUTO) 15.3 % (2-12); NEUTROPHILS # (AUTO) 7.1 X10'3 (1.8-7.7); NEUTROPHILS % (AUTO) 59.6 % (42-75); PLATELET COUNT 493 X10'3 (140-440); RED BLOOD COUNT 2.39 X10'6 (4.70-6.10); RED CELL DISTRIBUTION WIDTH 17.7 % (11.5-14.5); WHITE BLOOD COUNT 11.9 X10'3 (4.5-11.0)
[2020-05-20 06:29] LABS: ALBUMIN 1.9 G/DL (3.4-5.0); ANION GAP 11 (8-16); BLOOD UREA NITROGEN 60 MG/DL (7-18); BUN/CREATININE RATIO 19.4 (5.4-32.0); CALCIUM 7.9 MG/DL (8.5-10.1); CHLORIDE 103 MMOL/L (99-107); GLUCOSE 102 MG/DL (70-104); MAGNESIUM 2.1 MG/DL (1.5-2.4); PHOSPHORUS 4.3 MG/DL (2.3-4.5); POTASSIUM 3.4 MMOL/L (3.5-5.1); SODIUM 137 MMOL/L (135-145); TOTAL CARBON DIOXIDE 23.4 MMOL/L (24-32); eGFR 20 ML/MIN
--- NOTE | 2020-05-20 06:35 | NUR ---
Problems reprioritized. Patient report given, questions answered & plan of care reviewed with Milagro.
--- NOTE | 2020-05-20 06:37 | NUR ---
Patient in room PCU 3021. I have received report from Thea KRUGER and had the opportunity to ask questions and assume patient care.
[2020-05-20 06:42] LABS: ANISOCYTOSIS 1+; HYPOCHROMASIA 1+; PLATELET ESTIMATE INCREASED; POLYCHROMASIA 1+; ROULEAUX 1+; TARGET CELLS 1+; TOTAL CELLS COUNTED 100
[2020-05-20 06:43] LABS: POIKILOCYTOSIS 1+
[2020-05-20] MEDS: JUVEN Smoothie Arginine/Glut./Ca2+Bmb (Juven 19.3pkt) 240ml cup PO SCH ×2 (07:30→17:30)
[2020-05-20] MEDS: clopidogrel 75mg tablet PO SCH (08:21)
[2020-05-20] MEDS: gabapentin 300mg capsule PO SCH (08:21)
[2020-05-20] MEDS: sennosides/docusate sodium tablet PO SCH ×2 (08:21→20:00)
[2020-05-20] MEDS: aspirin 81mg tab.chew PO SCH (08:21)
[2020-05-20] MEDS: amLODIPine 5mg tablet PO SCH (08:21)
[2020-05-20] MEDS: cloNIDine 0.1 mg tablet PO SCH ×3 (08:21→20:09)
[2020-05-20] MEDS: folic acid 1mg tablet PO SCH (08:21)
[2020-05-20] MEDS: multivitamins, therapeutics tablet PO SCH (08:21)
[2020-05-20] MEDS: apixaban 5mg tablet PO SCH ×2 (08:22→20:08)
[2020-05-20] MEDS: guaiFENesin ER 600mg tablet PO SCH ×2 (08:22→20:00)
[2020-05-20] MEDS: metoprolol tartrate 25mg tablet PO SCH ×2 (08:22→20:08)
[2020-05-20] MEDS: thiamine 100mg tablet PO SCH (08:22)
[2020-05-20] MEDS: pantoprazole 40mg Tablet.DR PO SCH (08:22)
[2020-05-20] MEDS: furosemide 40mg/4ml inj IV SCH ×2 (08:23→20:07)
[2020-05-20] MEDS: magnesium Cl slow-release 64mg tablet PO SCH ×2 (08:23→20:00)
[2020-05-20] MEDS: acetylcysteine 200 MG/ml 4ml vial PO SCH ×2 (08:36→20:07)
[2020-05-20 11:00] VITALS: BP 135/62
[2020-05-20] MEDS ORDERED: potassium Cl 20 mEq SR tablet PO PRN (11:30)
[2020-05-20] MEDS: lactose-reduced food (Ensure Enlive) - 237ml bottle PO SCH (12:30)
[2020-05-20] MEDS: potassium Cl 20 mEq SR tablet PO PRN ×2 (13:33→20:22)
--- NOTE | 2020-05-20 14:19 | NUR ---
Fax'd Dietary a note this a.m., no Mariano on tray. Spoke with Dietary at lunchtime, mo Ensure on pt's lunch tray. Phoned Dietary. They are trying to trace order for Mariano and Ensure since it shows up in eMar and get back to me. Will continue to monitor.
[2020-05-20 15:00] VITALS: BP 122/62
--- NOTE | 2020-05-20 16:00 | NUR ---
PT REFUSING POTASSIUM AT THIS TIME DUE TO NAUSEA AND WANTS TO WAIT UNTIL AFTER DINNER. ZOFRAN GIVEN. WILL CONTINUE TO MONITOR.
[2020-05-20] MEDS: ondansetron/PF 4mg/2ml inj IV PRN (16:39)
[2020-05-20 18:00] VITALS: BP 133/59
--- NOTE | 2020-05-20 18:30 | NUR ---
Patient in room PCU 3021. I have received report from María KRUGER and had the opportunity to ask questions and assume patient care.
--- NOTE | 2020-05-20 18:30 | NUR ---
Problems reprioritized. Patient report given, questions answered & plan of care reviewed with Alem KRUGER.
[2020-05-20] MEDS: tamsulosin 0.4mg capsule PO SCH (20:09)
[2020-05-20] MEDS: atorvastatin 20mg tablet PO SCH (20:10)
--- NOTE | 2020-05-20 21:00 | NUR ---
Patient refusing potassium replacements at this time. Education provided.
[2020-05-20 22:00] VITALS: BP 92/59
[2020-05-21] VITALS (12 sets, daily range): BP systolic 90–156; BP diastolic 45–98
[2020-05-21] MEDS: levalbuterol 0.63mg/3ml nebule IH SCH ×4 (02:48→22:06)
[2020-05-21 05:21] LABS: BASOPHILS # (AUTO) 0.2 X10'3 (0-0.2); BASOPHILS % (AUTO) 1.4 % (0-1); EOSINOPHILS # (AUTO) 0.7 X10'3 (0-0.9); EOSINOPHILS % (AUTO) 6.4 % (0-6); LYMPHOCYTES # (AUTO) 1.6 X10'3 (1.1-4.8); LYMPHOCYTES % (AUTO) 14.4 % (21-51); MEAN CORPUSCULAR HEMOGLOBIN 30.6 PG (27.0-31.0); MEAN CORPUSCULAR HGB CONC 32.3 g/dL (33.0-36.5); MEAN CORPUSCULAR VOLUME 94.9 FL (78-98); MEAN PLATELET VOLUME 9.3 FL (7.4-10.4); MONOCYTES # (AUTO) 1.6 X10'3 (0-0.9); MONOCYTES % (AUTO) 14.5 % (2-12); NEUTROPHILS # (AUTO) 7.1 X10'3 (1.8-7.7); NEUTROPHILS % (AUTO) 63.3 % (42-75); PLATELET COUNT 484 X10'3 (140-440); RED BLOOD COUNT 2.21 X10'6 (4.70-6.10); RED CELL DISTRIBUTION WIDTH 18.1 % (11.5-14.5); WHITE BLOOD COUNT 11.2 X10'3 (4.5-11.0)
[2020-05-21 05:24] LABS: ALBUMIN 1.8 G/DL (3.4-5.0); BLOOD UREA NITROGEN 64 MG/DL (7-18); BUN/CREATININE RATIO 22.1 (5.4-32.0); CALCIUM 8.1 MG/DL (8.5-10.1); CHLORIDE 103 MMOL/L (99-107); CREATININE 2.89 MG/DL (0.60-1.10); GLUCOSE 97 MG/DL (70-104); MAGNESIUM 2.1 MG/DL (1.5-2.4); POTASSIUM 3.6 MMOL/L (3.5-5.1); SODIUM 135 MMOL/L (135-145); eGFR 22 ML/MIN
[2020-05-21 05:30] LABS: HEMATOCRIT 20.9 % (42.0-52.0); HEMOGLOBIN 6.8 g/dl (14.0-17.9)
[2020-05-21 05:44] LABS: ANION GAP 9 (8-16); PHOSPHORUS 4.3 MG/DL (2.3-4.5); TOTAL CARBON DIOXIDE 23.5 MMOL/L (24-32)
--- NOTE | 2020-05-21 05:45 | NUR ---
Critical H/H 6.8/20.9 received. Called results to Alo Monroe NP. Orders received.
--- NOTE | 2020-05-21 06:17 | NUR ---
Problems reprioritized. Patient report given, questions answered & plan of care reviewed with Nesha KRUGER.
[2020-05-21] MEDS: pantoprazole 40mg Tablet.DR PO SCH (07:30)
[2020-05-21] MEDS: JUVEN Smoothie Arginine/Glut./Ca2+Bmb (Juven 19.3pkt) 240ml cup PO SCH ×2 (07:30→17:41)
[2020-05-21] MEDS: guaiFENesin ER 600mg tablet PO SCH ×2 (08:00→21:25)
[2020-05-21] MEDS: thiamine 100mg tablet PO SCH (08:00)
[2020-05-21] MEDS: folic acid 1mg tablet PO SCH (08:00)
[2020-05-21] MEDS: magnesium Cl slow-release 64mg tablet PO SCH ×2 (08:00→20:00)
[2020-05-21] MEDS: multivitamins, therapeutics tablet PO SCH (08:00)
[2020-05-21] MEDS: sennosides/docusate sodium tablet PO SCH ×2 (08:00→21:24)
[2020-05-21] MEDS: gabapentin 300mg capsule PO SCH (08:00)
[2020-05-21] MEDS: lactose-reduced food (Ensure Enlive) - 237ml bottle PO SCH (12:30)
[2020-05-21] MEDS: furosemide 40mg/4ml inj IV SCH ×2 (12:38→21:25)
[2020-05-21] MEDS: apixaban 5mg tablet PO SCH ×2 (12:39→21:25)
[2020-05-21] MEDS: amLODIPine 5mg tablet PO SCH (12:39)
[2020-05-21] MEDS: cloNIDine 0.1 mg tablet PO SCH ×3 (12:39→21:24)
[2020-05-21] MEDS: metoprolol tartrate 25mg tablet PO SCH (12:39)
[2020-05-21] MEDS: clopidogrel 75mg tablet PO SCH (12:40)
[2020-05-21] MEDS: aspirin 81mg tab.chew PO SCH (12:40)
[2020-05-21] MEDS ORDERED: metoprolol tartrate 25mg tablet PO ONE (12:45)
--- NOTE | 2020-05-21 18:45 | NUR ---
Problems reprioritized. Patient report given, questions answered & plan of care reviewed with SLICK MARY.
[2020-05-21] MEDS: metoprolol tartrate 50mg tablet PO SCH (20:00)
[2020-05-21] MEDS: tamsulosin 0.4mg capsule PO SCH (21:24)
[2020-05-21] MEDS: atorvastatin 20mg tablet PO SCH (21:25)
[2020-05-22] MEDS: levalbuterol 0.63mg/3ml nebule IH SCH ×4 (03:20→21:04)
[2020-05-22 04:00] VITALS: BP 94/54
[2020-05-22 04:29] LABS: ALBUMIN 1.8 G/DL (3.4-5.0); ANION GAP 10 (8-16); BLOOD UREA NITROGEN 65 MG/DL (7-18); BUN/CREATININE RATIO 21.5 (5.4-32.0); CHLORIDE 104 MMOL/L (99-107); CREATININE 3.02 MG/DL (0.60-1.10); GLUCOSE 91 MG/DL (70-104); PHOSPHORUS 4.6 MG/DL (2.3-4.5); POTASSIUM 3.4 MMOL/L (3.5-5.1); SODIUM 137 MMOL/L (135-145); TOTAL CARBON DIOXIDE 23.5 MMOL/L (24-32); eGFR 21 ML/MIN
[2020-05-22 04:37] LABS: BASOPHILS # (AUTO) 0.2 X10'3 (0-0.2); BASOPHILS % (AUTO) 1.8 % (0-1); EOSINOPHILS # (AUTO) 0.6 X10'3 (0-0.9); HEMATOCRIT 23.4 % (42.0-52.0); HEMOGLOBIN 7.7 g/dl (14.0-17.9); LYMPHOCYTES % (AUTO) 20.1 % (21-51); MEAN CORPUSCULAR HEMOGLOBIN 30.4 PG (27.0-31.0); MEAN PLATELET VOLUME 9.3 FL (7.4-10.4); MONOCYTES # (AUTO) 1.5 X10'3 (0-0.9); MONOCYTES % (AUTO) 14.5 % (2-12); NEUTROPHILS # (AUTO) 5.9 X10'3 (1.8-7.7); NEUTROPHILS % (AUTO) 57.6 % (42-75); PLATELET COUNT 459 X10'3 (140-440); RED BLOOD COUNT 2.55 X10'6 (4.70-6.10); RED CELL DISTRIBUTION WIDTH 19.5 % (11.5-14.5); WHITE BLOOD COUNT 10.2 X10'3 (4.5-11.0)
[2020-05-22 04:51] LABS: H PYLORI ANTIBODY NEGATIVE (Neg)
[2020-05-22] MEDS: potassium Cl 20 mEq SR tablet PO PRN ×3 (05:08→20:38)
--- NOTE | 2020-05-22 06:24 | NUR ---
Patient in room PCU 3021. I have received report from Birgit KRUGER and had the opportunity to ask questions and assume patient care. Patient asleep and resting. In no acute distress. All immediate needs met at this time.
[2020-05-22 07:00] VITALS: BP 138/67
[2020-05-22] MEDS: JUVEN Smoothie Arginine/Glut./Ca2+Bmb (Juven 19.3pkt) 240ml cup PO SCH ×2 (07:30→17:30)
[2020-05-22] MEDS: pantoprazole 40mg Tablet.DR PO SCH (07:30)
[2020-05-22] MEDS: thiamine 100mg tablet PO SCH (08:00)
[2020-05-22] MEDS: magnesium Cl slow-release 64mg tablet PO SCH ×2 (08:00→20:37)
[2020-05-22] MEDS: multivitamins, therapeutics tablet PO SCH (08:00)
[2020-05-22] MEDS: metoprolol tartrate 50mg tablet PO SCH ×2 (08:00→20:37)
[2020-05-22] MEDS: clopidogrel 75mg tablet PO SCH (08:00)
[2020-05-22] MEDS: sennosides/docusate sodium tablet PO SCH ×2 (08:00→20:36)
[2020-05-22] MEDS: cloNIDine 0.1 mg tablet PO SCH ×3 (08:00→20:37)
[2020-05-22] MEDS: amLODIPine 5mg tablet PO SCH (08:00)
[2020-05-22] MEDS: guaiFENesin ER 600mg tablet PO SCH ×2 (08:00→20:36)
[2020-05-22] MEDS: folic acid 1mg tablet PO SCH (08:00)
[2020-05-22] MEDS: gabapentin 300mg capsule PO SCH (08:00)
[2020-05-22] MEDS: furosemide 40mg/4ml inj IV SCH ×2 (08:00→20:36)
[2020-05-22] MEDS: apixaban 5mg tablet PO SCH ×2 (08:00→20:37)
[2020-05-22] MEDS: aspirin 81mg tab.chew PO SCH (08:30)
--- NOTE | 2020-05-22 08:30 | NUR ---
Patient refused all morning medications ordered. Patient was vocal and yelled at RN that he was NOT taking any medications at this time.
[2020-05-22 10:40] LABS: ACANTHOCYTES FEW; ANISOCYTOSIS 2+; BURR CELLS FEW; PLATELET ESTIMATE INCREASED; POLYCHROMASIA 1+; TARGET CELLS 1+; TEAR DROP CELLS FEW
[2020-05-22 10:41] LABS: SCHISTOCYTES FEW
[2020-05-22 11:00] VITALS: BP 133/63
--- NOTE | 2020-05-22 11:21 | NUR ---
Discontinued quad lumen central line from right IJ. Tip intact. Patient tolerated well. Site dressed with vasoline gauze and 2x2. No hematoma present. Hemostasis achieved.
[2020-05-22] MEDS: lactose-reduced food (Ensure Enlive) - 237ml bottle PO SCH (12:30)
[2020-05-22 14:33] LABS: OCCULT BLOOD STOOL POSITIVE (Neg)
[2020-05-22 15:00] VITALS: BP 126/59
--- NOTE | 2020-05-22 18:33 | NUR ---
Problems reprioritized. Patient report given, questions answered & plan of care reviewed with Birgit KRUGER. Patient stable at transfer of care.
[2020-05-22 19:00] VITALS: BP 134/60
[2020-05-22] MEDS: atorvastatin 20mg tablet PO SCH (20:37)
[2020-05-22] MEDS: tamsulosin 0.4mg capsule PO SCH (20:37)
[2020-05-22 23:00] VITALS: BP 102/57
[2020-05-23] MEDS: levalbuterol 0.63mg/3ml nebule IH SCH ×4 (03:20→20:50)
[2020-05-23 06:53] LABS: BASOPHILS # (AUTO) 0.1 X10'3 (0-0.2); BASOPHILS % (AUTO) 1.5 % (0-1); EOSINOPHILS # (AUTO) 0.8 X10'3 (0-0.9); EOSINOPHILS % (AUTO) 8.4 % (0-6); HEMATOCRIT 24.3 % (42.0-52.0); LYMPHOCYTES # (AUTO) 1.6 X10'3 (1.1-4.8); LYMPHOCYTES % (AUTO) 16.5 % (21-51); MEAN CORPUSCULAR HEMOGLOBIN 30.3 PG (27.0-31.0); MEAN CORPUSCULAR HGB CONC 32.8 g/dL (33.0-36.5); MEAN CORPUSCULAR VOLUME 92.5 FL (78-98); MEAN PLATELET VOLUME 9.5 FL (7.4-10.4); MONOCYTES # (AUTO) 1.4 X10'3 (0-0.9); MONOCYTES % (AUTO) 14.9 % (2-12); NEUTROPHILS # (AUTO) 5.5 X10'3 (1.8-7.7); NEUTROPHILS % (AUTO) 58.7 % (42-75); PLATELET COUNT 467 X10'3 (140-440); RED BLOOD COUNT 2.63 X10'6 (4.70-6.10); RED CELL DISTRIBUTION WIDTH 19.1 % (11.5-14.5); WHITE BLOOD COUNT 9.4 X10'3 (4.5-11.0)
[2020-05-23 07:17] LABS: ALBUMIN 1.8 G/DL (3.4-5.0); ANION GAP 11 (8-16); BLOOD UREA NITROGEN 66 MG/DL (7-18); CALCIUM 8.1 MG/DL (8.5-10.1); CHLORIDE 106 MMOL/L (99-107); CREATININE 2.75 MG/DL (0.60-1.10); GLUCOSE 93 MG/DL (70-104); MAGNESIUM 2.3 MG/DL (1.5-2.4); PHOSPHORUS 4.3 MG/DL (2.3-4.5); POTASSIUM 3.9 MMOL/L (3.5-5.1); SODIUM 138 MMOL/L (135-145); TOTAL CARBON DIOXIDE 21.1 MMOL/L (24-32); eGFR 23 ML/MIN
[2020-05-23] MEDS: JUVEN Smoothie Arginine/Glut./Ca2+Bmb (Juven 19.3pkt) 240ml cup PO SCH ×2 (07:30→17:30)
[2020-05-23] MEDS: sennosides/docusate sodium tablet PO SCH ×2 (08:00→20:33)
[2020-05-23] MEDS: magnesium Cl slow-release 64mg tablet PO SCH ×2 (08:00→20:00)
[2020-05-23] MEDS: furosemide 40mg/4ml inj IV SCH ×2 (08:00→20:33)
[2020-05-23] MEDS: metoprolol tartrate 50mg tablet PO SCH ×2 (08:00→20:00)
[2020-05-23] MEDS: thiamine 100mg tablet PO SCH (08:00)
[2020-05-23 09:25] LABS: PLATELET ESTIMATE INCREASED
[2020-05-23 09:26] LABS: ANISOCYTOSIS 2+; HYPOCHROMASIA 1+; POIKILOCYTOSIS 1+; SCHISTOCYTES 1+
[2020-05-23 09:27] LABS: MICROCYTOSIS 1+
[2020-05-23] MEDS: gabapentin 300mg capsule PO SCH (10:36)
[2020-05-23] MEDS: folic acid 1mg tablet PO SCH (10:36)
[2020-05-23] MEDS: multivitamins, therapeutics tablet PO SCH (10:36)
[2020-05-23] MEDS: pantoprazole 40mg Tablet.DR PO SCH (10:36)
[2020-05-23] MEDS: cloNIDine 0.1 mg tablet PO SCH ×3 (10:37→21:00)
[2020-05-23] MEDS: guaiFENesin ER 600mg tablet PO SCH ×2 (10:37→20:35)
[2020-05-23] MEDS: ondansetron/PF 4mg/2ml inj IV PRN (10:37)
[2020-05-23] MEDS: amLODIPine 5mg tablet PO SCH (10:40)
--- NOTE | 2020-05-23 10:43 | NUR ---
Administered thiamine PO. 2 patient identifiers used. Computer did not save.
[2020-05-23 11:00] VITALS: BP 105/66
[2020-05-23] MEDS: lactose-reduced food (Ensure Enlive) - 237ml bottle PO SCH (12:30)
[2020-05-23] MEDS: aspirin 81mg tab.chew PO SCH (12:43)
[2020-05-23] MEDS: clopidogrel 75mg tablet PO SCH (12:43)
[2020-05-23 15:00] VITALS: BP 130/58
--- NOTE | 2020-05-23 15:36 | NUR ---
Discovered patient had removed splint to right hand, bruising noted to thumb. Patient states he does not have pain and does not want the splint on as it interferes with his the use of his hand. Will continue to monitor.
--- NOTE | 2020-05-23 16:16 | NUR ---
F/u 05/23: Pt PO fluctuates ~50% avg NCS diet slight decline from prior PO. Pt is refusing karen and ensure ONS; FILI d/w RN regarding cancelling ONS if MD agreeable. RD notified dietary to stop ONS as not to waste given pt wants to throw them away as soon as he receives them per RN today. Will trial ensure pudding BIDLD instead given protein needs post-op. Pt has had multiple BM's pending stool results per EMR though no diarrhea today per RN. Noted pt has received senna recently which may still be effecting stools. Will continue to monitor for additional protein needs. Rec: 1. advance diet as medically indicated to heart healthy; encourage PO 2. ensure pudding trial BIDLD 3. thiamin, folic, MVI 4. bowel care per rx 5. weekly wts Addendum: 05/23/20 at [address] Amended: Links added.
[2020-05-23] MEDS: HYDROcodone/acetaminophen 10/325mg tab PO PRN ×2 (16:52→21:37)
[2020-05-23 18:00] VITALS: BP 148/62
--- NOTE | 2020-05-23 18:21 | NUR ---
Problems reprioritized. Patient report given, questions answered & plan of care reviewed with Alma KRUGER. Patient stable at transfer of care.
--- NOTE | 2020-05-23 18:59 | NUR ---
Patient in room PCU 3021. I have received report from Virginia KRUGER and had the opportunity to ask questions and assume patient care.
[2020-05-23] MEDS: atorvastatin 20mg tablet PO SCH (20:35)
[2020-05-23] MEDS: tamsulosin 0.4mg capsule PO SCH (20:35)
[2020-05-24 02:00] VITALS: BP 130/70
[2020-05-24] MEDS: HYDROcodone/acetaminophen 10/325mg tab PO PRN (02:47)
[2020-05-24] MEDS: levalbuterol 0.63mg/3ml nebule IH SCH ×3 (02:53→14:08)
[2020-05-24 06:29] LABS: BASOPHILS # (AUTO) 0.2 X10'3 (0-0.2); HEMOGLOBIN 8.8 g/dl (14.0-17.9); MONOCYTES # (AUTO) 1.4 X10'3 (0-0.9); NEUTROPHILS # (AUTO) 4.2 X10'3 (1.8-7.7)
[2020-05-24 06:31] LABS: BASOPHILS % (AUTO) 2.1 % (0-1); EOSINOPHILS # (AUTO) 1.1 X10'3 (0-0.9); EOSINOPHILS % (AUTO) 13.6 % (0-6); HEMATOCRIT 26.4 % (42.0-52.0); LYMPHOCYTES # (AUTO) 1.4 X10'3 (1.1-4.8); LYMPHOCYTES % (AUTO) 16.9 % (21-51); MEAN CORPUSCULAR HGB CONC 33.3 g/dL (33.0-36.5); MEAN CORPUSCULAR VOLUME 93.1 FL (78-98); MEAN PLATELET VOLUME 9.2 FL (7.4-10.4); MONOCYTES % (AUTO) 16.8 % (2-12); NEUTROPHILS % (AUTO) 50.6 % (42-75); PLATELET COUNT 469 X10'3 (140-440); RED BLOOD COUNT 2.84 X10'6 (4.70-6.10); RED CELL DISTRIBUTION WIDTH 19.4 % (11.5-14.5); WHITE BLOOD COUNT 8.2 X10'3 (4.5-11.0)
--- NOTE | 2020-05-24 06:31 | NUR ---
Patient in room PCU 3021. I have received report from Alma KRUGER and had the opportunity to ask questions and assume patient care. Patient in bed awake and resting. Offers no complaints. All immediate needs met at this time.
--- NOTE | 2020-05-24 06:31 | NUR ---
Problems reprioritized. Patient report given, questions answered & plan of care reviewed with Virginia KRUGER/Sherry KRUGER.
[2020-05-24 06:54] LABS: ANION GAP 11 (8-16); BLOOD UREA NITROGEN 69 MG/DL (7-18); BUN/CREATININE RATIO 24.6 (5.4-32.0); CHLORIDE 104 MMOL/L (99-107); CREATININE 2.81 MG/DL (0.60-1.10); GLUCOSE 100 MG/DL (70-104); MAGNESIUM 2.5 MG/DL (1.5-2.4); PHOSPHORUS 5.3 MG/DL (2.3-4.5); POTASSIUM 4.1 MMOL/L (3.5-5.1); SODIUM 136 MMOL/L (135-145); TOTAL CARBON DIOXIDE 21.5 MMOL/L (24-32); eGFR 22 ML/MIN
[2020-05-24 06:57] LABS: TOTAL CELLS COUNTED 100
[2020-05-24 06:58] LABS: ANISOCYTOSIS 2+; PLATELET ESTIMATE INCREASED
[2020-05-24 06:59] LABS: HYPOCHROMASIA 1+; SCHISTOCYTES FEW
[2020-05-24 07:00] VITALS: BP 118/65
[2020-05-24 07:00] LABS: ELLIPTOCYTES FEW; MICROCYTOSIS 1+
[2020-05-24] MEDS: JUVEN Smoothie Arginine/Glut./Ca2+Bmb (Juven 19.3pkt) 240ml cup PO SCH (07:30)
[2020-05-24] MEDS: sennosides/docusate sodium tablet PO SCH (08:00)
[2020-05-24] MEDS: metoprolol tartrate 50mg tablet PO SCH (08:00)
[2020-05-24] MEDS: folic acid 1mg tablet PO SCH (09:07)
[2020-05-24] MEDS: aspirin 81mg tab.chew PO SCH (09:07)
[2020-05-24] MEDS: thiamine 100mg tablet PO SCH (09:07)
[2020-05-24] MEDS: pantoprazole 40mg Tablet.DR PO SCH (09:08)
[2020-05-24] MEDS: gabapentin 300mg capsule PO SCH (09:08)
[2020-05-24] MEDS: clopidogrel 75mg tablet PO SCH (09:08)
[2020-05-24] MEDS: guaiFENesin ER 600mg tablet PO SCH (09:08)
[2020-05-24] MEDS: magnesium Cl slow-release 64mg tablet PO SCH (09:08)
[2020-05-24] MEDS: multivitamins, therapeutics tablet PO SCH (09:09)
[2020-05-24] MEDS: cloNIDine 0.1 mg tablet PO SCH ×2 (09:09→13:43)
[2020-05-24] MEDS: amLODIPine 5mg tablet PO SCH (09:11)
[2020-05-24] MEDS: furosemide 40mg/4ml inj IV SCH (09:15)
[2020-05-24 11:00] VITALS: BP 120/63
[2020-05-24] MEDS: lactose-reduced food (Ensure Enlive) - 237ml bottle PO SCH (12:59)
--- NOTE | 2020-05-24 15:08 | NUR ---
Patient stable for transfer per MD orders. Report called to Betsy at [facility]. All questions answered regarding transfer and plan of care. PIV discontinued - cannula intact. Telemetry monitoring discontinued and returned to [facility]. All patient belongings packed up and sent with patient. Patient picked up by Kim [employer]argo and transfer packet sent.
[2020-05-24] MEDS ORDERED: venlafaxine 25mg tablet PO SCH (20:00)
[2020-05-24] MEDS ORDERED: venlafaxine 37.5mg tablet PO SCH (20:00)
== END 2020-05-24 15:05 | DRG 233 ==
LOC: ER 12:35 → ED HOLD 17:08 → ICU 2S 18:40 → PCU 3S 05-09 13:12
PROVIDERS: ADMIT Family Medicine; ATTEND Thoracic Surgery (Cardiothoracic Vascular Surgery)
PROC: 4A023N7 Measurement of Cardiac Sampling and Pressure, Left Heart, Percutaneous Approach (ICD-10-PCS; principal; 2020-05-04)
PROC: 5A02210 Assistance with Cardiac Output using Balloon Pump, Continuous (ICD-10-PCS; 2020-05-04)
PROC: B2111ZZ Fluoroscopy of Multiple Coronary Arteries using Low Osmolar Contrast (ICD-10-PCS; 2020-05-04)
PROC: B2151ZZ Fluoroscopy of Left Heart using Low Osmolar Contrast (ICD-10-PCS; 2020-05-04)
PROC: 06HN33Z Insertion of Infusion Device into Left Femoral Vein, Percutaneous Approach (ICD-10-PCS; 2020-05-04)
PROC: 02100Z8 Bypass Coronary Artery, One Artery from Right Internal Mammary, Open Approach (ICD-10-PCS; 2020-05-07)
PROC: 02NN0ZZ Release Pericardium, Open Approach (ICD-10-PCS; 2020-05-07)
PROC: B24BZZ4 Ultrasonography of Heart with Aorta, Transesophageal (ICD-10-PCS; 2020-05-07)
PROC: 5A1221Z Performance of Cardiac Output, Continuous (ICD-10-PCS; 2020-05-07)
PROC: 0W993ZZ Drainage of Right Pleural Cavity, Percutaneous Approach (ICD-10-PCS; 2020-05-17)
DX: I21.4 Non-ST elevation (NSTEMI) myocardial infarction (principal); I50.31 Acute diastolic (congestive) heart failure; I13.0 Hypertensive heart and chronic kidney disease with heart failure and stage 1 through stage 4 chronic kidney disease, or unspecified chronic kidney disease; J96.10 Chronic respiratory failure, unspecified whether with hypoxia or hypercapnia; N18.4 Chronic kidney disease, stage 4 (severe); N17.9 Acute kidney failure, unspecified; I42.9 Cardiomyopathy, unspecified; I48.92 Unspecified atrial flutter; J90 Pleural effusion, not elsewhere classified; I31.0 Chronic adhesive pericarditis; I42.6 Alcoholic cardiomyopathy; I82.B12 Acute embolism and thrombosis of left subclavian vein; I25.110 Atherosclerotic heart disease of native coronary artery with unstable angina pectoris; J44.9 Chronic obstructive pulmonary disease, unspecified; I48.0 Paroxysmal atrial fibrillation; E78.5 Hyperlipidemia, unspecified; Z86.73 Personal history of transient ischemic attack (TIA), and cerebral infarction without residual deficits; G89.29 Other chronic pain; M54.9 Dorsalgia, unspecified; F32.9 Major depressive disorder, single episode, unspecified; M19.90 Unspecified osteoarthritis, unspecified site; D64.9 Anemia, unspecified; F15.10 Other stimulant abuse, uncomplicated; E78.00 Pure hypercholesterolemia, unspecified; E11.22 Type 2 diabetes mellitus with diabetic chronic kidney disease; F17.210 Nicotine dependence, cigarettes, uncomplicated; I70.8 Atherosclerosis of other arteries; F10.20 Alcohol dependence, uncomplicated; G62.9 Polyneuropathy, unspecified; M79.89 Other specified soft tissue disorders; K66.0 Peritoneal adhesions (postprocedural) (postinfection); Z82.49 Family history of ischemic heart disease and other diseases of the circulatory system; Z86.711 Personal history of pulmonary embolism; Z91.19 Patient's noncompliance with other medical treatment and regimen; Z71.6 Tobacco abuse counseling; Z79.01 Long term (current) use of anticoagulants; Z83.3 Family history of diabetes mellitus
CPT/HCPCS: 0232T; 32555; 33967; 93306; 93312; 93325; 93458; 93567; 96365; 96375; 99291; 36415; 36430; 36600; 71045; 73130; 76937; 80048; 80053; 80061; 81001; 82272; 82330; 82435; 82803; 82947; 82948; 83036; 83735; 84100; 84132; 84155; 84156; 84165; 84166; 84295; 84478; 84484; 85007; 85008; 85018; 85025; 85027; 85347; 85384; 85610; 85651; 85730; 86038; 86060; 86160; 86256; 86430; 86592; 86677; 86703; 86803; 86885; 86900; 86901; 86920; 87081; 87207; 87340; 87635; 88305; 88341; 88342; 93005; 93308; 93880; 93971; 94002; 94060; 94640; 94664; 94667; 94668; 94760; 97110; 97116; 97162; 97530; 97535; 99152; 99153; A4618; A4620; A5120; A6258; A6402; A6449; A7000; A7048; C1713; C1725; C1751; C1769; C1894; C9113; C9803; G0378; J0690; J1170; J1265; J1644; J1815; J1940; J2001; J2060; J2250; J2270; J2405; J2440; J2704; J2720; J3010; J3370; J3475; J3480; J3490; J7030; J7040; J7050; J7120; J7614; P9016; P9045; P9047; Q9967

== ENCOUNTER 2020-07-29 17:45 | Emergency (ER) | payer MEDICARE, MEDICAID ==
[~2020-07-29] VITALS: Ht 170.2 cm; Wt 57.7 kg
[~2020-07-29 17:45] MED LIST changes: +AMLO2.5T2 PO; +ATOR20TA PO; -FOLI0.4T2 PO; +FURO-150 PO; -FURO40TA4 PO; +GABA300C PO; -HYDR-4383 PO; -NICO-631 TD; -OMEP20TA23 PO; -POTA10TA15 PO; +POTA10TA19 PO; -PRED20TA PO; -THI100T PO
[2020-07-29] MEDS ORDERED: HYDROcodone/acetaminophen 5mg/325mg tablet PO ONE (18:15)
[2020-07-29] MEDS ORDERED: acetaminophen 325mg tablet PO ONE (18:15)
[2020-07-29 18:21] LABS: BASOPHILS # (AUTO) 0.1 X10'3 (0-0.2); EOSINOPHILS # (AUTO) 0.2 X10'3 (0-0.9); HEMOGLOBIN 9.1 g/dl (14.0-17.9); NEUTROPHILS # (AUTO) 2.5 X10'3 (1.8-7.7)
[2020-07-29 18:23] LABS: BASOPHILS % (AUTO) 1.2 % (0-1); EOSINOPHILS % (AUTO) 4.2 % (0-6); HEMATOCRIT 28.3 % (42.0-52.0); LYMPHOCYTES # (AUTO) 1.9 X10'3 (1.1-4.8); LYMPHOCYTES % (AUTO) 35.4 % (21-51); MEAN CORPUSCULAR HEMOGLOBIN 30.6 PG (27.0-31.0); MEAN CORPUSCULAR HGB CONC 32.1 g/dL (33.0-36.5); MEAN CORPUSCULAR VOLUME 95.5 FL (78-98); MEAN PLATELET VOLUME 8.8 FL (7.4-10.4); MONOCYTES # (AUTO) 0.7 X10'3 (0-0.9); MONOCYTES % (AUTO) 12.4 % (2-12); NEUTROPHILS % (AUTO) 46.8 % (42-75); PLATELET COUNT 318 X10'3 (140-440); RED BLOOD COUNT 2.96 X10'6 (4.70-6.10); RED CELL DISTRIBUTION WIDTH 18.4 % (11.5-14.5); WHITE BLOOD COUNT 5.4 X10'3 (4.5-11.0)
[2020-07-29 18:33] LABS: CLARITY,URINE CLOUDY (Clear); COLOR,URINE YELLOW (Yellow); GLUCOSE, URINE NEGATIVE (Neg); KETONES,URINE NEGATIVE (Neg); LEUKOCYTE ESTERASE ,URINE SMALL (Neg); NITRITES, URINE NEGATIVE (Neg); OCCULT BLOOD,URINE TRACE-INTACT (Neg); PH,URINE 5.5 (4.8-8.0); PROTEIN,URINE >=300 mg/dl (Neg); UA COLLECTION TYPE URINAL; UROBILINOGEN,URINE 0.2 E.U/dL (0.2-1.0)
[2020-07-29 18:35] LABS: PARTIAL THROMBOPLASTIN TIME 30 SECONDS (22-32)
[2020-07-29 18:38] LABS: ALANINE AMINOTRANSFERASE 23 U/L (12-78); ALBUMIN/GLOBULIN RATIO 0.5 (1.1-1.5); ALKALINE PHOSPHATASE 110 IU/L (46-116); ANION GAP 16 (8-16); ASPARTATE AMINO TRANSFERASE 23 U/L (10-37); BILIRUBIN,TOTAL 0.2 MG/DL (0.1-1.0); BLOOD UREA NITROGEN 57 MG/DL (7-18); CALCIUM 7.2 MG/DL (8.5-10.1); CHLORIDE 106 MMOL/L (99-107); CREATININE 3.57 MG/DL (0.60-1.10); GLUCOSE 91 MG/DL (70-104); POTASSIUM 4.8 MMOL/L (3.5-5.1); SODIUM 137 MMOL/L (135-145); TOTAL CARBON DIOXIDE 15.4 MMOL/L (24-32); TOTAL PROTEIN 6.4 G/DL (6.4-8.2); eGFR 17 ML/MIN
[2020-07-29 19:02] LABS: WBC,URINE TNTC /HPF (0-4)
[2020-07-29 19:03] LABS: BACTERIA,URINE 4+ /HPF (Neg); HYALINE CASTS 0-3 /LPF (NEGATIVE); MUCUS STRANDS NONE SEEN /LPF (Neg); RBC,URINE 0-2 /HPF (0-2); SQUAMOUS EPITHELIAL CELL,UR FEW /LPF (FEW)
[2020-07-29 19:10] LABS: PLATELET ESTIMATE NORMAL
[2020-07-29 19:11] LABS: ANISOCYTOSIS 2+
[2020-07-29] MEDS ORDERED: CEPH250T PO (19:20)
[2020-07-29 19:23] LABS: HYPOCHROMASIA 1+; TARGET CELLS FEW; TEAR DROP CELLS FEW
[2020-07-29 19:24] LABS: BURR CELLS 1+; ELLIPTOCYTES FEW; SCHISTOCYTES FEW
[2020-07-29 19:25] VITALS: BP 146/87
--- NOTE | 2020-08-02 09:52 | NUR ---
Note briarosendo in EDM - 08/02/20 at 0957 by ANISH Spoke with patients nurse aleksandra who stated that patient was brought into ED last night due to lethargy and was prescribed keflex. Aleksandra states that patient has responded well to keflex this morning and is much more alert and eating breakfast. Per sensitivity report patient was to be called in prescription for keflex per Dr. Morris. So at this point and time no changes needed.
== END 2020-07-29 19:27 | disposition home or self-care (01) ==
LOC: ER 17:51
DX: N18.9 Chronic kidney disease, unspecified (principal); D64.9 Anemia, unspecified; N39.0 Urinary tract infection, site not specified; E78.00 Pure hypercholesterolemia, unspecified; I25.2 Old myocardial infarction; J44.9 Chronic obstructive pulmonary disease, unspecified; G89.29 Other chronic pain; F32.9 Major depressive disorder, single episode, unspecified; F17.200 Nicotine dependence, unspecified, uncomplicated; F15.90 Other stimulant use, unspecified, uncomplicated; Z72.89 Other problems related to lifestyle; Z98.890 Other specified postprocedural states; Z79.899 Other long term (current) drug therapy
CPT/HCPCS: 36415; 80053; 81001; 85008; 85025; 85610; 85730; 86885; 86900; 86901; 87077; 87088; 87186; 93005; 99284

== ENCOUNTER 2020-09-21 13:16 | Inpatient (IN) | payer MEDICARE, MEDICAID ==
[~2020-09-21] VITALS: Ht 170.2 cm; Wt 60.0 kg
[2020-09-21] MEDS ORDERED: LIDOcaine 2% 10ml TOPICAL JELLY (Urojet) MM ONE (15:55)
[2020-09-21 15:58] LABS: BASOPHILS # (AUTO) 0.1 X10'3 (0-0.2); BASOPHILS % (AUTO) 1.1 % (0-1); EOSINOPHILS % (AUTO) 0.3 % (0-6); HEMATOCRIT 37.8 % (42.0-52.0); HEMOGLOBIN 12.4 g/dl (14.0-17.9); LYMPHOCYTES # (AUTO) 1.9 X10'3 (1.1-4.8); LYMPHOCYTES % (AUTO) 26.9 % (21-51); MEAN CORPUSCULAR HEMOGLOBIN 31.6 PG (27.0-31.0); MEAN CORPUSCULAR HGB CONC 32.9 g/dL (33.0-36.5); MEAN CORPUSCULAR VOLUME 95.9 FL (78-98); MONOCYTES # (AUTO) 0.5 X10'3 (0-0.9); MONOCYTES % (AUTO) 7.8 % (2-12); NEUTROPHILS # (AUTO) 4.4 X10'3 (1.8-7.7); NEUTROPHILS % (AUTO) 63.9 % (42-75); PLATELET COUNT 179 X10'3 (140-440); RED BLOOD COUNT 3.94 X10'6 (4.70-6.10); RED CELL DISTRIBUTION WIDTH 17.1 % (11.5-14.5); WHITE BLOOD COUNT 6.9 X10'3 (4.5-11.0)
[2020-09-21 16:11] LABS: ALANINE AMINOTRANSFERASE 21 U/L (12-78); ALBUMIN 2.8 G/DL (3.4-5.0); ALBUMIN/GLOBULIN RATIO 0.6 (1.1-1.5); ALKALINE PHOSPHATASE 147 IU/L (46-116); ANION GAP 21 (8-16); ASPARTATE AMINO TRANSFERASE 31 U/L (10-37); BILIRUBIN,TOTAL 0.3 MG/DL (0.1-1.0); BLOOD UREA NITROGEN 57 MG/DL (7-18); CALCIUM 7.6 MG/DL (8.5-10.1); CHLORIDE 104 MMOL/L (99-107); CREATININE 3.56 MG/DL (0.60-1.10); GLUCOSE 95 MG/DL (70-104); POTASSIUM 3.9 MMOL/L (3.5-5.1); SODIUM 136 MMOL/L (135-145); TOTAL PROTEIN 7.6 G/DL (6.4-8.2); eGFR 17 ML/MIN
[2020-09-21 16:14] LABS: TOTAL CARBON DIOXIDE 11.5 MMOL/L (24-32)
[2020-09-21 16:35] LABS: CLARITY,URINE SLIGHTLY CLOUDY (Clear); COLOR,URINE YELLOW (Yellow); GLUCOSE, URINE 100 mg/dl (Neg); KETONES,URINE NEGATIVE (Neg); LEUKOCYTE ESTERASE ,URINE NEGATIVE (Neg); NITRITES, URINE NEGATIVE (Neg); OCCULT BLOOD,URINE LARGE (Neg); PH,URINE 5.5 (4.8-8.0); PROTEIN,URINE >=300 mg/dl (Neg); UROBILINOGEN,URINE 0.2 E.U/dL (0.2-1.0)
[2020-09-21] MEDS ORDERED: normal saline 1000ML IV soln IV ONE (16:45)
[2020-09-21 16:49] LABS: UA COLLECTION TYPE FOLEY CATH
[2020-09-21 16:50] LABS: BACTERIA,URINE FEW /HPF (Neg); SQUAMOUS EPITHELIAL CELL,UR FEW /LPF (FEW); WBC,URINE 0-4 /HPF (0-4)
[2020-09-21 16:51] LABS: HYALINE CASTS 0-3 /LPF (NEGATIVE); TRANSITIONAL EPI CELLS,URINE MODERATE /HPF
[2020-09-21] MEDS ORDERED: magnesium 2GM in 50ml NS 50 ML IV PRN (20:05)
[2020-09-21] MEDS ORDERED: magnesium 4gm in 100ml NS 100 ML IV PRN (20:05)
[2020-09-21] MEDS ORDERED: acetaminophen 325mg tablet PO PRN (20:05)
[2020-09-21] MEDS ORDERED: potassium Cl 40MEQ/1/2NS 520ml 520 ML IV PRN ×2 (20:05)
[2020-09-21] MEDS ORDERED: potassium Cl 20 mEq SR tablet PO PRN ×2 (20:05)
[2020-09-21] MEDS ORDERED: magnesium Cl slow-release 64mg tablet PO PRN (20:05)
[2020-09-21] MEDS: sodium bicarbonate (8.4%) inj. 75 MEQ in dextrose 5% water 500ml 500 ML IV SCH (20:53)
--- NOTE | 2020-09-21 23:26 | NUR ---
Patient in room ED 9. I have received report from Cortez KRUGER and had the opportunity to ask questions and assume patient care.
[2020-09-21 23:50] VITALS: BP 140/87
[2020-09-22] MEDS: sodium bicarbonate (8.4%) inj. 75 MEQ in dextrose 5% water 500ml 500 ML IV SCH ×5 (02:51→21:09)
[2020-09-22 05:56] LABS: BASOPHILS % (AUTO) 0.7 % (0-1); EOSINOPHILS % (AUTO) 0.6 % (0-6); HEMOGLOBIN 10.1 g/dl (14.0-17.9); LYMPHOCYTES # (AUTO) 1.5 X10'3 (1.1-4.8); LYMPHOCYTES % (AUTO) 21.9 % (21-51); MEAN CORPUSCULAR HEMOGLOBIN 31.4 PG (27.0-31.0); MEAN CORPUSCULAR HGB CONC 32.5 g/dL (33.0-36.5); MEAN CORPUSCULAR VOLUME 96.6 FL (78-98); MEAN PLATELET VOLUME 9.9 FL (7.4-10.4); MONOCYTES # (AUTO) 0.7 X10'3 (0-0.9); MONOCYTES % (AUTO) 9.9 % (2-12); NEUTROPHILS # (AUTO) 4.5 X10'3 (1.8-7.7); NEUTROPHILS % (AUTO) 66.9 % (42-75); PLATELET COUNT 109 X10'3 (140-440); WHITE BLOOD COUNT 6.7 X10'3 (4.5-11.0)
[2020-09-22 06:00] VITALS: BP 111/75
[2020-09-22 06:07] LABS: ALBUMIN 1.9 G/DL (3.4-5.0); ANION GAP 15 (8-16); BLOOD UREA NITROGEN 57 MG/DL (7-18); BUN/CREATININE RATIO 17.1 (5.4-32.0); CALCIUM 6.7 MG/DL (8.5-10.1); CHLORIDE 110 MMOL/L (99-107); CREATININE 3.34 MG/DL (0.60-1.10); GLUCOSE 91 MG/DL (70-104); MAGNESIUM 1.9 MG/DL (1.5-2.4); POTASSIUM 3.7 MMOL/L (3.5-5.1); SODIUM 140 MMOL/L (135-145); TOTAL CARBON DIOXIDE 15.2 MMOL/L (24-32); eGFR 18 ML/MIN
[2020-09-22] MEDS ORDERED: bisacodyl 10mg suppository rectal RC PRN (06:35)
[2020-09-22] MEDS ORDERED: nitroGLYCERIN 0.4mg SUBLingual tab SL PRN (06:35)
--- NOTE | 2020-09-22 06:35 | NUR ---
Problems reprioritized. Patient report given, questions answered & plan of care reviewed with Maryuri KRUGER.
[2020-09-22] MEDS: K and/or MAG REPLACEMENT MC SCH ×2 (08:00→19:58)
[2020-09-22] MEDS: docusate sod 100mg capsule PO SCH ×2 (08:13→22:00)
[2020-09-22] MEDS: gabapentin 300mg capsule PO SCH ×2 (08:13→15:38)
[2020-09-22] MEDS: apixaban 2.5mg tablet PO SCH ×2 (08:14→22:00)
[2020-09-22] MEDS: amLODIPine 5mg tablet PO SCH (08:15)
[2020-09-22] MEDS: cloNIDine 0.1 mg tablet PO SCH ×3 (08:15→22:00)
[2020-09-22] MEDS ORDERED: albuterol 2.5 MG/3 ML nebule NEB SCH (09:00)
[2020-09-22 10:00] VITALS: BP 116/62
--- NOTE | 2020-09-22 11:58 | NUR ---
Malnutrition Consult: Pt reports 14-23 pound wt loss. Pt seen by RD this admit remains passive and mostly grumbling in response to RD questions regarding wt hx, appetite, chewing/swallowing, and food preferences. PO almost 0% breakfast this AM and declined filling out menu today per RN. Pt has no significant weakness noted and appears well-nourished during RD visit; does not meet minimum malnutrition criteria at this time. Will monitor for further criteria this admit. Addendum: 09/22/20 at [address] Amended: Links added.
[2020-09-22] MEDS: ondansetron/PF 4mg/2ml inj IV PRN ×2 (12:37→20:12)
[2020-09-22] MEDS: HYDROcodone/acetaminophen 10/325mg tab PO PRN (12:37)
--- NOTE | 2020-09-22 13:28 | NUR ---
provided IS for patient and encouraged deep breathe and cough
--- NOTE | 2020-09-22 13:43 | NUR ---
spoke to Damari Everett pt sister, and gave updates. She is the family spokesperson and will give information to other family members.
[2020-09-22 18:00] VITALS: BP 172/78
[2020-09-22 20:15] VITALS: BP 129/69
[2020-09-22] MEDS: diatr meglu/diatrizoate 30ml oral sol.-(3 dose) bottle PO SCH (20:19)
--- NOTE | 2020-09-22 20:30 | NUR ---
noted scrotum and penis swollen. Iris KRUGER convinced pt to place pillowcase as sling to elevate. unable to bring foreskin forward - MD aware. will continue to monitor. pt turned on side.
[2020-09-22] MEDS ORDERED: haloperidol lactate 5mg/ml inj IM PRN (21:50)
[2020-09-22] MEDS ORDERED: LORazepam 1 MG tablet PO PRN (21:50)
[2020-09-22] MEDS ORDERED: haloperidol 5mg tablet PO PRN (21:50)
[2020-09-22] MEDS ORDERED: LORazepam 2 mg/ml vial IV PRN (21:50)
[2020-09-22 22:00] VITALS: BP 116/71
[2020-09-22] MEDS: atorvastatin 20mg tablet PO SCH (22:00)
--- NOTE | 2020-09-23 03:33 | NUR ---
noted edema still severe. breathing stable. sat 92% on 2L.
[2020-09-23 06:00] VITALS: BP 116/74
[2020-09-23] MEDS: sodium bicarbonate (8.4%) inj. 75 MEQ in dextrose 5% water 500ml 500 ML IV SCH ×3 (06:05→14:32)
--- NOTE | 2020-09-23 06:20 | NUR ---
reported to days. noted pt needs clarification on lasix. working with PT this am. pt has been withdrawn, not participating in care.
[2020-09-23] MEDS: cloNIDine 0.1 mg tablet PO SCH ×3 (08:00→19:02)
[2020-09-23] MEDS: K and/or MAG REPLACEMENT MC SCH ×2 (08:00→19:03)
[2020-09-23 08:21] LABS: BASOPHILS % (AUTO) 0.9 % (0-1); EOSINOPHILS # (AUTO) 0.1 X10'3 (0-0.9); EOSINOPHILS % (AUTO) 2.3 % (0-6); HEMATOCRIT 28.2 % (42.0-52.0); HEMOGLOBIN 9.3 g/dl (14.0-17.9); LYMPHOCYTES # (AUTO) 1.5 X10'3 (1.1-4.8); LYMPHOCYTES % (AUTO) 26.8 % (21-51); MEAN CORPUSCULAR HEMOGLOBIN 31.6 PG (27.0-31.0); MEAN CORPUSCULAR VOLUME 95.8 FL (78-98); MEAN PLATELET VOLUME 10.2 FL (7.4-10.4); MONOCYTES # (AUTO) 0.6 X10'3 (0-0.9); MONOCYTES % (AUTO) 10.5 % (2-12); NEUTROPHILS # (AUTO) 3.2 X10'3 (1.8-7.7); NEUTROPHILS % (AUTO) 59.5 % (42-75); PLATELET COUNT 137 X10'3 (140-440); RED BLOOD COUNT 2.95 X10'6 (4.70-6.10); RED CELL DISTRIBUTION WIDTH 17.1 % (11.5-14.5); WHITE BLOOD COUNT 5.4 X10'3 (4.5-11.0)
[2020-09-23] MEDS: diatr meglu/diatrizoate 30ml oral sol.-(3 dose) bottle PO SCH ×2 (08:22→10:10)
[2020-09-23] MEDS: docusate sod 100mg capsule PO SCH ×2 (08:22→19:02)
[2020-09-23] MEDS: thiamine 100mg tablet PO SCH (08:23)
[2020-09-23] MEDS: gabapentin 300mg capsule PO SCH (08:27)
[2020-09-23] MEDS: apixaban 2.5mg tablet PO SCH ×2 (08:28→19:02)
[2020-09-23] MEDS: amLODIPine 5mg tablet PO SCH (08:28)
[2020-09-23] MEDS: multivitamins, therapeutics tablet PO SCH (08:28)
[2020-09-23] MEDS: HYDROcodone/acetaminophen 5mg/325mg tablet PO PRN (08:29)
[2020-09-23 08:39] LABS: ALBUMIN 1.8 G/DL (3.4-5.0); AMYLASE 34 U/L (25-115); ANION GAP 12 (8-16); BLOOD UREA NITROGEN 55 MG/DL (7-18); BUN/CREATININE RATIO 16.6 (5.4-32.0); CALCIUM 6.5 MG/DL (8.5-10.1); CHLORIDE 108 MMOL/L (99-107); CREATININE 3.32 MG/DL (0.60-1.10); GLUCOSE 77 MG/DL (70-104); LIPASE 76 U/L (73-393); MAGNESIUM 1.7 MG/DL (1.5-2.4); POTASSIUM 3.7 MMOL/L (3.5-5.1); SODIUM 140 MMOL/L (135-145); eGFR 18 ML/MIN
[2020-09-23 08:57] VITALS: BP 128/74
[2020-09-23 10:00] VITALS: BP 104/62
[2020-09-23] MEDS: albuterol 2.5 MG/3 ML nebule NEB PRN ×2 (13:06→16:56)
--- NOTE | 2020-09-23 14:55 | NUR ---
waleskad Shabbir PAGER ID: [phone] MESSAGE: Maryuri [phone] daniel Neumann- please review ct results. Ok to take off of NPO? Addendum: 09/23/20 at 1502 by Mayra Wilson RN Callback from , states ok to feed patient
--- NOTE | 2020-09-23 15:00 | NUR ---
spoke to DR Abdelrahman sanchez IVF and lasix order. He advised to stop IVF since CO2 now 20.0 and he will be in to see the patient this afternoon.
[2020-09-23 18:00] VITALS: BP 115/68
[2020-09-23] MEDS: atorvastatin 20mg tablet PO SCH (19:02)
[2020-09-23] MEDS: ondansetron/PF 4mg/2ml inj IV PRN (19:02)
[2020-09-23] MEDS: furosemide 40mg/4ml inj IV SCH (19:03)
[2020-09-23] MEDS: nystatin 15 GM powder TP SCH (21:36)
[2020-09-23] MEDS: nystatin 15 GM ointment TP SCH (21:36)
[2020-09-23 22:00] VITALS: BP 131/99
[2020-09-24] MEDS: HYDROcodone/acetaminophen 10/325mg tab PO PRN ×2 (01:34→08:23)
[2020-09-24 06:49] LABS: BASOPHILS % (AUTO) 0.7 % (0-1); EOSINOPHILS # (AUTO) 0.1 X10'3 (0-0.9); EOSINOPHILS % (AUTO) 1.7 % (0-6); HEMATOCRIT 26.4 % (42.0-52.0); HEMOGLOBIN 8.5 g/dl (14.0-17.9); LYMPHOCYTES # (AUTO) 2.1 X10'3 (1.1-4.8); MEAN CORPUSCULAR HEMOGLOBIN 32.2 PG (27.0-31.0); MEAN CORPUSCULAR HGB CONC 32.3 g/dL (33.0-36.5); MEAN CORPUSCULAR VOLUME 99.6 FL (78-98); MEAN PLATELET VOLUME 9.9 FL (7.4-10.4); MONOCYTES # (AUTO) 0.9 X10'3 (0-0.9); NEUTROPHILS % (AUTO) 55.6 % (42-75); PLATELET COUNT 120 X10'3 (140-440); RED BLOOD COUNT 2.65 X10'6 (4.70-6.10); RED CELL DISTRIBUTION WIDTH 17.4 % (11.5-14.5); WHITE BLOOD COUNT 7.2 X10'3 (4.5-11.0)
[2020-09-24 07:09] VITALS: BP 116/70
[2020-09-24 07:11] LABS: ALBUMIN 1.5 G/DL (3.4-5.0); AMYLASE 32 U/L (25-115); ANION GAP 12 (8-16); BLOOD UREA NITROGEN 63 MG/DL (7-18); BUN/CREATININE RATIO 18.1 (5.4-32.0); CALCIUM 6.3 MG/DL (8.5-10.1); CHLORIDE 108 MMOL/L (99-107); CREATININE 3.48 MG/DL (0.60-1.10); GLUCOSE 80 MG/DL (70-104); LIPASE < 50 U/L (73-393); MAGNESIUM 1.8 MG/DL (1.5-2.4); PHOSPHORUS 5.2 MG/DL (2.3-4.5); POTASSIUM 3.6 MMOL/L (3.5-5.1); SODIUM 139 MMOL/L (135-145); TOTAL CARBON DIOXIDE 19.1 MMOL/L (24-32); eGFR 18 ML/MIN
[2020-09-24] MEDS: cloNIDine 0.1 mg tablet PO SCH ×3 (08:00→20:26)
[2020-09-24] MEDS: K and/or MAG REPLACEMENT MC SCH ×2 (08:00→19:14)
[2020-09-24] MEDS: multivitamins, therapeutics tablet PO SCH (08:19)
[2020-09-24] MEDS: amLODIPine 5mg tablet PO SCH (08:20)
[2020-09-24] MEDS: docusate sod 100mg capsule PO SCH ×2 (08:21→20:26)
[2020-09-24] MEDS: apixaban 2.5mg tablet PO SCH ×2 (08:21→20:25)
[2020-09-24] MEDS: thiamine 100mg tablet PO SCH (08:21)
[2020-09-24] MEDS: gabapentin 300mg capsule PO SCH (08:21)
[2020-09-24] MEDS: furosemide 40mg/4ml inj IV SCH ×2 (08:22→20:26)
[2020-09-24] MEDS: nystatin 15 GM powder TP SCH ×3 (08:22→20:31)
[2020-09-24] MEDS: nystatin 15 GM ointment TP SCH ×3 (08:23→20:32)
[2020-09-24 10:34] VITALS: BP 92/52
[2020-09-24 10:35] VITALS: BP 128/37
--- NOTE | 2020-09-24 12:43 | NUR ---
Paged radiology regarding thoracentesis
[2020-09-24 18:00] VITALS: BP 114/74
--- NOTE | 2020-09-24 18:42 | NUR ---
Problems reprioritized. Patient report given, questions answered & plan of care reviewed with Miranda KRUGER.
[2020-09-24] MEDS: atorvastatin 20mg tablet PO SCH (20:26)
[2020-09-24 22:00] VITALS: BP 108/73
--- NOTE | 2020-09-25 06:00 | NUR ---
Patient in room ORTHO 4021. I have received report from Ebony KRUGER and had the opportunity to ask questions and assume patient care. Addendum: 09/25/20 at 1756 by Barbie Todd RN correction Received report from Ade KRUGER
[2020-09-25 06:09] LABS: BASOPHILS # (AUTO) 0.1 X10'3 (0-0.2); BASOPHILS % (AUTO) 1.3 % (0-1); EOSINOPHILS # (AUTO) 0.2 X10'3 (0-0.9); EOSINOPHILS % (AUTO) 3.4 % (0-6); HEMATOCRIT 27.4 % (42.0-52.0); HEMOGLOBIN 9.2 g/dl (14.0-17.9); LYMPHOCYTES # (AUTO) 1.3 X10'3 (1.1-4.8); LYMPHOCYTES % (AUTO) 25.9 % (21-51); MEAN CORPUSCULAR HGB CONC 33.6 g/dL (33.0-36.5); MEAN CORPUSCULAR VOLUME 95.2 FL (78-98); MEAN PLATELET VOLUME 10.1 FL (7.4-10.4); MONOCYTES # (AUTO) 0.8 X10'3 (0-0.9); NEUTROPHILS # (AUTO) 2.7 X10'3 (1.8-7.7); NEUTROPHILS % (AUTO) 53.4 % (42-75); PLATELET COUNT 133 X10'3 (140-440); RED BLOOD COUNT 2.88 X10'6 (4.70-6.10); RED CELL DISTRIBUTION WIDTH 16.9 % (11.5-14.5)
--- NOTE | 2020-09-25 06:16 | NUR ---
REPORT GIVEN TO SLICK HERNANDEZ.
[2020-09-25 06:24] LABS: ALBUMIN 1.5 G/DL (3.4-5.0); AMYLASE 31 U/L (25-115); ANION GAP 13 (8-16); BLOOD UREA NITROGEN 61 MG/DL (7-18); BUN/CREATININE RATIO 17.7 (5.4-32.0); CALCIUM 6.2 MG/DL (8.5-10.1); CHLORIDE 107 MMOL/L (99-107); CREATININE 3.44 MG/DL (0.60-1.10); GLUCOSE 85 MG/DL (70-104); LIPASE < 50 U/L (73-393); MAGNESIUM 1.6 MG/DL (1.5-2.4); PHOSPHORUS 5.6 MG/DL (2.3-4.5); POTASSIUM 3.6 MMOL/L (3.5-5.1); SODIUM 139 MMOL/L (135-145); TOTAL CARBON DIOXIDE 19.4 MMOL/L (24-32); eGFR 18 ML/MIN
[2020-09-25 07:35] LABS: TOTAL CELLS COUNTED 100
[2020-09-25 07:37] LABS: ACANTHOCYTES FEW; ANISOCYTOSIS 1+; BURR CELLS 1+; ELLIPTOCYTES 1+; PLATELET ESTIMATE DECREASED; SCHISTOCYTES FEW
[2020-09-25 08:00] VITALS: BP 128/72
[2020-09-25] MEDS: K and/or MAG REPLACEMENT MC SCH ×2 (08:00→18:50)
[2020-09-25] MEDS: nystatin 15 GM ointment TP SCH ×3 (08:00→21:06)
[2020-09-25] MEDS: furosemide 40mg/4ml inj IV SCH ×2 (08:54→21:06)
[2020-09-25] MEDS: gabapentin 300mg capsule PO SCH (08:55)
[2020-09-25] MEDS: multivitamins, therapeutics tablet PO SCH (08:55)
[2020-09-25] MEDS: thiamine 100mg tablet PO SCH (08:56)
[2020-09-25] MEDS: docusate sod 100mg capsule PO SCH ×2 (08:56→20:00)
[2020-09-25] MEDS: apixaban 2.5mg tablet PO SCH (08:56)
[2020-09-25] MEDS: nystatin 15 GM powder TP SCH ×3 (08:56→21:07)
[2020-09-25] MEDS: cloNIDine 0.1 mg tablet PO SCH ×3 (08:56→21:06)
[2020-09-25] MEDS: amLODIPine 5mg tablet PO SCH (08:56)
[2020-09-25] MEDS: HYDROcodone/acetaminophen 5mg/325mg tablet PO PRN ×3 (09:03→18:55)
[2020-09-25 12:00] VITALS: BP 115/58
[2020-09-25] MEDS: albuterol 2.5 MG/3 ML nebule NEB PRN (14:00)
--- NOTE | 2020-09-25 16:00 | NUR ---
Dr Galvan aware patients urine is neon yellow., Also let Dr Galvan know that I held patients Catapress due to Heart Rate was 57 and medication has perameters
[2020-09-25 18:00] VITALS: BP 152/80
--- NOTE | 2020-09-25 18:30 | NUR ---
Problems reprioritized. Patient report given, questions answered & plan of care reviewed with Ade KRUGER.
[2020-09-25] MEDS: atorvastatin 20mg tablet PO SCH (21:06)
[2020-09-25 22:00] VITALS: BP 128/79
[2020-09-26 06:00] VITALS: BP 157/73
[2020-09-26 06:24] LABS: BASOPHILS # (AUTO) 0.1 X10'3 (0-0.2); BASOPHILS % (AUTO) 1.2 % (0-1); EOSINOPHILS # (AUTO) 0.2 X10'3 (0-0.9); EOSINOPHILS % (AUTO) 3.5 % (0-6); HEMATOCRIT 25.9 % (42.0-52.0); HEMOGLOBIN 8.6 g/dl (14.0-17.9); LYMPHOCYTES # (AUTO) 1.2 X10'3 (1.1-4.8); LYMPHOCYTES % (AUTO) 22.9 % (21-51); MEAN CORPUSCULAR HEMOGLOBIN 31.9 PG (27.0-31.0); MEAN CORPUSCULAR HGB CONC 33.3 g/dL (33.0-36.5); MEAN CORPUSCULAR VOLUME 95.7 FL (78-98); MONOCYTES # (AUTO) 0.7 X10'3 (0-0.9); MONOCYTES % (AUTO) 13.8 % (2-12); NEUTROPHILS % (AUTO) 58.6 % (42-75); PLATELET COUNT 138 X10'3 (140-440); WHITE BLOOD COUNT 5.1 X10'3 (4.5-11.0)
--- NOTE | 2020-09-26 06:30 | NUR ---
Patient in room ORTHO 4021. I have received report from Gina KRUGER and had the opportunity to ask questions and assume patient care.
--- NOTE | 2020-09-26 06:33 | NUR ---
report given to genia Lutz.
[2020-09-26 06:42] LABS: ALBUMIN 1.5 G/DL (3.4-5.0); AMYLASE 32 U/L (25-115); ANION GAP 14 (8-16); BLOOD UREA NITROGEN 65 MG/DL (7-18); BUN/CREATININE RATIO 18.6 (5.4-32.0); CALCIUM 6.3 MG/DL (8.5-10.1); CHLORIDE 107 MMOL/L (99-107); CREATININE 3.49 MG/DL (0.60-1.10); GLUCOSE 91 MG/DL (70-104); LIPASE < 50 U/L (73-393); MAGNESIUM 1.8 MG/DL (1.5-2.4); PHOSPHORUS 6.1 MG/DL (2.3-4.5); POTASSIUM 3.8 MMOL/L (3.5-5.1); SODIUM 140 MMOL/L (135-145); TOTAL CARBON DIOXIDE 18.7 MMOL/L (24-32); eGFR 17 ML/MIN
--- NOTE | 2020-09-26 06:43 | NUR ---
Patient in room ORTHO 4021. I have received report from Ade KRUGER and had the opportunity to ask questions and assume patient care.
[2020-09-26] MEDS: furosemide 40mg/4ml inj IV SCH ×2 (07:46→22:14)
[2020-09-26] MEDS: docusate sod 100mg capsule PO SCH ×2 (07:49→20:00)
[2020-09-26 08:00] VITALS: BP 110/72
[2020-09-26] MEDS: K and/or MAG REPLACEMENT MC SCH ×2 (08:00→20:00)
[2020-09-26] MEDS: nystatin 15 GM ointment TP SCH ×3 (08:00→20:54)
[2020-09-26] MEDS: nystatin 15 GM powder TP SCH ×3 (08:00→20:54)
[2020-09-26] MEDS: amLODIPine 5mg tablet PO SCH (08:00)
[2020-09-26] MEDS: cloNIDine 0.1 mg tablet PO SCH ×3 (08:00→22:11)
[2020-09-26] MEDS: gabapentin 300mg capsule PO SCH (08:22)
[2020-09-26] MEDS: thiamine 100mg tablet PO SCH (08:23)
[2020-09-26] MEDS: multivitamins, therapeutics tablet PO SCH (08:23)
[2020-09-26 11:00] VITALS: BP 125/73
--- NOTE | 2020-09-26 11:21 | NUR ---
Student Medication Administration:For this medication-pass time frame 7825-8557, all medications were reviewed, administered and documented per hospital policy by Laura Keane. Student documentation:I have reviewed and agree with all interventions, assessments performed and documented by Laura Keane.
--- NOTE | 2020-09-26 12:09 | NUR ---
Initial: Pt admit DX COPD, urinary retention, CKD IV r/t HTN/meth/nephrosclerosis, bilateral pleural effusions, and hx severe etoh per MD notes. PO ~50% avg renal/1.5L fluid-restricted/SB6 diet per MD recs partially meeting needs. Vanilla ensure pudding BIDLD added to meals for additional kcals w/ fluid restriction and within renal diet guidelines given current PO hx; dietary notified. Estimated nutrition recs below using IBW as pending scaled wt this admit. 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 Phos 6.1; RD d/w RN regarding if phos binder appropriate per MD given elevation despite inadequate PO hx on renal diet. Will continue to monitor. Rec: 1. continue renal/1.5L fluid-restricted/SB6 diet per MD 2. vanilla ensure pudding BIDLD for additional kcals 3. consider phos binder w/ meals as medically indicated; eGFR 17 w/ Phos 6.1 today on renal diet 4. routine bowel care 5. scaled wt this admit Addendum: 09/26/20 at [address] Amended: Links added.
--- NOTE | 2020-09-26 12:16 | NUR ---
Patient report given, questions answered & plan of care reviewed with germán KRUGER.
--- NOTE | 2020-09-26 18:27 | NUR ---
Problems reprioritized. Patient report given, questions answered & plan of care reviewed with Ebony KRUGER.
[2020-09-26 18:30] VITALS: BP 157/73
[2020-09-26 22:00] VITALS: BP 120/77
[2020-09-26] MEDS: apixaban 2.5mg tablet PO SCH (22:11)
[2020-09-26] MEDS: atorvastatin 20mg tablet PO SCH (22:14)
[2020-09-27 06:00] VITALS: BP 160/68
[2020-09-27 06:02] LABS: HEMOGLOBIN 8.5 g/dl (14.0-17.9); RED CELL DISTRIBUTION WIDTH 16.9 % (11.5-14.5); WHITE BLOOD COUNT 6.1 X10'3 (4.5-11.0)
[2020-09-27 06:06] LABS: BASOPHILS % (AUTO) 0.7 % (0-1); EOSINOPHILS # (AUTO) 0.1 X10'3 (0-0.9); EOSINOPHILS % (AUTO) 1.8 % (0-6); HEMATOCRIT 25.2 % (42.0-52.0); LYMPHOCYTES # (AUTO) 1.6 X10'3 (1.1-4.8); LYMPHOCYTES % (AUTO) 25.6 % (21-51); MEAN CORPUSCULAR HEMOGLOBIN 32.2 PG (27.0-31.0); MEAN CORPUSCULAR HGB CONC 33.6 g/dL (33.0-36.5); MONOCYTES # (AUTO) 0.7 X10'3 (0-0.9); MONOCYTES % (AUTO) 12.3 % (2-12); NEUTROPHILS # (AUTO) 3.6 X10'3 (1.8-7.7); NEUTROPHILS % (AUTO) 59.6 % (42-75); PLATELET COUNT 137 X10'3 (140-440); RED BLOOD COUNT 2.62 X10'6 (4.70-6.10)
--- NOTE | 2020-09-27 06:10 | NUR ---
Patient in room ORTHO 4021. I have received report from SLICK Krishna and had the opportunity to ask questions and assume patient care.
[2020-09-27 06:28] LABS: ALANINE AMINOTRANSFERASE 9 U/L (12-78); ALBUMIN 1.3 G/DL (3.4-5.0); ALBUMIN/GLOBULIN RATIO 0.4 (1.1-1.5); ALKALINE PHOSPHATASE 93 IU/L (46-116); AMYLASE 26 U/L (25-115); ANION GAP 12 (8-16); ASPARTATE AMINO TRANSFERASE 16 U/L (10-37); BILIRUBIN,TOTAL 0.2 MG/DL (0.1-1.0); BLOOD UREA NITROGEN 70 MG/DL (7-18); BUN/CREATININE RATIO 19.8 (5.4-32.0); CALCIUM 6.3 MG/DL (8.5-10.1); CHLORIDE 107 MMOL/L (99-107); CREATININE 3.53 MG/DL (0.60-1.10); GLUCOSE 97 MG/DL (70-104); LIPASE < 50 U/L (73-393); MAGNESIUM 1.6 MG/DL (1.5-2.4); POTASSIUM 4.1 MMOL/L (3.5-5.1); SODIUM 138 MMOL/L (135-145); TOTAL CARBON DIOXIDE 18.7 MMOL/L (24-32); TOTAL PROTEIN 4.5 G/DL (6.4-8.2); eGFR 17 ML/MIN
[2020-09-27 07:00] VITALS: BP 112/68
[2020-09-27] MEDS: apixaban 2.5mg tablet PO SCH ×2 (07:40→20:00)
[2020-09-27] MEDS: docusate sod 100mg capsule PO SCH ×2 (07:40→20:00)
[2020-09-27] MEDS: gabapentin 300mg capsule PO SCH (07:41)
[2020-09-27] MEDS: multivitamins, therapeutics tablet PO SCH (07:42)
[2020-09-27] MEDS: thiamine 100mg tablet PO SCH (07:43)
[2020-09-27] MEDS: HYDROcodone/acetaminophen 5mg/325mg tablet PO PRN ×2 (07:44→23:00)
[2020-09-27] MEDS: nystatin 15 GM ointment TP SCH ×3 (07:51→21:38)
[2020-09-27] MEDS: nystatin 15 GM powder TP SCH ×3 (07:51→21:38)
[2020-09-27] MEDS: cloNIDine 0.1 mg tablet PO SCH (08:00)
[2020-09-27] MEDS: K and/or MAG REPLACEMENT MC SCH ×2 (08:00→20:00)
[2020-09-27] MEDS: amLODIPine 5mg tablet PO SCH (08:00)
[2020-09-27] MEDS: furosemide 40mg/4ml inj IV SCH ×2 (09:08→20:00)
[2020-09-27 11:35] VITALS: BP 129/76
--- NOTE | 2020-09-27 11:37 | NUR ---
Student Medication Administration: For this medication-pass time frame 2278-3007, all medications were reviewed, administered and documented per hospital policy by Selma Robbins. Student documentation:I have reviewed and agree with all interventions, assessments performed and documented by Selma Robbins.
[2020-09-27] MEDS: ondansetron/PF 4mg/2ml inj IV PRN (12:28)
[2020-09-27 12:40] LABS: UREA NITROGEN 24HR,URINE 4.9 GM/24HR (7-20)
[2020-09-27 18:00] VITALS: BP 121/72
--- NOTE | 2020-09-27 18:35 | NUR ---
Problems reprioritized. Patient report given, questions answered & plan of care reviewed with SLICK MARY.
[2020-09-27] MEDS: atorvastatin 20mg tablet PO SCH (21:09)
[2020-09-27 22:00] VITALS: BP 122/83
--- NOTE | 2020-09-28 06:16 | NUR ---
Patient in room ORTHO 4021. I have received report from SLICK Genao and had the opportunity to ask questions and assume patient care.
[2020-09-28 06:20] VITALS: BP 126/76
[2020-09-28 06:37] LABS: BASOPHILS # (AUTO) 0.1 X10'3 (0-0.2); EOSINOPHILS # (AUTO) 0.2 X10'3 (0-0.9); EOSINOPHILS % (AUTO) 2.4 % (0-6); HEMATOCRIT 27.8 % (42.0-52.0); HEMOGLOBIN 9.2 g/dl (14.0-17.9); LYMPHOCYTES % (AUTO) 25.5 % (21-51); MEAN CORPUSCULAR HEMOGLOBIN 31.9 PG (27.0-31.0); MEAN CORPUSCULAR VOLUME 96.8 FL (78-98); MEAN PLATELET VOLUME 9.7 FL (7.4-10.4); MONOCYTES # (AUTO) 0.8 X10'3 (0-0.9); MONOCYTES % (AUTO) 10.3 % (2-12); NEUTROPHILS # (AUTO) 4.7 X10'3 (1.8-7.7); NEUTROPHILS % (AUTO) 60.8 % (42-75); PLATELET COUNT 156 X10'3 (140-440); RED BLOOD COUNT 2.87 X10'6 (4.70-6.10); RED CELL DISTRIBUTION WIDTH 16.7 % (11.5-14.5); WHITE BLOOD COUNT 7.8 X10'3 (4.5-11.0)
[2020-09-28 06:55] LABS: ALANINE AMINOTRANSFERASE 13 U/L (12-78); ALBUMIN 1.4 G/DL (3.4-5.0); ALBUMIN/GLOBULIN RATIO 0.4 (1.1-1.5); ALKALINE PHOSPHATASE 94 IU/L (46-116); ANION GAP 13 (8-16); ASPARTATE AMINO TRANSFERASE 19 U/L (10-37); BILIRUBIN,TOTAL 0.2 MG/DL (0.1-1.0); BLOOD UREA NITROGEN 81 MG/DL (7-18); CALCIUM 6.5 MG/DL (8.5-10.1); CHLORIDE 107 MMOL/L (99-107); CREATININE 3.69 MG/DL (0.60-1.10); GLUCOSE 80 MG/DL (70-104); MAGNESIUM 1.7 MG/DL (1.5-2.4); POTASSIUM 3.8 MMOL/L (3.5-5.1); SODIUM 139 MMOL/L (135-145); TOTAL PROTEIN 4.9 G/DL (6.4-8.2); eGFR 16 ML/MIN
[2020-09-28] MEDS: ipratropium/albuterol 3ml nebule NEB PRN ×2 (07:44→14:00)
[2020-09-28] MEDS: K and/or MAG REPLACEMENT MC SCH ×2 (08:00→20:00)
[2020-09-28] MEDS: multivitamins, therapeutics tablet PO SCH (08:46)
[2020-09-28] MEDS: thiamine 100mg tablet PO SCH (08:46)
[2020-09-28] MEDS: gabapentin 300mg capsule PO SCH (08:47)
[2020-09-28] MEDS: apixaban 2.5mg tablet PO SCH ×2 (08:47→20:26)
[2020-09-28] MEDS: nystatin 15 GM ointment TP SCH ×3 (08:47→20:34)
[2020-09-28] MEDS: nystatin 15 GM powder TP SCH ×3 (08:47→20:35)
[2020-09-28] MEDS: docusate sod 100mg capsule PO SCH ×2 (08:47→20:00)
--- NOTE | 2020-09-28 11:33 | NUR ---
Jose L Consult: Jose L Shoemaker; skin intact per EMR. Addendum: 09/28/20 at [address] Amended: Links added.
[2020-09-28 18:00] VITALS: BP 124/70
--- NOTE | 2020-09-28 18:10 | NUR ---
Problems reprioritized. Patient report given, questions answered & plan of care reviewed with Dotty KRUGER.
--- NOTE | 2020-09-28 18:30 | NUR ---
Patient in room ORTHO 4021. I have received report from SLICK EAST and had the opportunity to ask questions and assume patient care.
[2020-09-28] MEDS: atorvastatin 20mg tablet PO SCH (20:26)
[2020-09-28] MEDS: HYDROcodone/acetaminophen 5mg/325mg tablet PO PRN (20:32)
[2020-09-28 22:00] VITALS: BP 125/86
--- NOTE | 2020-09-28 23:35 | NUR ---
Student documentation: I have reviewed all interventions, assessments performed and documented by Bautista Fields. Student Medication Administration: For this medication-pass time frame, all medication were reviewed, dispensed, administered and documented per hospital policy by Bautista Fields.
[2020-09-29] MEDS: ipratropium/albuterol 3ml nebule NEB PRN (00:37)
--- NOTE | 2020-09-29 06:36 | NUR ---
Problems reprioritized. Patient report given, questions answered & plan of care reviewed with SLICK RETANA.
[2020-09-29 07:34] LABS: BASOPHILS # (AUTO) 0.1 X10'3 (0-0.2); BASOPHILS % (AUTO) 0.9 % (0-1); EOSINOPHILS # (AUTO) 0.1 X10'3 (0-0.9); EOSINOPHILS % (AUTO) 1.1 % (0-6); HEMATOCRIT 25.9 % (42.0-52.0); HEMOGLOBIN 8.6 g/dl (14.0-17.9); LYMPHOCYTES # (AUTO) 1.9 X10'3 (1.1-4.8); LYMPHOCYTES % (AUTO) 24.3 % (21-51); MEAN CORPUSCULAR HEMOGLOBIN 31.9 PG (27.0-31.0); MEAN CORPUSCULAR HGB CONC 33.4 g/dL (33.0-36.5); MEAN CORPUSCULAR VOLUME 95.4 FL (78-98); MONOCYTES # (AUTO) 0.8 X10'3 (0-0.9); MONOCYTES % (AUTO) 10.3 % (2-12); NEUTROPHILS # (AUTO) 4.8 X10'3 (1.8-7.7); NEUTROPHILS % (AUTO) 63.4 % (42-75); PLATELET COUNT 155 X10'3 (140-440); RED BLOOD COUNT 2.71 X10'6 (4.70-6.10); RED CELL DISTRIBUTION WIDTH 16.4 % (11.5-14.5); WHITE BLOOD COUNT 7.6 X10'3 (4.5-11.0)
[2020-09-29] MEDS: multivitamins, therapeutics tablet PO SCH (07:41)
[2020-09-29] MEDS: apixaban 2.5mg tablet PO SCH ×2 (07:41→22:06)
[2020-09-29] MEDS: gabapentin 300mg capsule PO SCH (07:41)
[2020-09-29] MEDS: thiamine 100mg tablet PO SCH (07:41)
[2020-09-29] MEDS: docusate sod 100mg capsule PO SCH ×2 (07:41→22:06)
[2020-09-29] MEDS: nystatin 15 GM powder TP SCH ×3 (07:41→22:15)
[2020-09-29 07:51] LABS: ALANINE AMINOTRANSFERASE 12 U/L (12-78); ALBUMIN 1.4 G/DL (3.4-5.0); ALBUMIN/GLOBULIN RATIO 0.4 (1.1-1.5); ALKALINE PHOSPHATASE 114 IU/L (46-116); ANION GAP 15 (8-16); ASPARTATE AMINO TRANSFERASE 17 U/L (10-37); BILIRUBIN,TOTAL 0.2 MG/DL (0.1-1.0); BLOOD UREA NITROGEN 88 MG/DL (7-18); BUN/CREATININE RATIO 24.2 (5.4-32.0); CALCIUM 6.7 MG/DL (8.5-10.1); CHLORIDE 107 MMOL/L (99-107); CREATININE 3.63 MG/DL (0.60-1.10); GLUCOSE 74 MG/DL (70-104); POTASSIUM 3.7 MMOL/L (3.5-5.1); SODIUM 140 MMOL/L (135-145); TOTAL CARBON DIOXIDE 18.3 MMOL/L (24-32); TOTAL PROTEIN 4.8 G/DL (6.4-8.2); eGFR 17 ML/MIN
[2020-09-29] MEDS: nystatin 15 GM ointment TP SCH ×3 (08:00→21:00)
[2020-09-29] MEDS: K and/or MAG REPLACEMENT MC SCH ×2 (08:00→20:00)
[2020-09-29 09:37] VITALS: BP 124/77
--- NOTE | 2020-09-29 14:48 | NUR ---
Reassessment: Pt PO ~50-75% avg meals w/ temporary increase to 75-100% past 2 meals including vanilla ensure pudding BIDLD likely meeting minimum needs not on HD. LBM 5/ receiving routine colace. Receiving thiamin and MVI for etoh hx. Will continue to monitor. Rec: 1. continue renal/1.5L fluid-restricted/SB6 diet per MD 2. vanilla ensure pudding BIDLD for additional kcals 3. consider phos binder w/ meals as medically indicated; eGFR 17 w/ Phos 6.0 09/27 on renal diet 4. routine bowel care 5. scaled wt this admit Addendum: 09/29/20 at [address] Amended: Links added.
[2020-09-29 15:52] LABS: UREA NITROGEN 24HR,URINE 6.1 GM/24HR (7-20)
[2020-09-29 18:00] VITALS: BP 146/86
[2020-09-29 22:00] VITALS: BP 145/88
[2020-09-29] MEDS: atorvastatin 20mg tablet PO SCH (22:06)
[2020-09-29] MEDS: HYDROcodone/acetaminophen 5mg/325mg tablet PO PRN (22:06)
[2020-09-30 06:00] VITALS: BP 131/72
--- NOTE | 2020-09-30 06:50 | NUR ---
Patient in room ORTHO 4021. I have received report from Rosa and had the opportunity to ask questions and assume patient care.
[2020-09-30] MEDS: K and/or MAG REPLACEMENT MC SCH ×2 (08:00→20:00)
[2020-09-30] MEDS: gabapentin 300mg capsule PO SCH (08:02)
[2020-09-30] MEDS: docusate sod 100mg capsule PO SCH ×2 (08:03→20:27)
[2020-09-30] MEDS: nystatin 15 GM powder TP SCH ×3 (08:03→20:27)
[2020-09-30] MEDS: apixaban 2.5mg tablet PO SCH ×2 (08:03→20:27)
[2020-09-30] MEDS: multivitamins, therapeutics tablet PO SCH (08:03)
[2020-09-30] MEDS: thiamine 100mg tablet PO SCH (08:03)
[2020-09-30] MEDS: HYDROcodone/acetaminophen 5mg/325mg tablet PO PRN ×3 (08:11→20:32)
[2020-09-30] MEDS: nystatin 15 GM ointment TP SCH ×3 (08:14→20:27)
[2020-09-30 10:00] VITALS: BP 144/88
[2020-09-30 17:00] VITALS: BP 123/80
--- NOTE | 2020-09-30 18:20 | NUR ---
Problems reprioritized. Patient report given to Pauline, questions answered & plan of care reviewed with .
--- NOTE | 2020-09-30 18:27 | NUR ---
Patient in room ORTHO 4021. I have received report from Sabi KRUGER and had the opportunity to ask questions and assume patient care.
[2020-09-30] MEDS: atorvastatin 20mg tablet PO SCH (20:27)
[2020-09-30 22:00] VITALS: BP 142/94
[2020-09-30] MEDS: ipratropium/albuterol 3ml nebule NEB PRN (22:41)
[2020-10-01] MEDS: HYDROcodone/acetaminophen 5mg/325mg tablet PO PRN ×4 (02:54→20:12)
[2020-10-01 06:00] VITALS: BP 136/87
--- NOTE | 2020-10-01 06:30 | NUR ---
Problems reprioritized. Patient report given, questions answered & plan of care reviewed with Sabi KRUGER.
--- NOTE | 2020-10-01 06:48 | NUR ---
Patient in room ORTHO 4021. I have received report from [facility] and had the opportunity to ask questions and assume patient care.
[2020-10-01] MEDS: ipratropium/albuterol 3ml nebule NEB PRN ×2 (07:56→21:01)
[2020-10-01] MEDS: K and/or MAG REPLACEMENT MC SCH ×2 (08:00→18:40)
[2020-10-01] MEDS: thiamine 100mg tablet PO SCH (08:06)
[2020-10-01] MEDS: docusate sod 100mg capsule PO SCH ×2 (08:06→18:40)
[2020-10-01] MEDS: gabapentin 300mg capsule PO SCH (08:06)
[2020-10-01] MEDS: multivitamins, therapeutics tablet PO SCH (08:07)
[2020-10-01] MEDS: apixaban 2.5mg tablet PO SCH ×2 (08:07→20:12)
[2020-10-01] MEDS: nystatin 15 GM ointment TP SCH ×3 (08:10→20:28)
[2020-10-01] MEDS: nystatin 15 GM powder TP SCH ×3 (08:10→20:28)
[2020-10-01 10:00] VITALS: BP 128/94
[2020-10-01] MEDS: ondansetron/PF 4mg/2ml inj IV PRN (16:05)
[2020-10-01 18:00] VITALS: BP 128/98
--- NOTE | 2020-10-01 18:15 | NUR ---
Problems reprioritized. Patient report given, questions answered & plan of care reviewed with Ade.
[2020-10-01] MEDS: atorvastatin 20mg tablet PO SCH (20:12)
[2020-10-01 22:00] VITALS: BP 143/87
[2020-10-02] MEDS: HYDROcodone/acetaminophen 5mg/325mg tablet PO PRN ×4 (01:42→18:54)
--- NOTE | 2020-10-02 06:07 | NUR ---
REPORT GIVEN TO SLICK RETANA.
[2020-10-02] MEDS: thiamine 100mg tablet PO SCH (07:04)
[2020-10-02] MEDS: multivitamins, therapeutics tablet PO SCH (07:04)
[2020-10-02] MEDS: gabapentin 300mg capsule PO SCH (07:04)
[2020-10-02] MEDS: docusate sod 100mg capsule PO SCH ×2 (07:12→20:00)
[2020-10-02] MEDS: nystatin 15 GM ointment TP SCH ×3 (07:12→20:47)
[2020-10-02] MEDS: nystatin 15 GM powder TP SCH ×3 (07:12→20:47)
[2020-10-02] MEDS: apixaban 2.5mg tablet PO SCH ×2 (08:00→20:46)
[2020-10-02] MEDS: K and/or MAG REPLACEMENT MC SCH ×2 (08:00→20:00)
[2020-10-02 09:39] LABS: ALBUMIN 1.5 G/DL (3.4-5.0); ANION GAP 15 (8-16); BLOOD UREA NITROGEN 94 MG/DL (7-18); BUN/CREATININE RATIO 24.2 (5.4-32.0); CALCIUM 7.3 MG/DL (8.5-10.1); CHLORIDE 105 MMOL/L (99-107); CREATININE 3.89 MG/DL (0.60-1.10); GLUCOSE 137 MG/DL (70-104); POTASSIUM 3.8 MMOL/L (3.5-5.1); SODIUM 136 MMOL/L (135-145); TOTAL CARBON DIOXIDE 15.9 MMOL/L (24-32); eGFR 15 ML/MIN
[2020-10-02 13:00] VITALS: BP 145/95
[2020-10-02] MEDS: ondansetron/PF 4mg/2ml inj IV PRN ×2 (13:09→20:55)
--- NOTE | 2020-10-02 18:30 | NUR ---
Patient in room ORTHO 4021. I have received report from TOMS BROOK and had the opportunity to ask questions and assume patient care.
[2020-10-02 19:00] VITALS: BP 107/76
[2020-10-02] MEDS: ipratropium/albuterol 3ml nebule NEB PRN (19:39)
[2020-10-02] MEDS: atorvastatin 20mg tablet PO SCH (20:46)
[2020-10-02 22:00] VITALS: BP 106/70
[2020-10-03] VITALS (11 sets, daily range): BP systolic 113–156; BP diastolic 74–95
[2020-10-03] MEDS: HYDROcodone/acetaminophen 5mg/325mg tablet PO PRN ×3 (02:30→20:06)
--- NOTE | 2020-10-03 06:29 | NUR ---
Problems reprioritized. Patient report given, questions answered & plan of care reviewed with
--- NOTE | 2020-10-03 06:41 | NUR ---
Patient in room ORTHO 4021. I have received report from mike KRUGER and had the opportunity to ask questions and assume patient care.
[2020-10-03 06:50] LABS: BASOPHILS % (AUTO) 0.1 % (0-1); EOSINOPHILS % (AUTO) 0 % (0-6); LYMPHOCYTES # (AUTO) 0.8 X10'3 (1.1-4.8); LYMPHOCYTES % (AUTO) 3.3 % (21-51); MEAN CORPUSCULAR HEMOGLOBIN 31.3 PG (27.0-31.0); MEAN CORPUSCULAR HGB CONC 32.2 g/dL (33.0-36.5); MEAN CORPUSCULAR VOLUME 97.2 FL (78-98); MEAN PLATELET VOLUME 10.1 FL (7.4-10.4); MONOCYTES # (AUTO) 0.9 X10'3 (0-0.9); MONOCYTES % (AUTO) 3.8 % (2-12); NEUTROPHILS # (AUTO) 22.7 X10'3 (1.8-7.7); NEUTROPHILS % (AUTO) 92.8 % (42-75); PLATELET COUNT 180 X10'3 (140-440); RED BLOOD COUNT 2.18 X10'6 (4.70-6.10); RED CELL DISTRIBUTION WIDTH 16.3 % (11.5-14.5); WHITE BLOOD COUNT 24.5 X10'3 (4.5-11.0)
[2020-10-03 06:55] LABS: HEMOGLOBIN 6.8 g/dl (14.0-17.9)
[2020-10-03 06:56] LABS: HEMATOCRIT 21.2 % (42.0-52.0)
[2020-10-03 07:03] LABS: ALBUMIN 1.3 G/DL (3.4-5.0); ANION GAP 16 (8-16); BLOOD UREA NITROGEN 97 MG/DL (7-18); BUN/CREATININE RATIO 25.1 (5.4-32.0); CALCIUM 7.4 MG/DL (8.5-10.1); CHLORIDE 105 MMOL/L (99-107); CREATININE 3.86 MG/DL (0.60-1.10); GLUCOSE 131 MG/DL (70-104); SODIUM 135 MMOL/L (135-145); eGFR 16 ML/MIN
[2020-10-03] MEDS: ipratropium/albuterol 3ml nebule NEB PRN ×3 (07:50→23:47)
[2020-10-03] MEDS: K and/or MAG REPLACEMENT MC SCH ×2 (08:00→20:00)
--- NOTE | 2020-10-03 08:01 | NUR ---
lab called for critical report of hgb 6.8 and hct 21.2 , CO2 14.[address] chino jimenez will monitor
[2020-10-03] MEDS: thiamine 100mg tablet PO SCH (08:55)
[2020-10-03] MEDS: nystatin 15 GM ointment TP SCH ×3 (08:56→20:08)
[2020-10-03] MEDS: docusate sod 100mg capsule PO SCH ×2 (08:56→20:06)
[2020-10-03] MEDS: gabapentin 300mg capsule PO SCH (08:56)
[2020-10-03] MEDS: multivitamins, therapeutics tablet PO SCH (08:56)
[2020-10-03] MEDS: nystatin 15 GM powder TP SCH ×3 (08:56→20:08)
[2020-10-03 11:55] LABS: BASOPHILS % (AUTO) 0.1 % (0-1); EOSINOPHILS % (AUTO) 0.1 % (0-6); LYMPHOCYTES # (AUTO) 0.9 X10'3 (1.1-4.8); LYMPHOCYTES % (AUTO) 4.8 % (21-51); MEAN CORPUSCULAR HEMOGLOBIN 30.6 PG (27.0-31.0); MEAN CORPUSCULAR HGB CONC 31.6 g/dL (33.0-36.5); MEAN CORPUSCULAR VOLUME 96.8 FL (78-98); MEAN PLATELET VOLUME 10.2 FL (7.4-10.4); MONOCYTES # (AUTO) 1.1 X10'3 (0-0.9); MONOCYTES % (AUTO) 6.3 % (2-12); NEUTROPHILS # (AUTO) 16.2 X10'3 (1.8-7.7); NEUTROPHILS % (AUTO) 88.7 % (42-75); PLATELET COUNT 176 X10'3 (140-440); RED CELL DISTRIBUTION WIDTH 16.4 % (11.5-14.5); WHITE BLOOD COUNT 18.3 X10'3 (4.5-11.0)
[2020-10-03 12:00] LABS: HEMATOCRIT 20.3 % (42.0-52.0); HEMOGLOBIN 6.4 g/dl (14.0-17.9)
--- NOTE | 2020-10-03 12:07 | NUR ---
rec'd call from lab, critical value HGB 6.4 HCT 20.3. took message and gave to SLICK Stephens
[2020-10-03 12:15] LABS: ALBUMIN 1.3 G/DL (3.4-5.0); ANION GAP 14 (8-16); BLOOD UREA NITROGEN 96 MG/DL (7-18); BUN/CREATININE RATIO 25.1 (5.4-32.0); CALCIUM 7.1 MG/DL (8.5-10.1); CHLORIDE 105 MMOL/L (99-107); CREATININE 3.82 MG/DL (0.60-1.10); GLUCOSE 97 MG/DL (70-104); SODIUM 135 MMOL/L (135-145); TOTAL CARBON DIOXIDE 16.2 MMOL/L (24-32); eGFR 16 ML/MIN
[2020-10-03] MEDS ORDERED: furosemide 40mg/4ml inj IV ONE (15:50)
--- NOTE | 2020-10-03 18:51 | NUR ---
I have received report from genia Pichardo and had the opportunity to ask questions and assume patient care.
--- NOTE | 2020-10-03 18:53 | NUR ---
I have received report from genia Jones and had the opportunity to ask questions and assume patient care.
--- NOTE | 2020-10-03 18:56 | NUR ---
patient is in the process of receiving two units of blood for H&H 6.8 21.2 and repeat labs 6.4 and 20.3 . Iv infiltrated half way through resited in left upper arm. Tolerating infusion. Critical CO@ 14.[address] magana aware, patient also seen by dr pimentel. Was for surgery but Traci from OR called to say surgery for placement of AV fistular was cancelled. Patient appears stable at time of report. report given to Daquan KRUGER
--- NOTE | 2020-10-03 18:59 | NUR ---
[facility] sukhi unable to complete documentation of transfusion via meditech. Down time sheet commenced 1800hrs.
[2020-10-03] MEDS: atorvastatin 20mg tablet PO SCH (20:07)
[2020-10-03] MEDS: apixaban 2.5mg tablet PO SCH (20:07)
[2020-10-03 22:09] LABS: HEMATOCRIT 28.4 % (42.0-52.0); HEMOGLOBIN 9.4 g/dl (14.0-17.9); MEAN CORPUSCULAR HEMOGLOBIN 30.2 PG (27.0-31.0); MEAN CORPUSCULAR VOLUME 91.6 FL (78-98); MEAN PLATELET VOLUME 10.1 FL (7.4-10.4); PLATELET COUNT 169 X10'3 (140-440); RED BLOOD COUNT 3.11 X10'6 (4.70-6.10); RED CELL DISTRIBUTION WIDTH 18.6 % (11.5-14.5); WHITE BLOOD COUNT 11.1 X10'3 (4.5-11.0)
[2020-10-04 00:39] VITALS: BP 127/84
[2020-10-04 06:00] VITALS: BP 142/96
--- NOTE | 2020-10-04 06:30 | NUR ---
Patient in room ORTHO 4016. I have received report from Daquan KRUGER and had the opportunity to ask questions and assume patient care.
--- NOTE | 2020-10-04 06:37 | NUR ---
Problems reprioritized. Patient report given, questions answered & plan of care reviewed with SLICK Hendrickson.
[2020-10-04] MEDS: albuterol 2.5 MG/3 ML nebule NEB PRN (07:17)
[2020-10-04] MEDS: K and/or MAG REPLACEMENT MC SCH ×2 (08:00→19:47)
[2020-10-04 10:00] VITALS: BP 133/94
[2020-10-04] MEDS: gabapentin 300mg capsule PO SCH (10:01)
[2020-10-04] MEDS: docusate sod 100mg capsule PO SCH ×2 (10:01→19:56)
[2020-10-04] MEDS: thiamine 100mg tablet PO SCH (10:01)
[2020-10-04] MEDS: apixaban 2.5mg tablet PO SCH (10:02)
[2020-10-04] MEDS: multivitamins, therapeutics tablet PO SCH (10:02)
[2020-10-04] MEDS: HYDROcodone/acetaminophen 5mg/325mg tablet PO PRN ×2 (10:07→19:57)
[2020-10-04] MEDS: nystatin 15 GM powder TP SCH ×3 (10:08→19:58)
[2020-10-04] MEDS: nystatin 15 GM ointment TP SCH ×3 (10:08→19:57)
[2020-10-04 11:31] LABS: BASOPHILS % (AUTO) 0.3 % (0-1); EOSINOPHILS % (AUTO) 0.4 % (0-6); HEMATOCRIT 29.6 % (42.0-52.0); HEMOGLOBIN 9.9 g/dl (14.0-17.9); LYMPHOCYTES # (AUTO) 0.8 X10'3 (1.1-4.8); LYMPHOCYTES % (AUTO) 10.1 % (21-51); MEAN CORPUSCULAR HEMOGLOBIN 30.4 PG (27.0-31.0); MEAN CORPUSCULAR HGB CONC 33.4 g/dL (33.0-36.5); MEAN CORPUSCULAR VOLUME 90.9 FL (78-98); MEAN PLATELET VOLUME 9.9 FL (7.4-10.4); MONOCYTES # (AUTO) 0.9 X10'3 (0-0.9); MONOCYTES % (AUTO) 11.5 % (2-12); NEUTROPHILS # (AUTO) 5.9 X10'3 (1.8-7.7); NEUTROPHILS % (AUTO) 77.7 % (42-75); PLATELET COUNT 177 X10'3 (140-440); RED BLOOD COUNT 3.25 X10'6 (4.70-6.10); RED CELL DISTRIBUTION WIDTH 18.9 % (11.5-14.5); WHITE BLOOD COUNT 7.6 X10'3 (4.5-11.0)
[2020-10-04 11:39] LABS: ALBUMIN 1.4 G/DL (3.4-5.0); ANION GAP 13 (8-16); BLOOD UREA NITROGEN 98 MG/DL (7-18); BUN/CREATININE RATIO 25.5 (5.4-32.0); CALCIUM 7.3 MG/DL (8.5-10.1); CHLORIDE 104 MMOL/L (99-107); CREATININE 3.85 MG/DL (0.60-1.10); GLUCOSE 99 MG/DL (70-104); POTASSIUM 4.1 MMOL/L (3.5-5.1); SODIUM 135 MMOL/L (135-145); TOTAL CARBON DIOXIDE 17.8 MMOL/L (24-32); eGFR 16 ML/MIN
[2020-10-04] MEDS ORDERED: normal saline 1000ml 1,000 ML IV SCH (14:05)
[2020-10-04] MEDS ORDERED: HYDROcodone/acetaminophen 5mg/325mg tablet PO PRN (14:10)
[2020-10-04] MEDS ORDERED: HYDROcodone/acetaminophen 10/325mg tab PO PRN (14:10)
[2020-10-04] MEDS ORDERED: OXAZEpam 15mg capsule PO PRN (14:10)
--- NOTE | 2020-10-04 18:23 | NUR ---
Problems reprioritized. Patient report given, questions answered & plan of care reviewed with SANDEEP KRUGER.
[2020-10-04 19:00] VITALS: BP 129/78
[2020-10-04] MEDS: atorvastatin 20mg tablet PO SCH (19:56)
[2020-10-05] VITALS (11 sets, daily range): BP systolic 113–159; BP diastolic 59–102
[2020-10-05 06:11] LABS: BASOPHILS # (AUTO) 0.1 X10'3 (0-0.2); BASOPHILS % (AUTO) 0.9 % (0-1); EOSINOPHILS # (AUTO) 0.2 X10'3 (0-0.9); EOSINOPHILS % (AUTO) 2.5 % (0-6); HEMATOCRIT 28.7 % (42.0-52.0); HEMOGLOBIN 9.7 g/dl (14.0-17.9); LYMPHOCYTES # (AUTO) 1.5 X10'3 (1.1-4.8); LYMPHOCYTES % (AUTO) 21.5 % (21-51); MEAN CORPUSCULAR HGB CONC 33.7 g/dL (33.0-36.5); MEAN PLATELET VOLUME 9.8 FL (7.4-10.4); MONOCYTES # (AUTO) 0.9 X10'3 (0-0.9); MONOCYTES % (AUTO) 13.5 % (2-12); NEUTROPHILS # (AUTO) 4.2 X10'3 (1.8-7.7); NEUTROPHILS % (AUTO) 61.6 % (42-75); PLATELET COUNT 196 X10'3 (140-440); RED BLOOD COUNT 3.12 X10'6 (4.70-6.10); RED CELL DISTRIBUTION WIDTH 18.7 % (11.5-14.5); WHITE BLOOD COUNT 6.9 X10'3 (4.5-11.0)
[2020-10-05 06:21] LABS: ALBUMIN 1.4 G/DL (3.4-5.0); ANION GAP 17 (8-16); BLOOD UREA NITROGEN 98 MG/DL (7-18); BUN/CREATININE RATIO 25.7 (5.4-32.0); CALCIUM 6.7 MG/DL (8.5-10.1); CHLORIDE 105 MMOL/L (99-107); CREATININE 3.82 MG/DL (0.60-1.10); GLUCOSE 81 MG/DL (70-104); POTASSIUM 4.1 MMOL/L (3.5-5.1); SODIUM 138 MMOL/L (135-145); TOTAL CARBON DIOXIDE 16.4 MMOL/L (24-32); eGFR 16 ML/MIN
--- NOTE | 2020-10-05 07:25 | NUR ---
Patient in room ORTHO 4021. I have received report from Desmond Hardy and had the opportunity to ask questions and assume patient care.
[2020-10-05] MEDS: multivitamins, therapeutics tablet PO SCH (07:37)
[2020-10-05] MEDS: thiamine 100mg tablet PO SCH (07:37)
[2020-10-05] MEDS: gabapentin 300mg capsule PO SCH (07:39)
[2020-10-05] MEDS: nystatin 15 GM ointment TP SCH ×3 (07:40→20:42)
[2020-10-05] MEDS: nystatin 15 GM powder TP SCH ×3 (07:40→20:42)
[2020-10-05] MEDS: docusate sod 100mg capsule PO SCH ×2 (08:00→20:42)
[2020-10-05] MEDS: K and/or MAG REPLACEMENT MC SCH ×2 (08:00→20:00)
[2020-10-05] MEDS ORDERED: midazolam 1 mg/ML 2ml injection ONE (08:45)
[2020-10-05] MEDS ORDERED: fentaNYL/PF 50MCG/1 ML 2ML syringe ONE (08:45)
[2020-10-05] MEDS ORDERED: heparin 1,000unit/ml 10ml vial 10 ML ONE (08:45)
[2020-10-05] MEDS ORDERED: LIDOcaine 1%/PF 5ML 10 MG/ML VIAL ONE (08:45)
[2020-10-05] MEDS ORDERED: heparin 1,000 units/ml 10ml inj HE ONE ×2 (09:00)
--- NOTE | 2020-10-05 09:05 | NUR ---
Patient went to [facility] via hospital bed for TDC catheter placement. Dr Galvan in patients room aware of patients scrotal edema on penis and patient is not circumsized working on getting forskin down Dr Galvan aware.
[2020-10-05 09:07] LABS: ANISOCYTOSIS 2+; PLATELET ESTIMATE NORMAL
[2020-10-05 09:08] LABS: BURR CELLS 1+; ELLIPTOCYTES 1+
[2020-10-05 09:09] LABS: SCHISTOCYTES FEW
[2020-10-05] MEDS: HYDROcodone/acetaminophen 5mg/325mg tablet PO PRN ×2 (12:08→20:47)
--- NOTE | 2020-10-05 13:30 | NUR ---
F/u 10/05: Pt PO continues to fluctuate ~50-75% avg meals w/ vanilla ensure pudding BIDLD previously meeting minimum needs. Pt PO yesterday declined to 25-50% now s/p TDC today for HD per EMR. Given newly increased protein needs now on HD pt partially meeting needs. RD recommends Nepro BIDLD for additional protein/kcal on HD; 346ml water daily from ONS on current 1/5L fluid restricted diet. MD notified. Will reduce ensure pudding to WS only pending ONS verification; once pt receives ONS can stop ensure puddings. LBM 10/03. Will continue to monitor for additional protein needs on HD. Rec: 1. continue renal/1.5L fluid-restricted/SB6 diet per MD 2. Nepro BIDLD for additional protein/kcal on HD; pending MD verification in EMR; vanilla ensure pudding WS until ONS verified 3. phos binder w/ meals as medically indicated on HD 4. routine bowel care 5. scaled wt this admit; subsequent wts w/ HD Addendum: 10/05/20 at [address] Amended: Links added.
[2020-10-05] MEDS: ondansetron/PF 4mg/2ml inj IV PRN (15:10)
[2020-10-05] MEDS: ipratropium/albuterol 3ml nebule NEB PRN (16:39)
--- NOTE | 2020-10-05 17:59 | NUR ---
PAGER ID: [phone] MESSAGE: Barbie O/N [id number] Re: Nel [id number] complaining of non radiating CP Vitals Bp 130/92 HR 82 do you want an EKG ? please call Addendum: 10/05/20 at 1802 by Barbie Todd RN Per Dr Queen no need to do EKG, Aware patient had a chest xray after dialysis only for dialysis [facility] care to rule out TB. Read findings to Dr Queen no further orders received.
--- NOTE | 2020-10-05 18:20 | NUR ---
Patient in room ORTHO 4021. I have received report from SLICK Valentin and had the opportunity to ask questions and assume patient care.
--- NOTE | 2020-10-05 18:36 | NUR ---
Problems reprioritized. Patient report given, questions answered & plan of care reviewed with Chris KRUGER.
[2020-10-05] MEDS: apixaban 2.5mg tablet PO SCH ×2 (19:50→20:42)
[2020-10-05] MEDS: atorvastatin 20mg tablet PO SCH (20:42)
[2020-10-06 06:00] VITALS: BP 177/109
--- NOTE | 2020-10-06 06:16 | NUR ---
Problems reprioritized. Patient report given, questions answered & plan of care reviewed with Juan Alberto.
[2020-10-06] MEDS: nystatin 15 GM powder TP SCH ×3 (08:00→20:25)
[2020-10-06] MEDS: nystatin 15 GM ointment TP SCH ×3 (08:00→20:25)
[2020-10-06] MEDS: K and/or MAG REPLACEMENT MC SCH ×2 (08:00→20:00)
[2020-10-06] MEDS: HYDROcodone/acetaminophen 5mg/325mg tablet PO PRN ×2 (09:10→17:09)
[2020-10-06] MEDS: gabapentin 300mg capsule PO SCH (09:10)
[2020-10-06] MEDS: docusate sod 100mg capsule PO SCH ×2 (09:11→20:25)
[2020-10-06] MEDS: thiamine 100mg tablet PO SCH (09:11)
[2020-10-06] MEDS: multivitamins, therapeutics tablet PO SCH (09:11)
[2020-10-06 10:00] VITALS: BP 122/86
--- NOTE | 2020-10-06 10:27 | NUR ---
Izaguirre Catheter initially placed in ED due to acute retention, but the izaguirre has remained due to increased swelling of the pt penis and scrotum. Pt also went into renal failure now requiring dialysis and strict I and O. I am concerned about removing this catheter now due to the fact that the swelling of the penis is such as that we would not be able to visualize the urethral meatus in order to replace it, should he have continued retention. For this reason the catheter will remain for now. Pt now receiving dialysis which should help with the edema over time per MD Queen. Addendum: 10/06/20 at 1033 by Mayra Wilson RN Amended: Links added. Addendum: 10/06/20 at 1458 by Mayra Wilson RN spoke to Dr Galvan who advised to keep the izaguirre, and after 3-4 weeks he should be referred to urologist outpatient. Changed order to protocol B.
[2020-10-06 11:14] LABS: HBSAG SCREEN Negative (Negative); HEP B CORE AB, TOT Negative (Negative)
[2020-10-06] MEDS ORDERED: heparin 1,000unit/ml 10ml vial 10 ML IV ONE (14:25)
[2020-10-06] MEDS ORDERED: normal saline 1000ml 250 ML IV PRN (14:25)
[2020-10-06] MEDS ORDERED: heparin 1,000 units/ml 10ml inj IV ONE (14:25)
[2020-10-06] MEDS ORDERED: heparin 1,000 units/ml 10ml inj HE ONE (14:30)
--- NOTE | 2020-10-06 14:58 | NUR ---
PAGER ID: [phone] MESSAGE: Maryuri [phone]- Julian Oliva- please call radiologist Dr Rogers re CXR from yesterday. .
--- NOTE | 2020-10-06 15:27 | NUR ---
PAGER ID: [phone] MESSAGE: Maryuri [phone] daniel Neumann- spoke with Dr Rogers, radiologist, he states he cannot say that the patient does not have TB based on CXR alone. he said it does not look like typical TB but cant rule out.
[2020-10-06 18:00] VITALS: BP 133/82
--- NOTE | 2020-10-06 18:15 | NUR ---
Patient in room ORTHO 4021. I have received report from SLICK Wahl and had the opportunity to ask questions and assume patient care.
[2020-10-06] MEDS: atorvastatin 20mg tablet PO SCH (20:25)
[2020-10-06] MEDS: apixaban 2.5mg tablet PO SCH (20:25)
[2020-10-06 21:33] VITALS: BP 145/92
--- NOTE | 2020-10-07 06:12 | NUR ---
Problems reprioritized. Patient report given, questions answered & plan of care reviewed with SLICK Manzo.
[2020-10-07] MEDS ORDERED: heparin 1,000 units/ml 10ml inj IV ONE (08:00)
[2020-10-07] MEDS: K and/or MAG REPLACEMENT MC SCH ×2 (08:00→20:00)
[2020-10-07] MEDS ORDERED: heparin 1,000 units/ml 10ml inj HE ONE ×2 (08:00)
[2020-10-07] MEDS ORDERED: heparin 1,000unit/ml 10ml vial 10 ML IV ONE (08:00)
[2020-10-07] MEDS ORDERED: normal saline 1000ml 250 ML IV PRN (08:00)
[2020-10-07] MEDS: docusate sod 100mg capsule PO SCH ×2 (08:16→20:00)
[2020-10-07] MEDS: multivitamins, therapeutics tablet PO SCH (08:16)
[2020-10-07] MEDS: apixaban 2.5mg tablet PO SCH ×2 (08:16→20:24)
[2020-10-07] MEDS: nystatin 15 GM powder TP SCH ×3 (08:16→20:25)
[2020-10-07] MEDS: nystatin 15 GM ointment TP SCH ×3 (08:16→20:25)
[2020-10-07] MEDS: thiamine 100mg tablet PO SCH (08:16)
[2020-10-07] MEDS: gabapentin 300mg capsule PO SCH (08:16)
[2020-10-07 09:36] VITALS: BP 130/85
[2020-10-07] MEDS: ipratropium/albuterol 3ml nebule NEB PRN (13:33)
[2020-10-07 18:00] VITALS: BP 119/81
--- NOTE | 2020-10-07 18:00 | NUR ---
Patient in room ORTHO 4021. I have received report from wolfgang cormier and had the opportunity to ask questions and assume patient care.
[2020-10-07] MEDS: atorvastatin 20mg tablet PO SCH (20:25)
[2020-10-07] MEDS: HYDROcodone/acetaminophen 5mg/325mg tablet PO PRN (20:25)
[2020-10-07 22:00] VITALS: BP 99/69
[2020-10-08 05:30] VITALS: BP 144/89
--- NOTE | 2020-10-08 06:30 | NUR ---
Pt refuses use of IS
--- NOTE | 2020-10-08 06:30 | NUR ---
Patient in room ORTHO 4021. I have received report from SLICK Alvarez and had the opportunity to ask questions and assume patient care.
--- NOTE | 2020-10-08 06:38 | NUR ---
Problems reprioritized. Patient report given, questions answered & plan of care reviewed with camilla rn.
[2020-10-08] MEDS: K and/or MAG REPLACEMENT MC SCH ×2 (07:59→18:55)
[2020-10-08] MEDS ORDERED: nystatin 15 GM ointment TP SCH (08:05)
[2020-10-08] MEDS ORDERED: nystatin 15 GM powder TP SCH (08:05)
[2020-10-08] MEDS: docusate sod 100mg capsule PO SCH ×2 (08:46→20:00)
[2020-10-08] MEDS: gabapentin 300mg capsule PO SCH (08:47)
[2020-10-08] MEDS: multivitamins, therapeutics tablet PO SCH (08:47)
[2020-10-08] MEDS: apixaban 2.5mg tablet PO SCH ×2 (08:47→20:36)
[2020-10-08] MEDS: thiamine 100mg tablet PO SCH (08:47)
[2020-10-08] MEDS: HYDROcodone/acetaminophen 5mg/325mg tablet PO PRN ×3 (08:52→20:43)
[2020-10-08 10:00] VITALS: BP 120/83
[2020-10-08] MEDS: furosemide 20MG tablet PO SCH ×2 (14:14→20:36)
[2020-10-08 18:00] VITALS: BP 135/93
--- NOTE | 2020-10-08 18:15 | NUR ---
Problems reprioritized. Patient report given, questions answered & plan of care reviewed with SLICK Alvarez.
--- NOTE | 2020-10-08 18:20 | NUR ---
Patient in room [facility]THO 4021. I have received report from camilla cormier and had the opportunity to ask questions and assume patient care.
[2020-10-08] MEDS: atorvastatin 20mg tablet PO SCH (20:36)
[2020-10-08 22:00] VITALS: BP 144/100
[2020-10-09] MEDS: HYDROcodone/acetaminophen 5mg/325mg tablet PO PRN ×2 (05:23→13:19)
[2020-10-09 06:00] VITALS: BP 135/84
--- NOTE | 2020-10-09 06:15 | NUR ---
received report from genia fletcher
--- NOTE | 2020-10-09 06:26 | NUR ---
Patient in room ORTHO 4021. I have received report from barbi cormier and had the opportunity to ask questions and assume patient care.
[2020-10-09] MEDS: K and/or MAG REPLACEMENT MC SCH ×2 (07:47→20:00)
[2020-10-09] MEDS: docusate sod 100mg capsule PO SCH ×2 (07:48→18:50)
[2020-10-09] MEDS: apixaban 2.5mg tablet PO SCH ×2 (07:51→20:09)
[2020-10-09] MEDS: furosemide 20MG tablet PO SCH ×3 (07:51→20:09)
[2020-10-09] MEDS: gabapentin 300mg capsule PO SCH (07:52)
[2020-10-09] MEDS: multivitamins, therapeutics tablet PO SCH (07:52)
[2020-10-09] MEDS: thiamine 100mg tablet PO SCH (07:53)
[2020-10-09 10:00] VITALS: BP 140/50
[2020-10-09] MEDS ORDERED: EPOETIN ALFA-EPBX 20,000 UNIT/ML 1 ML MDV IV ONE (10:05)
[2020-10-09] MEDS ORDERED: heparin 1,000 units/ml 10ml inj IV ONE (10:05)
[2020-10-09] MEDS ORDERED: heparin 1,000unit/ml 10ml vial 10 ML IV ONE (10:05)
[2020-10-09] MEDS ORDERED: heparin 1,000 units/ml 10ml inj HE ONE (10:10)
[2020-10-09 10:40] LABS: HEMATOCRIT 32.3 % (42.0-52.0); HEMOGLOBIN 10.4 g/dl (14.0-17.9); MEAN CORPUSCULAR HEMOGLOBIN 30.4 PG (27.0-31.0); MEAN CORPUSCULAR HGB CONC 32.2 g/dL (33.0-36.5); MEAN CORPUSCULAR VOLUME 94.3 FL (78-98); PLATELET COUNT 217 X10'3 (140-440); RED BLOOD COUNT 3.43 X10'6 (4.70-6.10); RED CELL DISTRIBUTION WIDTH 18.3 % (11.5-14.5); WHITE BLOOD COUNT 5.8 X10'3 (4.5-11.0)
[2020-10-09 10:41] LABS: ALBUMIN 1.3 G/DL (3.4-5.0); ANION GAP 11 (8-16); BILIRUBIN,TOTAL 0.4 MG/DL (0.1-1.0); BLOOD UREA NITROGEN 52 MG/DL (7-18); BUN/CREATININE RATIO 20.6 (5.4-32.0); CALCIUM 6.5 MG/DL (8.5-10.1); CHLORIDE 103 MMOL/L (99-107); CREATININE 2.53 MG/DL (0.60-1.10); GLUCOSE 110 MG/DL (70-104); POTASSIUM 3.3 MMOL/L (3.5-5.1); SODIUM 137 MMOL/L (135-145); TOTAL CARBON DIOXIDE 22.8 MMOL/L (24-32); eGFR 25 ML/MIN
[2020-10-09 10:42] LABS: ALANINE AMINOTRANSFERASE 10 U/L (12-78); ALBUMIN/GLOBULIN RATIO 0.4 (1.1-1.5); ALKALINE PHOSPHATASE 96 IU/L (46-116); ASPARTATE AMINO TRANSFERASE 26 U/L (10-37)
[2020-10-09] MEDS: ondansetron/PF 4mg/2ml inj IV PRN (12:28)
[2020-10-09] MEDS: calcium acetate 667mg (PhosLO) capsule PO SCH ×2 (13:00→18:52)
--- NOTE | 2020-10-09 13:04 | NUR ---
CHARGE NURSE NOTIFIED DIALYSIS NURSE OF PT ORDERS TO RECEIVE DIALYSIS TODAY
[2020-10-09 18:00] VITALS: BP 135/92
--- NOTE | 2020-10-09 18:18 | NUR ---
gave report to genia wilson
[2020-10-09] MEDS: atorvastatin 20mg tablet PO SCH (20:09)
[2020-10-09] MEDS: lisinopril 5mg tablet PO SCH (20:10)
[2020-10-09 22:00] VITALS: BP 122/86
[2020-10-10 06:00] VITALS: BP 160/94
--- NOTE | 2020-10-10 06:13 | NUR ---
Problems reprioritized. Patient report given, questions answered & plan of care reviewed with SLICK CARABALLO.
--- NOTE | 2020-10-10 06:15 | NUR ---
received report from genia wilson
[2020-10-10] MEDS: docusate sod 100mg capsule PO SCH ×2 (07:52→18:56)
[2020-10-10] MEDS: K and/or MAG REPLACEMENT MC SCH ×2 (07:52→19:40)
[2020-10-10] MEDS: multivitamins, therapeutics tablet PO SCH (07:57)
[2020-10-10] MEDS: apixaban 2.5mg tablet PO SCH ×2 (07:57→19:33)
[2020-10-10] MEDS: lisinopril 5mg tablet PO SCH ×2 (07:57→19:35)
[2020-10-10] MEDS: calcium acetate 667mg (PhosLO) capsule PO SCH ×3 (07:57→18:40)
[2020-10-10] MEDS: furosemide 20MG tablet PO SCH ×3 (07:58→19:33)
[2020-10-10] MEDS: gabapentin 300mg capsule PO SCH (07:58)
[2020-10-10] MEDS: thiamine 100mg tablet PO SCH (07:58)
[2020-10-10 10:00] VITALS: BP 98/70
[2020-10-10] MEDS: HYDROcodone/acetaminophen 5mg/325mg tablet PO PRN ×2 (17:15→21:31)
--- NOTE | 2020-10-10 17:37 | NUR ---
F/u 10/10: Pt PO mostly ~75% avg meals though down to occasional 50% at times w/ vanilla ensure pudding WS partially meeting needs. MD notified of Nepro PAVAN ONS RD recs for additional protein/kcals; pending verification in EMR. [facility] 10/09 receiving routine colace. Will continue to monitor for additional protein/kcal needs on HD. Rec: 1. continue renal/1.5L fluid-restricted/SB6 diet per MD; encourage PO 2. Nepro BIDLD for additional protein/kcal on HD; pending MD verification in EMR; vanilla ensure pudding WS until ONS verified 3. phos binder w/ meals as medically indicated on HD 4. routine bowel care 5. scaled wt this admit; subsequent wts w/ HD Addendum: 10/10/20 at [address] Amended: Links added.
--- NOTE | 2020-10-10 17:50 | NUR ---
[facility] notified me that pt had a min run of afib, sent a page to notify md of this, no new orders at this time
--- NOTE | 2020-10-10 17:59 | NUR ---
gave report to genia wilosn
--- NOTE | 2020-10-10 18:16 | NUR ---
Patient in room ORTHO 4021. I have received report from genia Ward and had the opportunity to ask questions and assume patient care.
[2020-10-10 18:18] VITALS: BP 108/59
[2020-10-10] MEDS: atorvastatin 20mg tablet PO SCH (19:33)
[2020-10-10 22:00] VITALS: BP 115/75
[2020-10-11 06:00] VITALS: BP 102/69
--- NOTE | 2020-10-11 06:13 | NUR ---
Problems reprioritized. Patient report given, questions answered & plan of care reviewed with SLICK CARABALLO AND SLICK DASILVA.
--- NOTE | 2020-10-11 06:48 | NUR ---
Patient in room ORTHO 4021B. I have received report from SLICK CARBALLO and had the opportunity to ask questions and assume patient care.
[2020-10-11] MEDS: multivitamins, therapeutics tablet PO SCH (07:53)
[2020-10-11] MEDS: gabapentin 300mg capsule PO SCH (07:53)
[2020-10-11] MEDS: apixaban 2.5mg tablet PO SCH ×2 (07:53→21:13)
[2020-10-11] MEDS: furosemide 20MG tablet PO SCH ×3 (07:53→21:13)
[2020-10-11] MEDS: calcium acetate 667mg (PhosLO) capsule PO SCH ×3 (07:54→18:50)
[2020-10-11] MEDS: thiamine 100mg tablet PO SCH (07:54)
[2020-10-11] MEDS: lisinopril 5mg tablet PO SCH ×2 (07:54→21:13)
[2020-10-11] MEDS: HYDROcodone/acetaminophen 5mg/325mg tablet PO PRN (07:55)
[2020-10-11] MEDS: K and/or MAG REPLACEMENT MC SCH ×2 (08:00→20:00)
[2020-10-11] MEDS: docusate sod 100mg capsule PO SCH ×2 (08:00→20:00)
[2020-10-11 09:23] LABS: BASOPHILS # (AUTO) 0.1 X10'3 (0-0.2); BASOPHILS % (AUTO) 0.7 % (0-1); EOSINOPHILS # (AUTO) 0.1 X10'3 (0-0.9); EOSINOPHILS % (AUTO) 0.9 % (0-6); HEMATOCRIT 31.3 % (42.0-52.0); HEMOGLOBIN 10.2 g/dl (14.0-17.9); LYMPHOCYTES # (AUTO) 1.3 X10'3 (1.1-4.8); LYMPHOCYTES % (AUTO) 16.5 % (21-51); MEAN CORPUSCULAR HEMOGLOBIN 30.6 PG (27.0-31.0); MEAN CORPUSCULAR HGB CONC 32.6 g/dL (33.0-36.5); MONOCYTES # (AUTO) 1.1 X10'3 (0-0.9); MONOCYTES % (AUTO) 13.9 % (2-12); NEUTROPHILS # (AUTO) 5.3 X10'3 (1.8-7.7); PLATELET COUNT 230 X10'3 (140-440); RED BLOOD COUNT 3.32 X10'6 (4.70-6.10); RED CELL DISTRIBUTION WIDTH 18.4 % (11.5-14.5); WHITE BLOOD COUNT 7.8 X10'3 (4.5-11.0)
[2020-10-11 09:30] LABS: ALBUMIN 1.1 G/DL (3.4-5.0); ANION GAP 10 (8-16); BLOOD UREA NITROGEN 41 MG/DL (7-18); BUN/CREATININE RATIO 16.7 (5.4-32.0); CHLORIDE 105 MMOL/L (99-107); CREATININE 2.45 MG/DL (0.60-1.10); GLUCOSE 145 MG/DL (70-104); POTASSIUM 3.3 MMOL/L (3.5-5.1); SODIUM 138 MMOL/L (135-145); TOTAL CARBON DIOXIDE 22.7 MMOL/L (24-32); eGFR 26 ML/MIN
[2020-10-11 10:00] VITALS: BP 136/67
--- NOTE | 2020-10-11 13:48 | NUR ---
Page Sent PAGER ID: [phone] MESSAGE: Maria A 3780Julian Langford 4021B Pt's K+ is 3.3, can I get orders to replace? Thank you!
[2020-10-11] MEDS: ondansetron/PF 4mg/2ml inj IV PRN (14:18)
[2020-10-11 18:00] VITALS: BP 96/60
--- NOTE | 2020-10-11 18:30 | NUR ---
Patient in room ORTHO 4021. I have received report from BROWNRN AND RASHMIRN and had the opportunity to ask questions and assume patient care.
--- NOTE | 2020-10-11 18:39 | NUR ---
Problems reprioritized. Patient report given, questions answered & plan of care reviewed with SLICK Storm.
[2020-10-11] MEDS: atorvastatin 20mg tablet PO SCH (21:10)
[2020-10-11 22:00] VITALS: BP 161/99
--- NOTE | 2020-10-12 04:15 | NUR ---
MESSAGE: 4021B LOUDIANA 69 HERE FOR RENAL FAILURE JUST HAD V-TACH LASTED 16 SECONDS. 145/91 HR81. PT WAS ASLEEP AND ASYMPTOMATIC. #[id number] KAIT
[2020-10-12 06:00] VITALS: BP 160/88
--- NOTE | 2020-10-12 06:12 | NUR ---
Problems reprioritized. Patient report given, questions answered & plan of care reviewed with SLICK HERNANDEZ AND SLICK DASILVA.
--- NOTE | 2020-10-12 06:31 | NUR ---
Patient in room ORTHO 4021B. I have received report from SLICK Storm and had the opportunity to ask questions and assume patient care.
[2020-10-12] MEDS: docusate sod 100mg capsule PO SCH ×2 (08:00→20:00)
[2020-10-12] MEDS: K and/or MAG REPLACEMENT MC SCH ×2 (08:00→20:00)
[2020-10-12] MEDS: gabapentin 300mg capsule PO SCH (08:30)
[2020-10-12] MEDS: multivitamins, therapeutics tablet PO SCH (08:30)
[2020-10-12] MEDS: furosemide 20MG tablet PO SCH ×3 (08:30→21:26)
[2020-10-12] MEDS: thiamine 100mg tablet PO SCH (08:30)
[2020-10-12] MEDS: apixaban 2.5mg tablet PO SCH ×2 (08:30→21:25)
[2020-10-12] MEDS: calcium acetate 667mg (PhosLO) capsule PO SCH ×3 (08:30→17:57)
[2020-10-12] MEDS: lisinopril 5mg tablet PO SCH ×2 (08:30→21:25)
[2020-10-12] MEDS ORDERED: EPOETIN ALFA-EPBX 20,000 UNIT/ML 1 ML MDV IV ONE (08:45)
[2020-10-12] MEDS ORDERED: heparin 1,000unit/ml 10ml vial 10 ML IV ONE (08:45)
[2020-10-12] MEDS ORDERED: normal saline 1000ml 250 ML IV PRN (08:45)
[2020-10-12] MEDS ORDERED: heparin 1,000 units/ml 10ml inj HE ONE ×2 (08:50)
[2020-10-12 10:00] VITALS: BP 105/68
--- NOTE | 2020-10-12 10:42 | NUR ---
Page Sent PAGER ID: [phone] MESSAGE: Julian Sesay [phone] pt has had 4 watery diarrhea BMs this morning. Any new orders? Thank you!!!
[2020-10-12 11:57] LABS: BASOPHILS # (AUTO) 0.1 X10'3 (0-0.2); BASOPHILS % (AUTO) 1.3 % (0-1); EOSINOPHILS # (AUTO) 0.1 X10'3 (0-0.9); EOSINOPHILS % (AUTO) 1.8 % (0-6); HEMATOCRIT 31.3 % (42.0-52.0); HEMOGLOBIN 10.2 g/dl (14.0-17.9); LYMPHOCYTES % (AUTO) 16.3 % (21-51); MEAN CORPUSCULAR HEMOGLOBIN 30.7 PG (27.0-31.0); MEAN CORPUSCULAR HGB CONC 32.6 g/dL (33.0-36.5); MEAN CORPUSCULAR VOLUME 94.2 FL (78-98); MEAN PLATELET VOLUME 10.8 FL (7.4-10.4); MONOCYTES # (AUTO) 0.9 X10'3 (0-0.9); NEUTROPHILS % (AUTO) 65.6 % (42-75); PLATELET COUNT 227 X10'3 (140-440); RED BLOOD COUNT 3.32 X10'6 (4.70-6.10); RED CELL DISTRIBUTION WIDTH 18.5 % (11.5-14.5); WHITE BLOOD COUNT 6.1 X10'3 (4.5-11.0)
[2020-10-12 12:29] LABS: ANISOCYTOSIS 2+; PLATELET ESTIMATE NORMAL; TOTAL CELLS COUNTED 100
[2020-10-12 12:30] LABS: ACANTHOCYTES 1+; BURR CELLS FEW; LARGE PLATELETS FEW
[2020-10-12 12:31] LABS: SCHISTOCYTES FEW
[2020-10-12] MEDS: HYDROcodone/acetaminophen 5mg/325mg tablet PO PRN (17:59)
[2020-10-12 18:00] VITALS: BP 102/70
--- NOTE | 2020-10-12 18:39 | NUR ---
Problems reprioritized. Patient report given, questions answered & plan of care reviewed with SLICK Simmons.
--- NOTE | 2020-10-12 18:45 | NUR ---
Patient in room ORTHO 4021. I have received report from Maria A KRUGER and had the opportunity to ask questions and assume patient care.
[2020-10-12] MEDS: atorvastatin 20mg tablet PO SCH (21:25)
[2020-10-12 22:00] VITALS: BP 151/78
[2020-10-12] MEDS ORDERED: potassium Cl 20 mEq SR tablet PO PRN ×2 (22:30)
[2020-10-12] MEDS ORDERED: potassium Cl 40MEQ/1/2NS 520ml 520 ML IV PRN (22:30)
--- NOTE | 2020-10-12 22:31 | NUR ---
Spoke with Hospitalist regarding pts. potassium of 3.3 yesterday. okayed to start pt on replacement protocol.
--- NOTE | 2020-10-12 22:33 | NUR ---
Problems reprioritized. Patient report given, questions answered & plan of care reviewed with Roshan KRUGER.
[2020-10-13 02:00] VITALS: BP 179/90
[2020-10-13 03:18] VITALS: BP 108/67
[2020-10-13] MEDS: HYDROcodone/acetaminophen 5mg/325mg tablet PO PRN ×3 (04:07→21:59)
[2020-10-13 06:00] VITALS: BP 158/85
--- NOTE | 2020-10-13 06:45 | NUR ---
Patient in room ORTHO 4021. I have received report from Roshan KRUGER and had the opportunity to ask questions and assume patient care.
[2020-10-13] MEDS: docusate sod 100mg capsule PO SCH ×2 (08:00→20:00)
[2020-10-13] MEDS: K and/or MAG REPLACEMENT MC SCH ×2 (08:00→20:00)
[2020-10-13] MEDS: furosemide 20MG tablet PO SCH ×3 (08:10→21:56)
[2020-10-13] MEDS: calcium acetate 667mg (PhosLO) capsule PO SCH ×3 (08:11→17:28)
[2020-10-13] MEDS: multivitamins, therapeutics tablet PO SCH (08:11)
[2020-10-13] MEDS: gabapentin 300mg capsule PO SCH (08:11)
[2020-10-13] MEDS: thiamine 100mg tablet PO SCH (08:12)
[2020-10-13] MEDS: apixaban 2.5mg tablet PO SCH ×2 (08:15→21:52)
[2020-10-13] MEDS: lisinopril 5mg tablet PO SCH ×2 (08:15→21:56)
[2020-10-13 10:00] VITALS: BP 90/59
--- NOTE | 2020-10-13 15:27 | NUR ---
Nursing staff has offered multiple times throughout the shift for pt to ambulate to restroom as well as reposition. Pt becomes unpleasant and yells at staff to "leave him alone". Will continue to offer pt repositioning. Addendum: 10/13/20 at 1528 by Delma Alfonso RN Amended: Links added.
[2020-10-13 18:00] VITALS: BP 120/73
--- NOTE | 2020-10-13 18:42 | NUR ---
Problems reprioritized. Patient report given, questions answered & plan of care reviewed with Iris KRUGER.
--- NOTE | 2020-10-13 18:51 | NUR ---
Patient in room ORTHO 4021. I have received report from Delma KRUGER and had the opportunity to ask questions and assume patient care.
[2020-10-13] MEDS: atorvastatin 20mg tablet PO SCH (21:56)
[2020-10-13 22:00] VITALS: BP 146/83
--- NOTE | 2020-10-14 02:46 | NUR ---
Pt is resistive to care. Pt states he wants to be left alone also stated he could turn himself if he wanted to. Will continue to educate pt on the importance of repositioning, elevating extremities, and providing skin care to help prevent skin breakdown. Addendum: 10/14/20 at 0248 by Iris Nugent RN Amended: Links added.
[2020-10-14 06:00] VITALS: BP 162/96
--- NOTE | 2020-10-14 06:12 | NUR ---
Problems reprioritized. Patient report given, questions answered & plan of care reviewed with Delma KRUGER.
[2020-10-14 06:20] LABS: HEMATOCRIT 31.2 % (42.0-52.0); HEMOGLOBIN 10.1 g/dl (14.0-17.9); MEAN CORPUSCULAR HGB CONC 32.5 g/dL (33.0-36.5); MEAN CORPUSCULAR VOLUME 95.2 FL (78-98); MEAN PLATELET VOLUME 10.2 FL (7.4-10.4); PLATELET COUNT 242 X10'3 (140-440); RED BLOOD COUNT 3.27 X10'6 (4.70-6.10); RED CELL DISTRIBUTION WIDTH 18.4 % (11.5-14.5)
--- NOTE | 2020-10-14 06:49 | NUR ---
Patient in room ORTHO 4021. I have received report from Iris KRUGER and had the opportunity to ask questions and assume patient care.
[2020-10-14] MEDS: multivitamins, therapeutics tablet PO SCH (07:54)
[2020-10-14] MEDS: furosemide 20MG tablet PO SCH ×3 (07:54→20:51)
[2020-10-14] MEDS: lisinopril 5mg tablet PO SCH ×2 (07:54→20:50)
[2020-10-14] MEDS: gabapentin 300mg capsule PO SCH (07:55)
[2020-10-14] MEDS: thiamine 100mg tablet PO SCH (07:55)
[2020-10-14] MEDS: calcium acetate 667mg (PhosLO) capsule PO SCH ×3 (07:55→17:38)
[2020-10-14] MEDS: apixaban 2.5mg tablet PO SCH ×2 (07:55→20:47)
[2020-10-14] MEDS ORDERED: normal saline 1000ml 250 ML IV PRN (08:00)
[2020-10-14] MEDS: docusate sod 100mg capsule PO SCH ×2 (08:00→20:00)
[2020-10-14] MEDS ORDERED: EPOETIN ALFA-EPBX 20,000 UNIT/ML 1 ML MDV IV ONE (08:00)
[2020-10-14] MEDS ORDERED: heparin 1,000unit/ml 10ml vial 10 ML IV ONE (08:00)
[2020-10-14] MEDS: K and/or MAG REPLACEMENT MC SCH ×2 (08:00→19:31)
[2020-10-14] MEDS ORDERED: heparin 1,000 units/ml 10ml inj HE ONE ×2 (08:00)
[2020-10-14 10:00] VITALS: BP 150/83
--- NOTE | 2020-10-14 12:00 | NUR ---
MD aware of latest lab results being 10/11/20. MD also aware of pts lack of fluid restriction. No new orders for pt
[2020-10-14] MEDS: HYDROcodone/acetaminophen 5mg/325mg tablet PO PRN ×2 (12:50→20:50)
--- NOTE | 2020-10-14 13:22 | NUR ---
Reassessment: PO intake of meals fluctuates with average 50-75% though up to 100% PO intake at breakfast this morning. ONS still not verified in EMR though recommendation was placed under physician that is no longer following pt. Will update ONS recommendation pending further trends in PO intake as ONS may not be indicated if pt continues with increasing trend in PO intake. [facility] 10/14 documented with diarrhea, routine bowel care held. Will continue to follow and monitor need for further nutrition intervention. Rec: 1. continue SB6 renal diet per MD; encourage PO 2. Nepro BIDLD for additional protein/kcal on HD; pending MD verification in EMR; (ONS may not be indicated if PO intake continues to improve); vanilla ensure pudding WS until ONS verified 3. phos binder w/ meals as medically indicated on HD 4. routine bowel care 5. scaled wt this admit; subsequent wts w/ HD Addendum: 10/14/20 at [address] Amended: Links added.
--- NOTE | 2020-10-14 13:58 | NUR ---
Pt in A bed's c/o small amount of liquid on floor; assumed it was from the dialysis machine treating patient in bed B. Upon inspection there were no inlet or outlet connections under A bed. She also c/o dialysis hoses were a danger r/t falling though the dialysis hoses were placed along the perimeter, back of his bed and along side the wall into the patient bathroom where no one could walk. The only cord within walking area was the electric cord securely taped to the floor. It appeared the liquid spilled from a container on A bed's bedside table. The A bed patient's was frequently complaining that someone was being dialysis while her was being discharged.
[2020-10-14 18:00] VITALS: BP 144/78
--- NOTE | 2020-10-14 18:40 | NUR ---
Patient in room ORTHO 4021. I have received report from and had the opportunity to ask questions and assume patient care. Addendum: 10/14/20 at 1936 by Iris Nugent RN from Delma KRUGER
--- NOTE | 2020-10-14 18:42 | NUR ---
Problems reprioritized. Patient report given, questions answered & plan of care reviewed with Iris Givens
[2020-10-14] MEDS: atorvastatin 20mg tablet PO SCH (20:47)
[2020-10-14 22:00] VITALS: BP 178/79
[2020-10-15 06:00] VITALS: BP 150/88
--- NOTE | 2020-10-15 06:13 | NUR ---
Problems reprioritized. Patient report given, questions answered & plan of care reviewed with Delma KRUGER.
--- NOTE | 2020-10-15 06:48 | NUR ---
Patient in room ORTHO 4021. I have received report from Di KRUGER and had the opportunity to ask questions and assume patient care.
[2020-10-15 06:53] LABS: ALBUMIN 1.1 G/DL (3.4-5.0); ANION GAP 6 (8-16); BLOOD UREA NITROGEN 26 MG/DL (7-18); BUN/CREATININE RATIO 12.6 (5.4-32.0); CALCIUM 7.4 MG/DL (8.5-10.1); CHLORIDE 107 MMOL/L (99-107); CREATININE 2.07 MG/DL (0.60-1.10); GLUCOSE 77 MG/DL (70-104); SODIUM 139 MMOL/L (135-145); TOTAL CARBON DIOXIDE 25.8 MMOL/L (24-32); eGFR 32 ML/MIN
--- NOTE | 2020-10-15 07:44 | NUR ---
PAGER ID: [phone] MESSAGE: RANJITH KRUGER [phone] RE: JALYN GUERRA [id number]. PTS IV INFILTRATED, CAN WE SWITCH LASIX TO PO? VICTOR MANUEL ETIENNE
[2020-10-15] MEDS: docusate sod 100mg capsule PO SCH ×2 (08:00→20:00)
[2020-10-15] MEDS: K and/or MAG REPLACEMENT MC SCH ×2 (08:00→20:00)
[2020-10-15] MEDS: lisinopril 5mg tablet PO SCH ×2 (08:29→21:05)
[2020-10-15] MEDS: thiamine 100mg tablet PO SCH (08:29)
[2020-10-15] MEDS: furosemide 20MG tablet PO SCH ×3 (08:30→21:03)
[2020-10-15] MEDS: apixaban 2.5mg tablet PO SCH ×2 (08:30→21:04)
[2020-10-15] MEDS: gabapentin 300mg capsule PO SCH (08:30)
[2020-10-15] MEDS: calcium acetate 667mg (PhosLO) capsule PO SCH ×3 (08:30→17:39)
[2020-10-15] MEDS: multivitamins, therapeutics tablet PO SCH (08:30)
[2020-10-15 09:48] VITALS: BP 108/72
--- NOTE | 2020-10-15 11:47 | NUR ---
PAGER ID: [phone] MESSAGE: Delma KRUGER [id number] RE: Julian Neumann [id number]. May i send stool sample down, continues to have loose bms. Thank you
--- NOTE | 2020-10-15 12:30 | NUR ---
Pt currently refusing pillow repositioning & lotion application to skin. Will continue to offer repositioning and wound care recommendations. Addendum: 10/15/20 at 1820 by Delma Alfonso RN Amended: Links added.
--- NOTE | 2020-10-15 12:32 | NUR ---
Pt agreed to walk with nursing staff, pt walked approximately 50ft. Pt sitting up in chair eating lunch. Pt continues to have bowel movements >10 in last two days, sent stool sample down for R/O c-diff. Will continue to monitor pt.
[2020-10-15 13:57] LABS: OCCULT BLOOD STOOL NEGATIVE (Neg)
[2020-10-15 18:00] VITALS: BP 146/89
--- NOTE | 2020-10-15 18:59 | NUR ---
Problems reprioritized. Patient report given, questions answered & plan of care reviewed with Vivi cormier.
--- NOTE | 2020-10-15 19:00 | NUR ---
Patient in room ORTHO 4021. I have received report from RANJITH KRUGER and had the opportunity to ask questions and assume patient care. Addendum: 10/15/20 at 1901 by Vivi Jenkins RN Amended: Links added.
[2020-10-15] MEDS: HYDROcodone/acetaminophen 5mg/325mg tablet PO PRN (21:02)
[2020-10-15] MEDS: atorvastatin 20mg tablet PO SCH (21:03)
[2020-10-15 22:00] VITALS: BP 137/75
--- NOTE | 2020-10-16 01:13 | NUR ---
pt resting no s&s of distress at this time.
--- NOTE | 2020-10-16 04:20 | NUR ---
put on bedopan had med sized soft formed andi colored stool with no cdiff smell. then partial bedbath done with complete lien change and gown changed. izaguirre care done. pt tolerated well.
[2020-10-16 06:00] VITALS: BP 146/91
--- NOTE | 2020-10-16 06:07 | NUR ---
Problems reprioritized. Patient report given, questions answered & plan of care reviewed with CARL KRUGER. Addendum: 10/16/20 at 0608 by Vivi Jenkins RN Amended: Links added.
[2020-10-16 06:16] LABS: BASOPHILS # (AUTO) 0.1 X10'3 (0-0.2); BASOPHILS % (AUTO) 1.3 % (0-1); EOSINOPHILS # (AUTO) 0.2 X10'3 (0-0.9); EOSINOPHILS % (AUTO) 2.1 % (0-6); HEMOGLOBIN 9.9 g/dl (14.0-17.9); LYMPHOCYTES # (AUTO) 1.9 X10'3 (1.1-4.8); LYMPHOCYTES % (AUTO) 25.7 % (21-51); MEAN CORPUSCULAR HEMOGLOBIN 31.1 PG (27.0-31.0); MEAN CORPUSCULAR HGB CONC 32.9 g/dL (33.0-36.5); MEAN CORPUSCULAR VOLUME 94.5 FL (78-98); MEAN PLATELET VOLUME 9.5 FL (7.4-10.4); MONOCYTES # (AUTO) 1.1 X10'3 (0-0.9); MONOCYTES % (AUTO) 14.4 % (2-12); NEUTROPHILS # (AUTO) 4.2 X10'3 (1.8-7.7); NEUTROPHILS % (AUTO) 56.5 % (42-75); PLATELET COUNT 263 X10'3 (140-440); RED BLOOD COUNT 3.17 X10'6 (4.70-6.10); RED CELL DISTRIBUTION WIDTH 18.5 % (11.5-14.5); WHITE BLOOD COUNT 7.5 X10'3 (4.5-11.0)
[2020-10-16 06:32] LABS: ALBUMIN 1.1 G/DL (3.4-5.0); ANION GAP 10 (8-16); BLOOD UREA NITROGEN 32 MG/DL (7-18); BUN/CREATININE RATIO 13.1 (5.4-32.0); CALCIUM 7.1 MG/DL (8.5-10.1); CHLORIDE 106 MMOL/L (99-107); CREATININE 2.45 MG/DL (0.60-1.10); GLUCOSE 81 MG/DL (70-104); POTASSIUM 3.9 MMOL/L (3.5-5.1); SODIUM 140 MMOL/L (135-145); TOTAL CARBON DIOXIDE 24.5 MMOL/L (24-32); eGFR 26 ML/MIN
--- NOTE | 2020-10-16 06:38 | NUR ---
I have received report from Vivi KRUGER and had the opportunity to ask questions and assume patient care.
[2020-10-16] MEDS: K and/or MAG REPLACEMENT MC SCH ×2 (06:48→20:00)
[2020-10-16] MEDS: docusate sod 100mg capsule PO SCH ×2 (08:00→20:00)
[2020-10-16] MEDS: multivitamins, therapeutics tablet PO SCH (08:16)
[2020-10-16] MEDS: thiamine 100mg tablet PO SCH (08:16)
[2020-10-16] MEDS: furosemide 20MG tablet PO SCH ×3 (08:16→20:06)
[2020-10-16] MEDS: lisinopril 5mg tablet PO SCH ×2 (08:17→20:06)
[2020-10-16] MEDS: apixaban 2.5mg tablet PO SCH ×2 (08:17→20:07)
[2020-10-16] MEDS: calcium acetate 667mg (PhosLO) capsule PO SCH ×3 (08:17→17:15)
[2020-10-16] MEDS: gabapentin 300mg capsule PO SCH (08:18)
[2020-10-16 10:30] VITALS: BP 157/87
--- NOTE | 2020-10-16 14:36 | NUR ---
Patient refused to walk, Patient states that he doesn't feel very good and feels tired today.
[2020-10-16 18:00] VITALS: BP 157/96
--- NOTE | 2020-10-16 18:30 | NUR ---
Report given to Delma KRUGER
[2020-10-16] MEDS: atorvastatin 20mg tablet PO SCH (20:06)
[2020-10-16] MEDS: HYDROcodone/acetaminophen 5mg/325mg tablet PO PRN (20:10)
[2020-10-17] MEDS ORDERED: mag hydrox/Alum hydrox/simeth 30ml oral suspension PO PRN (05:00)
[2020-10-17 06:00] VITALS: BP 127/89
--- NOTE | 2020-10-17 06:13 | NUR ---
Patient in room ORTHO 4021B. I have received report from SLICK Nguyễn and had the opportunity to ask questions and assume patient care.
[2020-10-17 07:32] LABS: BASOPHILS # (AUTO) 0.1 X10'3 (0-0.2); BASOPHILS % (AUTO) 0.9 % (0-1); EOSINOPHILS # (AUTO) 0.1 X10'3 (0-0.9); EOSINOPHILS % (AUTO) 1.7 % (0-6); HEMATOCRIT 33.7 % (42.0-52.0); HEMOGLOBIN 10.9 g/dl (14.0-17.9); LYMPHOCYTES # (AUTO) 1.1 X10'3 (1.1-4.8); LYMPHOCYTES % (AUTO) 17.3 % (21-51); MEAN CORPUSCULAR HEMOGLOBIN 30.8 PG (27.0-31.0); MEAN CORPUSCULAR HGB CONC 32.4 g/dL (33.0-36.5); MEAN PLATELET VOLUME 9.5 FL (7.4-10.4); MONOCYTES % (AUTO) 16.2 % (2-12); NEUTROPHILS % (AUTO) 63.9 % (42-75); PLATELET COUNT 293 X10'3 (140-440); RED BLOOD COUNT 3.55 X10'6 (4.70-6.10); RED CELL DISTRIBUTION WIDTH 18.8 % (11.5-14.5); WHITE BLOOD COUNT 6.3 X10'3 (4.5-11.0)
[2020-10-17] MEDS: multivitamins, therapeutics tablet PO SCH (07:37)
[2020-10-17] MEDS: calcium acetate 667mg (PhosLO) capsule PO SCH ×3 (07:37→18:58)
[2020-10-17] MEDS: gabapentin 300mg capsule PO SCH (07:37)
[2020-10-17] MEDS: apixaban 2.5mg tablet PO SCH (07:38)
[2020-10-17] MEDS: thiamine 100mg tablet PO SCH (07:38)
[2020-10-17] MEDS: furosemide 20MG tablet PO SCH ×2 (07:38→15:13)
[2020-10-17] MEDS: lisinopril 5mg tablet PO SCH (07:39)
[2020-10-17] MEDS ORDERED: pantoprazole 40mg Tablet.DR PO SCH (08:00)
[2020-10-17] MEDS: docusate sod 100mg capsule PO SCH (08:00)
[2020-10-17] MEDS ORDERED: EPOETIN ALFA-EPBX 20,000 UNIT/ML 1 ML MDV IV ONE (08:00)
[2020-10-17] MEDS ORDERED: normal saline 1000ml 250 ML IV PRN (08:00)
[2020-10-17] MEDS: K and/or MAG REPLACEMENT MC SCH (08:00)
[2020-10-17] MEDS ORDERED: heparin 1,000 units/ml 10ml inj HE ONE ×2 (08:00)
[2020-10-17] MEDS ORDERED: heparin 1,000unit/ml 10ml vial 10 ML IV ONE (08:00)
[2020-10-17 08:11] LABS: ALBUMIN 1.2 G/DL (3.4-5.0); ANION GAP 9 (8-16); BLOOD UREA NITROGEN 42 MG/DL (7-18); BUN/CREATININE RATIO 15.4 (5.4-32.0); CALCIUM 7.2 MG/DL (8.5-10.1); CHLORIDE 105 MMOL/L (99-107); CREATININE 2.72 MG/DL (0.60-1.10); GLUCOSE 93 MG/DL (70-104); SODIUM 137 MMOL/L (135-145); TOTAL CARBON DIOXIDE 22.9 MMOL/L (24-32); eGFR 23 ML/MIN
[2020-10-17 08:39] LABS: TOTAL CELLS COUNTED 100
[2020-10-17 08:40] LABS: ACANTHOCYTES 1+; ANISOCYTOSIS 2+; PLATELET ESTIMATE NORMAL
[2020-10-17 08:41] LABS: BURR CELLS FEW; SCHISTOCYTES FEW
[2020-10-17 10:00] VITALS: BP 114/81
== END 2020-10-17 19:32 | DRG 674 ==
LOC: ER 13:17 → ED HOLD 20:01 → ORTHO 4S 23:54
PROVIDERS: ADMIT Internal Medicine; ATTEND Family Medicine
PROC: 0T9B70Z Drainage of Bladder with Drainage Device, Via Natural or Artificial Opening (ICD-10-PCS; 2020-09-21)
PROC: CT131ZZ Planar Nuclear Medicine Imaging of Kidneys, Ureters and Bladder using Technetium 99m (Tc-99m) (ICD-10-PCS; 2020-09-28)
PROC: 30233N1 Transfusion of Nonautologous Red Blood Cells into Peripheral Vein, Percutaneous Approach (ICD-10-PCS; 2020-10-03)
PROC: 0JH63XZ Insertion of Tunneled Vascular Access Device into Chest Subcutaneous Tissue and Fascia, Percutaneous Approach (ICD-10-PCS; principal; 2020-10-05)
PROC: 02HV33Z Insertion of Infusion Device into Superior Vena Cava, Percutaneous Approach (ICD-10-PCS; 2020-10-05)
PROC: B5181ZA Fluoroscopy of Superior Vena Cava using Low Osmolar Contrast, Guidance (ICD-10-PCS; 2020-10-05)
PROC: B548ZZA Ultrasonography of Superior Vena Cava, Guidance (ICD-10-PCS; 2020-10-05)
PROC: 5A1D70Z Performance of Urinary Filtration, Intermittent, Less than 6 Hours Per Day (ICD-10-PCS; 2020-10-05)
PROC: 5A1D70Z Performance of Urinary Filtration, Intermittent, Less than 6 Hours Per Day (ICD-10-PCS; 2020-10-07)
PROC: 5A1D70Z Performance of Urinary Filtration, Intermittent, Less than 6 Hours Per Day (ICD-10-PCS; 2020-10-10)
PROC: 5A1D70Z Performance of Urinary Filtration, Intermittent, Less than 6 Hours Per Day (ICD-10-PCS; 2020-10-14)
PROC: 5A1D70Z Performance of Urinary Filtration, Intermittent, Less than 6 Hours Per Day (ICD-10-PCS; 2020-10-17)
DX: N17.9 Acute kidney failure, unspecified (principal); J96.10 Chronic respiratory failure, unspecified whether with hypoxia or hypercapnia; E87.2 Acidosis; I13.0 Hypertensive heart and chronic kidney disease with heart failure and stage 1 through stage 4 chronic kidney disease, or unspecified chronic kidney disease; J44.1 Chronic obstructive pulmonary disease with (acute) exacerbation; E46 Unspecified protein-calorie malnutrition; N18.4 Chronic kidney disease, stage 4 (severe); E11.22 Type 2 diabetes mellitus with diabetic chronic kidney disease; E78.00 Pure hypercholesterolemia, unspecified; E78.5 Hyperlipidemia, unspecified; F17.210 Nicotine dependence, cigarettes, uncomplicated; N13.9 Obstructive and reflux uropathy, unspecified; I25.10 Atherosclerotic heart disease of native coronary artery without angina pectoris; I48.0 Paroxysmal atrial fibrillation; I50.9 Heart failure, unspecified; K59.00 Constipation, unspecified; F32.9 Major depressive disorder, single episode, unspecified; F41.9 Anxiety disorder, unspecified; G89.29 Other chronic pain; M19.90 Unspecified osteoarthritis, unspecified site; M54.9 Dorsalgia, unspecified; E11.42 Type 2 diabetes mellitus with diabetic polyneuropathy; Z60.2 Problems related to living alone; D63.1 Anemia in chronic kidney disease; N26.1 Atrophy of kidney (terminal); N50.89 Other specified disorders of the male genital organs; Z20.822 Contact with and (suspected) exposure to COVID-19; Z83.3 Family history of diabetes mellitus; I25.2 Old myocardial infarction; Z79.01 Long term (current) use of anticoagulants; Z91.19 Patient's noncompliance with other medical treatment and regimen; Z95.1 Presence of aortocoronary bypass graft; Z86.73 Personal history of transient ischemic attack (TIA), and cerebral infarction without residual deficits; Z99.2 Dependence on renal dialysis; Z99.81 Dependence on supplemental oxygen; Z71.6 Tobacco abuse counseling; Z79.899 Other long term (current) drug therapy; Z68.20 Body mass index [BMI] 20.0-20.9, adult; R19.7 Diarrhea, unspecified
CPT/HCPCS: 36415; 36430; 36558; 71045; 74176; 76775; 76937; 77001; 78707; 80048; 80053; 81001; 82150; 82272; 82570; 83605; 83690; 83735; 84100; 84132; 84156; 84443; 84560; 85007; 85008; 85025; 85027; 85610; 86704; 86706; 86885; 86900; 86901; 86920; 87081; 87324; 87340; 87449; 87635; 93306; 93930; 93970; 93971; 94640; 94760; 96374; 97110; 97116; 97161; 97530; 97535; 99152; 99153; 99285; A9562; G0378; J1644; J1940; J2150; J2250; J2405; J3010; J7030; P9016; Q4081; Q9963